=== PATIENT | male | born 1950 | race Caucasian/White ===

== ENCOUNTER 2017-09-07 08:00 | Outpatient (RCR) | payer MEDICARE, SELFPAY ==
[2017-08-14 00:40] VITALS: BP 131/74; PULSE 77; RESP 18; TEMP 36.6
[2017-08-15 08:12] VITALS: BP 146/74; PULSE 83; RESP 16; TEMP 35.3
--- NOTE | 2017-08-15 16:56 | PCM.WC.HP ---
History of Present Illness Date of Service: 08/15/17 - WOUND CENTER CONSULT Chief Complaint: Nonhealing ulcers left leg s/p fracture and hardware placement. REFERRRING PHYSICIAN: Dr. Box. DOCUMENTATION SPEC: Dr. De Oliveira. History of Wound: Patient presented to the Wound Center in 06/30 with nonhealing ulcers left leg. His initial trauma was in 2004 where he sustained a complex fracture wound that required hardware placement and a complex muscle flap for reconstruction. He states the flap came from his abdomen (rectus abdominis muscle flap) utilizing a microvascular free tissue transfer. This was done at [facility] in [place]. He states he did fine until 2015 when he developed an infection that required operative debridement in [place] followed by antibiotics and wound care. With recurrent ulceration and drainage, he came to this Wound Center. Wound culture in 06/30 showed Staphylococcus aureus and E. coli. Repeat culture in 07/30 showed E. coli. He is currently on Levaquin. He had a Venous Doppler study in 06/30 which showed no DVT and incompetent veins with insufficiency. He had an LEAS study in 06/30 which showed triphasic waveforms and calcification. No significant vascular stenoses seen. A CT in 07/30 showed the hardware placement with healed bone and no radiological evidence of osteomyelitis. He has been using Promogran dressing changes for his wound care. I was asked to evaluate his nonhealing ulcers for surgical options for treatment. Today he denies any fever. His appetite is good. Past Medical History Past Medical History: Chronic Problems Peripheral vascular occlusive disease (Chronic) Venous ulcer of ankle (Chronic) Neuropathy of left lower extremity (Chronic) Diabetes type 2, controlled (Chronic) Edema (Chronic) Stasis dermatitis of left lower extremity due to peripheral venous hypertension (Chronic) Ulcer of left lower extremity (Chronic) Past Medical History: Hypertension. Diabetes mellitus. Hyperlipidemia. Venous insufficiency. Arthritis. Surgical History: - - 2004 - At [facility], Left tib fib fracture repair with hardware placement and complex soft tissue reconstruction with rectus abdominis muscle flap microvascular free tissue transfer. 2016 - [facility], Debridement of left leg wound infection. Allergies/Adverse Reactions: Allergies No Known Allergies Allergy (Verified 06/16/17 09:38) Home Medications: Ambulatory Orders Medication Instructions Recorded Aspirin [Aspirin, Baby] 81 mg PO DAILY@0800 06/16/17 Atorvastatin Calcium 20 mg PO DAILY 06/16/17 Cinnamon Bark [Cinnamon] 500 mg PO 06/16/17 Lisinopril [Zestril] 10 mg PO 06/16/17 Metformin HCl 500 mg PO BID 06/16/17 Multivitamin [Multiple Vitamins] 1 each PO 06/16/17 Vit A,C,D3,E/Galvin-3/Ala/Dha 06/16/17 [Child's Galvin-3 Dha Multivitam] - Family History Maternal No pertinent history Lives: Spouse/ Significant Other Smoking Status: Former smoker Alcohol: Rare Drugs: None Review of Systems Constitutional: Denies: Fever, Weight Change, Fatigue Eyes: Denies: Pain HEENT: Denies: Nasal Congestion, Sore Throat Cardiovascular: Denies: Chest Pain Respiratory: Denies: Cough, Shortness of Breath Gastrointestinal: Denies: Constipation, Diarrhea, Nausea, Vomiting Genitourinary: Denies: Frequency, Hematuria Musculoskeletal: Reports: Leg Pain - left leg pain.. Denies: Back Pain, Hand Pain, Muscle pain, Neck Pain Skin: Reports: Wounds - nonhealing ulcers left leg. Neurological: Denies: Headaches Psychiatric: Denies: Anxiety, Depression Endocrine: Reports: - - has diabetes mellitus.. Denies: Polydipsia, Polyuria Hematologic/ Lymphatic: Denies: Easy Bruising, Hx of blood clot - Physical Exam Vital Signs Temp Pulse Resp BP 95.5 F L 83 16 146/74 H 08/15/17 08:12 08/15/17 08:12 08/15/17 08:12 08/15/17 08:12 General: Alert, Oriented x3 HEENT: PERRLA, EOMI Neck: Supple Lungs: Clear to auscultation Cardiovascular: Regular rate, Regular Rhythm Abdomen: Soft, Non-Distended Extremities: No clubbing, No cyanosis, Edema - mild edema left leg., Peripheral Pulses Normal, - - has nonhealing ulcers left medial leg. The central ulcer extends to the bone. Has an ulcer left medial ankle and left anterior leg, more superficial. Skin: Ulcer/ Wound - has nonhealing ulcers left medial leg. The central ulcer extends to the bone. Has an ulcer left medial ankle and left anterior leg, more superficial. Wound Measurements and Assessment WC - Nurse 1 - General Ulcer Measurement Start: 08/15/17 08:12 Freq: Status: Active Protocol: Activity Type Activity Date Activity User E-Sign Co-Sign Detail Recorded Client Recorded Date Recorded By Document 08/15/17 08:12 MW [id number] 08/15/17 08:18 MW 08/15/17 08:12 Wound Center Nurse 1 [Ulcer Assessment Protocol: WC.WD.LOC] # 7 Left Superior Carter (pinhole) -Combined with other wound No -Current Size (cm) - Length 0.3 -Current Size (cm) - Width 0.3 -Current Size (cm) - Depth 0.8 -Total Square Cm 0.09 -Photo Taken No -Epithelialization None Present -Tunneling No -Undermining/Tunneling No -Circular Undermining No -Exudate Amt Small (1-33%) -Exudate Type Purulent -Wound Margin Indistinct, Non -Visible -Granulation Amt Small (1-33%) -Granulation Quality [place] -Slough/Fibrin Yes -Necrosis Amt Medium (34-66%) -Necrotic Tissue Type Adherent Slough -Structure Exposed N/A -Texture (Rufina-wound Skin Appearance) Assessed Localized Edema -Moisture (Rufina-wound Skin Appearance No Abnormality ) Assessed -Color (Rufina-wound Skin Appearance) No Abnormality Assessed -Temperature (Rufina-wound Skin No Abnormality Appearance) (Pt Warm) -Tenderness on Palpation (Rufina-wound No Skin Appearance) -Ulcer Cleansing Rinsed/ Irrigated with Saline -Foul Odor after Cleansing No -Anesthetic Used 4% Lidocaine Solution #4- LT MEDIAL ANKLE -Combined with other wound No -Current Size (cm) - Length 0.1 -Current Size (cm) - Width 0.1 -Current Size (cm) - Depth 0.1 -Total Square Cm 0.01 -Photo Taken No -Epithelialization None Present -Tunneling No -Undermining/Tunneling No -Circular Undermining No -Exudate Amt None Present (0 %) -Granulation Amt None Present (0 %) -Granulation Quality N/A -Slough/Fibrin Yes -Necrosis Amt Large (67-100%) -Necrotic Tissue Type Adherent Slough -Structure Exposed N/A -Texture (Rufina-wound Skin Appearance) Assessed Localized Edema -Moisture (Rufina-wound Skin Appearance Assessed ) Dry/Scaly -Color (Rufina-wound Skin Appearance) No Abnormality Assessed Hemosiderin Staining -Temperature (Rufina-wound Skin No Abnormality Appearance) (Pt Warm) -Tenderness on Palpation (Rufina-wound No Skin Appearance) -Ulcer Cleansing Rinsed/ Irrigated with Saline -Foul Odor after Cleansing No -Anesthetic Used 4% Lidocaine Solution #1 Medial LLE Cluster -Combined with other wound No -Current Size (cm) - Length 7.8 -Current Size (cm) - Width 1.0 -Current Size (cm) - Depth 1.3 -Total Square Cm 7.80 -Photo Taken No -Epithelialization None Present -Tunneling No -Undermining/Tunneling No -Circular Undermining No -Exudate Amt Small (1-33%) -Exudate Type Serosanguineous -Wound Margin Distinct, Outline Attached -Granulation Amt Medium (34-66%) -Granulation Quality [place] -Slough/Fibrin Yes -Necrosis Amt Medium (34-66%) -Necrotic Tissue Type Adherent Slough -Structure Exposed N/A -Texture (Rufina-wound Skin Appearance) Assessed Localized Edema -Moisture (Rufina-wound Skin Appearance No Abnormality ) Assessed -Color (Rufina-wound Skin Appearance) No Abnormality Assessed -Temperature (Rufina-wound Skin No Abnormality Appearance) (Pt Warm) -Tenderness on Palpation (Rufina-wound No Skin Appearance) -Ulcer Cleansing Rinsed/ Irrigated with Saline -Foul Odor after Cleansing No -Anesthetic Used 4% Lidocaine Solution [Edema Assessment] -Lower Limb Edema Present Yes -Left Calf (cm) 44.4 -Point of Measurement (cm from the 31.4 medial instep) WC - Nurse 2 - General Ulcer CM Notes Start: 08/15/17 08:12 Freq: Status: Active Protocol: Activity Type Activity Date Activity User E-Sign Co-Sign Detail Recorded Client Recorded Date Recorded By Document 08/15/17 08:45 [email or web address] [id number] 08/15/17 08:47 DEBBIE 08/15/17 08:45 Wound Center Nurse 2 [Procedure/Treatment] # 7 Left Superior Carter (pinhole) -Time 08:46 -Correct Patient Yes -Correct Side, Site, Position Yes -Correct Procedure Yes -Procedure Performed Yes -Type of Procedure Debridement -Clinical Debridement Subcutaneous -Post Debridement Size (cm) - Length 0.3 -Post Debridement Size (cm) - Width 0.4 -Post Debridement Size (cm) - Depth 0.8 -Total Square Cm 0.12 -Wound/Ulcer Outcome Not Healed -Ulcer Cleansing Rinsed/ Irrigated with Saline -Foul Odor after Cleansing No -Bioengineered Tissue No -Cetacaine [place] No -Bleeding Controlled with Pressure -Treatment Response Procedure Tolerated Well #4- LT MEDIAL ANKLE -Time 08:46 -Correct Patient Yes -Correct Side, Site, Position Yes -Correct Procedure Yes -Procedure Performed Yes -Type of Procedure Debridement -Clinical Debridement Subcutaneous -Post Debridement Size (cm) - Length 0.2 -Post Debridement Size (cm) - Width 0.2 -Post Debridement Size (cm) - Depth 0.1 -Total Square Cm 0.04 -Wound/Ulcer Outcome Not Healed -Ulcer Cleansing Rinsed/ Irrigated with Saline -Foul Odor after Cleansing No -Bioengineered Tissue No -Cetacaine [place] No -Bleeding Controlled with Pressure -Treatment Response Procedure Tolerated Well #1 Medial LLE Cluster -Time 08:46 -Correct Patient Yes -Correct Side, Site, Position Yes -Correct Procedure Yes -Procedure Performed Yes -Type of Procedure Debridement -Clinical Debridement Subcutaneous -Post Debridement Size (cm) - Length 7.8 -Post Debridement Size (cm) - Width 1.1 -Post Debridement Size (cm) - Depth 3.0 -Total Square Cm 8.58 -Wound/Ulcer Outcome Not Healed -Ulcer Cleansing Rinsed/ Irrigated with Saline -Foul Odor after Cleansing No -Bioengineered Tissue No -Cetacaine [place] No -Bleeding Controlled with Pressure -Treatment Response Procedure Tolerated Well [See Physician Procedure note for Specifics] Pain Scale: 0-10 Numeric [Pain] -Is Patient Pain Free? Yes Lymphatic: No Cervical, Supraclavicular, or Inguinal Adenopathy Neurological: Cranial nerves II-XII grossly intact Psych/Mental Status: Normal Affect, Appropriate Debridement Note Post-Debridement Measurements/Treatment WC - Nurse 2 - General Ulcer CM Notes Start: 08/15/17 08:12 Freq: Status: Active Protocol: Activity Type Activity Date Activity User E-Sign Co-Sign Detail Recorded Client Recorded Date Recorded By Document 08/15/17 08:45 [email or web address] [id number] 08/15/17 08:47 DEBBIE 08/15/17 08:45 Wound Center Nurse 2 # 7 Left Superior Carter (pinhole) -Time 08:46 -Correct Patient Yes -Correct Side, Site, Position Yes -Correct Procedure Yes -Procedure Performed Yes -Type of Procedure Debridement -Clinical Debridement Subcutaneous -Post Debridement Size (cm) - Length 0.3 -Post Debridement Size (cm) - Width 0.4 -Post Debridement Size (cm) - Depth 0.8 -Total Square Cm 0.12 -Wound/Ulcer Outcome Not Healed -Ulcer Cleansing Rinsed/ Irrigated with Saline -Foul Odor after Cleansing No -Bioengineered Tissue No -Cetacaine [place] No -Bleeding Controlled with Pressure -Treatment Response Procedure Tolerated Well #4- LT MEDIAL ANKLE -Time 08:46 -Correct Patient Yes -Correct Side, Site, Position Yes -Correct Procedure Yes -Procedure Performed Yes -Type of Procedure Debridement -Clinical Debridement Subcutaneous -Post Debridement Size (cm) - Length 0.2 -Post Debridement Size (cm) - Width 0.2 -Post Debridement Size (cm) - Depth 0.1 -Total Square Cm 0.04 -Wound/Ulcer Outcome Not Healed -Ulcer Cleansing Rinsed/ Irrigated with Saline -Foul Odor after Cleansing No -Bioengineered Tissue No -Cetacaine [place] No -Bleeding Controlled with Pressure -Treatment Response Procedure Tolerated Well #1 Medial LLE Cluster -Time 08:46 -Correct Patient Yes -Correct Side, Site, Position Yes -Correct Procedure Yes -Procedure Performed Yes -Type of Procedure Debridement -Clinical Debridement Subcutaneous -Post Debridement Size (cm) - Length 7.8 -Post Debridement Size (cm) - Width 1.1 -Post Debridement Size (cm) - Depth 3.0 -Total Square Cm 8.58 -Wound/Ulcer Outcome Not Healed -Ulcer Cleansing Rinsed/ Irrigated with Saline -Foul Odor after Cleansing No -Bioengineered Tissue No -Cetacaine [place] No -Bleeding Controlled with Pressure -Treatment Response Procedure Tolerated Well Pain Scale: 0-10 Numeric Is Patient Pain Free? Yes Wound debrided: #1 Left medial leg cluster. Laterality: Left Wound Grade/Stage: 3. Type of Debridement: Excisional debridement Anesthesia Used: 4% Lidocaine Solution Depth: Down to and including healthy tissue, in the subcutaneous layer - central ulcer extends to the bone. Percentage of wound debrided: 100 Instrument Used: 5mm curette Tissue Removed: subcutaneous tissue. Severity: Fat Layer Exposed Amount of bleeding with debridement: Mild Bleeding Controlled with: Pressure Patient tolerated procedure well - Additional Wound Wound debrided: #4 Left medial ankle. Laterality: Left Wound Grade/Stage: 2. Type of Debridement: Excisional debridement Anesthesia Used: 4% Lidocaine Solution Depth: Down to and including healthy tissue, in the subcutaneous layer Percentage of wound debrided: 100 Instrument Used: 3mm curette Tissue Removed: subcutaneous tissue. Severity: Fat Layer Exposed Amount of bleeding with debridement: Mild Bleeding Controlled with: Pressure Patient tolerated procedure: Patient tolerated procedure well - Additional Wound Wound debrided: #7 Left anterior leg. Laterality: Left Wound Grade/Stage: 2. Type of Debridement: Excisional debridement Anesthesia Used: 4% Lidocaine Solution Depth: Down to and including healthy tissue, in the subcutaneous layer Percentage of wound debrided: 100 Instrument Used: 3mm curette Tissue Removed: subcutaneous tissue. Severity: Fat Layer Exposed Amount of bleeding with debridement: Mild Bleeding Controlled with: Pressure Patient tolerated procedure: Patient tolerated procedure well Assessment/Plan Assessment: 1. Nonhealing ulcers cluster left medial leg with extension to the bone. 2. Nonhealing ulcer left medial ankle. 3. Nonhealing ulcer left anterior leg. 4. s/p complex left tib fib fracture repair with hardware placement and soft tissue reconstruction with a microvascular free tissue transfer muscle flap. 5. Venous insufficiency. 6. Diabetes mellitus. 7. Former smoker. Plan: Patient has chronic ulcerations left leg with underlying hardware placement from a complex fracture repair several years ago. Recent wound cultures are showing E. coli and he is continuing his Levaquin. Recent Prealbumin was 21.3 and he takes nutritional supplementation with protein to help the healing process. Recent CT did not show radiologic evidence of osteomyelitis, but I am concerned that chronic osteomyelitis may be present and needs to be evaluated surgically. Also consideration should be done to removing the hardware as well as it may be contributing to the nonhealing ulcers as well. Continue the Promogran dressing changes to the more superficial ulcers. The one ulcer on the medial aspect that extends to the bone can be dressed with a Silver rope dressing daily. The operative debridement needs to be done at a tertiary center because of the presence of the complex muscle flap which utilized microvascular free tissue transfer techniques. If during the operative debridement there is some compromise to the flap, then revision of the flap or an additional flap may be necessary utilizing microvascular free tissue transfer techniques. Also Orthopedic Surgery needs to be involved for removal of the hardware. If osteomyelitis is present, then possible bone grafting may be necessary. Will make the appointment for him to be evaluated at a tertiary center. Until then, followup with Dr. Box every couple of weeks for continued wound care.
--- NOTE | 2017-08-16 22:57 | HP.PCM_ITS ---
History of Present Illness Date of Service: 08/15/17 - WOUND CENTER CONSULT Chief Complaint: Nonhealing ulcers left leg s/p fracture and hardware placement. REFERRRING PHYSICIAN: Dr. Box. LOZENGE MAKER: Dr. De Oliveira. History of Wound: Patient presented to the Wound Center in 06/30 with nonhealing ulcers left leg. His initial trauma was in 2004 where he sustained a complex fracture wound that required hardware placement and a complex muscle flap for reconstruction. He states the flap came from his abdomen (rectus abdominis muscle flap) utilizing a microvascular free tissue transfer. This was done at [facility] in [place]. He states he did fine until 2015 when he developed an infection that required operative debridement in [place] followed by antibiotics and wound care. With recurrent ulceration and drainage, he came to this Wound Center. Wound culture in 06/30 showed Staphylococcus aureus and E. coli. Repeat culture in 07/30 showed E. coli. He is currently on Levaquin. He had a Venous Doppler study in 06/30 which showed no DVT and incompetent veins with insufficiency. He had an LEAS study in 06/30 which showed triphasic waveforms and calcification. No significant vascular stenoses seen. A CT in showed the hardware placement with healed bone and no radiological evidence of osteomyelitis. He has been using Promogran dressing changes for his wound care. I was asked to evaluate his nonhealing ulcers for surgical options for treatment. Today he denies any fever. His appetite is good. Past Medical History Past Medical History: Chronic Problems Peripheral vascular occlusive disease (Chronic) Venous ulcer of ankle (Chronic) Neuropathy of left lower extremity (Chronic) Diabetes type 2, controlled (Chronic) Edema (Chronic) Stasis dermatitis of left lower extremity due to peripheral venous hypertension (Chronic) Ulcer of left lower extremity (Chronic) Past Medical History: Hypertension. Diabetes mellitus. Hyperlipidemia. Venous insufficiency. Arthritis. Surgical History: - - 2004 - At [facility], Left tib fib fracture repair with hardware placement and complex soft tissue reconstruction with rectus abdominis muscle flap microvascular free tissue transfer. 2016 - [facility] , Debridement of left leg wound infection. Allergies/Adverse Reactions: Allergies No Known Allergies Allergy (Verified 06/16/17 09:38) Home Medications: Ambulatory Orders Medication Instructions Recorded Aspirin [Aspirin, Baby] 81 mg PO DAILY@0800 06/16/17 Atorvastatin Calcium 20 mg PO DAILY 06/16/17 Cinnamon Bark [Cinnamon] 500 mg PO 06/16/17 Lisinopril [Zestril] 10 mg PO 06/16/17 Metformin HCl 500 mg PO BID 06/16/17 Multivitamin [Multiple Vitamins] 1 each PO 06/16/17 Vit A,C,D3,E/Eva-3/Ala/Dha 06/16/17 [Child's Eva-3 Dha Multivitam] - Family History Maternal No pertinent history Lives: Spouse/ Significant Other Smoking Status: Former smoker Alcohol: Rare Drugs: None Review of Systems Constitutional: Denies: Fever, Weight Change, Fatigue Eyes: Denies: Pain HEENT: Denies: Nasal Congestion, Sore Throat Cardiovascular: Denies: Chest Pain Respiratory: Denies: Cough, Shortness of Breath Gastrointestinal: Denies: Constipation, Diarrhea, Nausea, Vomiting Genitourinary: Denies: Frequency, Hematuria Musculoskeletal: Reports: Leg Pain - left leg pain.. Denies: Back Pain, Hand Pain, Muscle pain, Neck Pain Skin: Reports: Wounds - nonhealing ulcers left leg. Neurological: Denies: Headaches Psychiatric: Denies: Anxiety, Depression Endocrine: Reports: - - has diabetes mellitus.. Denies: Polydipsia, Polyuria Hematologic/ Lymphatic: Denies: Easy Bruising, Hx of blood clot - Physical Exam Vital Signs Temp Pulse Resp BP 95.5 F L 83 16 146/74 H 08/15/17 08:12 08/15/17 08:12 08/15/17 08:12 08/15/17 08:12 General: Alert, Oriented x3 HEENT: PERRLA, EOMI Neck: Supple Lungs: Clear to auscultation Cardiovascular: Regular rate, Regular Rhythm Abdomen: Soft, Non-Distended Extremities: No clubbing, No cyanosis, Edema - mild edema left leg., Peripheral Pulses Normal, - - has nonhealing ulcers left medial leg. The central ulcer extends to the bone. Has an ulcer left medial ankle and left anterior leg, more superficial. Skin: Ulcer/ Wound - has nonhealing ulcers left medial leg. The central ulcer extends to the bone. Has an ulcer left medial ankle and left anterior leg, more superficial. Wound Measurements and Assessment WC - Nurse 1 - General Ulcer Measurement Start: 08/15/17 08:12 Freq: Status: Active Protocol: Activity Type Activity Date Activity User E-Sign Co-Sign Detail Recorded Client Recorded Date Recorded By Document 08/15/17 08:12 MW [id number] 08/15/17 08:18 MW 08/15/17 08:12 Wound Center Nurse 1 [Ulcer Assessment Protocol: WC.WD.LOC] # 7 Left Superior Carter (pinhole) -Combined with other wound No -Current Size (cm) - Length 0.3 -Current Size (cm) - Width 0.3 -Current Size (cm) - Depth 0.8 -Total Square Cm 0.09 -Photo Taken No -Epithelialization None Present -Tunneling No -Undermining/Tunneling No -Circular Undermining No -Exudate Amt Small (1-33%) -Exudate Type Purulent -Wound Margin Indistinct, Non -Visible -Granulation Amt Small (1-33%) -Granulation Quality [place] -Slough/Fibrin Yes -Necrosis Amt Medium (34-66%) -Necrotic Tissue Type Adherent Slough -Structure Exposed N/A -Texture (Rufina-wound Skin Appearance) Assessed Localized Edema -Moisture (Rufina-wound Skin Appearance No Abnormality ) Assessed -Color (Rufina-wound Skin Appearance) No Abnormality Assessed -Temperature (Rufina-wound Skin No Abnormality Appearance) (Pt Warm) -Tenderness on Palpation (Rufina-wound No Skin Appearance) -Ulcer Cleansing Rinsed/ Irrigated with Saline -Foul Odor after Cleansing No -Anesthetic Used 4% Lidocaine Solution #4- LT MEDIAL ANKLE -Combined with other wound No -Current Size (cm) - Length 0.1 -Current Size (cm) - Width 0.1 -Current Size (cm) - Depth 0.1 -Total Square Cm 0.01 -Photo Taken No -Epithelialization None Present -Tunneling No -Undermining/Tunneling No -Circular Undermining No -Exudate Amt None Present (0 %) -Granulation Amt None Present (0 %) -Granulation Quality N/A -Slough/Fibrin Yes -Necrosis Amt Large (67-100%) -Necrotic Tissue Type Adherent Slough -Structure Exposed N/A -Texture (Rufina-wound Skin Appearance) Assessed Localized Edema -Moisture (Rufina-wound Skin Appearance Assessed ) Dry/Scaly -Color (Rufina-wound Skin Appearance) No Abnormality Assessed Hemosiderin Staining -Temperature (Rufina-wound Skin No Abnormality Appearance) (Pt Warm) -Tenderness on Palpation (Rufina-wound No Skin Appearance) -Ulcer Cleansing Rinsed/ Irrigated with Saline -Foul Odor after Cleansing No -Anesthetic Used 4% Lidocaine Solution #1 Medial LLE Cluster -Combined with other wound No -Current Size (cm) - Length 7.8 -Current Size (cm) - Width 1.0 -Current Size (cm) - Depth 1.3 -Total Square Cm 7.80 -Photo Taken No -Epithelialization None Present -Tunneling No -Undermining/Tunneling No -Circular Undermining No -Exudate Amt Small (1-33%) -Exudate Type Serosanguineous -Wound Margin Distinct, Outline Attached -Granulation Amt Medium (34-66%) -Granulation Quality [place] -Slough/Fibrin Yes -Necrosis Amt Medium (34-66%) -Necrotic Tissue Type Adherent Slough -Structure Exposed N/A -Texture (Rufina-wound Skin Appearance) Assessed Localized Edema -Moisture (Rufina-wound Skin Appearance No Abnormality ) Assessed -Color (Rufina-wound Skin Appearance) No Abnormality Assessed -Temperature (Rufina-wound Skin No Abnormality Appearance) (Pt Warm) -Tenderness on Palpation (Rufina-wound No Skin Appearance) -Ulcer Cleansing Rinsed/ Irrigated with Saline -Foul Odor after Cleansing No -Anesthetic Used 4% Lidocaine Solution [Edema Assessment] -Lower Limb Edema Present Yes -Left Calf (cm) 44.4 -Point of Measurement (cm from the 31.4 medial instep) WC - Nurse 2 - General Ulcer CM Notes Start: 08/15/17 08:12 Freq: Status: Active Protocol: Activity Type Activity Date Activity User E-Sign Co-Sign Detail Recorded Client Recorded Date Recorded By Document 08/15/17 08:45 [email or web address] [id number] 08/15/17 08:47 [email or web address] 08/15/17 08:45 Wound Center Nurse 2 [Procedure/Treatment] # 7 Left Superior Carter (pinhole) -Time 08:46 -Correct Patient Yes -Correct Side, Site, Position Yes -Correct Procedure Yes -Procedure Performed Yes -Type of Procedure Debridement -Clinical Debridement Subcutaneous -Post Debridement Size (cm) - Length 0.3 -Post Debridement Size (cm) - Width 0.4 -Post Debridement Size (cm) - Depth 0.8 -Total Square Cm 0.12 -Wound/Ulcer Outcome Not Healed -Ulcer Cleansing Rinsed/ Irrigated with Saline -Foul Odor after Cleansing No -Bioengineered Tissue No -Cetacaine Plover No -Bleeding Controlled with Pressure -Treatment Response Procedure Tolerated Well #4- LT MEDIAL ANKLE -Time 08:46 -Correct Patient Yes -Correct Side, Site, Position Yes -Correct Procedure Yes -Procedure Performed Yes -Type of Procedure Debridement -Clinical Debridement Subcutaneous -Post Debridement Size (cm) - Length 0.2 -Post Debridement Size (cm) - Width 0.2 -Post Debridement Size (cm) - Depth 0.1 -Total Square Cm 0.04 -Wound/Ulcer Outcome Not Healed -Ulcer Cleansing Rinsed/ Irrigated with Saline -Foul Odor after Cleansing No -Bioengineered Tissue No -Cetacaine Plover No -Bleeding Controlled with Pressure -Treatment Response Procedure Tolerated Well #1 Medial LLE Cluster -Time 08:46 -Correct Patient Yes -Correct Side, Site, Position Yes -Correct Procedure Yes -Procedure Performed Yes -Type of Procedure Debridement -Clinical Debridement Subcutaneous -Post Debridement Size (cm) - Length 7.8 -Post Debridement Size (cm) - Width 1.1 -Post Debridement Size (cm) - Depth 3.0 -Total Square Cm 8.58 -Wound/Ulcer Outcome Not Healed -Ulcer Cleansing Rinsed/ Irrigated with Saline -Foul Odor after Cleansing No -Bioengineered Tissue No -Cetacaine Plover No -Bleeding Controlled with Pressure -Treatment Response Procedure Tolerated Well [See Physician Procedure note for Specifics] Pain Scale: 0-10 Numeric [Pain] -Is Patient Pain Free? Yes Lymphatic: No Cervical, Supraclavicular, or Inguinal Adenopathy Neurological: Cranial nerves II-XII grossly intact Psych/Mental Status: Normal Affect, Appropriate Debridement Note Post-Debridement Measurements/Treatment WC - Nurse 2 - General Ulcer CM Notes Start: 08/15/17 08:12 Freq: Status: Active Protocol: Activity Type Activity Date Activity User E-Sign Co-Sign Detail Recorded Client Recorded Date Recorded By Document 08/15/17 08:45 [email or web address] [id number] 08/15/17 08:47 [email or web address] 08/15/17 08:45 Wound Center Nurse 2 # 7 Left Superior Carter (pinhole) -Time 08:46 -Correct Patient Yes -Correct Side, Site, Position Yes -Correct Procedure Yes -Procedure Performed Yes -Type of Procedure Debridement -Clinical Debridement Subcutaneous -Post Debridement Size (cm) - Length 0.3 -Post Debridement Size (cm) - Width 0.4 -Post Debridement Size (cm) - Depth 0.8 -Total Square Cm 0.12 -Wound/Ulcer Outcome Not Healed -Ulcer Cleansing Rinsed/ Irrigated with Saline -Foul Odor after Cleansing No -Bioengineered Tissue No -Cetacaine Plover No -Bleeding Controlled with Pressure -Treatment Response Procedure Tolerated Well #4- LT MEDIAL ANKLE -Time 08:46 -Correct Patient Yes -Correct Side, Site, Position Yes -Correct Procedure Yes -Procedure Performed Yes -Type of Procedure Debridement -Clinical Debridement Subcutaneous -Post Debridement Size (cm) - Length 0.2 -Post Debridement Size (cm) - Width 0.2 -Post Debridement Size (cm) - Depth 0.1 -Total Square Cm 0.04 -Wound/Ulcer Outcome Not Healed -Ulcer Cleansing Rinsed/ Irrigated with Saline -Foul Odor after Cleansing No -Bioengineered Tissue No -Cetacaine Plover No -Bleeding Controlled with Pressure -Treatment Response Procedure Tolerated Well #1 Medial LLE Cluster -Time 08:46 -Correct Patient Yes -Correct Side, Site, Position Yes -Correct Procedure Yes -Procedure Performed Yes -Type of Procedure Debridement -Clinical Debridement Subcutaneous -Post Debridement Size (cm) - Length 7.8 -Post Debridement Size (cm) - Width 1.1 -Post Debridement Size (cm) - Depth 3.0 -Total Square Cm 8.58 -Wound/Ulcer Outcome Not Healed -Ulcer Cleansing Rinsed/ Irrigated with Saline -Foul Odor after Cleansing No -Bioengineered Tissue No -Cetacaine Plover No -Bleeding Controlled with Pressure -Treatment Response Procedure Tolerated Well Pain Scale: 0-10 Numeric Is Patient Pain Free? Yes Wound debrided: #1 Left medial leg cluster. Laterality: Left Wound Grade/Stage: 3. Type of Debridement: Excisional debridement Anesthesia Used: 4% Lidocaine Solution Depth: Down to and including healthy tissue, in the subcutaneous layer - central ulcer extends to the bone. Percentage of wound debrided: 100 Instrument Used: 5mm curette Tissue Removed: subcutaneous tissue. Severity: Fat Layer Exposed Amount of bleeding with debridement: Mild Bleeding Controlled with: Pressure Patient tolerated procedure well - Additional Wound Wound debrided: #4 Left medial ankle. Laterality: Left Wound Grade/Stage: 2. Type of Debridement: Excisional debridement Anesthesia Used: 4% Lidocaine Solution Depth: Down to and including healthy tissue, in the subcutaneous layer Percentage of wound debrided: 100 Instrument Used: 3mm curette Tissue Removed: subcutaneous tissue. Severity: Fat Layer Exposed Amount of bleeding with debridement: Mild Bleeding Controlled with: Pressure Patient tolerated procedure: Patient tolerated procedure well - Additional Wound Wound debrided: #7 Left anterior leg. Laterality: Left Wound Grade/Stage: 2. Type of Debridement: Excisional debridement Anesthesia Used: 4% Lidocaine Solution Depth: Down to and including healthy tissue, in the subcutaneous layer Percentage of wound debrided: 100 Instrument Used: 3mm curette Tissue Removed: subcutaneous tissue. Severity: Fat Layer Exposed Amount of bleeding with debridement: Mild Bleeding Controlled with: Pressure Patient tolerated procedure: Patient tolerated procedure well Assessment/Plan Assessment: 1. Nonhealing ulcers cluster left medial leg with extension to the bone. 2. Nonhealing ulcer left medial ankle. 3. Nonhealing ulcer left anterior leg. 4. s/p complex left tib fib fracture repair with hardware placement and soft tissue reconstruction with a microvascular free tissue transfer muscle flap. 5. Venous insufficiency. 6. Diabetes mellitus. 7. Former smoker. Plan: Patient has chronic ulcerations left leg with underlying hardware placement from a complex fracture repair several years ago. Recent wound cultures are showing E. coli and he is continuing his Levaquin. Recent Prealbumin was 21.3 and he takes nutritional supplementation with protein to help the healing process. Recent CT did not show radiologic evidence of osteomyelitis, but I am concerned that chronic osteomyelitis may be present and needs to be evaluated surgically. Also consideration should be done to removing the hardware as well as it may be contributing to the nonhealing ulcers as well. Continue the Promogran dressing changes to the more superficial ulcers. The one ulcer on the medial aspect that extends to the bone can be dressed with a Silver rope dressing daily. The operative debridement needs to be done at a tertiary center because of the presence of the complex muscle flap which utilized microvascular free tissue transfer techniques. If during the operative debridement there is some compromise to the flap, then revision of the flap or an additional flap may be necessary utilizing microvascular free tissue transfer techniques. Also Orthopedic Surgery needs to be involved for removal of the hardware. If osteomyelitis is present, then possible bone grafting may be necessary. Will make the appointment for him to be evaluated at a tertiary center. Until then, followup with Dr. Box every couple of weeks for continued wound care.
[2017-08-24 08:13] VITALS: BP 137/73; PULSE 88; RESP 16; TEMP 35.7
--- NOTE | 2017-08-24 16:22 | PCM.WC.PN ---
(1) Diabetes type 2, controlled Status: Chronic Current Visit: No Qualifiers: Diabetes mellitus complication status: with circulatory complication Code(s): E11.9 - Type 2 diabetes mellitus without complications (2) Neuropathy of left lower extremity Status: Chronic Current Visit: No Code(s): G57.92 - Unspecified mononeuropathy of left lower limb (3) Peripheral vascular occlusive disease Status: Chronic Current Visit: No Code(s): I73.9 - Peripheral vascular disease, unspecified (4) Stasis dermatitis of left lower extremity due to peripheral venous hypertension Status: Chronic Current Visit: No Code(s): I87.322 - Chronic venous hypertension (idiopathic) with inflammation of left lower extremity (5) Ulcer of left lower extremity Status: Chronic Current Visit: No Code(s): L97.929 - Non-pressure chronic ulcer of unspecified part of left lower leg with unspecified severity (6) Venous ulcer of ankle Status: Chronic Current Visit: No Qualifiers: Varicose vein presence: unspecified whether present Non-pressure ulcer stage: with muscle involvement without evidence of necrosis Code(s): I83.003 - Varicose veins of unspecified lower extremity with ulcer of ankle Type of Wound Date of Service: 08/24/17 Chief Complaint: Nonhealing ulcers left leg s/p fracture and hardware placement. REFERRRING PHYSICIAN: Dr. Box. [employer] LABORER: Dr. De Oliveira. History of Wound: Patient presented to the Wound Center in 06/30 with nonhealing ulcers left leg. His initial trauma was in 2004 where he sustained a complex fracture wound that required hardware placement and a complex muscle flap for reconstruction. He states the flap came from his abdomen (rectus abdominis muscle flap) utilizing a microvascular free tissue transfer. This was done at [facility] [place]. He states he did fine until 2016 when he developed an infection that required operative debridement in [place] followed by antibiotics and wound care. With recurrent ulceration and drainage, he came to this Wound Center. Wound culture in 06/30 showed Staphylococcus aureus and E. coli. Repeat culture in 07/30 showed E. coli. He is currently on Levaquin. He had a Venous Doppler study in 06/30 which showed no DVT and incompetent veins with insufficiency. He had an LEAS study in 06/30 which showed triphasic waveforms and calcification. No significant vascular stenoses seen. A CT in 07/30 showed the hardware placement with healed bone and no radiological evidence of osteomyelitis. He has been using Promogran dressing changes for his wound care. I was asked to evaluate his nonhealing ulcers for surgical options for treatment. Today he denies any fever. His appetite is good. Progress of Wound: Followed up with Dr. De Oliveira as recommended. Plan is for referral to a tertiary center for possible bone biopsy to rule out osteomyelitis and hardware removal. - Physical Exam Vital Signs Temp Pulse Resp BP 96.2 F L 88 16 137/73 H 08/24/17 08:13 08/24/17 08:13 08/24/17 08:13 08/24/17 08:13 General: Alert, Oriented x3, Cooperative, No apparent distress HEENT: Atraumatic, Normocephalic Oral: Moist Mucosa Neck: Supple Lungs: Normal air movement Skin: Ulcer/ Wound Wound Measurements and Assessment WC - Nurse 1 - General Ulcer Measurement Start: 08/15/17 08:12 Freq: Status: Active Protocol: Activity Type Activity Date Activity User E-Sign Co-Sign Detail Recorded Client Recorded Date Recorded By Document 08/24/17 08:13 DL [id number] 08/24/17 08:18 DL 08/24/17 08:13 Wound Center Nurse 1 [Ulcer Assessment Protocol: ELBA.WD.LOC] # 7 Left Superior Carter (pinhole) -Current Size (cm) - Length 0.4 -Current Size (cm) - Width 0.4 -Current Size (cm) - Depth 0.1 -Total Square Cm 0.16 -Photo Taken Yes -Exudate Amt None Present (0 %) -Wound Margin Distinct, Outline Attached -Granulation Amt Small (1-33%) -Granulation Quality Red -Necrosis Amt Small (1-33%) -Necrotic Tissue Type Adherent Slough -Structure Exposed N/A -Texture (Rufina-wound Skin Appearance) Scarring -Moisture (Rufina-wound Skin Appearance Dry/Scaly ) -Color (Rufina-wound Skin Appearance) Hemosiderin Staining -Temperature (Rufina-wound Skin No Abnormality Appearance) (Pt Warm) -Ulcer Cleansing Wound Cleanser -Foul Odor after Cleansing No -Anesthetic Used 4% Lidocaine Solution #4- LT MEDIAL ANKLE -Current Size (cm) - Length 0.1 -Current Size (cm) - Width 0.1 -Current Size (cm) - Depth 0.1 -Total Square Cm 0.01 -Photo Taken Yes -Exudate Amt None Present (0 %) -Wound Margin Flat & Intact -Granulation Amt None Present (0 %) -Necrosis Amt Large (67-100%) -Necrotic Tissue Type Adherent Slough -Structure Exposed N/A -Texture (Urfina-wound Skin Appearance) Scarring -Moisture (Rufina-wound Skin Appearance Dry/Scaly ) -Color (Rufina-wound Skin Appearance) Hemosiderin Staining -Temperature (Rufina-wound Skin No Abnormality Appearance) (Pt Warm) -Ulcer Cleansing Wound Cleanser -Foul Odor after Cleansing No -Anesthetic Used 4% Lidocaine Solution #1 Medial LLE Cluster -Current Size (cm) - Length 7.6 -Current Size (cm) - Width 2.1 -Current Size (cm) - Depth 2.8 -Total Square Cm 15.96 -Photo Taken Yes -Exudate Amt Medium (34-66%) -Exudate Type Serosanguineous -Wound Margin Distinct, Outline Attached -Granulation Amt Large (67-100%) -Granulation Quality Red -Necrosis Amt Small (1-33%) -Necrotic Tissue Type Adherent Slough -Structure Exposed Bone -Texture (Rufina-wound Skin Appearance) Scarring -Moisture (Rufina-wound Skin Appearance Dry/Scaly ) -Color (Rufina-wound Skin Appearance) Hemosiderin Staining -Temperature (Rufina-wound Skin No Abnormality Appearance) (Pt Warm) -Ulcer Cleansing Wound Cleanser -Foul Odor after Cleansing No -Anesthetic Used 4% Lidocaine Solution [Edema Assessment] -Left Calf (cm) 44.2 -Left Ankle (cm) 31.5 WC - Nurse 2 - General Ulcer CM Notes Start: 08/15/17 08:12 Freq: Status: Active Protocol: Activity Type Activity Date Activity User E-Sign Co-Sign Detail Recorded Client Recorded Date Recorded By Document 08/24/17 09:04 DV [id number] 08/24/17 09:06 DV 08/24/17 09:04 Wound Center Nurse 2 [Procedure/Treatment] # 7 Left Superior Carter (pinhole) -Time 09:04 -Correct Patient Yes -Correct Side, Site, Position Yes -Correct Procedure Yes -Procedure Performed Yes -Type of Procedure Debridement -Clinical Debridement Subcutaneous -Post Debridement Size (cm) - Length 0.5 -Post Debridement Size (cm) - Width 0.5 -Post Debridement Size (cm) - Depth 0.2 -Total Square Cm 0.25 -Wound/Ulcer Outcome Not Healed -Ulcer Cleansing Rinsed/ Irrigated with Saline -Foul Odor after Cleansing No -Bioengineered Tissue No -Cetacaine [place] No -Bleeding Controlled with Pressure -Treatment Response Procedure Tolerated Well #4- LT MEDIAL ANKLE -Time 09:04 -Correct Patient Yes -Correct Side, Site, Position Yes -Correct Procedure Yes -Procedure Performed Yes -Type of Procedure Debridement -Clinical Debridement Subcutaneous -Post Debridement Size (cm) - Length 0.1 -Post Debridement Size (cm) - Width 0.1 -Post Debridement Size (cm) - Depth 0.5 -Total Square Cm 0.01 -Wound/Ulcer Outcome Not Healed -Ulcer Cleansing Rinsed/ Irrigated with Saline -Foul Odor after Cleansing No -Bioengineered Tissue No -Cetacaine [place] No -Bleeding Controlled with Pressure -Treatment Response Procedure Tolerated Well #1 Medial LLE Cluster -Time 09:05 -Correct Patient Yes -Correct Side, Site, Position Yes -Correct Procedure Yes -Procedure Performed Yes -Type of Procedure Debridement -Clinical Debridement Bone -Post Debridement Size (cm) - Length 8.0 -Post Debridement Size (cm) - Width 1.0 -Post Debridement Size (cm) - Depth 3.5 -Total Square Cm 8.00 -Wound/Ulcer Outcome Not Healed -Ulcer Cleansing Rinsed/ Irrigated with Saline -Foul Odor after Cleansing No -Bioengineered Tissue No -Cetacaine [place] No -Bleeding Controlled with Pressure -Treatment Response Procedure Tolerated Well [See Physician Procedure note for Specifics] Pain Scale: 0-10 Numeric [Pain] -Is Patient Pain Free? Yes Musculoskeletal: No Muscle Wasting Neurological: Cranial nerves II-XII grossly intact Debridement Note Post-Debridement Measurements/Treatment WC - Nurse 2 - General Ulcer CM Notes Start: 08/15/17 08:12 Freq: Status: Active Protocol: Activity Type Activity Date Activity User E-Sign Co-Sign Detail Recorded Client Recorded Date Recorded By Document 08/15/17 08:45 [id number] 08/15/17 08:47 JF Document 08/24/17 09:04 DV [id number] 08/24/17 09:06 DV 08/15/17 08/24/17 08:45 09:04 Wound Center Nurse 2 # 7 Left Superior Carter (pinhole) -Time 08:46 09:04 -Correct Patient Yes Yes -Correct Side, Site, Position Yes Yes -Correct Procedure Yes Yes -Procedure Performed Yes Yes -Type of Procedure Debridement Debridement -Clinical Debridement Subcutaneous Subcutaneous -Post Debridement Size (cm) - Length 0.3 0.5 -Post Debridement Size (cm) - Width 0.4 0.5 -Post Debridement Size (cm) - Depth 0.8 0.2 -Total Square Cm 0.12 0.25 -Wound/Ulcer Outcome Not Healed Not Healed -Ulcer Cleansing Rinsed/ Rinsed/ Irrigated with Irrigated with Saline Saline -Foul Odor after Cleansing No No -Bioengineered Tissue No No -Cetacaine [place] No No -Bleeding Controlled with Pressure Pressure -Treatment Response Procedure Procedure Tolerated Well Tolerated Well #4- LT MEDIAL ANKLE -Time 08:46 09:04 -Correct Patient Yes Yes -Correct Side, Site, Position Yes Yes -Correct Procedure Yes Yes -Procedure Performed Yes Yes -Type of Procedure Debridement Debridement -Clinical Debridement Subcutaneous Subcutaneous -Post Debridement Size (cm) - Length 0.2 0.1 -Post Debridement Size (cm) - Width 0.2 0.1 -Post Debridement Size (cm) - Depth 0.1 0.5 -Total Square Cm 0.04 0.01 -Wound/Ulcer Outcome Not Healed Not Healed -Ulcer Cleansing Rinsed/ Rinsed/ Irrigated with Irrigated with Saline Saline -Foul Odor after Cleansing No No -Bioengineered Tissue No No -Cetacaine [place] No No -Bleeding Controlled with Pressure Pressure -Treatment Response Procedure Procedure Tolerated Well Tolerated Well #1 Medial LLE Cluster -Time 08:46 09:05 -Correct Patient Yes Yes -Correct Side, Site, Position Yes Yes -Correct Procedure Yes Yes -Procedure Performed Yes Yes -Type of Procedure Debridement Debridement -Clinical Debridement Subcutaneous Bone -Post Debridement Size (cm) - Length 7.8 8.0 -Post Debridement Size (cm) - Width 1.1 1.0 -Post Debridement Size (cm) - Depth 3.0 3.5 -Total Square Cm 8.58 8.00 -Wound/Ulcer Outcome Not Healed Not Healed -Ulcer Cleansing Rinsed/ Rinsed/ Irrigated with Irrigated with Saline Saline -Foul Odor after Cleansing No No -Bioengineered Tissue No No -Cetacaine [place] No No -Bleeding Controlled with Pressure Pressure -Treatment Response Procedure Procedure Tolerated Well Tolerated Well Pain Scale: 0-10 Numeric Is Patient Pain Free? Yes Yes Wound debrided: Left Lateral Leg Ulcer Type of Debridement: Excisional debridement Anesthesia Used: 4% Lidocaine Solution Depth: Down to and including healthy tissue, to bone Percentage of wound debrided: 100 Instrument Used: 5mm curette Tissue Removed: Slough, Biofilm Amount of bleeding with debridement: Mild Bleeding Controlled with: Pressure Patient tolerated procedure well - Additional Wound Wound debrided: Left ankle ulcer ( Pin hole ) Type of Debridement: Excisional debridement Anesthesia Used: 4% Lidocaine Solution Depth: Down to and including healthy tissue, in the subcutaneous layer Percentage of wound debrided: 100 Instrument Used: 3mm curette Tissue Removed: Slough, subcutaneous tissue Amount of bleeding with debridement: Mild Bleeding Controlled with: Pressure Patient tolerated procedure: Patient tolerated procedure well - Additional Wound Wound debrided: Left Superior Carter Ulcer ( Pin Hole ) Type of Debridement: Excisional debridement Anesthesia Used: 4% Lidocaine Solution Depth: Down to and including healthy tissue, in the subcutaneous layer Percentage of wound debrided: 100 Instrument Used: 3mm curette Tissue Removed: Slough, Biofilm Amount of bleeding with debridement: Mild Bleeding Controlled with: Pressure Patient tolerated procedure: Patient tolerated procedure well Assessment/Plan Assessment: 1. Nonhealing ulcers cluster left medial leg with extension to the bone. 2. Nonhealing ulcer left medial ankle. 3. Nonhealing ulcer left anterior leg. 4. s/p complex left tib fib fracture repair with hardware placement and soft tissue reconstruction with a microvascular free tissue transfer muscle flap. 5. Venous insufficiency. 6. Diabetes mellitus. 7. Former smoker. Plan: Mr. Mallory has no new complaints at this time. He was seen by Dr. De Oliveira and plan is for referral to a tertiary center for possible hardware removal and bone biopsy to rule out chronic osteomyelitis. Left medial cluster ulcer still probes to bone. No discharge noted at this time. Continue daily packing of the wound with Aquacel silver. Continue Promogran to other ulcers. Continue protein supplements and protein rich diet. Continue levofloxacin for now. Elevate lower extremity when seated and in bed. Avoid ideal standing. Exercise as tolerated. Follow-up in 1 week. This note was generated with [employer] software. It may contain incorrect words, spelling, and punctuation that were not noted in checking the note before signing.
--- NOTE | 2017-08-24 16:54 | PN.PCM_ITS ---
(1) Diabetes type 2, controlled Status: Chronic Current Visit: No Qualifiers: Diabetes mellitus complication status: with circulatory complication Code(s): E11.9 - Type 2 diabetes mellitus without complications (2) Neuropathy of left lower extremity Status: Chronic Current Visit: No Code(s): G57.92 - Unspecified mononeuropathy of left lower limb (3) Peripheral vascular occlusive disease Status: Chronic Current Visit: No Code(s): I73.9 - Peripheral vascular disease, unspecified (4) Stasis dermatitis of left lower extremity due to peripheral venous hypertension Status: Chronic Current Visit: No Code(s): I87.322 - Chronic venous hypertension (idiopathic) with inflammation of left lower extremity (5) Ulcer of left lower extremity Status: Chronic Current Visit: No Code(s): L97.929 - Non-pressure chronic ulcer of unspecified part of left lower leg with unspecified severity (6) Venous ulcer of ankle Status: Chronic Current Visit: No Qualifiers: Varicose vein presence: unspecified whether present Non-pressure ulcer stage: with muscle involvement without evidence of necrosis Code(s): I83.003 - Varicose veins of unspecified lower extremity with ulcer of ankle Type of Wound Date of Service: 08/24/17 Chief Complaint: Nonhealing ulcers left leg s/p fracture and hardware placement. REFERRRING PHYSICIAN: Dr. Box. PROJECT SPECIALIST: Dr. De Oliveira. History of Wound: Patient presented to the Wound Center in 06/30 with nonhealing ulcers left leg. His initial trauma was in 2004 where he sustained a complex fracture wound that required hardware placement and a complex muscle flap for reconstruction. He states the flap came from his abdomen (rectus abdominis muscle flap) utilizing a microvascular free tissue transfer. This was done at [facility]. He states he did fine until 2016 when he developed an infection that required operative debridement in [place] followed by antibiotics and wound care. With recurrent ulceration and drainage, he came to this Wound Center. Wound culture in 06/30 showed Staphylococcus aureus and E. coli. Repeat culture in 07/30 showed E. coli. He is currently on Levaquin. He had a Venous Doppler study in 06/30 which showed no DVT and incompetent veins with insufficiency. He had an LEAS study in 06/30 which showed triphasic waveforms and calcification. No significant vascular stenoses seen. A CT in showed the hardware placement with healed bone and no radiological evidence of osteomyelitis. He has been using Promogran dressing changes for his wound care. I was asked to evaluate his nonhealing ulcers for surgical options for treatment. Today he denies any fever. His appetite is good. Progress of Wound: Followed up with Dr. De Oliveira as recommended. Plan is for referral to a tertiary center for possible bone biopsy to rule out osteomyelitis and hardware removal. - Physical Exam Vital Signs Temp Pulse Resp BP 96.2 F L 88 16 137/73 H 08/24/17 08:13 08/24/17 08:13 08/24/17 08:13 08/24/17 08:13 General: Alert, Oriented x3, Cooperative, No apparent distress HEENT: Atraumatic, Normocephalic Oral: Moist Mucosa Neck: Supple Lungs: Normal air movement Skin: Ulcer/ Wound Wound Measurements and Assessment WC - Nurse 1 - General Ulcer Measurement Start: 08/15/17 08:12 Freq: Status: Active Protocol: Activity Type Activity Date Activity User E-Sign Co-Sign Detail Recorded Client Recorded Date Recorded By Document 08/24/17 08:13 DL [id number] 08/24/17 08:18 DL 08/24/17 08:13 Wound Center Nurse 1 [Ulcer Assessment Protocol: ELBA.WD.LOC] # 7 Left Superior Carter (pinhole) -Current Size (cm) - Length 0.4 -Current Size (cm) - Width 0.4 -Current Size (cm) - Depth 0.1 -Total Square Cm 0.16 -Photo Taken Yes -Exudate Amt None Present (0 %) -Wound Margin Distinct, Outline Attached -Granulation Amt Small (1-33%) -Granulation Quality Red -Necrosis Amt Small (1-33%) -Necrotic Tissue Type Adherent Slough -Structure Exposed N/A -Texture (Rufina-wound Skin Appearance) Scarring -Moisture (Rufina-wound Skin Appearance Dry/Scaly ) -Color (Rufina-wound Skin Appearance) Hemosiderin Staining -Temperature (Rufina-wound Skin No Abnormality Appearance) (Pt Warm) -Ulcer Cleansing Wound Cleanser -Foul Odor after Cleansing No -Anesthetic Used 4% Lidocaine Solution #4- LT MEDIAL ANKLE -Current Size (cm) - Length 0.1 -Current Size (cm) - Width 0.1 -Current Size (cm) - Depth 0.1 -Total Square Cm 0.01 -Photo Taken Yes -Exudate Amt None Present (0 %) -Wound Margin Flat & Intact -Granulation Amt None Present (0 %) -Necrosis Amt Large (67-100%) -Necrotic Tissue Type Adherent Slough -Structure Exposed N/A -Texture (Rufina-wound Skin Appearance) Scarring -Moisture (Rufina-wound Skin Appearance Dry/Scaly ) -Color (Rufina-wound Skin Appearance) Hemosiderin Staining -Temperature (Rufina-wound Skin No Abnormality Appearance) (Pt Warm) -Ulcer Cleansing Wound Cleanser -Foul Odor after Cleansing No -Anesthetic Used 4% Lidocaine Solution #1 Medial LLE Cluster -Current Size (cm) - Length 7.6 -Current Size (cm) - Width 2.1 -Current Size (cm) - Depth 2.8 -Total Square Cm 15.96 -Photo Taken Yes -Exudate Amt Medium (34-66%) -Exudate Type Serosanguineous -Wound Margin Distinct, Outline Attached -Granulation Amt Large (67-100%) -Granulation Quality Red -Necrosis Amt Small (1-33%) -Necrotic Tissue Type Adherent Slough -Structure Exposed Bone -Texture (Rufina-wound Skin Appearance) Scarring -Moisture (Rufina-wound Skin Appearance Dry/Scaly ) -Color (Rufina-wound Skin Appearance) Hemosiderin Staining -Temperature (Rufina-wound Skin No Abnormality Appearance) (Pt Warm) -Ulcer Cleansing Wound Cleanser -Foul Odor after Cleansing No -Anesthetic Used 4% Lidocaine Solution [Edema Assessment] -Left Calf (cm) 44.2 -Left Ankle (cm) 31.5 WC - Nurse 2 - General Ulcer CM Notes Start: 08/15/17 08:12 Freq: Status: Active Protocol: Activity Type Activity Date Activity User E-Sign Co-Sign Detail Recorded Client Recorded Date Recorded By Document 08/24/17 09:04 DV [id number] 08/24/17 09:06 DV 08/24/17 09:04 Wound Center Nurse 2 [Procedure/Treatment] # 7 Left Superior Carter (pinhole) -Time 09:04 -Correct Patient Yes -Correct Side, Site, Position Yes -Correct Procedure Yes -Procedure Performed Yes -Type of Procedure Debridement -Clinical Debridement Subcutaneous -Post Debridement Size (cm) - Length 0.5 -Post Debridement Size (cm) - Width 0.5 -Post Debridement Size (cm) - Depth 0.2 -Total Square Cm 0.25 -Wound/Ulcer Outcome Not Healed -Ulcer Cleansing Rinsed/ Irrigated with Saline -Foul Odor after Cleansing No -Bioengineered Tissue No -Cetacaine [place] No -Bleeding Controlled with Pressure -Treatment Response Procedure Tolerated Well #4- LT MEDIAL ANKLE -Time 09:04 -Correct Patient Yes -Correct Side, Site, Position Yes -Correct Procedure Yes -Procedure Performed Yes -Type of Procedure Debridement -Clinical Debridement Subcutaneous -Post Debridement Size (cm) - Length 0.1 -Post Debridement Size (cm) - Width 0.1 -Post Debridement Size (cm) - Depth 0.5 -Total Square Cm 0.01 -Wound/Ulcer Outcome Not Healed -Ulcer Cleansing Rinsed/ Irrigated with Saline -Foul Odor after Cleansing No -Bioengineered Tissue No -Cetacaine [place] No -Bleeding Controlled with Pressure -Treatment Response Procedure Tolerated Well #1 Medial LLE Cluster -Time 09:05 -Correct Patient Yes -Correct Side, Site, Position Yes -Correct Procedure Yes -Procedure Performed Yes -Type of Procedure Debridement -Clinical Debridement Bone -Post Debridement Size (cm) - Length 8.0 -Post Debridement Size (cm) - Width 1.0 -Post Debridement Size (cm) - Depth 3.5 -Total Square Cm 8.00 -Wound/Ulcer Outcome Not Healed -Ulcer Cleansing Rinsed/ Irrigated with Saline -Foul Odor after Cleansing No -Bioengineered Tissue No -Cetacaine [place] No -Bleeding Controlled with Pressure -Treatment Response Procedure Tolerated Well [See Physician Procedure note for Specifics] Pain Scale: 0-10 Numeric [Pain] -Is Patient Pain Free? Yes Musculoskeletal: No Muscle Wasting Neurological: Cranial nerves II-XII grossly intact Debridement Note Post-Debridement Measurements/Treatment WC - Nurse 2 - General Ulcer CM Notes Start: 08/15/17 08:12 Freq: Status: Active Protocol: Activity Type Activity Date Activity User E-Sign Co-Sign Detail Recorded Client Recorded Date Recorded By Document 08/15/17 08:45 [id number] 08/15/17 08:47 JF Document 08/24/17 09:04 DV [id number] 08/24/17 09:06 DV 08/15/17 08/24/17 08:45 09:04 Wound Center Nurse 2 # 7 Left Superior Carter (pinhole) -Time 08:46 09:04 -Correct Patient Yes Yes -Correct Side, Site, Position Yes Yes -Correct Procedure Yes Yes -Procedure Performed Yes Yes -Type of Procedure Debridement Debridement -Clinical Debridement Subcutaneous Subcutaneous -Post Debridement Size (cm) - Length 0.3 0.5 -Post Debridement Size (cm) - Width 0.4 0.5 -Post Debridement Size (cm) - Depth 0.8 0.2 -Total Square Cm 0.12 0.25 -Wound/Ulcer Outcome Not Healed Not Healed -Ulcer Cleansing Rinsed/ Rinsed/ Irrigated with Irrigated with Saline Saline -Foul Odor after Cleansing No No -Bioengineered Tissue No No -Cetacaine [place] No No -Bleeding Controlled with Pressure Pressure -Treatment Response Procedure Procedure Tolerated Well Tolerated Well #4- LT MEDIAL ANKLE -Time 08:46 09:04 -Correct Patient Yes Yes -Correct Side, Site, Position Yes Yes -Correct Procedure Yes Yes -Procedure Performed Yes Yes -Type of Procedure Debridement Debridement -Clinical Debridement Subcutaneous Subcutaneous -Post Debridement Size (cm) - Length 0.2 0.1 -Post Debridement Size (cm) - Width 0.2 0.1 -Post Debridement Size (cm) - Depth 0.1 0.5 -Total Square Cm 0.04 0.01 -Wound/Ulcer Outcome Not Healed Not Healed -Ulcer Cleansing Rinsed/ Rinsed/ Irrigated with Irrigated with Saline Saline -Foul Odor after Cleansing No No -Bioengineered Tissue No No -Cetacaine [place] No No -Bleeding Controlled with Pressure Pressure -Treatment Response Procedure Procedure Tolerated Well Tolerated Well #1 Medial LLE Cluster -Time 08:46 09:05 -Correct Patient Yes Yes -Correct Side, Site, Position Yes Yes -Correct Procedure Yes Yes -Procedure Performed Yes Yes -Type of Procedure Debridement Debridement -Clinical Debridement Subcutaneous Bone -Post Debridement Size (cm) - Length 7.8 8.0 -Post Debridement Size (cm) - Width 1.1 1.0 -Post Debridement Size (cm) - Depth 3.0 3.5 -Total Square Cm 8.58 8.00 -Wound/Ulcer Outcome Not Healed Not Healed -Ulcer Cleansing Rinsed/ Rinsed/ Irrigated with Irrigated with Saline Saline -Foul Odor after Cleansing No No -Bioengineered Tissue No No -Cetacaine [place] No No -Bleeding Controlled with Pressure Pressure -Treatment Response Procedure Procedure Tolerated Well Tolerated Well Pain Scale: 0-10 Numeric Is Patient Pain Free? Yes Yes Wound debrided: Left Lateral Leg Ulcer Type of Debridement: Excisional debridement Anesthesia Used: 4% Lidocaine Solution Depth: Down to and including healthy tissue, to bone Percentage of wound debrided: 100 Instrument Used: 5mm curette Tissue Removed: Slough, Biofilm Amount of bleeding with debridement: Mild Bleeding Controlled with: Pressure Patient tolerated procedure well - Additional Wound Wound debrided: Left ankle ulcer ( Pin hole ) Type of Debridement: Excisional debridement Anesthesia Used: 4% Lidocaine Solution Depth: Down to and including healthy tissue, in the subcutaneous layer Percentage of wound debrided: 100 Instrument Used: 3mm curette Tissue Removed: Slough, subcutaneous tissue Amount of bleeding with debridement: Mild Bleeding Controlled with: Pressure Patient tolerated procedure: Patient tolerated procedure well - Additional Wound Wound debrided: Left Superior Carter Ulcer ( Pin Hole ) Type of Debridement: Excisional debridement Anesthesia Used: 4% Lidocaine Solution Depth: Down to and including healthy tissue, in the subcutaneous layer Percentage of wound debrided: 100 Instrument Used: 3mm curette Tissue Removed: Slough, Biofilm Amount of bleeding with debridement: Mild Bleeding Controlled with: Pressure Patient tolerated procedure: Patient tolerated procedure well Assessment/Plan Assessment: 1. Nonhealing ulcers cluster left medial leg with extension to the bone. 2. Nonhealing ulcer left medial ankle. 3. Nonhealing ulcer left anterior leg. 4. s/p complex left tib fib fracture repair with hardware placement and soft tissue reconstruction with a microvascular free tissue transfer muscle flap. 5. Venous insufficiency. 6. Diabetes mellitus. 7. Former smoker. Plan: Mr. Mallory has no new complaints at this time. He was seen by Dr. De Oliveira and plan is for referral to a tertiary center for possible hardware removal and bone biopsy to rule out chronic osteomyelitis. Left medial cluster ulcer still probes to bone. No discharge noted at this time. Continue daily packing of the wound with Aquacel silver. Continue Promogran to other ulcers. Continue protein supplements and protein rich diet. Continue levofloxacin for now. Elevate lower extremity when seated and in bed. Avoid ideal standing. Exercise as tolerated. Follow-up in 1 week. This note was generated with [employer]ipe[employer] software. It may contain incorrect words, spelling, and punctuation that were not noted in checking the note before signing.
[2017-08-31 08:30] VITALS: BP 138/68; PULSE 90; RESP 20; TEMP 36.6
--- NOTE | 2017-08-31 09:46 | PCM.WC.PN ---
(1) Diabetes type 2, controlled Status: Chronic Qualifiers: Diabetes mellitus complication status: with circulatory complication Code(s): E11.9 - Type 2 diabetes mellitus without complications (2) Neuropathy of left lower extremity Status: Chronic Code(s): G57.92 - Unspecified mononeuropathy of left lower limb (3) Peripheral vascular occlusive disease Status: Chronic Code(s): I73.9 - Peripheral vascular disease, unspecified (4) Stasis dermatitis of left lower extremity due to peripheral venous hypertension Status: Chronic Code(s): I87.322 - Chronic venous hypertension (idiopathic) with inflammation of left lower extremity (5) Ulcer of left lower extremity Status: Chronic Code(s): L97.929 - Non-pressure chronic ulcer of unspecified part of left lower leg with unspecified severity (6) Venous ulcer of ankle Status: Chronic Qualifiers: Varicose vein presence: unspecified whether present Non-pressure ulcer stage: with muscle involvement without evidence of necrosis Code(s): I83.003 - Varicose veins of unspecified lower extremity with ulcer of ankle Type of Wound Date of Service: 08/31/17 Chief Complaint: Nonhealing ulcers left leg s/p fracture and hardware placement. History of Wound: Patient presented to the Wound Center in 06/30 with nonhealing ulcers left leg. His initial trauma was in 2004 where he sustained a complex fracture wound that required hardware placement and a complex muscle flap for reconstruction. He states the flap came from his abdomen (rectus abdominis muscle flap) utilizing a microvascular free tissue transfer. This was done at [facility] in [place]. He states he did fine until 2015 when he developed an infection that required operative debridement in [place] followed by antibiotics and wound care. With recurrent ulceration and drainage, he came to this Wound Center. Wound culture in 06/30 showed Staphylococcus aureus and E. coli. Repeat culture in 07/30 showed E. coli. He is currently on Levaquin. He had a Venous Doppler study in 06/30 which showed no DVT and incompetent veins with insufficiency. He had an LEAS study in 06/30 which showed triphasic waveforms and calcification. No significant vascular stenoses seen. A CT in 07/30 showed the hardware placement with healed bone and no radiological evidence of osteomyelitis. He has been using Promogran/Annabella dressing changes for his wound care and aquacel packing of tunelling to bone. He is scheduled to follow up at the [facility] per recommendation from Dr. De Oliveira. Progress of Wound: Improving. - Physical Exam Vital Signs Temp Pulse Resp BP 97.8 F 90 20 H 138/68 H 08/31/17 08:30 08/31/17 08:30 08/31/17 08:30 08/31/17 08:30 General: Alert, Oriented x3, Cooperative, No apparent distress HEENT: Atraumatic, Normocephalic Oral: Moist Mucosa Neck: Supple Lungs: Normal air movement Cardiovascular: Regular rate Skin: Ulcer/ Wound - Left Lower Extremity. Wound Measurements and Assessment WC - Nurse 1 - General Ulcer Measurement Start: 08/15/17 08:12 Freq: Status: Active Protocol: Activity Type Activity Date Activity User E-Sign Co-Sign Detail Recorded Client Recorded Date Recorded By Document 08/31/17 08:30 DL [id number] 08/31/17 08:43 DL 08/31/17 08:30 Wound Center Nurse 1 [Ulcer Assessment Protocol: WC.WD.LOC] # 7 Left Superior Carter (pinhole) -Current Size (cm) - Length 0.3 -Current Size (cm) - Width 0.2 -Current Size (cm) - Depth 0.1 -Total Square Cm 0.06 -Photo Taken No -Exudate Amt None Present (0 %) -Wound Margin Flat & Intact -Granulation Amt None Present (0 %) -Necrosis Amt Small (1-33%) -Necrotic Tissue Type Adherent Slough -Structure Exposed N/A -Texture (Rufina-wound Skin Appearance) Scarring -Moisture (Rufina-wound Skin Appearance No Abnormality ) -Color (Rufina-wound Skin Appearance) Hemosiderin Staining -Temperature (Rufina-wound Skin No Abnormality Appearance) (Pt Warm) -Ulcer Cleansing Rinsed/ Irrigated with Saline -Foul Odor after Cleansing No -Anesthetic Used 4% Lidocaine Solution #4- LT MEDIAL ANKLE -Current Size (cm) - Length 0.1 -Current Size (cm) - Width 0.1 -Current Size (cm) - Depth 0.1 -Total Square Cm 0.01 -Photo Taken No -Exudate Amt None Present (0 %) -Wound Margin Flat & Intact -Granulation Amt Large (67-100%) -Granulation Quality Mescal -Necrosis Amt None Present (0 %) -Structure Exposed N/A -Texture (Rufina-wound Skin Appearance) Scarring -Moisture (Rufina-wound Skin Appearance No Abnormality ) -Color (Rufina-wound Skin Appearance) Hemosiderin Staining -Temperature (Rufina-wound Skin No Abnormality Appearance) (Pt Warm) -Ulcer Cleansing Rinsed/ Irrigated with Saline -Foul Odor after Cleansing No #1 Medial LLE Cluster -Current Size (cm) - Length 1.5 -Current Size (cm) - Width 0.7 -Current Size (cm) - Depth 0.9 -Total Square Cm 1.05 -Photo Taken No -Tunneling Position (O'clock) 5 -Tunneling Distance (cm) 2.6 -Exudate Amt Small (1-33%) -Exudate Type Sanguineous -Wound Margin Distinct, Outline Attached -Granulation Amt Large (67-100%) -Granulation Quality Red -Necrosis Amt None Present (0 %) -Structure Exposed N/A -Texture (Rufina-wound Skin Appearance) Localized Edema -Moisture (Rufina-wound Skin Appearance No Abnormality ) -Color (Rufina-wound Skin Appearance) Hemosiderin Staining -Temperature (Rufina-wound Skin No Abnormality Appearance) (Pt Warm) -Tenderness on Palpation (Rufina-wound No Skin Appearance) -Ulcer Cleansing Rinsed/ Irrigated with Saline -Foul Odor after Cleansing No -Anesthetic Used 4% Lidocaine Solution [Edema Assessment] -Left Calf (cm) 44 -Left Ankle (cm) 32.3 WC - Nurse 2 - General Ulcer CM Notes Start: 08/15/17 08:12 Freq: Status: Active Protocol: Activity Type Activity Date Activity User E-Sign Co-Sign Detail Recorded Client Recorded Date Recorded By Document 08/31/17 09:10 DV [id number] 08/31/17 09:20 DV 08/31/17 09:10 Wound Center Nurse 2 [Procedure/Treatment] # 7 Left Superior Carter (pinhole) -Time 09:14 -Correct Patient Yes -Correct Side, Site, Position Yes -Correct Procedure Yes -Procedure Performed Yes -Type of Procedure Debridement -Clinical Debridement Subcutaneous -Post Debridement Size (cm) - Length 0.5 -Post Debridement Size (cm) - Width 0.5 -Post Debridement Size (cm) - Depth 0.7 -Total Square Cm 0.25 -Wound/Ulcer Outcome Not Healed -Ulcer Cleansing Rinsed/ Irrigated with Saline -Foul Odor after Cleansing No -Bioengineered Tissue No -Cetacaine [place] No -Bleeding Controlled with Pressure -Treatment Response Procedure Tolerated Well #4- LT MEDIAL ANKLE -Time 09:15 -Correct Patient Yes -Correct Side, Site, Position Yes -Procedure Performed No -Post Debridement Size (cm) - Length 0 -Post Debridement Size (cm) - Width 0 -Post Debridement Size (cm) - Depth 0 -Total Square Cm 0 -Wound/Ulcer Outcome Healed- Epithelialized #1 Medial LLE Cluster -Time 09:13 -Correct Patient Yes -Correct Side, Site, Position Yes -Correct Procedure Yes -Procedure Performed Yes -Type of Procedure Debridement -Clinical Debridement Subcutaneous -Post Debridement Size (cm) - Length 6.0 -Post Debridement Size (cm) - Width 1.0 -Post Debridement Size (cm) - Depth 3.8 -Total Square Cm 6.00 -Wound/Ulcer Outcome Not Healed -Ulcer Cleansing Rinsed/ Irrigated with Saline -Foul Odor after Cleansing No -Bioengineered Tissue No -Cetacaine [place] No -Bleeding Controlled with Pressure -Treatment Response Procedure Tolerated Well [See Physician Procedure note for Specifics] Musculoskeletal: No Muscle Wasting Neurological: Cranial nerves II-XII grossly intact Psych/Mental Status: Normal Affect Debridement Note Post-Debridement Measurements/Treatment WC - Nurse 2 - General Ulcer CM Notes Start: 08/15/17 08:12 Freq: Status: Active Protocol: Activity Type Activity Date Activity User E-Sign Co-Sign Detail Recorded Client Recorded Date Recorded By Document 08/15/17 08:45 [id number] 08/15/17 08:47 Document 08/24/17 09:04 DV [id number] 08/24/17 09:06 DV Document 08/31/17 09:10 DV [id number] 08/31/17 09:20 DV 08/15/17 08/24/17 08/31/17 08:45 09:04 09:10 Wound Center Nurse 2 # 7 Left Superior Carter (pinhole) -Time 08:46 09:04 09:14 -Correct Patient Yes Yes Yes -Correct Side, Site, Position Yes Yes Yes -Correct Procedure Yes Yes Yes -Procedure Performed Yes Yes Yes -Type of Procedure Debridement Debridement Debridement -Clinical Debridement Subcutaneous Subcutaneous Subcutaneous -Post Debridement Size (cm) - Length 0.3 0.5 0.5 -Post Debridement Size (cm) - Width 0.4 0.5 0.5 -Post Debridement Size (cm) - Depth 0.8 0.2 0.7 -Total Square Cm 0.12 0.25 0.25 -Wound/Ulcer Outcome Not Healed Not Healed Not Healed -Ulcer Cleansing Rinsed/ Rinsed/ Rinsed/ Irrigated with Irrigated with Irrigated with Saline Saline Saline -Foul Odor after Cleansing No No No -Bioengineered Tissue No No No -Cetacaine [place] No No No -Bleeding Controlled with Pressure Pressure Pressure -Treatment Response Procedure Procedure Procedure Tolerated Well Tolerated Well Tolerated Well #4- LT MEDIAL ANKLE -Time 08:46 09:04 09:15 -Correct Patient Yes Yes Yes -Correct Side, Site, Position Yes Yes Yes -Correct Procedure Yes Yes -Procedure Performed Yes Yes No -Type of Procedure Debridement Debridement -Clinical Debridement Subcutaneous Subcutaneous -Post Debridement Size (cm) - Length 0.2 0.1 0 -Post Debridement Size (cm) - Width 0.2 0.1 0 -Post Debridement Size (cm) - Depth 0.1 0.5 0 -Total Square Cm 0.04 0.01 0 -Wound/Ulcer Outcome Not Healed Not Healed Healed- Epithelialized -Ulcer Cleansing Rinsed/ Rinsed/ Irrigated with Irrigated with Saline Saline -Foul Odor after Cleansing No No -Bioengineered Tissue No No -Cetacaine [place] No No -Bleeding Controlled with Pressure Pressure -Treatment Response Procedure Procedure Tolerated Well Tolerated Well #1 Medial LLE Cluster -Time 08:46 09:05 09:13 -Correct Patient Yes Yes Yes -Correct Side, Site, Position Yes Yes Yes -Correct Procedure Yes Yes Yes -Procedure Performed Yes Yes Yes -Type of Procedure Debridement Debridement Debridement -Clinical Debridement Subcutaneous Bone Subcutaneous -Post Debridement Size (cm) - Length 7.8 8.0 6.0 -Post Debridement Size (cm) - Width 1.1 1.0 1.0 -Post Debridement Size (cm) - Depth 3.0 3.5 3.8 -Total Square Cm 8.58 8.00 6.00 -Wound/Ulcer Outcome Not Healed Not Healed Not Healed -Ulcer Cleansing Rinsed/ Rinsed/ Rinsed/ Irrigated with Irrigated with Irrigated with Saline Saline Saline -Foul Odor after Cleansing No No No -Bioengineered Tissue No No No -Cetacaine [place] No No No -Bleeding Controlled with Pressure Pressure Pressure -Treatment Response Procedure Procedure Procedure Tolerated Well Tolerated Well Tolerated Well Pain Scale: 0-10 Numeric Is Patient Pain Free? Yes Yes Wound debrided: Left Lower Extremity ( Cluster Wound ) Type of Debridement: Excisional debridement Anesthesia Used: 4% Lidocaine Solution Depth: Down to and including healthy tissue, to bone Percentage of wound debrided: 100 Instrument Used: 3mm curette, 5mm curette Tissue Removed: Slough Amount of bleeding with debridement: Mild Bleeding Controlled with: Pressure Patient tolerated procedure well - Additional Wound Wound debrided: Leg Lower Extremity. ( Superior Pinhole ) Type of Debridement: Excisional debridement Anesthesia Used: 4% Lidocaine Solution Depth: Down to and including healthy tissue, in the subcutaneous layer Percentage of wound debrided: 100 Instrument Used: 3mm curette Tissue Removed: Slough, Purulent discharge Amount of bleeding with debridement: Mild Bleeding Controlled with: Pressure Patient tolerated procedure: Patient tolerated procedure well Assessment/Plan Assessment: 1. Nonhealing ulcers cluster left medial leg with extension to the bone. 2. Nonhealing ulcer left medial ankle. 3. Nonhealing ulcer left anterior leg. 4. s/p complex left tib fib fracture repair with hardware placement and soft tissue reconstruction with a microvascular free tissue transfer muscle flap. 5. Venous insufficiency. 6. Diabetes mellitus. 7. Former smoker. Plan: Left ankle pin hole has healed. Left cluster with significant reduction in wound size so far however, hole still probes to bone. Scheduled to follow up at the [facility] on the . Mild purulent discharge noted from the superior pinhole. Continue antibiotics for now till follow up at the [facility]. Continue daily packing of the wound with Aquacel silver per Dr. De Oliveira's recommemdation. Continue Annabella to other ulcers and superior pin hole. Continue protein supplements and protein rich diet. Elevate lower extremity when seated and in bed. Avoid idle standing. Exercise as tolerated. Follow-up in 1 week. This note was generated with [employer] dictation software. It may contain incorrect words, spelling, and punctuation that were not noted in checking the note before signing.
--- NOTE | 2017-08-31 09:56 | PN.PCM_ITS ---
(1) Diabetes type 2, controlled Status: Chronic Qualifiers: Diabetes mellitus complication status: with circulatory complication Code(s): E11.9 - Type 2 diabetes mellitus without complications (2) Neuropathy of left lower extremity Status: Chronic Code(s): G57.92 - Unspecified mononeuropathy of left lower limb (3) Peripheral vascular occlusive disease Status: Chronic Code(s): I73.9 - Peripheral vascular disease, unspecified (4) Stasis dermatitis of left lower extremity due to peripheral venous hypertension Status: Chronic Code(s): I87.322 - Chronic venous hypertension (idiopathic) with inflammation of left lower extremity (5) Ulcer of left lower extremity Status: Chronic Code(s): L97.929 - Non-pressure chronic ulcer of unspecified part of left lower leg with unspecified severity (6) Venous ulcer of ankle Status: Chronic Qualifiers: Varicose vein presence: unspecified whether present Non-pressure ulcer stage: with muscle involvement without evidence of necrosis Code(s): I83.003 - Varicose veins of unspecified lower extremity with ulcer of ankle Type of Wound Date of Service: 08/31/17 Chief Complaint: Nonhealing ulcers left leg s/p fracture and hardware placement. History of Wound: Patient presented to the Wound Center in 06/30 with nonhealing ulcers left leg. His initial trauma was in 2004 where he sustained a complex fracture wound that required hardware placement and a complex muscle flap for reconstruction. He states the flap came from his abdomen (rectus abdominis muscle flap) utilizing a microvascular free tissue transfer. This was done at [facility] in [place]. He states he did fine until 2015 when he developed an infection that required operative debridement in [place] followed by antibiotics and wound care. With recurrent ulceration and drainage, he came to this Wound Center. Wound culture in 06/30 showed Staphylococcus aureus and E. coli. Repeat culture in 07/30 showed E. coli. He is currently on Levaquin. He had a Venous Doppler study in 06/30 which showed no DVT and incompetent veins with insufficiency. He had an LEAS study in 06/30 which showed triphasic waveforms and calcification. No significant vascular stenoses seen. A CT in showed the hardware placement with healed bone and no radiological evidence of osteomyelitis. He has been using Promogran/Annabella dressing changes for his wound care and aquacel packing of tunelling to bone. He is scheduled to follow up at the [facility] per recommendation from Dr. De Oliveira. Progress of Wound: Improving. - Physical Exam Vital Signs Temp Pulse Resp BP 97.8 F 90 20 H 138/68 H 08/31/17 08:30 08/31/17 08:30 08/31/17 08:30 08/31/17 08:30 General: Alert, Oriented x3, Cooperative, No apparent distress HEENT: Atraumatic, Normocephalic Oral: Moist Mucosa Neck: Supple Lungs: Normal air movement Cardiovascular: Regular rate Skin: Ulcer/ Wound - Left Lower Extremity. Wound Measurements and Assessment WC - Nurse 1 - General Ulcer Measurement Start: 08/15/17 08:12 Freq: Status: Active Protocol: Activity Type Activity Date Activity User E-Sign Co-Sign Detail Recorded Client Recorded Date Recorded By Document 08/31/17 08:30 DL [id number] 08/31/17 08:43 DL 08/31/17 08:30 Wound Center Nurse 1 [Ulcer Assessment Protocol: WC.WD.LOC] # 7 Left Superior Carter (pinhole) -Current Size (cm) - Length 0.3 -Current Size (cm) - Width 0.2 -Current Size (cm) - Depth 0.1 -Total Square Cm 0.06 -Photo Taken No -Exudate Amt None Present (0 %) -Wound Margin Flat & Intact -Granulation Amt None Present (0 %) -Necrosis Amt Small (1-33%) -Necrotic Tissue Type Adherent Slough -Structure Exposed N/A -Texture (Rufina-wound Skin Appearance) Scarring -Moisture (Rufina-wound Skin Appearance No Abnormality ) -Color (Rufina-wound Skin Appearance) Hemosiderin Staining -Temperature (Rufina-wound Skin No Abnormality Appearance) (Pt Warm) -Ulcer Cleansing Rinsed/ Irrigated with Saline -Foul Odor after Cleansing No -Anesthetic Used 4% Lidocaine Solution #4- LT MEDIAL ANKLE -Current Size (cm) - Length 0.1 -Current Size (cm) - Width 0.1 -Current Size (cm) - Depth 0.1 -Total Square Cm 0.01 -Photo Taken No -Exudate Amt None Present (0 %) -Wound Margin Flat & Intact -Granulation Amt Large (67-100%) -Granulation Quality [place] -Necrosis Amt None Present (0 %) -Structure Exposed N/A -Texture (Rufina-wound Skin Appearance) Scarring -Moisture (Rufina-wound Skin Appearance No Abnormality ) -Color (Rufina-wound Skin Appearance) Hemosiderin Staining -Temperature (Rufina-wound Skin No Abnormality Appearance) (Pt Warm) -Ulcer Cleansing Rinsed/ Irrigated with Saline -Foul Odor after Cleansing No #1 Medial LLE Cluster -Current Size (cm) - Length 1.5 -Current Size (cm) - Width 0.7 -Current Size (cm) - Depth 0.9 -Total Square Cm 1.05 -Photo Taken No -Tunneling Position (O'clock) 5 -Tunneling Distance (cm) 2.6 -Exudate Amt Small (1-33%) -Exudate Type Sanguineous -Wound Margin Distinct, Outline Attached -Granulation Amt Large (67-100%) -Granulation Quality Red -Necrosis Amt None Present (0 %) -Structure Exposed N/A -Texture (Rufina-wound Skin Appearance) Localized Edema -Moisture (Rufina-wound Skin Appearance No Abnormality ) -Color (Rufina-wound Skin Appearance) Hemosiderin Staining -Temperature (Rufina-wound Skin No Abnormality Appearance) (Pt Warm) -Tenderness on Palpation (Rufina-wound No Skin Appearance) -Ulcer Cleansing Rinsed/ Irrigated with Saline -Foul Odor after Cleansing No -Anesthetic Used 4% Lidocaine Solution [Edema Assessment] -Left Calf (cm) 44 -Left Ankle (cm) 32.3 WC - Nurse 2 - General Ulcer CM Notes Start: 08/15/17 08:12 Freq: Status: Active Protocol: Activity Type Activity Date Activity User E-Sign Co-Sign Detail Recorded Client Recorded Date Recorded By Document 08/31/17 09:10 DV [id number] 08/31/17 09:20 DV 08/31/17 09:10 Wound Center Nurse 2 [Procedure/Treatment] # 7 Left Superior Carter (pinhole) -Time 09:14 -Correct Patient Yes -Correct Side, Site, Position Yes -Correct Procedure Yes -Procedure Performed Yes -Type of Procedure Debridement -Clinical Debridement Subcutaneous -Post Debridement Size (cm) - Length 0.5 -Post Debridement Size (cm) - Width 0.5 -Post Debridement Size (cm) - Depth 0.7 -Total Square Cm 0.25 -Wound/Ulcer Outcome Not Healed -Ulcer Cleansing Rinsed/ Irrigated with Saline -Foul Odor after Cleansing No -Bioengineered Tissue No -Cetacaine Comstock No -Bleeding Controlled with Pressure -Treatment Response Procedure Tolerated Well #4- LT MEDIAL ANKLE -Time 09:15 -Correct Patient Yes -Correct Side, Site, Position Yes -Procedure Performed No -Post Debridement Size (cm) - Length 0 -Post Debridement Size (cm) - Width 0 -Post Debridement Size (cm) - Depth 0 -Total Square Cm 0 -Wound/Ulcer Outcome Healed- Epithelialized #1 Medial LLE Cluster -Time 09:13 -Correct Patient Yes -Correct Side, Site, Position Yes -Correct Procedure Yes -Procedure Performed Yes -Type of Procedure Debridement -Clinical Debridement Subcutaneous -Post Debridement Size (cm) - Length 6.0 -Post Debridement Size (cm) - Width 1.0 -Post Debridement Size (cm) - Depth 3.8 -Total Square Cm 6.00 -Wound/Ulcer Outcome Not Healed -Ulcer Cleansing Rinsed/ Irrigated with Saline -Foul Odor after Cleansing No -Bioengineered Tissue No -Cetacaine Comstock No -Bleeding Controlled with Pressure -Treatment Response Procedure Tolerated Well [See Physician Procedure note for Specifics] Musculoskeletal: No Muscle Wasting Neurological: Cranial nerves II-XII grossly intact Psych/Mental Status: Normal Affect Debridement Note Post-Debridement Measurements/Treatment WC - Nurse 2 - General Ulcer CM Notes Start: 08/15/17 08:12 Freq: Status: Active Protocol: Activity Type Activity Date Activity User E-Sign Co-Sign Detail Recorded Client Recorded Date Recorded By Document 08/15/17 08:45 [id number] 08/15/17 08:47 Document 08/24/17 09:04 DV [id number] 08/24/17 09:06 DV Document 08/31/17 09:10 DV [id number] 08/31/17 09:20 DV 08/15/17 08/24/17 08/31/17 08:45 09:04 09:10 Wound Center Nurse 2 # 7 Left Superior Carter (pinhole) -Time 08:46 09:04 09:14 -Correct Patient Yes Yes Yes -Correct Side, Site, Position Yes Yes Yes -Correct Procedure Yes Yes Yes -Procedure Performed Yes Yes Yes -Type of Procedure Debridement Debridement Debridement -Clinical Debridement Subcutaneous Subcutaneous Subcutaneous -Post Debridement Size (cm) - Length 0.3 0.5 0.5 -Post Debridement Size (cm) - Width 0.4 0.5 0.5 -Post Debridement Size (cm) - Depth 0.8 0.2 0.7 -Total Square Cm 0.12 0.25 0.25 -Wound/Ulcer Outcome Not Healed Not Healed Not Healed -Ulcer Cleansing Rinsed/ Rinsed/ Rinsed/ Irrigated with Irrigated with Irrigated with Saline Saline Saline -Foul Odor after Cleansing No No No -Bioengineered Tissue No No No -Cetacaine Comstock No No No -Bleeding Controlled with Pressure Pressure Pressure -Treatment Response Procedure Procedure Procedure Tolerated Well Tolerated Well Tolerated Well #4- LT MEDIAL ANKLE -Time 08:46 09:04 09:15 -Correct Patient Yes Yes Yes -Correct Side, Site, Position Yes Yes Yes -Correct Procedure Yes Yes -Procedure Performed Yes Yes No -Type of Procedure Debridement Debridement -Clinical Debridement Subcutaneous Subcutaneous -Post Debridement Size (cm) - Length 0.2 0.1 0 -Post Debridement Size (cm) - Width 0.2 0.1 0 -Post Debridement Size (cm) - Depth 0.1 0.5 0 -Total Square Cm 0.04 0.01 0 -Wound/Ulcer Outcome Not Healed Not Healed Healed- Epithelialized -Ulcer Cleansing Rinsed/ Rinsed/ Irrigated with Irrigated with Saline Saline -Foul Odor after Cleansing No No -Bioengineered Tissue No No -Cetacaine Comstock No No -Bleeding Controlled with Pressure Pressure -Treatment Response Procedure Procedure Tolerated Well Tolerated Well #1 Medial LLE Cluster -Time 08:46 09:05 09:13 -Correct Patient Yes Yes Yes -Correct Side, Site, Position Yes Yes Yes -Correct Procedure Yes Yes Yes -Procedure Performed Yes Yes Yes -Type of Procedure Debridement Debridement Debridement -Clinical Debridement Subcutaneous Bone Subcutaneous -Post Debridement Size (cm) - Length 7.8 8.0 6.0 -Post Debridement Size (cm) - Width 1.1 1.0 1.0 -Post Debridement Size (cm) - Depth 3.0 3.5 3.8 -Total Square Cm 8.58 8.00 6.00 -Wound/Ulcer Outcome Not Healed Not Healed Not Healed -Ulcer Cleansing Rinsed/ Rinsed/ Rinsed/ Irrigated with Irrigated with Irrigated with Saline Saline Saline -Foul Odor after Cleansing No No No -Bioengineered Tissue No No No -Cetacaine Comstock No No No -Bleeding Controlled with Pressure Pressure Pressure -Treatment Response Procedure Procedure Procedure Tolerated Well Tolerated Well Tolerated Well Pain Scale: 0-10 Numeric Is Patient Pain Free? Yes Yes Wound debrided: Left Lower Extremity ( Cluster Wound ) Type of Debridement: Excisional debridement Anesthesia Used: 4% Lidocaine Solution Depth: Down to and including healthy tissue, to bone Percentage of wound debrided: 100 Instrument Used: 3mm curette, 5mm curette Tissue Removed: Slough Amount of bleeding with debridement: Mild Bleeding Controlled with: Pressure Patient tolerated procedure well - Additional Wound Wound debrided: Leg Lower Extremity. ( Superior Pinhole ) Type of Debridement: Excisional debridement Anesthesia Used: 4% Lidocaine Solution Depth: Down to and including healthy tissue, in the subcutaneous layer Percentage of wound debrided: 100 Instrument Used: 3mm curette Tissue Removed: Slough, Purulent discharge Amount of bleeding with debridement: Mild Bleeding Controlled with: Pressure Patient tolerated procedure: Patient tolerated procedure well Assessment/Plan Assessment: 1. Nonhealing ulcers cluster left medial leg with extension to the bone. 2. Nonhealing ulcer left medial ankle. 3. Nonhealing ulcer left anterior leg. 4. s/p complex left tib fib fracture repair with hardware placement and soft tissue reconstruction with a microvascular free tissue transfer muscle flap. 5. Venous insufficiency. 6. Diabetes mellitus. 7. Former smoker. Plan: Left ankle pin hole has healed. Left cluster with significant reduction in wound size so far however, hole still probes to bone. Scheduled to follow up at the [facility] on the . Mild purulent discharge noted from the superior pinhole. Continue antibiotics for now till follow up at the [facility]. Continue daily packing of the wound with Aquacel silver per Dr. De Oliveira's recommemdation. Continue Annabella to other ulcers and superior pin hole. Continue protein supplements and protein rich diet. Elevate lower extremity when seated and in bed. Avoid idle standing. Exercise as tolerated. Follow- up in 1 week. This note was generated with [employer] dictation software. It may contain incorrect words, spelling, and punctuation that were not noted in checking the note before signing.
[2017-09-07 08:20] VITALS: BP 152/83; PULSE 88; RESP 20
--- NOTE | 2017-09-07 10:46 | PCM.WC.PN ---
(1) Diabetes type 2, controlled Status: Chronic Qualifiers: Diabetes mellitus complication status: with circulatory complication Code(s): E11.9 - Type 2 diabetes mellitus without complications (2) Neuropathy of left lower extremity Status: Chronic Code(s): G57.92 - Unspecified mononeuropathy of left lower limb (3) Peripheral vascular occlusive disease Status: Chronic Code(s): I73.9 - Peripheral vascular disease, unspecified (4) Stasis dermatitis of left lower extremity due to peripheral venous hypertension Status: Chronic Code(s): I87.322 - Chronic venous hypertension (idiopathic) with inflammation of left lower extremity (5) Ulcer of left lower extremity Status: Chronic Code(s): L97.929 - Non-pressure chronic ulcer of unspecified part of left lower leg with unspecified severity (6) Venous ulcer of ankle Status: Chronic Qualifiers: Varicose vein presence: unspecified whether present Non-pressure ulcer stage: with muscle involvement without evidence of necrosis Code(s): I83.003 - Varicose veins of unspecified lower extremity with ulcer of ankle Type of Wound Date of Service: 09/07/17 Chief Complaint: Nonhealing ulcers left leg s/p fracture and hardware placement. History of Wound: Patient presented to the Wound Center in 06/30 with nonhealing ulcers left leg. His initial trauma was in 2004 where he sustained a complex fracture wound that required hardware placement and a complex muscle flap for reconstruction. He states the flap came from his abdomen (rectus abdominis muscle flap) utilizing a microvascular free tissue transfer. This was done at [facility] in [place]. He states he did fine until 2015 when he developed an infection that required operative debridement in [place] followed by antibiotics and wound care. With recurrent ulceration and drainage, he came to this Wound Center. Wound culture in 06/30 showed Staphylococcus aureus and E. coli. Repeat culture in 07/30 showed E. coli. He is currently on Levaquin. He had a Venous Doppler study in 06/30 which showed no DVT and incompetent veins with insufficiency. He had an LEAS study in 06/30 which showed triphasic waveforms and calcification. No significant vascular stenoses seen. A CT in 07/30 showed the hardware placement with healed bone and no radiological evidence of osteomyelitis. He has been using Promogran/Annabella dressing changes for his wound care and aquacel packing of tunelling to bone. He is scheduled to follow up at the [facility] per recommendation from Dr. De Oliveira. Progress of Wound: New opening observed over now healed ulcer. Superior smith ulcer with purulent discharge. - Physical Exam Vital Signs Temp Pulse Resp BP 97.8 F 88 20 H 152/83 H 08/31/17 08:30 09/07/17 08:20 09/07/17 08:20 09/07/17 08:20 General: Alert, Oriented x3, Cooperative, No apparent distress HEENT: Atraumatic, Normocephalic Oral: Moist Mucosa Neck: Supple Lungs: Normal air movement Cardiovascular: Regular rate Extremities: No cyanosis, Edema Wound Measurements and Assessment WC - Nurse 1 - General Ulcer Measurement Start: 08/15/17 08:12 Freq: Status: Active Protocol: Activity Type Activity Date Activity User E-Sign Co-Sign Detail Recorded Client Recorded Date Recorded By Document 09/07/17 08:20 BENOIT [id number] 09/07/17 08:52 BENOIT 09/07/17 08:20 Wound Center Nurse 1 [Ulcer Assessment Protocol: ELBA.WD.LOC] # 7 Left Superior Smith (pinhole) -Combined with other wound No -Current Size (cm) - Length 1.7 -Current Size (cm) - Width 0.5 -Current Size (cm) - Depth 3.2 -Total Square Cm 0.85 -Date of Last Picture (Recall this 08/31/17 field) -Photo Taken No -Epithelialization None Present -Tunneling Yes -Tunneling Position (O'clock) 12 -Tunneling Distance (cm) 0.5 -Undermining/Tunneling No -Circular Undermining No -Classification - Thickness Full Thickness without Exposed Support Structure -Exudate Amt Medium (34-66%) -Exudate Type Serosanguineous -Wound Margin Distinct, Outline Attached -Granulation Amt None Present (0 %) -Granulation Quality N/A -Slough/Fibrin Yes -Necrosis Amt None Present (0 %) -Necrotic Tissue Type Adherent Slough -Structure Exposed N/A -Texture (Rufina-wound Skin Appearance) Localized Edema -Moisture (Rufina-wound Skin Appearance No Abnormality ) -Color (Rufina-wound Skin Appearance) Hemosiderin Staining -Temperature (Rufina-wound Skin No Abnormality Appearance) (Pt Warm) -Tenderness on Palpation (Rufina-wound No Skin Appearance) -Ulcer Cleansing Rinsed/ Irrigated with Saline -Foul Odor after Cleansing No -Anesthetic Used 4% Lidocaine Solution #8 L Smith Sup -Combined with other wound No -Current Size (cm) - Length 0.3 -Current Size (cm) - Width 0.3 -Current Size (cm) - Depth 0.8 -Total Square Cm 0.09 -Date of Last Picture (Recall this 09/07/17 field) -Photo Taken Yes -Epithelialization None Present -Tunneling No -Undermining/Tunneling No -Circular Undermining No -Classification - Thickness Full Thickness without Exposed Support Structure -Exudate Amt Medium (34-66%) -Exudate Type Serosanguineous -Wound Margin Distinct, Outline Attached -Granulation Amt None Present (0 %) -Granulation Quality N/A -Slough/Fibrin No -Necrosis Amt None Present (0 %) -Structure Exposed N/A -Texture (Rufina-wound Skin Appearance) No Abnormality -Moisture (Rufina-wound Skin Appearance No Abnormality ) -Color (Rufina-wound Skin Appearance) No Abnormality Hemosiderin Staining -Temperature (Rufina-wound Skin No Abnormality Appearance) (Pt Warm) -Tenderness on Palpation (Rufina-wound No Skin Appearance) -Ulcer Cleansing Rinsed/ Irrigated with Saline -Foul Odor after Cleansing No -Anesthetic Used 4% Lidocaine Solution #1 Medial LLE Cluster -Combined with other wound No -Current Size (cm) - Length 1.1 -Current Size (cm) - Width 0.6 -Current Size (cm) - Depth 0.9 -Total Square Cm 0.66 -Date of Last Picture (Recall this 08/31/17 field) -Photo Taken No -Epithelialization None Present -Tunneling No -Undermining/Tunneling No -Circular Undermining No -Classification - Thickness Full Thickness without Exposed Support Structure -Exudate Amt Medium (34-66%) -Exudate Type Serosanguineous -Wound Margin Fibrotic Scar, Thickened Scar -Granulation Amt Small (1-33%) -Granulation Quality Red -Slough/Fibrin Yes -Necrosis Amt None Present (0 %) -Necrotic Tissue Type Adherent Slough -Structure Exposed Muscle -Texture (Rufina-wound Skin Appearance) Localized Edema -Moisture (Rufina-wound Skin Appearance No Abnormality ) -Color (Rufina-wound Skin Appearance) Hemosiderin Staining -Temperature (Rufina-wound Skin No Abnormality Appearance) (Pt Warm) -Tenderness on Palpation (Rufina-wound No Skin Appearance) -Ulcer Cleansing Rinsed/ Irrigated with Saline -Foul Odor after Cleansing No -Anesthetic Used 4% Lidocaine Solution [Edema Assessment] -Lower Limb Edema Present Yes -Left Calf (cm) 44.8 -Left Ankle (cm) 32.4 WC - Nurse 2 - General Ulcer CM Notes Start: 08/15/17 08:12 Freq: Status: Active Protocol: Activity Type Activity Date Activity User E-Sign Co-Sign Detail Recorded Client Recorded Date Recorded By Document 09/07/17 09:24 DV [id number] 09/07/17 09:40 DV 09/07/17 09:24 Wound Center Nurse 2 [Procedure/Treatment] #9 Left Medial Ankle -Time 09:39 -Correct Patient Yes -Correct Side, Site, Position Yes -Correct Procedure Yes -Procedure Performed Yes -Type of Procedure Debridement -Clinical Debridement Subcutaneous -Post Debridement Size (cm) - Length 0.6 -Post Debridement Size (cm) - Width 0.5 -Post Debridement Size (cm) - Depth 2.7 -Total Square Cm 0.30 -Wound/Ulcer Outcome Not Healed -Ulcer Cleansing Rinsed/ Irrigated with Saline -Foul Odor after Cleansing No -Bioengineered Tissue No -Cetacaine Carmel No -Bleeding Controlled with Pressure -Treatment Response Procedure Tolerated Well # 7 Left Superior Smith (pinhole) -Time 09:25 -Correct Patient Yes -Correct Side, Site, Position Yes -Correct Procedure Yes -Procedure Performed Yes -Type of Procedure Debridement -Clinical Debridement Subcutaneous -Post Debridement Size (cm) - Length 0.3 -Post Debridement Size (cm) - Width 0.2 -Post Debridement Size (cm) - Depth 2.0 -Total Square Cm 0.06 -Wound/Ulcer Outcome Not Healed -Ulcer Cleansing Rinsed/ Irrigated with Saline -Foul Odor after Cleansing No -Bioengineered Tissue No -Cetacaine Carmel No -Bleeding Controlled with Pressure -Treatment Response Procedure Tolerated Well #1 Medial LLE Cluster -Time 09:26 -Correct Patient Yes -Correct Side, Site, Position Yes -Correct Procedure Yes -Procedure Performed Yes -Type of Procedure Debridement -Clinical Debridement Subcutaneous -Post Debridement Size (cm) - Length 1.6 -Post Debridement Size (cm) - Width 0.5 -Post Debridement Size (cm) - Depth 3.2 -Total Square Cm 0.80 -Wound/Ulcer Outcome Not Healed -Ulcer Cleansing Rinsed/ Irrigated with Saline -Foul Odor after Cleansing No -Bioengineered Tissue No -Cetacaine Carmel No -Bleeding Controlled with Pressure -Treatment Response Procedure Tolerated Well [See Physician Procedure note for Specifics] Pain Scale: 0-10 Numeric [Pain] -Is Patient Pain Free? Yes Neurological: Cranial nerves II-XII grossly intact Debridement Note Post-Debridement Measurements/Treatment WC - Nurse 2 - General Ulcer CM Notes Start: 08/15/17 08:12 Freq: Status: Active Protocol: Activity Type Activity Date Activity User E-Sign Co-Sign Detail Recorded Client Recorded Date Recorded By Document 08/15/17 08:45 JF [id number] 08/15/17 08:47 JF Document 08/24/17 09:04 DV [id number] 08/24/17 09:06 DV Document 08/31/17 09:10 DV [id number] 08/31/17 09:20 DV Document 09/07/17 09:24 DV [id number] 09/07/17 09:40 DV 08/15/17 08/24/17 08/31/17 08:45 09:04 09:10 Wound Center Nurse 2 #9 Left Medial Ankle -Time -Correct Patient -Correct Side, Site, Position -Correct Procedure -Procedure Performed -Type of Procedure -Clinical Debridement -Post Debridement Size (cm) - Length -Post Debridement Size (cm) - Width -Post Debridement Size (cm) - Depth -Total Square Cm -Wound/Ulcer Outcome -Ulcer Cleansing -Foul Odor after Cleansing -Bioengineered Tissue -Cetacaine Carmel -Bleeding Controlled with -Treatment Response # 7 Left Superior Smith (pinhole) -Time 08:46 09:04 09:14 -Correct Patient Yes Yes Yes -Correct Side, Site, Position Yes Yes Yes -Correct Procedure Yes Yes Yes -Procedure Performed Yes Yes Yes -Type of Procedure Debridement Debridement Debridement -Clinical Debridement Subcutaneous Subcutaneous Subcutaneous -Post Debridement Size (cm) - Length 0.3 0.5 0.5 -Post Debridement Size (cm) - Width 0.4 0.5 0.5 -Post Debridement Size (cm) - Depth 0.8 0.2 0.7 -Total Square Cm 0.12 0.25 0.25 -Wound/Ulcer Outcome Not Healed Not Healed Not Healed -Ulcer Cleansing Rinsed/ Rinsed/ Rinsed/ Irrigated with Irrigated with Irrigated with Saline Saline Saline -Foul Odor after Cleansing No No No -Bioengineered Tissue No No No -Cetacaine Carmel No No No -Bleeding Controlled with Pressure Pressure Pressure -Treatment Response Procedure Procedure Procedure Tolerated Well Tolerated Well Tolerated Well #4- LT MEDIAL ANKLE -Time 08:46 09:04 09:15 -Correct Patient Yes Yes Yes -Correct Side, Site, Position Yes Yes Yes -Correct Procedure Yes Yes -Procedure Performed Yes Yes No -Type of Procedure Debridement Debridement -Clinical Debridement Subcutaneous Subcutaneous -Post Debridement Size (cm) - Length 0.2 0.1 0 -Post Debridement Size (cm) - Width 0.2 0.1 0 -Post Debridement Size (cm) - Depth 0.1 0.5 0 -Total Square Cm 0.04 0.01 0 -Wound/Ulcer Outcome Not Healed Not Healed Healed- Epithelialized -Ulcer Cleansing Rinsed/ Rinsed/ Irrigated with Irrigated with Saline Saline -Foul Odor after Cleansing No No -Bioengineered Tissue No No -Cetacaine Carmel No No -Bleeding Controlled with Pressure Pressure -Treatment Response Procedure Procedure Tolerated Well Tolerated Well #1 Medial LLE Cluster -Time 08:46 09:05 09:13 -Correct Patient Yes Yes Yes -Correct Side, Site, Position Yes Yes Yes -Correct Procedure Yes Yes Yes -Procedure Performed Yes Yes Yes -Type of Procedure Debridement Debridement Debridement -Clinical Debridement Subcutaneous Bone Subcutaneous -Post Debridement Size (cm) - Length 7.8 8.0 6.0 -Post Debridement Size (cm) - Width 1.1 1.0 1.0 -Post Debridement Size (cm) - Depth 3.0 3.5 3.8 -Total Square Cm 8.58 8.00 6.00 -Wound/Ulcer Outcome Not Healed Not Healed Not Healed -Ulcer Cleansing Rinsed/ Rinsed/ Rinsed/ Irrigated with Irrigated with Irrigated with Saline Saline Saline -Foul Odor after Cleansing No No No -Bioengineered Tissue No No No -Cetacaine Carmel No No No -Bleeding Controlled with Pressure Pressure Pressure -Treatment Response Procedure Procedure Procedure Tolerated Well Tolerated Well Tolerated Well Pain Scale: 0-10 Numeric Is Patient Pain Free? Yes Yes 09/07/17 09:24 Wound Center Nurse 2 #9 Left Medial Ankle -Time 09:39 -Correct Patient Yes -Correct Side, Site, Position Yes -Correct Procedure Yes -Procedure Performed Yes -Type of Procedure Debridement -Clinical Debridement Subcutaneous -Post Debridement Size (cm) - Length 0.6 -Post Debridement Size (cm) - Width 0.5 -Post Debridement Size (cm) - Depth 2.7 -Total Square Cm 0.30 -Wound/Ulcer Outcome Not Healed -Ulcer Cleansing Rinsed/ Irrigated with Saline -Foul Odor after Cleansing No -Bioengineered Tissue No -Cetacaine Carmel No -Bleeding Controlled with Pressure -Treatment Response Procedure Tolerated Well # 7 Left Superior Smith (pinhole) -Time 09:25 -Correct Patient Yes -Correct Side, Site, Position Yes -Correct Procedure Yes -Procedure Performed Yes -Type of Procedure Debridement -Clinical Debridement Subcutaneous -Post Debridement Size (cm) - Length 0.3 -Post Debridement Size (cm) - Width 0.2 -Post Debridement Size (cm) - Depth 2.0 -Total Square Cm 0.06 -Wound/Ulcer Outcome Not Healed -Ulcer Cleansing Rinsed/ Irrigated with Saline -Foul Odor after Cleansing No -Bioengineered Tissue No -Cetacaine Carmel No -Bleeding Controlled with Pressure -Treatment Response Procedure Tolerated Well #4- LT MEDIAL ANKLE -Time -Correct Patient -Correct Side, Site, Position -Correct Procedure -Procedure Performed -Type of Procedure -Clinical Debridement -Post Debridement Size (cm) - Length -Post Debridement Size (cm) - Width -Post Debridement Size (cm) - Depth -Total Square Cm -Wound/Ulcer Outcome -Ulcer Cleansing -Foul Odor after Cleansing -Bioengineered Tissue -Cetacaine Carmel -Bleeding Controlled with -Treatment Response #1 Medial LLE Cluster -Time 09:26 -Correct Patient Yes -Correct Side, Site, Position Yes -Correct Procedure Yes -Procedure Performed Yes -Type of Procedure Debridement -Clinical Debridement Subcutaneous -Post Debridement Size (cm) - Length 1.6 -Post Debridement Size (cm) - Width 0.5 -Post Debridement Size (cm) - Depth 3.2 -Total Square Cm 0.80 -Wound/Ulcer Outcome Not Healed -Ulcer Cleansing Rinsed/ Irrigated with Saline -Foul Odor after Cleansing No -Bioengineered Tissue No -Cetacaine Carmel No -Bleeding Controlled with Pressure -Treatment Response Procedure Tolerated Well Pain Scale: 0-10 Numeric Is Patient Pain Free? Yes Wound debrided: Left Laterial Leg superior holes. Type of Debridement: Excisional debridement Anesthesia Used: 4% Lidocaine Solution Depth: Down to and including healthy tissue, in the subcutaneous layer Percentage of wound debrided: 100 Instrument Used: 5mm curette Tissue Removed: SLough. Subcutaneous tissue Severity: Fat Layer Exposed Amount of bleeding with debridement: Mild Bleeding Controlled with: Pressure Patient tolerated procedure well - Additional Wound Wound debrided: Left Medial Leg Inferior hole Type of Debridement: Excisional debridement Anesthesia Used: 4% Lidocaine Solution Depth: Down to and including healthy tissue, in the subcutaneous layer Percentage of wound debrided: 100 Instrument Used: 3mm curette Tissue Removed: Slough, Subcutaneous tissue Severity: Fat Layer Exposed Amount of bleeding with debridement: Mild Bleeding Controlled with: Pressure Patient tolerated procedure: Patient tolerated procedure well - Additional Wound Wound debrided: Left Leg superior Smith Pin hole Type of Debridement: Excisional debridement Anesthesia Used: 4% Lidocaine Solution Depth: Down to and including healthy tissue, in the subcutaneous layer Percentage of wound debrided: 100 Instrument Used: - - 1mm curette Tissue Removed: Slough, Devitalized tissue, Purulent material. Severity: Fat Layer Exposed Amount of bleeding with debridement: Mild Bleeding Controlled with: Pressure Patient tolerated procedure: Patient tolerated procedure well Assessment/Plan Assessment: 1. Nonhealing ulcers cluster left medial leg with extension to the bone. 2. Nonhealing ulcer left medial ankle. 3. Nonhealing ulcer left anterior leg. 4. s/p complex left tib fib fracture repair with hardware placement and soft tissue reconstruction with a microvascular free tissue transfer muscle flap. 5. Venous insufficiency. 6. Diabetes mellitus. 7. Former smoker. Plan: Left cluster ulcer has healed however, new opening which also probes to bone/hardware noted about 5 days ago. Also purulent discharge noted from the superor smith wound. No chills or fever reported.Scheduled to follow up at the [facility] on the . Continue antibiotics for now till follow up at the [facility]. Continue daily packing of the wound with Aquacel silver with adaptic covering. Continue protein supplements and protein rich diet. Elevate lower extremity when seated and in bed. Avoid idle standing. Exercise as tolerated. Follow-up in 1 week. This note was generated with [employer] software. It may contain incorrect words, spelling, and punctuation that were not noted in checking the note before signing.
--- NOTE | 2017-09-07 10:55 | PN.PCM_ITS ---
(1) Diabetes type 2, controlled Status: Chronic Qualifiers: Diabetes mellitus complication status: with circulatory complication Code(s): E11.9 - Type 2 diabetes mellitus without complications (2) Neuropathy of left lower extremity Status: Chronic Code(s): G57.92 - Unspecified mononeuropathy of left lower limb (3) Peripheral vascular occlusive disease Status: Chronic Code(s): I73.9 - Peripheral vascular disease, unspecified (4) Stasis dermatitis of left lower extremity due to peripheral venous hypertension Status: Chronic Code(s): I87.322 - Chronic venous hypertension (idiopathic) with inflammation of left lower extremity (5) Ulcer of left lower extremity Status: Chronic Code(s): L97.929 - Non-pressure chronic ulcer of unspecified part of left lower leg with unspecified severity (6) Venous ulcer of ankle Status: Chronic Qualifiers: Varicose vein presence: unspecified whether present Non-pressure ulcer stage: with muscle involvement without evidence of necrosis Code(s): I83.003 - Varicose veins of unspecified lower extremity with ulcer of ankle Type of Wound Date of Service: 09/07/17 Chief Complaint: Nonhealing ulcers left leg s/p fracture and hardware placement. History of Wound: Patient presented to the Wound Center in 06/30 with nonhealing ulcers left leg. His initial trauma was in 2004 where he sustained a complex fracture wound that required hardware placement and a complex muscle flap for reconstruction. He states the flap came from his abdomen (rectus abdominis muscle flap) utilizing a microvascular free tissue transfer. This was done at [facility] in [place]. He states he did fine until 2015 when he developed an infection that required operative debridement in [place] followed by antibiotics and wound care. With recurrent ulceration and drainage, he came to this Wound Center. Wound culture in 06/30 showed Staphylococcus aureus and E. coli. Repeat culture in 07/30 showed E. coli. He is currently on Levaquin. He had a Venous Doppler study in 06/30 which showed no DVT and incompetent veins with insufficiency. He had an LEAS study in 06/30 which showed triphasic waveforms and calcification. No significant vascular stenoses seen. A CT in showed the hardware placement with healed bone and no radiological evidence of osteomyelitis. He has been using Promogran/Annabella dressing changes for his wound care and aquacel packing of tunelling to bone. He is scheduled to follow up at the [facility] per recommendation from Dr. De Oliveira. Progress of Wound: New opening observed over now healed ulcer. Superior smith ulcer with purulent discharge. - Physical Exam Vital Signs Temp Pulse Resp BP 97.8 F 88 20 H 152/83 H 08/31/17 08:30 09/07/17 08:20 09/07/17 08:20 09/07/17 08:20 General: Alert, Oriented x3, Cooperative, No apparent distress HEENT: Atraumatic, Normocephalic Oral: Moist Mucosa Neck: Supple Lungs: Normal air movement Cardiovascular: Regular rate Extremities: No cyanosis, Edema Wound Measurements and Assessment WC - Nurse 1 - General Ulcer Measurement Start: 08/15/17 08:12 Freq: Status: Active Protocol: Activity Type Activity Date Activity User E-Sign Co-Sign Detail Recorded Client Recorded Date Recorded By Document 09/07/17 08:20 BENOIT [id number] 09/07/17 08:52 BENOIT 09/07/17 08:20 Wound Center Nurse 1 [Ulcer Assessment Protocol: ELBA.WD.LOC] # 7 Left Superior Smith (pinhole) -Combined with other wound No -Current Size (cm) - Length 1.7 -Current Size (cm) - Width 0.5 -Current Size (cm) - Depth 3.2 -Total Square Cm 0.85 -Date of Last Picture (Recall this 08/31/17 field) -Photo Taken No -Epithelialization None Present -Tunneling Yes -Tunneling Position (O'clock) 12 -Tunneling Distance (cm) 0.5 -Undermining/Tunneling No -Circular Undermining No -Classification - Thickness Full Thickness without Exposed Support Structure -Exudate Amt Medium (34-66%) -Exudate Type Serosanguineous -Wound Margin Distinct, Outline Attached -Granulation Amt None Present (0 %) -Granulation Quality N/A -Slough/Fibrin Yes -Necrosis Amt None Present (0 %) -Necrotic Tissue Type Adherent Slough -Structure Exposed N/A -Texture (Rufina-wound Skin Appearance) Localized Edema -Moisture (Rufina-wound Skin Appearance No Abnormality ) -Color (Rufina-wound Skin Appearance) Hemosiderin Staining -Temperature (Rufina-wound Skin No Abnormality Appearance) (Pt Warm) -Tenderness on Palpation (Rufina-wound No Skin Appearance) -Ulcer Cleansing Rinsed/ Irrigated with Saline -Foul Odor after Cleansing No -Anesthetic Used 4% Lidocaine Solution #8 L Smith Sup -Combined with other wound No -Current Size (cm) - Length 0.3 -Current Size (cm) - Width 0.3 -Current Size (cm) - Depth 0.8 -Total Square Cm 0.09 -Date of Last Picture (Recall this 09/07/17 field) -Photo Taken Yes -Epithelialization None Present -Tunneling No -Undermining/Tunneling No -Circular Undermining No -Classification - Thickness Full Thickness without Exposed Support Structure -Exudate Amt Medium (34-66%) -Exudate Type Serosanguineous -Wound Margin Distinct, Outline Attached -Granulation Amt None Present (0 %) -Granulation Quality N/A -Slough/Fibrin No -Necrosis Amt None Present (0 %) -Structure Exposed N/A -Texture (Rufina-wound Skin Appearance) No Abnormality -Moisture (Rufina-wound Skin Appearance No Abnormality ) -Color (Rufina-wound Skin Appearance) No Abnormality Hemosiderin Staining -Temperature (Rufina-wound Skin No Abnormality Appearance) (Pt Warm) -Tenderness on Palpation (Rufina-wound No Skin Appearance) -Ulcer Cleansing Rinsed/ Irrigated with Saline -Foul Odor after Cleansing No -Anesthetic Used 4% Lidocaine Solution #1 Medial LLE Cluster -Combined with other wound No -Current Size (cm) - Length 1.1 -Current Size (cm) - Width 0.6 -Current Size (cm) - Depth 0.9 -Total Square Cm 0.66 -Date of Last Picture (Recall this 08/31/17 field) -Photo Taken No -Epithelialization None Present -Tunneling No -Undermining/Tunneling No -Circular Undermining No -Classification - Thickness Full Thickness without Exposed Support Structure -Exudate Amt Medium (34-66%) -Exudate Type Serosanguineous -Wound Margin Fibrotic Scar, Thickened Scar -Granulation Amt Small (1-33%) -Granulation Quality Red -Slough/Fibrin Yes -Necrosis Amt None Present (0 %) -Necrotic Tissue Type Adherent Slough -Structure Exposed Muscle -Texture (Rufina-wound Skin Appearance) Localized Edema -Moisture (Rufina-wound Skin Appearance No Abnormality ) -Color (Rufina-wound Skin Appearance) Hemosiderin Staining -Temperature (Rufina-wound Skin No Abnormality Appearance) (Pt Warm) -Tenderness on Palpation (Rufina-wound No Skin Appearance) -Ulcer Cleansing Rinsed/ Irrigated with Saline -Foul Odor after Cleansing No -Anesthetic Used 4% Lidocaine Solution [Edema Assessment] -Lower Limb Edema Present Yes -Left Calf (cm) 44.8 -Left Ankle (cm) 32.4 WC - Nurse 2 - General Ulcer CM Notes Start: 08/15/17 08:12 Freq: Status: Active Protocol: Activity Type Activity Date Activity User E-Sign Co-Sign Detail Recorded Client Recorded Date Recorded By Document 09/07/17 09:24 DV [id number] 09/07/17 09:40 DV 09/07/17 09:24 Wound Center Nurse 2 [Procedure/Treatment] #9 Left Medial Ankle -Time 09:39 -Correct Patient Yes -Correct Side, Site, Position Yes -Correct Procedure Yes -Procedure Performed Yes -Type of Procedure Debridement -Clinical Debridement Subcutaneous -Post Debridement Size (cm) - Length 0.6 -Post Debridement Size (cm) - Width 0.5 -Post Debridement Size (cm) - Depth 2.7 -Total Square Cm 0.30 -Wound/Ulcer Outcome Not Healed -Ulcer Cleansing Rinsed/ Irrigated with Saline -Foul Odor after Cleansing No -Bioengineered Tissue No -Cetacaine Casey No -Bleeding Controlled with Pressure -Treatment Response Procedure Tolerated Well # 7 Left Superior Smith (pinhole) -Time 09:25 -Correct Patient Yes -Correct Side, Site, Position Yes -Correct Procedure Yes -Procedure Performed Yes -Type of Procedure Debridement -Clinical Debridement Subcutaneous -Post Debridement Size (cm) - Length 0.3 -Post Debridement Size (cm) - Width 0.2 -Post Debridement Size (cm) - Depth 2.0 -Total Square Cm 0.06 -Wound/Ulcer Outcome Not Healed -Ulcer Cleansing Rinsed/ Irrigated with Saline -Foul Odor after Cleansing No -Bioengineered Tissue No -Cetacaine Casey No -Bleeding Controlled with Pressure -Treatment Response Procedure Tolerated Well #1 Medial LLE Cluster -Time 09:26 -Correct Patient Yes -Correct Side, Site, Position Yes -Correct Procedure Yes -Procedure Performed Yes -Type of Procedure Debridement -Clinical Debridement Subcutaneous -Post Debridement Size (cm) - Length 1.6 -Post Debridement Size (cm) - Width 0.5 -Post Debridement Size (cm) - Depth 3.2 -Total Square Cm 0.80 -Wound/Ulcer Outcome Not Healed -Ulcer Cleansing Rinsed/ Irrigated with Saline -Foul Odor after Cleansing No -Bioengineered Tissue No -Cetacaine Casey No -Bleeding Controlled with Pressure -Treatment Response Procedure Tolerated Well [See Physician Procedure note for Specifics] Pain Scale: 0-10 Numeric [Pain] -Is Patient Pain Free? Yes Neurological: Cranial nerves II-XII grossly intact Debridement Note Post-Debridement Measurements/Treatment WC - Nurse 2 - General Ulcer CM Notes Start: 08/15/17 08:12 Freq: Status: Active Protocol: Activity Type Activity Date Activity User E-Sign Co-Sign Detail Recorded Client Recorded Date Recorded By Document 08/15/17 08:45 JF [id number] 08/15/17 08:47 JF Document 08/24/17 09:04 DV [id number] 08/24/17 09:06 DV Document 08/31/17 09:10 DV [id number] 08/31/17 09:20 DV Document 09/07/17 09:24 DV [id number] 09/07/17 09:40 DV 08/15/17 08/24/17 08/31/17 08:45 09:04 09:10 Wound Center Nurse 2 #9 Left Medial Ankle -Time -Correct Patient -Correct Side, Site, Position -Correct Procedure -Procedure Performed -Type of Procedure -Clinical Debridement -Post Debridement Size (cm) - Length -Post Debridement Size (cm) - Width -Post Debridement Size (cm) - Depth -Total Square Cm -Wound/Ulcer Outcome -Ulcer Cleansing -Foul Odor after Cleansing -Bioengineered Tissue -Cetacaine Casey -Bleeding Controlled with -Treatment Response # 7 Left Superior Smith (pinhole) -Time 08:46 09:04 09:14 -Correct Patient Yes Yes Yes -Correct Side, Site, Position Yes Yes Yes -Correct Procedure Yes Yes Yes -Procedure Performed Yes Yes Yes -Type of Procedure Debridement Debridement Debridement -Clinical Debridement Subcutaneous Subcutaneous Subcutaneous -Post Debridement Size (cm) - Length 0.3 0.5 0.5 -Post Debridement Size (cm) - Width 0.4 0.5 0.5 -Post Debridement Size (cm) - Depth 0.8 0.2 0.7 -Total Square Cm 0.12 0.25 0.25 -Wound/Ulcer Outcome Not Healed Not Healed Not Healed -Ulcer Cleansing Rinsed/ Rinsed/ Rinsed/ Irrigated with Irrigated with Irrigated with Saline Saline Saline -Foul Odor after Cleansing No No No -Bioengineered Tissue No No No -Cetacaine Casey No No No -Bleeding Controlled with Pressure Pressure Pressure -Treatment Response Procedure Procedure Procedure Tolerated Well Tolerated Well Tolerated Well #4- LT MEDIAL ANKLE -Time 08:46 09:04 09:15 -Correct Patient Yes Yes Yes -Correct Side, Site, Position Yes Yes Yes -Correct Procedure Yes Yes -Procedure Performed Yes Yes No -Type of Procedure Debridement Debridement -Clinical Debridement Subcutaneous Subcutaneous -Post Debridement Size (cm) - Length 0.2 0.1 0 -Post Debridement Size (cm) - Width 0.2 0.1 0 -Post Debridement Size (cm) - Depth 0.1 0.5 0 -Total Square Cm 0.04 0.01 0 -Wound/Ulcer Outcome Not Healed Not Healed Healed- Epithelialized -Ulcer Cleansing Rinsed/ Rinsed/ Irrigated with Irrigated with Saline Saline -Foul Odor after Cleansing No No -Bioengineered Tissue No No -Cetacaine Casey No No -Bleeding Controlled with Pressure Pressure -Treatment Response Procedure Procedure Tolerated Well Tolerated Well #1 Medial LLE Cluster -Time 08:46 09:05 09:13 -Correct Patient Yes Yes Yes -Correct Side, Site, Position Yes Yes Yes -Correct Procedure Yes Yes Yes -Procedure Performed Yes Yes Yes -Type of Procedure Debridement Debridement Debridement -Clinical Debridement Subcutaneous Bone Subcutaneous -Post Debridement Size (cm) - Length 7.8 8.0 6.0 -Post Debridement Size (cm) - Width 1.1 1.0 1.0 -Post Debridement Size (cm) - Depth 3.0 3.5 3.8 -Total Square Cm 8.58 8.00 6.00 -Wound/Ulcer Outcome Not Healed Not Healed Not Healed -Ulcer Cleansing Rinsed/ Rinsed/ Rinsed/ Irrigated with Irrigated with Irrigated with Saline Saline Saline -Foul Odor after Cleansing No No No -Bioengineered Tissue No No No -Cetacaine Casey No No No -Bleeding Controlled with Pressure Pressure Pressure -Treatment Response Procedure Procedure Procedure Tolerated Well Tolerated Well Tolerated Well Pain Scale: 0-10 Numeric Is Patient Pain Free? Yes Yes 09/07/17 09:24 Wound Center Nurse 2 #9 Left Medial Ankle -Time 09:39 -Correct Patient Yes -Correct Side, Site, Position Yes -Correct Procedure Yes -Procedure Performed Yes -Type of Procedure Debridement -Clinical Debridement Subcutaneous -Post Debridement Size (cm) - Length 0.6 -Post Debridement Size (cm) - Width 0.5 -Post Debridement Size (cm) - Depth 2.7 -Total Square Cm 0.30 -Wound/Ulcer Outcome Not Healed -Ulcer Cleansing Rinsed/ Irrigated with Saline -Foul Odor after Cleansing No -Bioengineered Tissue No -Cetacaine Casey No -Bleeding Controlled with Pressure -Treatment Response Procedure Tolerated Well # 7 Left Superior Smith (pinhole) -Time 09:25 -Correct Patient Yes -Correct Side, Site, Position Yes -Correct Procedure Yes -Procedure Performed Yes -Type of Procedure Debridement -Clinical Debridement Subcutaneous -Post Debridement Size (cm) - Length 0.3 -Post Debridement Size (cm) - Width 0.2 -Post Debridement Size (cm) - Depth 2.0 -Total Square Cm 0.06 -Wound/Ulcer Outcome Not Healed -Ulcer Cleansing Rinsed/ Irrigated with Saline -Foul Odor after Cleansing No -Bioengineered Tissue No -Cetacaine Casey No -Bleeding Controlled with Pressure -Treatment Response Procedure Tolerated Well #4- LT MEDIAL ANKLE -Time -Correct Patient -Correct Side, Site, Position -Correct Procedure -Procedure Performed -Type of Procedure -Clinical Debridement -Post Debridement Size (cm) - Length -Post Debridement Size (cm) - Width -Post Debridement Size (cm) - Depth -Total Square Cm -Wound/Ulcer Outcome -Ulcer Cleansing -Foul Odor after Cleansing -Bioengineered Tissue -Cetacaine Casey -Bleeding Controlled with -Treatment Response #1 Medial LLE Cluster -Time 09:26 -Correct Patient Yes -Correct Side, Site, Position Yes -Correct Procedure Yes -Procedure Performed Yes -Type of Procedure Debridement -Clinical Debridement Subcutaneous -Post Debridement Size (cm) - Length 1.6 -Post Debridement Size (cm) - Width 0.5 -Post Debridement Size (cm) - Depth 3.2 -Total Square Cm 0.80 -Wound/Ulcer Outcome Not Healed -Ulcer Cleansing Rinsed/ Irrigated with Saline -Foul Odor after Cleansing No -Bioengineered Tissue No -Cetacaine Casey No -Bleeding Controlled with Pressure -Treatment Response Procedure Tolerated Well Pain Scale: 0-10 Numeric Is Patient Pain Free? Yes Wound debrided: Left Laterial Leg superior holes. Type of Debridement: Excisional debridement Anesthesia Used: 4% Lidocaine Solution Depth: Down to and including healthy tissue, in the subcutaneous layer Percentage of wound debrided: 100 Instrument Used: 5mm curette Tissue Removed: SLough. Subcutaneous tissue Severity: Fat Layer Exposed Amount of bleeding with debridement: Mild Bleeding Controlled with: Pressure Patient tolerated procedure well - Additional Wound Wound debrided: Left Medial Leg Inferior hole Type of Debridement: Excisional debridement Anesthesia Used: 4% Lidocaine Solution Depth: Down to and including healthy tissue, in the subcutaneous layer Percentage of wound debrided: 100 Instrument Used: 3mm curette Tissue Removed: Slough, Subcutaneous tissue Severity: Fat Layer Exposed Amount of bleeding with debridement: Mild Bleeding Controlled with: Pressure Patient tolerated procedure: Patient tolerated procedure well - Additional Wound Wound debrided: Left Leg superior Smith Pin hole Type of Debridement: Excisional debridement Anesthesia Used: 4% Lidocaine Solution Depth: Down to and including healthy tissue, in the subcutaneous layer Percentage of wound debrided: 100 Instrument Used: - - 1mm curette Tissue Removed: Slough, Devitalized tissue, Purulent material. Severity: Fat Layer Exposed Amount of bleeding with debridement: Mild Bleeding Controlled with: Pressure Patient tolerated procedure: Patient tolerated procedure well Assessment/Plan Assessment: 1. Nonhealing ulcers cluster left medial leg with extension to the bone. 2. Nonhealing ulcer left medial ankle. 3. Nonhealing ulcer left anterior leg. 4. s/p complex left tib fib fracture repair with hardware placement and soft tissue reconstruction with a microvascular free tissue transfer muscle flap. 5. Venous insufficiency. 6. Diabetes mellitus. 7. Former smoker. Plan: Left cluster ulcer has healed however, new opening which also probes to bone/hardware noted about 5 days ago. Also purulent discharge noted from the superor smith wound. No chills or fever reported.Scheduled to follow up at the [facility] on the . Continue antibiotics for now till [facility]. Continue daily packing of the wound with Aquacel silver with adaptic covering. Continue protein supplements and protein rich diet. Elevate lower extremity when seated and in bed. Avoid idle standing. Exercise as tolerated. Follow-up in 1 week. This note was generated with [employer] software. It may contain incorrect words, spelling, and punctuation that were not noted in checking the note before signing.
== END 2017-09-13 23:59 ==
LOC: WC 08:00
PROVIDERS: Family Provider Family Medicine; PCP Family Medicine; Visit Provider Internal Medicine
DX: E11.622 Type 2 diabetes mellitus with other skin ulcer (principal); E11.51 Type 2 diabetes mellitus with diabetic peripheral angiopathy without gangrene; E11.40 Type 2 diabetes mellitus with diabetic neuropathy, unspecified; I83.023 Varicose veins of left lower extremity with ulcer of ankle; L97.322 Non-pressure chronic ulcer of left ankle with fat layer exposed; L97.822 Non-pressure chronic ulcer of other part of left lower leg with fat layer exposed; Z87.891 Personal history of nicotine dependence
CPT/HCPCS: 11042; 11044

== ENCOUNTER 2017-10-05 09:00 | Outpatient (RCR) | payer MEDICARE, SELFPAY ==
[2017-09-07 08:20] VITALS: BP 152/83
[2017-09-14 00:32] VITALS: PULSE 88; RESP 20; TEMP 36.6
[2017-09-14 08:26] VITALS: BP 140/69; PULSE 89; RESP 16; TEMP 35.8
--- NOTE | 2017-09-14 16:43 | PN.PCM_ITS ---
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 History of Wound: Patient presented to the Wound Center in 06/30 with nonhealing ulcers left leg. His initial trauma was in 2004 where he sustained a complex fracture wound that required hardware placement and a complex muscle flap for reconstruction. He states the flap came from his abdomen (rectus abdominis muscle flap) utilizing a microvascular free tissue transfer. This was done at [facility] in [place]. He states he did fine until 2015 when he developed an infection that required operative debridement in [place] followed by antibiotics and wound care. With recurrent ulceration and drainage, he came to this Wound Center. Wound culture in 06/30 showed Staphylococcus aureus and E. coli. Repeat culture in 07/30 showed E. coli. He is currently on Levaquin. He had a Venous Doppler study in 06/30 which showed no DVT and incompetent veins with insufficiency. He had an LEAS study in 06/30 which showed triphasic waveforms and calcification. No significant vascular stenoses seen. A CT in showed the hardware placement with healed bone and no radiological evidence of osteomyelitis. He has been using Promogran/Annabella dressing changes for his wound care and aquacel packing of tunelling to bone. He is scheduled to follow up at the [facility] per recommendation from Dr. De Oliveira. Progress of Wound: Persistent drainage from the wound noted despite currently being on antibiotics. No new openings since the last visit. - Physical Exam Vital Signs Temp Pulse Resp BP 96.4 F L 89 16 140/69 H 09/14/17 08:26 09/14/17 08:26 09/14/17 08:26 09/14/17 08:26 General: Alert, Oriented x3, Cooperative, No apparent distress HEENT: Atraumatic, Normocephalic Oral: Moist Mucosa Neck: Supple Lungs: Normal air movement Cardiovascular: Regular rate Extremities: No cyanosis, Edema Skin: Ulcer/ Wound Wound Measurements and Assessment - Nurse 1 - General Ulcer Measurement Start: 09/14/17 08:25 Freq: Status: Active Protocol: Activity Type Activity Date Activity User E-Sign Co-Sign Detail Recorded Client Recorded Date Recorded By Document 09/14/17 08:26 MW [id number] 09/14/17 08:36 MW 09/14/17 08:26 Wound Center Nurse 1 [Ulcer Assessment Protocol: ELBA.WD.LOC] #9 Medial LLE Inferior -Combined with other wound No -Current Size (cm) - Length 0.6 -Current Size (cm) - Width 0.5 -Current Size (cm) - Depth 2.5 -Total Square Cm 0.30 -Photo Taken No -Epithelialization None Present -Tunneling No -Undermining/Tunneling No -Circular Undermining No -Exudate Amt Small (1-33%) -Exudate Type Serosanguineous -Wound Margin Indistinct, Non -Visible -Granulation Amt None Present (0 %) -Granulation Quality N/A -Slough/Fibrin Yes -Necrosis Amt Small (1-33%) -Necrotic Tissue Type Adherent Slough -Structure Exposed N/A -Texture (Rufina-wound Skin Appearance) Assessed Localized Edema Scarring -Moisture (Rufina-wound Skin Appearance Assessed ) Weeping -Color (Rufina-wound Skin Appearance) Assessed Hemosiderin Staining -Temperature (Rufina-wound Skin No Abnormality Appearance) (Pt Warm) -Tenderness on Palpation (Rufina-wound No Skin Appearance) -Ulcer Cleansing SOAP AND WATER -Foul Odor after Cleansing No -Anesthetic Used 4% Lidocaine Solution # 7 Left Upper Smith (pinhole) -Combined with other wound No -Current Size (cm) - Length 0.3 -Current Size (cm) - Width 0.5 -Current Size (cm) - Depth 1.2 -Total Square Cm 0.15 -Photo Taken No -Epithelialization None Present -Tunneling No -Undermining/Tunneling No -Circular Undermining No -Exudate Amt Small (1-33%) -Exudate Type Serosanguineous -Wound Margin Indistinct, Non -Visible -Granulation Amt None Present (0 %) -Granulation Quality N/A -Slough/Fibrin Yes -Necrosis Amt Small (1-33%) -Necrotic Tissue Type Adherent Slough -Structure Exposed N/A -Texture (Rufina-wound Skin Appearance) Assessed Localized Edema Scarring -Moisture (Rufina-wound Skin Appearance Assessed ) Weeping -Color (Rufina-wound Skin Appearance) Assessed Hemosiderin Staining -Temperature (Rufina-wound Skin No Abnormality Appearance) (Pt Warm) -Tenderness on Palpation (Rufina-wound No Skin Appearance) -Ulcer Cleansing SOAP AND WATER -Foul Odor after Cleansing No -Anesthetic Used 4% Lidocaine Solution #1 Medial LLE Superior -Combined with other wound No -Current Size (cm) - Length 1.7 -Current Size (cm) - Width 0.4 -Current Size (cm) - Depth 2.8 -Total Square Cm 0.68 -Photo Taken No -Epithelialization None Present -Tunneling No -Undermining/Tunneling No -Circular Undermining No -Exudate Amt Small (1-33%) -Exudate Type Serosanguineous -Wound Margin Indistinct, Non -Visible -Granulation Amt None Present (0 %) -Granulation Quality N/A -Necrotic Tissue Type Adherent Slough -Structure Exposed N/A -Texture (Rufina-wound Skin Appearance) Assessed Localized Edema Scarring -Color (Rufina-wound Skin Appearance) Assessed Hemosiderin Staining -Temperature (Rufina-wound Skin No Abnormality Appearance) (Pt Warm) -Tenderness on Palpation (Rufina-wound No Skin Appearance) -Ulcer Cleansing SOAP AND WATER -Foul Odor after Cleansing No -Anesthetic Used 4% Lidocaine Solution [Edema Assessment] -Lower Limb Edema Present Yes -Left Calf (cm) 44.6 -Left Ankle (cm) 31.2 WC - Nurse 2 - General Ulcer CM Notes Start: 09/14/17 08:25 Freq: Status: Active Protocol: Activity Type Activity Date Activity User E-Sign Co-Sign Detail Recorded Client Recorded Date Recorded By Document 09/14/17 08:49 DV [id number] 09/14/17 08:56 DV 09/14/17 08:49 Wound Center Nurse 2 [Procedure/Treatment] #9 Medial LLE Inferior -Time 08:53 -Correct Patient Yes -Correct Side, Site, Position Yes -Correct Procedure Yes -Procedure Performed Yes -Type of Procedure Debridement -Clinical Debridement Subcutaneous -Post Debridement Size (cm) - Length 0.7 -Post Debridement Size (cm) - Width 0.6 -Post Debridement Size (cm) - Depth 3.3 -Total Square Cm 0.42 -Wound/Ulcer Outcome Not Healed -Ulcer Cleansing Rinsed/ Irrigated with Saline -Foul Odor after Cleansing No -Bioengineered Tissue No -Cetacaine [place] No -Bleeding Controlled with Pressure -Treatment Response Procedure Tolerated Well # 7 Left Upper Smith (pinhole) -Time 08:55 -Correct Patient Yes -Correct Side, Site, Position Yes -Correct Procedure Yes -Procedure Performed Yes -Type of Procedure Debridement -Clinical Debridement Subcutaneous -Post Debridement Size (cm) - Length 0.3 -Post Debridement Size (cm) - Width 0.5 -Post Debridement Size (cm) - Depth 2.0 -Total Square Cm 0.15 -Wound/Ulcer Outcome Not Healed -Ulcer Cleansing Rinsed/ Irrigated with Saline -Foul Odor after Cleansing No -Bioengineered Tissue No -Cetacaine [place] No -Bleeding Controlled with Pressure -Treatment Response Procedure Tolerated Well #1 Medial LLE Superior -Time 08:56 -Correct Patient Yes -Correct Side, Site, Position Yes -Correct Procedure Yes -Procedure Performed Yes -Type of Procedure Debridement -Clinical Debridement Subcutaneous -Post Debridement Size (cm) - Length 1.5 -Post Debridement Size (cm) - Width 0.6 -Post Debridement Size (cm) - Depth 3.3 -Total Square Cm 0.90 -Wound/Ulcer Outcome Not Healed -Ulcer Cleansing Rinsed/ Irrigated with Saline -Foul Odor after Cleansing No -Bioengineered Tissue No -Cetacaine [place] No -Bleeding Controlled with Pressure -Treatment Response Procedure Tolerated Well [See Physician Procedure note for Specifics] Pain Scale: 0-10 Numeric [Pain] -Is Patient Pain Free? Yes Musculoskeletal: No Muscle Wasting Neurological: Cranial nerves II-XII grossly intact Psych/Mental Status: Normal Affect Debridement Note Post-Debridement Measurements/Treatment WC - Nurse 2 - General Ulcer CM Notes Start: 09/14/17 08:25 Freq: Status: Active Protocol: Activity Type Activity Date Activity User E-Sign Co-Sign Detail Recorded Client Recorded Date Recorded By Document 09/14/17 08:49 DV [id number] 09/14/17 08:56 DV 09/14/17 08:49 Wound Center Nurse 2 #9 Medial LLE Inferior -Time 08:53 -Correct Patient Yes -Correct Side, Site, Position Yes -Correct Procedure Yes -Procedure Performed Yes -Type of Procedure Debridement -Clinical Debridement Subcutaneous -Post Debridement Size (cm) - Length 0.7 -Post Debridement Size (cm) - Width 0.6 -Post Debridement Size (cm) - Depth 3.3 -Total Square Cm 0.42 -Wound/Ulcer Outcome Not Healed -Ulcer Cleansing Rinsed/ Irrigated with Saline -Foul Odor after Cleansing No -Bioengineered Tissue No -Cetacaine [place] No -Bleeding Controlled with Pressure -Treatment Response Procedure Tolerated Well # 7 Left Upper Smith (pinhole) -Time 08:55 -Correct Patient Yes -Correct Side, Site, Position Yes -Correct Procedure Yes -Procedure Performed Yes -Type of Procedure Debridement -Clinical Debridement Subcutaneous -Post Debridement Size (cm) - Length 0.3 -Post Debridement Size (cm) - Width 0.5 -Post Debridement Size (cm) - Depth 2.0 -Total Square Cm 0.15 -Wound/Ulcer Outcome Not Healed -Ulcer Cleansing Rinsed/ Irrigated with Saline -Foul Odor after Cleansing No -Bioengineered Tissue No -Cetacaine [place] No -Bleeding Controlled with Pressure -Treatment Response Procedure Tolerated Well #1 Medial LLE Superior -Time 08:56 -Correct Patient Yes -Correct Side, Site, Position Yes -Correct Procedure Yes -Procedure Performed Yes -Type of Procedure Debridement -Clinical Debridement Subcutaneous -Post Debridement Size (cm) - Length 1.5 -Post Debridement Size (cm) - Width 0.6 -Post Debridement Size (cm) - Depth 3.3 -Total Square Cm 0.90 -Wound/Ulcer Outcome Not Healed -Ulcer Cleansing Rinsed/ Irrigated with Saline -Foul Odor after Cleansing No -Bioengineered Tissue No -Cetacaine [place] No -Bleeding Controlled with Pressure -Treatment Response Procedure Tolerated Well Pain Scale: 0-10 Numeric Is Patient Pain Free? Yes Wound debrided: Left smith superior pinhole Wound Grade/Stage: Probes to bone Type of Debridement: Excisional debridement Anesthesia Used: 4% Lidocaine Solution Depth: Down to and including healthy tissue, in the subcutaneous layer Percentage of wound debrided: 100 Instrument Used: 3mm curette Tissue Removed: Slough, devitalized tissue Severity: Fat Layer Exposed Amount of bleeding with debridement: Mild Bleeding Controlled with: Pressure Patient tolerated procedure well - Additional Wound Wound debrided: Left medial leg superior holes Wound Grade/Stage: Probes to bone Type of Debridement: Excisional debridement Anesthesia Used: 4% Lidocaine Solution Depth: Down to and including healthy tissue, in the subcutaneous layer Percentage of wound debrided: 100 Instrument Used: 3mm curette Tissue Removed: Slough, devitalized tissue, purulent drainage Severity: Fat Layer Exposed Amount of bleeding with debridement: Mild Bleeding Controlled with: Pressure Patient tolerated procedure: Patient tolerated procedure well - Additional Wound Wound debrided: Left medial leg inferior holes Wound Grade/Stage: Probes to bone Type of Debridement: Excisional debridement Anesthesia Used: 4% Lidocaine Solution Depth: Down to and including healthy tissue, in the subcutaneous layer Percentage of wound debrided: 100 Instrument Used: 3mm curette Tissue Removed: Slough and devitalized tissue Severity: Fat Layer Exposed Amount of bleeding with debridement: Mild Bleeding Controlled with: Pressure Patient tolerated procedure: Patient tolerated procedure well Assessment/Plan Assessment: 1. Nonhealing ulcers cluster left medial leg with extension to the bone. 2. Nonhealing ulcer left medial ankle. 3. Nonhealing ulcer left anterior leg. 4. s/p complex left tib fib fracture repair with hardware placement and soft tissue reconstruction with a microvascular free tissue transfer muscle flap. 5. Venous insufficiency. 6. Diabetes mellitus. 7. Former smoker. Plan: Left cluster ulcer has healed however, new opening which also probes to bone/hardware noted about 5 days ago. Also purulent discharge noted from the superor smith wound. No chills or fever reported.Scheduled to follow up at the [facility] on the . Continue antibiotics for now till follow up at the [facility]. Continue daily packing of the wound with Aquacel silver with adaptic covering. Continue protein supplements and protein rich diet. Elevate lower extremity when seated and in bed. Avoid idle standing. Exercise as tolerated. Follow-up in 1 week. This note was generated with [employer] dictation software. It may contain incorrect words, spelling, and punctuation that were not noted in checking the note before signing.
[2017-09-21 09:23] VITALS: BP 151/96; PULSE 79; RESP 20; TEMP 37.3
--- NOTE | 2017-09-21 14:26 | PCM.WC.PN ---
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 History of Wound: Patient presented to the Wound Center in 06/30 with nonhealing ulcers left leg. His initial trauma was in 2004 where he sustained a complex fracture wound that required hardware placement and a complex muscle flap for reconstruction. He states the flap came from his abdomen (rectus abdominis muscle flap) utilizing a microvascular free tissue transfer. This was done at [facility] in [place]. He states he did fine until 2015 when he developed an infection that required operative debridement in [place] followed by antibiotics and wound care. With recurrent ulceration and drainage, he came to this Wound Center. Wound culture in 06/30 showed Staphylococcus aureus and E. coli. Repeat culture in 07/30 showed E. coli. He is currently on Levaquin. He had a Venous Doppler study in 06/30 which showed no DVT and incompetent veins with insufficiency. He had an LEAS study in 06/30 which showed triphasic waveforms and calcification. No significant vascular stenoses seen. A CT in 07/30 showed the hardware placement with healed bone and no radiological evidence of osteomyelitis. He has been using Promogran/Annabella dressing changes for his wound care and aquacel packing of tunelling to bone. He is scheduled to follow up at the [facility] per recommendation from Dr. De Oliveira. Progress of Wound: No significant drainage. Followed up at the [facility] as recommended by Dr. De Oliveira. - Physical Exam Vital Signs Temp Pulse Resp BP 99.2 F H 79 20 H 151/96 H 09/21/17 09:23 09/21/17 09:23 09/21/17 09:23 09/21/17 09:23 General: Alert, Oriented x3, Cooperative, No apparent distress HEENT: Atraumatic, Normocephalic Oral: Moist Mucosa Neck: Supple Lungs: Normal air movement Cardiovascular: Regular rate Extremities: No cyanosis, Edema Skin: Ulcer/ Wound Wound Measurements and Assessment WC - Nurse 1 - General Ulcer Measurement Start: 09/14/17 08:25 Freq: Status: Active Protocol: Activity Type Activity Date Activity User E-Sign Co-Sign Detail Recorded Client Recorded Date Recorded By Document 09/21/17 09:23 BENOIT [id number] 09/21/17 09:41 BENOIT 09/21/17 09:23 Wound Center Nurse 1 [Ulcer Assessment Protocol: WC.WD.LOC] #9 Medial LLE Inferior -Combined with other wound No -Current Size (cm) - Length 0.7 -Current Size (cm) - Width 0.5 -Current Size (cm) - Depth 1.3 -Total Square Cm 0.35 -Date of Last Picture (Recall this 09/07/17 field) -Photo Taken No -Epithelialization None Present -Tunneling No -Undermining/Tunneling No -Circular Undermining No -Classification - Thickness Full Thickness without Exposed Support Structure -Exudate Amt Large (67-100%) -Exudate Type Serosanguineous -Wound Margin Distinct, Outline Attached -Granulation Amt None Present (0 %) -Granulation Quality N/A -Slough/Fibrin Yes -Necrosis Amt None Present (0 %) -Necrotic Tissue Type Adherent Slough -Structure Exposed N/A -Texture (Rufina-wound Skin Appearance) No Abnormality -Moisture (Rufina-wound Skin Appearance No Abnormality ) -Color (Rufina-wound Skin Appearance) No Abnormality -Temperature (Rufina-wound Skin No Abnormality Appearance) (Pt Warm) -Tenderness on Palpation (Rufina-wound No Skin Appearance) -Ulcer Cleansing Rinsed/ Irrigated with Saline -Foul Odor after Cleansing No -Anesthetic Used 4% Lidocaine Solution # 7 Left Upper Smith (pinhole) -Combined with other wound No -Current Size (cm) - Length 0.8 -Current Size (cm) - Width 0.5 -Current Size (cm) - Depth 2.0 -Total Square Cm 0.40 -Date of Last Picture (Recall this 08/31/17 field) -Photo Taken No -Epithelialization Large 67-100% -Tunneling Yes -Tunneling Position (O'clock) 9 -Tunneling Distance (cm) 2.0 -Undermining/Tunneling No -Circular Undermining No -Classification - Thickness Full Thickness without Exposed Support Structure -Change in Wound Grade/Stage No Query Text:If change please identify the Stage/Grade in the comment (ie. S2 G3) -Exudate Amt Large (67-100%) -Exudate Type Serosanguineous -Wound Margin Distinct, Outline Attached -Granulation Amt None Present (0 %) -Granulation Quality N/A -Slough/Fibrin Yes -Necrosis Amt None Present (0 %) -Necrotic Tissue Type Adherent Slough -Structure Exposed Muscle -Texture (Rufina-wound Skin Appearance) No Abnormality -Moisture (Rufina-wound Skin Appearance No Abnormality ) -Color (Rufina-wound Skin Appearance) No Abnormality -Temperature (Rufina-wound Skin No Abnormality Appearance) (Pt Warm) -Tenderness on Palpation (Rufina-wound No Skin Appearance) -Ulcer Cleansing Rinsed/ Irrigated with Saline -Foul Odor after Cleansing Yes -Anesthetic Used 4% Lidocaine Solution #1 Medial LLE Superior -Combined with other wound No -Current Size (cm) - Length 1.6 -Current Size (cm) - Width 0.3 -Current Size (cm) - Depth 3.1 -Total Square Cm 0.48 -Date of Last Picture (Recall this 08/31/17 field) -Photo Taken No -Epithelialization None Present -Tunneling No -Undermining/Tunneling No -Circular Undermining No -Classification - Thickness Full Thickness without Exposed Support Structure -Change in Wound Grade/Stage No Query Text:If change please identify the Stage/Grade in the comment (ie. S2 G3) -Exudate Amt Large (67-100%) -Exudate Type Serosanguineous -Wound Margin Distinct, Outline Attached -Granulation Amt None Present (0 %) -Granulation Quality N/A -Slough/Fibrin Yes -Necrosis Amt None Present (0 %) -Necrotic Tissue Type Adherent Slough -Structure Exposed Muscle -Texture (Rufina-wound Skin Appearance) No Abnormality -Color (Rufina-wound Skin Appearance) Hemosiderin Staining -Temperature (Rufina-wound Skin No Abnormality Appearance) (Pt Warm) -Tenderness on Palpation (Rufina-wound No Skin Appearance) -Ulcer Cleansing Rinsed/ Irrigated with Saline -Anesthetic Used 4% Lidocaine Solution [Edema Assessment] -Lower Limb Edema Present Yes -Left Calf (cm) 44.0 -Left Ankle (cm) 31.5 WC - Nurse 2 - General Ulcer CM Notes Start: 09/14/17 08:25 Freq: Status: Active Protocol: Activity Type Activity Date Activity User E-Sign Co-Sign Detail Recorded Client Recorded Date Recorded By Document 09/21/17 10:26 DV [id number] 09/21/17 10:35 DV 09/21/17 10:26 Wound Center Nurse 2 [Procedure/Treatment] #9 Medial LLE Inferior -Time 10:26 -Correct Patient Yes -Correct Side, Site, Position Yes -Correct Procedure Yes -Procedure Performed Yes -Type of Procedure Debridement -Clinical Debridement Subcutaneous -Post Debridement Size (cm) - Length 0.5 -Post Debridement Size (cm) - Width 0.4 -Post Debridement Size (cm) - Depth 2.2 -Total Square Cm 0.20 -Wound/Ulcer Outcome Not Healed -Ulcer Cleansing Rinsed/ Irrigated with Saline -Foul Odor after Cleansing No -Bioengineered Tissue No -Bleeding Controlled with Pressure -Treatment Response Procedure Tolerated Well # 7 Left Upper Smith (pinhole) -Time 10:32 -Correct Patient Yes -Correct Side, Site, Position Yes -Correct Procedure Yes -Procedure Performed Yes -Type of Procedure Debridement -Clinical Debridement Subcutaneous -Post Debridement Size (cm) - Length 0.5 -Post Debridement Size (cm) - Width 0.4 -Post Debridement Size (cm) - Depth 2.2 -Total Square Cm 0.20 -Wound/Ulcer Outcome Not Healed -Ulcer Cleansing Rinsed/ Irrigated with Saline -Foul Odor after Cleansing No -Bioengineered Tissue No -Bleeding Controlled with Pressure -Treatment Response Procedure Tolerated Well #1 Medial LLE Superior -Time 10:27 -Correct Patient Yes -Correct Side, Site, Position Yes -Correct Procedure Yes -Procedure Performed Yes -Type of Procedure Debridement -Clinical Debridement Subcutaneous -Post Debridement Size (cm) - Length 1.5 -Post Debridement Size (cm) - Width 0.4 -Post Debridement Size (cm) - Depth 3.8 -Total Square Cm 0.60 -Wound/Ulcer Outcome Not Healed -Ulcer Cleansing Rinsed/ Irrigated with Saline -Foul Odor after Cleansing No -Bioengineered Tissue No -Bleeding Controlled with Pressure -Treatment Response Procedure Tolerated Well [See Physician Procedure note for Specifics] Pain Scale: 0-10 Numeric [Pain] -Is Patient Pain Free? Yes Neurological: Cranial nerves II-XII grossly intact Psych/Mental Status: Normal Affect Debridement Note Post-Debridement Measurements/Treatment WC - Nurse 2 - General Ulcer CM Notes Start: 09/14/17 08:25 Freq: Status: Active Protocol: Activity Type Activity Date Activity User E-Sign Co-Sign Detail Recorded Client Recorded Date Recorded By Document 09/14/17 08:49 DV [id number] 09/14/17 08:56 DV Document 09/21/17 10:26 DV [id number] 09/21/17 10:35 DV 09/14/17 09/21/17 08:49 10:26 Wound Center Nurse 2 #9 Medial LLE Inferior -Time 08:53 10:26 -Correct Patient Yes Yes -Correct Side, Site, Position Yes Yes -Correct Procedure Yes Yes -Procedure Performed Yes Yes -Type of Procedure Debridement Debridement -Clinical Debridement Subcutaneous Subcutaneous -Post Debridement Size (cm) - Length 0.7 0.5 -Post Debridement Size (cm) - Width 0.6 0.4 -Post Debridement Size (cm) - Depth 3.3 2.2 -Total Square Cm 0.42 0.20 -Wound/Ulcer Outcome Not Healed Not Healed -Ulcer Cleansing Rinsed/ Rinsed/ Irrigated with Irrigated with Saline Saline -Foul Odor after Cleansing No No -Bioengineered Tissue No No -Cetacaine Ferriday No -Bleeding Controlled with Pressure Pressure -Treatment Response Procedure Procedure Tolerated Well Tolerated Well # 7 Left Upper Smith (pinhole) -Time 08:55 10:32 -Correct Patient Yes Yes -Correct Side, Site, Position Yes Yes -Correct Procedure Yes Yes -Procedure Performed Yes Yes -Type of Procedure Debridement Debridement -Clinical Debridement Subcutaneous Subcutaneous -Post Debridement Size (cm) - Length 0.3 0.5 -Post Debridement Size (cm) - Width 0.5 0.4 -Post Debridement Size (cm) - Depth 2.0 2.2 -Total Square Cm 0.15 0.20 -Wound/Ulcer Outcome Not Healed Not Healed -Ulcer Cleansing Rinsed/ Rinsed/ Irrigated with Irrigated with Saline Saline -Foul Odor after Cleansing No No -Bioengineered Tissue No No -Cetacaine Ferriday No -Bleeding Controlled with Pressure Pressure -Treatment Response Procedure Procedure Tolerated Well Tolerated Well #1 Medial LLE Superior -Time 08:56 10:27 -Correct Patient Yes Yes -Correct Side, Site, Position Yes Yes -Correct Procedure Yes Yes -Procedure Performed Yes Yes -Type of Procedure Debridement Debridement -Clinical Debridement Subcutaneous Subcutaneous -Post Debridement Size (cm) - Length 1.5 1.5 -Post Debridement Size (cm) - Width 0.6 0.4 -Post Debridement Size (cm) - Depth 3.3 3.8 -Total Square Cm 0.90 0.60 -Wound/Ulcer Outcome Not Healed Not Healed -Ulcer Cleansing Rinsed/ Rinsed/ Irrigated with Irrigated with Saline Saline -Foul Odor after Cleansing No No -Bioengineered Tissue No No -Cetacaine Ferriday No -Bleeding Controlled with Pressure Pressure -Treatment Response Procedure Procedure Tolerated Well Tolerated Well Pain Scale: 0-10 Numeric Is Patient Pain Free? Yes Yes Wound debrided: Left medial Ulcer( Holes ) Inferior Wound Grade/Stage: Probes to bone Type of Debridement: Excisional debridement Anesthesia Used: 4% Lidocaine Solution Depth: Down to and including healthy tissue, in the subcutaneous layer Percentage of wound debrided: 100 Instrument Used: 3mm curette Tissue Removed: Slough, devitalized tissue Severity: Fat Layer Exposed Amount of bleeding with debridement: Mild Bleeding Controlled with: Pressure Patient tolerated procedure well - Additional Wound Wound debrided: Right Medial Leg Ulcer ( Holes ) Superior Wound Grade/Stage: Probes to bone Type of Debridement: Excisional debridement Anesthesia Used: 4% Lidocaine Solution Depth: Down to and including healthy tissue, in the subcutaneous layer Percentage of wound debrided: 100 Instrument Used: 3mm curette Tissue Removed: slough and devitalized tissue Severity: Fat Layer Exposed Amount of bleeding with debridement: Mild Bleeding Controlled with: Pressure Patient tolerated procedure: Patient tolerated procedure well - Additional Wound Wound debrided: Left Leg smith ( Pin holes ) Wound Grade/Stage: Stage II however probes to bone. Type of Debridement: Excisional debridement Anesthesia Used: 4% Lidocaine Solution Depth: Down to and including healthy tissue, in the subcutaneous layer Percentage of wound debrided: 100 Instrument Used: 3mm curette Tissue Removed: Slough and devitalized tissue. Severity: Fat Layer Exposed Amount of bleeding with debridement: Mild Bleeding Controlled with: Pressure Patient tolerated procedure: Patient tolerated procedure well Assessment/Plan Active Problems Ulcer of left lower extremity (Chronic) Neuropathy of left lower extremity (Chronic) Assessment: 1. Nonhealing ulcers cluster left medial leg with extension to the bone. 2. Nonhealing ulcer left medial ankle. 3. Nonhealing ulcer left anterior leg. 4. s/p complex left tib fib fracture repair with hardware placement and soft tissue reconstruction with a microvascular free tissue transfer muscle flap. 5. Venous insufficiency. 6. Diabetes mellitus. 7. Former smoker. Plan: No significant changes in the past week. Cultures done at the last visit with rare growth of Staph Aureus however due to the nature and chronicity of wound, he was started on Erythromycin. he also did follow up at the [facility] and was referred to an Orthopedic surgeon at the main campus. Scheduled for November 06. Continue daily packing of the wound with Aquacel silver with adaptic covering. Continue protein supplements and protein rich diet. Elevate lower extremity when seated and in bed. Avoid idle standing. Exercise as tolerated. Follow-up in 1 week. This note was generated with [employer] dictation software. It may contain incorrect words, spelling, and punctuation that were not noted in checking the note before signing.
--- NOTE | 2017-09-21 14:35 | PN.PCM_ITS ---
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 History of Wound: Patient presented to the Wound Center in 06/30 with nonhealing ulcers left leg. His initial trauma was in 2004 where he sustained a complex fracture wound that required hardware placement and a complex muscle flap for reconstruction. He states the flap came from his abdomen (rectus abdominis muscle flap) utilizing a microvascular free tissue transfer. This was done at [facility] in [place]. He states he did fine until 2015 when he developed an infection that required operative debridement in [place] followed by antibiotics and wound care. With recurrent ulceration and drainage, he came to this Wound Center. Wound culture in 06/30 showed Staphylococcus aureus and E. coli. Repeat culture in 07/30 showed E. coli. He is currently on Levaquin. He had a Venous Doppler study in 06/30 which showed no DVT and incompetent veins with insufficiency. He had an LEAS study in 06/30 which showed triphasic waveforms and calcification. No significant vascular stenoses seen. A CT in showed the hardware placement with healed bone and no radiological evidence of osteomyelitis. He has been using Promogran/Annabella dressing changes for his wound care and aquacel packing of tunelling to bone. He is scheduled to follow up at the [facility] per recommendation from Dr. De Oliveira. Progress of Wound: No significant drainage. Followed up at the [facility] as recommended by Dr. De Oliveira. - Physical Exam Vital Signs Temp Pulse Resp BP 99.2 F H 79 20 H 151/96 H 09/21/17 09:23 09/21/17 09:23 09/21/17 09:23 09/21/17 09:23 General: Alert, Oriented x3, Cooperative, No apparent distress HEENT: Atraumatic, Normocephalic Oral: Moist Mucosa Neck: Supple Lungs: Normal air movement Cardiovascular: Regular rate Extremities: No cyanosis, Edema Skin: Ulcer/ Wound Wound Measurements and Assessment WC - Nurse 1 - General Ulcer Measurement Start: 09/14/17 08:25 Freq: Status: Active Protocol: Activity Type Activity Date Activity User E-Sign Co-Sign Detail Recorded Client Recorded Date Recorded By Document 09/21/17 09:23 [email or web address] [id number] 09/21/17 09:41 BENOIT 09/21/17 09:23 Wound Center Nurse 1 [Ulcer Assessment Protocol: WC.WD.LOC] #9 Medial LLE Inferior -Combined with other wound No -Current Size (cm) - Length 0.7 -Current Size (cm) - Width 0.5 -Current Size (cm) - Depth 1.3 -Total Square Cm 0.35 -Date of Last Picture (Recall this 09/07/17 field) -Photo Taken No -Epithelialization None Present -Tunneling No -Undermining/Tunneling No -Circular Undermining No -Classification - Thickness Full Thickness without Exposed Support Structure -Exudate Amt Large (67-100%) -Exudate Type Serosanguineous -Wound Margin Distinct, Outline Attached -Granulation Amt None Present (0 %) -Granulation Quality N/A -Slough/Fibrin Yes -Necrosis Amt None Present (0 %) -Necrotic Tissue Type Adherent Slough -Structure Exposed N/A -Texture (Rufina-wound Skin Appearance) No Abnormality -Moisture (Rufina-wound Skin Appearance No Abnormality ) -Color (Rufina-wound Skin Appearance) No Abnormality -Temperature (Rufina-wound Skin No Abnormality Appearance) (Pt Warm) -Tenderness on Palpation (Rufina-wound No Skin Appearance) -Ulcer Cleansing Rinsed/ Irrigated with Saline -Foul Odor after Cleansing No -Anesthetic Used 4% Lidocaine Solution # 7 Left Upper Smith (pinhole) -Combined with other wound No -Current Size (cm) - Length 0.8 -Current Size (cm) - Width 0.5 -Current Size (cm) - Depth 2.0 -Total Square Cm 0.40 -Date of Last Picture (Recall this 08/31/17 field) -Photo Taken No -Epithelialization Large 67-100% -Tunneling Yes -Tunneling Position (O'clock) 9 -Tunneling Distance (cm) 2.0 -Undermining/Tunneling No -Circular Undermining No -Classification - Thickness Full Thickness without Exposed Support Structure -Change in Wound Grade/Stage No Query Text:If change please identify the Stage/Grade in the comment (ie. S2 G3) -Exudate Amt Large (67-100%) -Exudate Type Serosanguineous -Wound Margin Distinct, Outline Attached -Granulation Amt None Present (0 %) -Granulation Quality N/A -Slough/Fibrin Yes -Necrosis Amt None Present (0 %) -Necrotic Tissue Type Adherent Slough -Structure Exposed Muscle -Texture (Rufina-wound Skin Appearance) No Abnormality -Moisture (Rufina-wound Skin Appearance No Abnormality ) -Color (Rufina-wound Skin Appearance) No Abnormality -Temperature (Rufina-wound Skin No Abnormality Appearance) (Pt Warm) -Tenderness on Palpation (Rufina-wound No Skin Appearance) -Ulcer Cleansing Rinsed/ Irrigated with Saline -Foul Odor after Cleansing Yes -Anesthetic Used 4% Lidocaine Solution #1 Medial LLE Superior -Combined with other wound No -Current Size (cm) - Length 1.6 -Current Size (cm) - Width 0.3 -Current Size (cm) - Depth 3.1 -Total Square Cm 0.48 -Date of Last Picture (Recall this 08/31/17 field) -Photo Taken No -Epithelialization None Present -Tunneling No -Undermining/Tunneling No -Circular Undermining No -Classification - Thickness Full Thickness without Exposed Support Structure -Change in Wound Grade/Stage No Query Text:If change please identify the Stage/Grade in the comment (ie. S2 G3) -Exudate Amt Large (67-100%) -Exudate Type Serosanguineous -Wound Margin Distinct, Outline Attached -Granulation Amt None Present (0 %) -Granulation Quality N/A -Slough/Fibrin Yes -Necrosis Amt None Present (0 %) -Necrotic Tissue Type Adherent Slough -Structure Exposed Muscle -Texture (Rufina-wound Skin Appearance) No Abnormality -Color (Rufina-wound Skin Appearance) Hemosiderin Staining -Temperature (Rufina-wound Skin No Abnormality Appearance) (Pt Warm) -Tenderness on Palpation (Rufina-wound No Skin Appearance) -Ulcer Cleansing Rinsed/ Irrigated with Saline -Anesthetic Used 4% Lidocaine Solution [Edema Assessment] -Lower Limb Edema Present Yes -Left Calf (cm) 44.0 -Left Ankle (cm) 31.5 WC - Nurse 2 - General Ulcer CM Notes Start: 09/14/17 08:25 Freq: Status: Active Protocol: Activity Type Activity Date Activity User E-Sign Co-Sign Detail Recorded Client Recorded Date Recorded By Document 09/21/17 10:26 DV [id number] 09/21/17 10:35 DV 09/21/17 10:26 Wound Center Nurse 2 [Procedure/Treatment] #9 Medial LLE Inferior -Time 10:26 -Correct Patient Yes -Correct Side, Site, Position Yes -Correct Procedure Yes -Procedure Performed Yes -Type of Procedure Debridement -Clinical Debridement Subcutaneous -Post Debridement Size (cm) - Length 0.5 -Post Debridement Size (cm) - Width 0.4 -Post Debridement Size (cm) - Depth 2.2 -Total Square Cm 0.20 -Wound/Ulcer Outcome Not Healed -Ulcer Cleansing Rinsed/ Irrigated with Saline -Foul Odor after Cleansing No -Bioengineered Tissue No -Bleeding Controlled with Pressure -Treatment Response Procedure Tolerated Well # 7 Left Upper Smith (pinhole) -Time 10:32 -Correct Patient Yes -Correct Side, Site, Position Yes -Correct Procedure Yes -Procedure Performed Yes -Type of Procedure Debridement -Clinical Debridement Subcutaneous -Post Debridement Size (cm) - Length 0.5 -Post Debridement Size (cm) - Width 0.4 -Post Debridement Size (cm) - Depth 2.2 -Total Square Cm 0.20 -Wound/Ulcer Outcome Not Healed -Ulcer Cleansing Rinsed/ Irrigated with Saline -Foul Odor after Cleansing No -Bioengineered Tissue No -Bleeding Controlled with Pressure -Treatment Response Procedure Tolerated Well #1 Medial LLE Superior -Time 10:27 -Correct Patient Yes -Correct Side, Site, Position Yes -Correct Procedure Yes -Procedure Performed Yes -Type of Procedure Debridement -Clinical Debridement Subcutaneous -Post Debridement Size (cm) - Length 1.5 -Post Debridement Size (cm) - Width 0.4 -Post Debridement Size (cm) - Depth 3.8 -Total Square Cm 0.60 -Wound/Ulcer Outcome Not Healed -Ulcer Cleansing Rinsed/ Irrigated with Saline -Foul Odor after Cleansing No -Bioengineered Tissue No -Bleeding Controlled with Pressure -Treatment Response Procedure Tolerated Well [See Physician Procedure note for Specifics] Pain Scale: 0-10 Numeric [Pain] -Is Patient Pain Free? Yes Neurological: Cranial nerves II-XII grossly intact Psych/Mental Status: Normal Affect Debridement Note Post-Debridement Measurements/Treatment WC - Nurse 2 - General Ulcer CM Notes Start: 09/14/17 08:25 Freq: Status: Active Protocol: Activity Type Activity Date Activity User E-Sign Co-Sign Detail Recorded Client Recorded Date Recorded By Document 09/14/17 08:49 DV [id number] 09/14/17 08:56 DV Document 09/21/17 10:26 DV [id number] 09/21/17 10:35 DV 09/14/17 09/21/17 08:49 10:26 Wound Center Nurse 2 #9 Medial LLE Inferior -Time 08:53 10:26 -Correct Patient Yes Yes -Correct Side, Site, Position Yes Yes -Correct Procedure Yes Yes -Procedure Performed Yes Yes -Type of Procedure Debridement Debridement -Clinical Debridement Subcutaneous Subcutaneous -Post Debridement Size (cm) - Length 0.7 0.5 -Post Debridement Size (cm) - Width 0.6 0.4 -Post Debridement Size (cm) - Depth 3.3 2.2 -Total Square Cm 0.42 0.20 -Wound/Ulcer Outcome Not Healed Not Healed -Ulcer Cleansing Rinsed/ Rinsed/ Irrigated with Irrigated with Saline Saline -Foul Odor after Cleansing No No -Bioengineered Tissue No No -Cetacaine [place] No -Bleeding Controlled with Pressure Pressure -Treatment Response Procedure Procedure Tolerated Well Tolerated Well # 7 Left Upper Smith (pinhole) -Time 08:55 10:32 -Correct Patient Yes Yes -Correct Side, Site, Position Yes Yes -Correct Procedure Yes Yes -Procedure Performed Yes Yes -Type of Procedure Debridement Debridement -Clinical Debridement Subcutaneous Subcutaneous -Post Debridement Size (cm) - Length 0.3 0.5 -Post Debridement Size (cm) - Width 0.5 0.4 -Post Debridement Size (cm) - Depth 2.0 2.2 -Total Square Cm 0.15 0.20 -Wound/Ulcer Outcome Not Healed Not Healed -Ulcer Cleansing Rinsed/ Rinsed/ Irrigated with Irrigated with Saline Saline -Foul Odor after Cleansing No No -Bioengineered Tissue No No -Cetacaine [place] No -Bleeding Controlled with Pressure Pressure -Treatment Response Procedure Procedure Tolerated Well Tolerated Well #1 Medial LLE Superior -Time 08:56 10:27 -Correct Patient Yes Yes -Correct Side, Site, Position Yes Yes -Correct Procedure Yes Yes -Procedure Performed Yes Yes -Type of Procedure Debridement Debridement -Clinical Debridement Subcutaneous Subcutaneous -Post Debridement Size (cm) - Length 1.5 1.5 -Post Debridement Size (cm) - Width 0.6 0.4 -Post Debridement Size (cm) - Depth 3.3 3.8 -Total Square Cm 0.90 0.60 -Wound/Ulcer Outcome Not Healed Not Healed -Ulcer Cleansing Rinsed/ Rinsed/ Irrigated with Irrigated with Saline Saline -Foul Odor after Cleansing No No -Bioengineered Tissue No No -Cetacaine [place] No -Bleeding Controlled with Pressure Pressure -Treatment Response Procedure Procedure Tolerated Well Tolerated Well Pain Scale: 0-10 Numeric Is Patient Pain Free? Yes Yes Wound debrided: Left medial Ulcer( Holes ) Inferior Wound Grade/Stage: Probes to bone Type of Debridement: Excisional debridement Anesthesia Used: 4% Lidocaine Solution Depth: Down to and including healthy tissue, in the subcutaneous layer Percentage of wound debrided: 100 Instrument Used: 3mm curette Tissue Removed: Slough, devitalized tissue Severity: Fat Layer Exposed Amount of bleeding with debridement: Mild Bleeding Controlled with: Pressure Patient tolerated procedure well - Additional Wound Wound debrided: Right Medial Leg Ulcer ( Holes ) Superior Wound Grade/Stage: Probes to bone Type of Debridement: Excisional debridement Anesthesia Used: 4% Lidocaine Solution Depth: Down to and including healthy tissue, in the subcutaneous layer Percentage of wound debrided: 100 Instrument Used: 3mm curette Tissue Removed: slough and devitalized tissue Severity: Fat Layer Exposed Amount of bleeding with debridement: Mild Bleeding Controlled with: Pressure Patient tolerated procedure: Patient tolerated procedure well - Additional Wound Wound debrided: Left Leg smith ( Pin holes ) Wound Grade/Stage: Stage II however probes to bone. Type of Debridement: Excisional debridement Anesthesia Used: 4% Lidocaine Solution Depth: Down to and including healthy tissue, in the subcutaneous layer Percentage of wound debrided: 100 Instrument Used: 3mm curette Tissue Removed: Slough and devitalized tissue. Severity: Fat Layer Exposed Amount of bleeding with debridement: Mild Bleeding Controlled with: Pressure Patient tolerated procedure: Patient tolerated procedure well Assessment/Plan Active Problems Ulcer of left lower extremity (Chronic) Neuropathy of left lower extremity (Chronic) Assessment: 1. Nonhealing ulcers cluster left medial leg with extension to the bone. 2. Nonhealing ulcer left medial ankle. 3. Nonhealing ulcer left anterior leg. 4. s/p complex left tib fib fracture repair with hardware placement and soft tissue reconstruction with a microvascular free tissue transfer muscle flap. 5. Venous insufficiency. 6. Diabetes mellitus. 7. Former smoker. Plan: No significant changes in the past week. Cultures done at the last visit with rare growth of Staph Aureus however due to the nature and chronicity of wound, he was started on Erythromycin. he also did follow up at the [facility] and was referred to an Orthopedic surgeon at the main campus. Scheduled for November 06. Continue daily packing of the wound with Aquacel silver with adaptic covering. Continue protein supplements and protein rich diet. Elevate lower extremity when seated and in bed. Avoid idle standing. Exercise as tolerated. Follow-up in 1 week. This note was generated with [employer] dictation software. It may contain incorrect words, spelling, and punctuation that were not noted in checking the note before signing.
[2017-09-28 08:15] VITALS: BP 140/80; PULSE 88; RESP 20; TEMP 36.1
--- NOTE | 2017-09-28 09:11 | PCM.WC.PN ---
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 History of Wound: Patient presented to the Wound Center in 06/30 with nonhealing ulcers left leg. His initial trauma was in 2004 where he sustained a complex fracture wound that required hardware placement and a complex muscle flap for reconstruction. He states the flap came from his abdomen (rectus abdominis muscle flap) utilizing a microvascular free tissue transfer. This was done at [facility] in [place]. He states he did fine until 2015 when he developed an infection that required operative debridement in [place] followed by antibiotics and wound care. With recurrent ulceration and drainage, he came to this Wound Center. Wound culture in 06/30 showed Staphylococcus aureus and E. coli. Repeat culture in 07/30 showed E. coli. He is currently on Levaquin. He had a Venous Doppler study in 06/30 which showed no DVT and incompetent veins with insufficiency. He had an LEAS study in 06/30 which showed triphasic waveforms and calcification. No significant vascular stenoses seen. A CT in 07/30 showed the hardware placement with healed bone and no radiological evidence of osteomyelitis. He has been using Promogran/Annabella dressing changes for his wound care and aquacel packing of tunelling to bone. He is scheduled to follow up at the [facility] per recommendation from Dr. De Oliveira. Progress of Wound: Stable. No new complaints - Physical Exam Vital Signs Temp Pulse Resp BP 96.9 F L 88 20 H 140/80 H 09/28/17 08:15 09/28/17 08:15 09/28/17 08:15 09/28/17 08:15 General: Alert, Oriented x3, Cooperative, No apparent distress HEENT: Atraumatic, Normocephalic Oral: Moist Mucosa Neck: Supple Lungs: Normal air movement Cardiovascular: Regular rate Extremities: No cyanosis Skin: Ulcer/ Wound Wound Measurements and Assessment - Nurse 1 - General Ulcer Measurement Start: 09/14/17 08:25 Freq: Status: Active Protocol: Activity Type Activity Date Activity User E-Sign Co-Sign Detail Recorded Client Recorded Date Recorded By Document 09/28/17 08:15 DL [id number] 09/28/17 08:27 DL 09/28/17 08:15 Wound Center Nurse 1 [Ulcer Assessment Protocol: ELBA.WD.LOC] #9 Medial LLE Inferior -Current Size (cm) - Length 0.7 -Current Size (cm) - Width 0.6 -Current Size (cm) - Depth 2.5 -Total Square Cm 0.42 -Photo Taken No -Exudate Amt Medium (34-66%) -Exudate Type Serosanguineous -Wound Margin Distinct, Outline Attached -Granulation Amt Small (1-33%) -Granulation Quality Red -Necrosis Amt Small (1-33%) -Necrotic Tissue Type Adherent Slough -Structure Exposed N/A -Texture (Rufina-wound Skin Appearance) Scarring -Moisture (Rufina-wound Skin Appearance No Abnormality ) -Color (Rufina-wound Skin Appearance) Hemosiderin Staining -Temperature (Rufina-wound Skin No Abnormality Appearance) (Pt Warm) -Ulcer Cleansing Rinsed/ Irrigated with Saline # 7 Left Upper [place] (pinhole) -Current Size (cm) - Length 0.8 -Current Size (cm) - Width 0.6 -Current Size (cm) - Depth 2 -Total Square Cm 0.48 -Photo Taken No -Tunneling Position (O'clock) 9 -Tunneling Distance (cm) 1.8 -Exudate Amt Medium (34-66%) -Exudate Type Serosanguineous -Wound Margin Distinct, Outline Attached -Granulation Amt Small (1-33%) -Granulation Quality Red -Necrosis Amt Small (1-33%) -Necrotic Tissue Type Adherent Slough -Structure Exposed N/A -Texture (Rufina-wound Skin Appearance) Scarring -Moisture (Rufina-wound Skin Appearance No Abnormality ) -Color (Rufina-wound Skin Appearance) Hemosiderin Staining -Ulcer Cleansing Rinsed/ Irrigated with Saline -Foul Odor after Cleansing No -Anesthetic Used 4% Lidocaine Solution #1 Medial LLE Superior -Current Size (cm) - Length 1.5 -Current Size (cm) - Width 0.4 -Current Size (cm) - Depth 2.7 -Total Square Cm 0.60 -Photo Taken No -Exudate Amt Medium (34-66%) -Exudate Type Serosanguineous -Wound Margin Distinct, Outline Attached -Granulation Amt Small (1-33%) -Granulation Quality Red -Necrosis Amt Small (1-33%) -Necrotic Tissue Type Adherent Slough -Texture (Rufina-wound Skin Appearance) Scarring -Moisture (Rufina-wound Skin Appearance No Abnormality ) -Color (Rufina-wound Skin Appearance) Hemosiderin Staining -Temperature (Rufina-wound Skin No Abnormality Appearance) (Pt Warm) -Ulcer Cleansing Rinsed/ Irrigated with Saline -Foul Odor after Cleansing No -Anesthetic Used 4% Lidocaine Solution [Edema Assessment] -Left Calf (cm) 44 -Left Ankle (cm) 32 WC - Nurse 2 - General Ulcer CM Notes Start: 09/14/17 08:25 Freq: Status: Active Protocol: Activity Type Activity Date Activity User E-Sign Co-Sign Detail Recorded Client Recorded Date Recorded By Document 09/28/17 08:44 DV [id number] 09/28/17 08:50 DV 09/28/17 08:44 Wound Center Nurse 2 [Procedure/Treatment] #9 Medial LLE Inferior -Time 08:45 -Correct Patient Yes -Correct Side, Site, Position Yes -Correct Procedure Yes -Procedure Performed Yes -Type of Procedure Debridement -Clinical Debridement Subcutaneous -Post Debridement Size (cm) - Length 0.6 -Post Debridement Size (cm) - Width 0.5 -Post Debridement Size (cm) - Depth 3.5 -Total Square Cm 0.30 -Wound/Ulcer Outcome Not Healed -Ulcer Cleansing Rinsed/ Irrigated with Saline -Foul Odor after Cleansing No -Bioengineered Tissue No -Bleeding Controlled with Pressure -Treatment Response Procedure Tolerated Well # 7 Left Upper Carter (pinhole) -Time 08:46 -Correct Patient Yes -Correct Side, Site, Position Yes -Correct Procedure Yes -Procedure Performed Yes -Type of Procedure Debridement -Clinical Debridement Subcutaneous -Post Debridement Size (cm) - Length 0.8 -Post Debridement Size (cm) - Width 0.5 -Post Debridement Size (cm) - Depth 2.5 -Total Square Cm 0.40 -Wound/Ulcer Outcome Not Healed -Ulcer Cleansing Rinsed/ Irrigated with Saline -Foul Odor after Cleansing No -Bioengineered Tissue No -Bleeding Controlled with Pressure -Treatment Response Procedure Tolerated Well #1 Medial LLE Superior -Time 08:47 -Correct Patient Yes -Correct Side, Site, Position Yes -Correct Procedure Yes -Procedure Performed Yes -Type of Procedure Debridement -Clinical Debridement Subcutaneous -Post Debridement Size (cm) - Length 1.4 -Post Debridement Size (cm) - Width 0.4 -Post Debridement Size (cm) - Depth 3.5 -Total Square Cm 0.56 -Wound/Ulcer Outcome Not Healed -Ulcer Cleansing Rinsed/ Irrigated with Saline -Bleeding Controlled with Pressure -Treatment Response Procedure Tolerated Well [See Physician Procedure note for Specifics] Pain Scale: 0-10 Numeric [Pain] -Is Patient Pain Free? Yes Musculoskeletal: No Muscle Wasting Neurological: Cranial nerves II-XII grossly intact Psych/Mental Status: Normal Affect Debridement Note Post-Debridement Measurements/Treatment WC - Nurse 2 - General Ulcer CM Notes Start: 09/14/17 08:25 Freq: Status: Active Protocol: Activity Type Activity Date Activity User E-Sign Co-Sign Detail Recorded Client Recorded Date Recorded By Document 09/14/17 08:49 DV [id number] 09/14/17 08:56 DV Document 09/21/17 10:26 DV [id number] 09/21/17 10:35 DV Document 09/28/17 08:44 DV [id number] 09/28/17 08:50 DV 09/14/17 09/21/17 09/28/17 08:49 10:26 08:44 Wound Center Nurse 2 #9 Medial LLE Inferior -Time 08:53 10:26 08:45 -Correct Patient Yes Yes Yes -Correct Side, Site, Position Yes Yes Yes -Correct Procedure Yes Yes Yes -Procedure Performed Yes Yes Yes -Type of Procedure Debridement Debridement Debridement -Clinical Debridement Subcutaneous Subcutaneous Subcutaneous -Post Debridement Size (cm) - Length 0.7 0.5 0.6 -Post Debridement Size (cm) - Width 0.6 0.4 0.5 -Post Debridement Size (cm) - Depth 3.3 2.2 3.5 -Total Square Cm 0.42 0.20 0.30 -Wound/Ulcer Outcome Not Healed Not Healed Not Healed -Ulcer Cleansing Rinsed/ Rinsed/ Rinsed/ Irrigated with Irrigated with Irrigated with Saline Saline Saline -Foul Odor after Cleansing No No No -Bioengineered Tissue No No No -Cetacaine [place] No -Bleeding Controlled with Pressure Pressure Pressure -Treatment Response Procedure Procedure Procedure Tolerated Well Tolerated Well Tolerated Well # 7 Left Upper [place] (pinhole) -Time 08:55 10:32 08:46 -Correct Patient Yes Yes Yes -Correct Side, Site, Position Yes Yes Yes -Correct Procedure Yes Yes Yes -Procedure Performed Yes Yes Yes -Type of Procedure Debridement Debridement Debridement -Clinical Debridement Subcutaneous Subcutaneous Subcutaneous -Post Debridement Size (cm) - Length 0.3 0.5 0.8 -Post Debridement Size (cm) - Width 0.5 0.4 0.5 -Post Debridement Size (cm) - Depth 2.0 2.2 2.5 -Total Square Cm 0.15 0.20 0.40 -Wound/Ulcer Outcome Not Healed Not Healed Not Healed -Ulcer Cleansing Rinsed/ Rinsed/ Rinsed/ Irrigated with Irrigated with Irrigated with Saline Saline Saline -Foul Odor after Cleansing No No No -Bioengineered Tissue No No No -Cetacaine [place] No -Bleeding Controlled with Pressure Pressure Pressure -Treatment Response Procedure Procedure Procedure Tolerated Well Tolerated Well Tolerated Well #1 Medial LLE Superior -Time 08:56 10:27 08:47 -Correct Patient Yes Yes Yes -Correct Side, Site, Position Yes Yes Yes -Correct Procedure Yes Yes Yes -Procedure Performed Yes Yes Yes -Type of Procedure Debridement Debridement Debridement -Clinical Debridement Subcutaneous Subcutaneous Subcutaneous -Post Debridement Size (cm) - Length 1.5 1.5 1.4 -Post Debridement Size (cm) - Width 0.6 0.4 0.4 -Post Debridement Size (cm) - Depth 3.3 3.8 3.5 -Total Square Cm 0.90 0.60 0.56 -Wound/Ulcer Outcome Not Healed Not Healed Not Healed -Ulcer Cleansing Rinsed/ Rinsed/ Rinsed/ Irrigated with Irrigated with Irrigated with Saline Saline Saline -Foul Odor after Cleansing No No -Bioengineered Tissue No No -Cetacaine [place] No -Bleeding Controlled with Pressure Pressure Pressure -Treatment Response Procedure Procedure Procedure Tolerated Well Tolerated Well Tolerated Well Pain Scale: 0-10 Numeric Is Patient Pain Free? Yes Yes Yes Wound debrided: Left lower extremity inferior Wound Grade/Stage: Stage II. Probes to bone Type of Debridement: Excisional debridement Anesthesia Used: 4% Lidocaine Solution Depth: Down to and including healthy tissue, in the subcutaneous layer Percentage of wound debrided: 100 Instrument Used: 3mm curette Tissue Removed: Devitalized tissue Severity: Fat Layer Exposed Amount of bleeding with debridement: Mild Bleeding Controlled with: Pressure Patient tolerated procedure well - Additional Wound Wound debrided: Left lower extremity Superior Wound Grade/Stage: Stage II. Probes to bone. Anesthesia Used: 4% Lidocaine Solution Depth: Down to and including healthy tissue, in the subcutaneous layer Percentage of wound debrided: 100 Instrument Used: 3mm curette Tissue Removed: Devitalized tissue Severity: Fat Layer Exposed Amount of bleeding with debridement: Mild Bleeding Controlled with: Pressure - Additional Wound Wound debrided: Left lower extremity ( Pin hole ) Wound Grade/Stage: Stage II Type of Debridement: Excisional debridement Anesthesia Used: 4% Lidocaine Solution Depth: Down to and including healthy tissue, in the subcutaneous layer Percentage of wound debrided: 100 Instrument Used: 3mm curette Tissue Removed: Devitalized tissue. Severity: Fat Layer Exposed Amount of bleeding with debridement: Mild Bleeding Controlled with: Pressure Patient tolerated procedure: Patient tolerated procedure well Assessment/Plan Active Problems Ulcer of left lower extremity (Chronic) Neuropathy of left lower extremity (Chronic) Assessment: 1. Nonhealing ulcers cluster left medial leg with extension to the bone. 2. Nonhealing ulcer left medial ankle. 3. Nonhealing ulcer left anterior leg. 4. s/p complex left tib fib fracture repair with hardware placement and soft tissue reconstruction with a microvascular free tissue transfer muscle flap. 5. Venous insufficiency. 6. Diabetes mellitus. 7. Former smoker. Plan: No significant changes in the past week. Currently on Erythromycin per culture and sensitivity. Scheduled to follow up with Ortho surgeon at the [facility] main new site on the 06 of November. Continue daily packing of the wound with Aquacel silver with adaptic covering. Continue protein supplements and protein rich diet. Elevate lower extremity when seated and in bed. Avoid idle standing. Exercise as tolerated. Follow-up in 1 week. This note was generated with Dragon Law[employer] software. It may contain incorrect words, spelling, and punctuation that were not noted in checking the note before signing.
--- NOTE | 2017-09-28 09:20 | PN.PCM_ITS ---
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 History of Wound: Patient presented to the Wound Center in 06/30 with nonhealing ulcers left leg. His initial trauma was in 2004 where he sustained a complex fracture wound that required hardware placement and a complex muscle flap for reconstruction. He states the flap came from his abdomen (rectus abdominis muscle flap) utilizing a microvascular free tissue transfer. This was done at [facility] in [place]. He states he did fine until 2015 when he developed an infection that required operative debridement in [place] followed by antibiotics and wound care. With recurrent ulceration and drainage, he came to this Wound Center. Wound culture in 06/30 showed Staphylococcus aureus and E. coli. Repeat culture in 07/30 showed E. coli. He is currently on Levaquin. He had a Venous Doppler study in 06/30 which showed no DVT and incompetent veins with insufficiency. He had an LEAS study in 06/30 which showed triphasic waveforms and calcification. No significant vascular stenoses seen. A CT in showed the hardware placement with healed bone and no radiological evidence of osteomyelitis. He has been using Promogran/Annabella dressing changes for his wound care and aquacel packing of tunelling to bone. He is scheduled to follow up at the [facility] per recommendation from Dr. De Oliveira. Progress of Wound: Stable. No new complaints - Physical Exam Vital Signs Temp Pulse Resp BP 96.9 F L 88 20 H 140/80 H 09/28/17 08:15 09/28/17 08:15 09/28/17 08:15 09/28/17 08:15 General: Alert, Oriented x3, Cooperative, No apparent distress HEENT: Atraumatic, Normocephalic Oral: Moist Mucosa Neck: Supple Lungs: Normal air movement Cardiovascular: Regular rate Extremities: No cyanosis Skin: Ulcer/ Wound Wound Measurements and Assessment - Nurse 1 - General Ulcer Measurement Start: 09/14/17 08:25 Freq: Status: Active Protocol: Activity Type Activity Date Activity User E-Sign Co-Sign Detail Recorded Client Recorded Date Recorded By Document 09/28/17 08:15 DL [id number] 09/28/17 08:27 DL 09/28/17 08:15 Wound Center Nurse 1 [Ulcer Assessment Protocol: ELBA.WD.LOC] #9 Medial LLE Inferior -Current Size (cm) - Length 0.7 -Current Size (cm) - Width 0.6 -Current Size (cm) - Depth 2.5 -Total Square Cm 0.42 -Photo Taken No -Exudate Amt Medium (34-66%) -Exudate Type Serosanguineous -Wound Margin Distinct, Outline Attached -Granulation Amt Small (1-33%) -Granulation Quality Red -Necrosis Amt Small (1-33%) -Necrotic Tissue Type Adherent Slough -Structure Exposed N/A -Texture (Rufina-wound Skin Appearance) Scarring -Moisture (Rufina-wound Skin Appearance No Abnormality ) -Color (Rufina-wound Skin Appearance) Hemosiderin Staining -Temperature (Rufina-wound Skin No Abnormality Appearance) (Pt Warm) -Ulcer Cleansing Rinsed/ Irrigated with Saline # 7 Left Upper Carter (pinhole) -Current Size (cm) - Length 0.8 -Current Size (cm) - Width 0.6 -Current Size (cm) - Depth 2 -Total Square Cm 0.48 -Photo Taken No -Tunneling Position (O'clock) 9 -Tunneling Distance (cm) 1.8 -Exudate Amt Medium (34-66%) -Exudate Type Serosanguineous -Wound Margin Distinct, Outline Attached -Granulation Amt Small (1-33%) -Granulation Quality Red -Necrosis Amt Small (1-33%) -Necrotic Tissue Type Adherent Slough -Structure Exposed N/A -Texture (Rufina-wound Skin Appearance) Scarring -Moisture (Rufina-wound Skin Appearance No Abnormality ) -Color (Rufina-wound Skin Appearance) Hemosiderin Staining -Ulcer Cleansing Rinsed/ Irrigated with Saline -Foul Odor after Cleansing No -Anesthetic Used 4% Lidocaine Solution #1 Medial LLE Superior -Current Size (cm) - Length 1.5 -Current Size (cm) - Width 0.4 -Current Size (cm) - Depth 2.7 -Total Square Cm 0.60 -Photo Taken No -Exudate Amt Medium (34-66%) -Exudate Type Serosanguineous -Wound Margin Distinct, Outline Attached -Granulation Amt Small (1-33%) -Granulation Quality Red -Necrosis Amt Small (1-33%) -Necrotic Tissue Type Adherent Slough -Texture (Rufina-wound Skin Appearance) Scarring -Moisture (Rufina-wound Skin Appearance No Abnormality ) -Color (Rufian-wound Skin Appearance) Hemosiderin Staining -Temperature (Rufina-wound Skin No Abnormality Appearance) (Pt Warm) -Ulcer Cleansing Rinsed/ Irrigated with Saline -Foul Odor after Cleansing No -Anesthetic Used 4% Lidocaine Solution [Edema Assessment] -Left Calf (cm) 44 -Left Ankle (cm) 32 WC - Nurse 2 - General Ulcer CM Notes Start: 09/14/17 08:25 Freq: Status: Active Protocol: Activity Type Activity Date Activity User E-Sign Co-Sign Detail Recorded Client Recorded Date Recorded By Document 09/28/17 08:44 DV [id number] 09/28/17 08:50 DV 09/28/17 08:44 Wound Center Nurse 2 [Procedure/Treatment] #9 Medial LLE Inferior -Time 08:45 -Correct Patient Yes -Correct Side, Site, Position Yes -Correct Procedure Yes -Procedure Performed Yes -Type of Procedure Debridement -Clinical Debridement Subcutaneous -Post Debridement Size (cm) - Length 0.6 -Post Debridement Size (cm) - Width 0.5 -Post Debridement Size (cm) - Depth 3.5 -Total Square Cm 0.30 -Wound/Ulcer Outcome Not Healed -Ulcer Cleansing Rinsed/ Irrigated with Saline -Foul Odor after Cleansing No -Bioengineered Tissue No -Bleeding Controlled with Pressure -Treatment Response Procedure Tolerated Well # 7 Left Upper Carter (pinhole) -Time 08:46 -Correct Patient Yes -Correct Side, Site, Position Yes -Correct Procedure Yes -Procedure Performed Yes -Type of Procedure Debridement -Clinical Debridement Subcutaneous -Post Debridement Size (cm) - Length 0.8 -Post Debridement Size (cm) - Width 0.5 -Post Debridement Size (cm) - Depth 2.5 -Total Square Cm 0.40 -Wound/Ulcer Outcome Not Healed -Ulcer Cleansing Rinsed/ Irrigated with Saline -Foul Odor after Cleansing No -Bioengineered Tissue No -Bleeding Controlled with Pressure -Treatment Response Procedure Tolerated Well #1 Medial LLE Superior -Time 08:47 -Correct Patient Yes -Correct Side, Site, Position Yes -Correct Procedure Yes -Procedure Performed Yes -Type of Procedure Debridement -Clinical Debridement Subcutaneous -Post Debridement Size (cm) - Length 1.4 -Post Debridement Size (cm) - Width 0.4 -Post Debridement Size (cm) - Depth 3.5 -Total Square Cm 0.56 -Wound/Ulcer Outcome Not Healed -Ulcer Cleansing Rinsed/ Irrigated with Saline -Bleeding Controlled with Pressure -Treatment Response Procedure Tolerated Well [See Physician Procedure note for Specifics] Pain Scale: 0-10 Numeric [Pain] -Is Patient Pain Free? Yes Musculoskeletal: No Muscle Wasting Neurological: Cranial nerves II-XII grossly intact Psych/Mental Status: Normal Affect Debridement Note Post-Debridement Measurements/Treatment WC - Nurse 2 - General Ulcer CM Notes Start: 09/14/17 08:25 Freq: Status: Active Protocol: Activity Type Activity Date Activity User E-Sign Co-Sign Detail Recorded Client Recorded Date Recorded By Document 09/14/17 08:49 DV [id number] 09/14/17 08:56 DV Document 09/21/17 10:26 DV [id number] 09/21/17 10:35 DV Document 09/28/17 08:44 DV [id number] 09/28/17 08:50 DV 09/14/17 09/21/17 09/28/17 08:49 10:26 08:44 Wound Center Nurse 2 #9 Medial LLE Inferior -Time 08:53 10:26 08:45 -Correct Patient Yes Yes Yes -Correct Side, Site, Position Yes Yes Yes -Correct Procedure Yes Yes Yes -Procedure Performed Yes Yes Yes -Type of Procedure Debridement Debridement Debridement -Clinical Debridement Subcutaneous Subcutaneous Subcutaneous -Post Debridement Size (cm) - Length 0.7 0.5 0.6 -Post Debridement Size (cm) - Width 0.6 0.4 0.5 -Post Debridement Size (cm) - Depth 3.3 2.2 3.5 -Total Square Cm 0.42 0.20 0.30 -Wound/Ulcer Outcome Not Healed Not Healed Not Healed -Ulcer Cleansing Rinsed/ Rinsed/ Rinsed/ Irrigated with Irrigated with Irrigated with Saline Saline Saline -Foul Odor after Cleansing No No No -Bioengineered Tissue No No No -Cetacaine Guston No -Bleeding Controlled with Pressure Pressure Pressure -Treatment Response Procedure Procedure Procedure Tolerated Well Tolerated Well Tolerated Well # 7 Left Upper Carter (pinhole) -Time 08:55 10:32 08:46 -Correct Patient Yes Yes Yes -Correct Side, Site, Position Yes Yes Yes -Correct Procedure Yes Yes Yes -Procedure Performed Yes Yes Yes -Type of Procedure Debridement Debridement Debridement -Clinical Debridement Subcutaneous Subcutaneous Subcutaneous -Post Debridement Size (cm) - Length 0.3 0.5 0.8 -Post Debridement Size (cm) - Width 0.5 0.4 0.5 -Post Debridement Size (cm) - Depth 2.0 2.2 2.5 -Total Square Cm 0.15 0.20 0.40 -Wound/Ulcer Outcome Not Healed Not Healed Not Healed -Ulcer Cleansing Rinsed/ Rinsed/ Rinsed/ Irrigated with Irrigated with Irrigated with Saline Saline Saline -Foul Odor after Cleansing No No No -Bioengineered Tissue No No No -Cetacaine Guston No -Bleeding Controlled with Pressure Pressure Pressure -Treatment Response Procedure Procedure Procedure Tolerated Well Tolerated Well Tolerated Well #1 Medial LLE Superior -Time 08:56 10:27 08:47 -Correct Patient Yes Yes Yes -Correct Side, Site, Position Yes Yes Yes -Correct Procedure Yes Yes Yes -Procedure Performed Yes Yes Yes -Type of Procedure Debridement Debridement Debridement -Clinical Debridement Subcutaneous Subcutaneous Subcutaneous -Post Debridement Size (cm) - Length 1.5 1.5 1.4 -Post Debridement Size (cm) - Width 0.6 0.4 0.4 -Post Debridement Size (cm) - Depth 3.3 3.8 3.5 -Total Square Cm 0.90 0.60 0.56 -Wound/Ulcer Outcome Not Healed Not Healed Not Healed -Ulcer Cleansing Rinsed/ Rinsed/ Rinsed/ Irrigated with Irrigated with Irrigated with Saline Saline Saline -Foul Odor after Cleansing No No -Bioengineered Tissue No No -Cetacaine Guston No -Bleeding Controlled with Pressure Pressure Pressure -Treatment Response Procedure Procedure Procedure Tolerated Well Tolerated Well Tolerated Well Pain Scale: 0-10 Numeric Is Patient Pain Free? Yes Yes Yes Wound debrided: Left lower extremity inferior Wound Grade/Stage: Stage II. Probes to bone Type of Debridement: Excisional debridement Anesthesia Used: 4% Lidocaine Solution Depth: Down to and including healthy tissue, in the subcutaneous layer Percentage of wound debrided: 100 Instrument Used: 3mm curette Tissue Removed: Devitalized tissue Severity: Fat Layer Exposed Amount of bleeding with debridement: Mild Bleeding Controlled with: Pressure Patient tolerated procedure well - Additional Wound Wound debrided: Left lower extremity Superior Wound Grade/Stage: Stage II. Probes to bone. Anesthesia Used: 4% Lidocaine Solution Depth: Down to and including healthy tissue, in the subcutaneous layer Percentage of wound debrided: 100 Instrument Used: 3mm curette Tissue Removed: Devitalized tissue Severity: Fat Layer Exposed Amount of bleeding with debridement: Mild Bleeding Controlled with: Pressure - Additional Wound Wound debrided: Left lower extremity ( Pin hole ) Wound Grade/Stage: Stage II Type of Debridement: Excisional debridement Anesthesia Used: 4% Lidocaine Solution Depth: Down to and including healthy tissue, in the subcutaneous layer Percentage of wound debrided: 100 Instrument Used: 3mm curette Tissue Removed: Devitalized tissue. Severity: Fat Layer Exposed Amount of bleeding with debridement: Mild Bleeding Controlled with: Pressure Patient tolerated procedure: Patient tolerated procedure well Assessment/Plan Active Problems Ulcer of left lower extremity (Chronic) Neuropathy of left lower extremity (Chronic) Assessment: 1. Nonhealing ulcers cluster left medial leg with extension to the bone. 2. Nonhealing ulcer left medial ankle. 3. Nonhealing ulcer left anterior leg. 4. s/p complex left tib fib fracture repair with hardware placement and soft tissue reconstruction with a microvascular free tissue transfer muscle flap. 5. Venous insufficiency. 6. Diabetes mellitus. 7. Former smoker. Plan: No significant changes in the past week. Currently on Erythromycin per culture and sensitivity. Scheduled to follow up with Ortho surgeon at the [facility] [place] on the 06 of November. Continue daily packing of the wound with Aquacel silver with adaptic covering. Continue protein supplements and protein rich diet. Elevate lower extremity when seated and in bed. Avoid idle standing. Exercise as tolerated. Follow-up in 1 week. This note was generated with [employer] software. It may contain incorrect words, spelling, and punctuation that were not noted in checking the note before signing.
[2017-10-05 09:02] VITALS: BP 149/80; PULSE 80; RESP 18
--- NOTE | 2017-10-05 15:19 | PCM.WC.PN ---
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 History of Wound: Patient presented to the Wound Center in 06/30 with nonhealing ulcers left leg. His initial trauma was in 2004 where he sustained a complex fracture wound that required hardware placement and a complex muscle flap for reconstruction. He states the flap came from his abdomen (rectus abdominis muscle flap) utilizing a microvascular free tissue transfer. This was done at [facility] in [place]. He states he did fine until 2015 when he developed an infection that required operative debridement in [place] followed by antibiotics and wound care. With recurrent ulceration and drainage, he came to this Wound Center. Wound culture in 06/30 showed Staphylococcus aureus and E. coli. Repeat culture in 07/30 showed E. coli. He is currently on Levaquin. He had a Venous Doppler study in 06/30 which showed no DVT and incompetent veins with insufficiency. He had an LEAS study in 06/30 which showed triphasic waveforms and calcification. No significant vascular stenoses seen. A CT in 07/30 showed the hardware placement with healed bone and no radiological evidence of osteomyelitis. He has been using Promogran/Annabella dressing changes for his wound care and aquacel packing of tunelling to bone. He is scheduled to follow up at the [facility] per recommendation from Dr. De Oliveira. Progress of Wound: Stable. No new complaints. - Physical Exam Vital Signs Temp Pulse Resp BP 96.9 F L 80 18 149/80 H 09/28/17 08:15 10/05/17 09:02 10/05/17 09:02 10/05/17 09:02 General: Alert, Oriented x3, Cooperative, No apparent distress HEENT: Atraumatic, Normocephalic Oral: Moist Mucosa Neck: Supple Lungs: Normal air movement Cardiovascular: Regular rate Extremities: No cyanosis, Edema Skin: Ulcer/ Wound Wound Measurements and Assessment WC - Nurse 1 - General Ulcer Measurement Start: 09/14/17 08:25 Freq: Status: Active Protocol: Activity Type Activity Date Activity User E-Sign Co-Sign Detail Recorded Client Recorded Date Recorded By Document 10/05/17 09:02 [id number] 10/05/17 09:20 10/05/17 09:02 Wound Center Nurse 1 [Ulcer Assessment] #9 Medial LLE Inferior -Combined with other wound No -Current Size (cm) - Length 0.5 -Current Size (cm) - Width 0.3 -Current Size (cm) - Depth 2.3 -Total Square Cm 0.15 -Date of Last Picture (Recall this 10/05/17 field) -Photo Taken Yes -Epithelialization Small 1-33% -Tunneling No -Undermining/Tunneling No -Circular Undermining No -Classification - Thickness Full Thickness without Exposed Support Structure -Exudate Amt Medium (34-66%) -Exudate Type Serosanguineous -Wound Margin Distinct, Outline Attached -Granulation Amt Large (67-100%) -Granulation Quality Red -Slough/Fibrin Yes -Necrosis Amt Small (1-33%) -Necrotic Tissue Type Adherent Slough -Structure Exposed Fascia Fat Layer Exposed -Texture (Rufina-wound Skin Appearance) Localized Edema Scarring -Moisture (Rufina-wound Skin Appearance No Abnormality ) -Color (Rufina-wound Skin Appearance) Erythema Hemosiderin Staining -Temperature (Rufina-wound Skin No Abnormality Appearance) (Pt Warm) -Tenderness on Palpation (Rufina-wound No Skin Appearance) -Ulcer Cleansing Rinsed/ Irrigated with Saline -Foul Odor after Cleansing No -Anesthetic Used 4% Lidocaine Solution # 7 Left Upper Smith (pinhole) -Combined with other wound No -Current Size (cm) - Length 0.7 -Current Size (cm) - Width 0.5 -Current Size (cm) - Depth 2.3 -Total Square Cm 0.35 -Date of Last Picture (Recall this 10/05/17 field) -Photo Taken Yes -Epithelialization Small 1-33% -Tunneling No -Undermining/Tunneling No -Circular Undermining No -Classification - Thickness Full Thickness without Exposed Support Structure -Exudate Amt Medium (34-66%) -Exudate Type Serosanguineous -Wound Margin Distinct, Outline Attached -Granulation Amt Large (67-100%) -Granulation Quality Red -Slough/Fibrin Yes -Necrosis Amt Small (1-33%) -Necrotic Tissue Type Adherent Slough -Structure Exposed Fascia Fat Layer Exposed -Texture (Rufina-wound Skin Appearance) Localized Edema Scarring -Moisture (Rufina-wound Skin Appearance No Abnormality ) -Color (Rufina-wound Skin Appearance) Erythema Hemosiderin Staining -Temperature (Rufina-wound Skin No Abnormality Appearance) (Pt Warm) -Tenderness on Palpation (Rufina-wound No Skin Appearance) -Ulcer Cleansing Rinsed/ Irrigated with Saline -Foul Odor after Cleansing No -Anesthetic Used 4% Lidocaine Solution #1 Medial LLE Superior Cluster -Combined with other wound No -Current Size (cm) - Length 1.5 -Current Size (cm) - Width 0.3 -Current Size (cm) - Depth 2.5 -Total Square Cm 0.45 -Date of Last Picture (Recall this 10/05/17 field) -Photo Taken Yes -Epithelialization Large 67-100% -Tunneling No -Undermining/Tunneling No -Circular Undermining No -Classification - Thickness Full Thickness without Exposed Support Structure -Exudate Amt Medium (34-66%) -Exudate Type Serosanguineous -Wound Margin Distinct, Outline Attached -Granulation Amt Large (67-100%) -Granulation Quality Red -Slough/Fibrin Yes -Necrosis Amt Small (1-33%) -Necrotic Tissue Type Adherent Slough -Structure Exposed Fascia Fat Layer Exposed -Texture (Rufina-wound Skin Appearance) Localized Edema Scarring -Moisture (Rufina-wound Skin Appearance No Abnormality ) -Color (Rufina-wound Skin Appearance) Erythema Hemosiderin Staining -Temperature (Rufina-wound Skin No Abnormality Appearance) (Pt Warm) -Tenderness on Palpation (Rufina-wound No Skin Appearance) -Ulcer Cleansing Rinsed/ Irrigated with Saline -Foul Odor after Cleansing No -Anesthetic Used 4% Lidocaine Solution [Edema Assessment] -Lower Limb Edema Present Yes -Left Calf (cm) 41.0 -Left Ankle (cm) 31.0 WC - Nurse 2 - General Ulcer CM Notes Start: 09/14/17 08:25 Freq: Status: Active Protocol: Activity Type Activity Date Activity User E-Sign Co-Sign Detail Recorded Client Recorded Date Recorded By Document 10/05/17 10:12 DV [id number] 10/05/17 10:20 10/05/17 10:12 Wound Center Nurse 2 [Procedure/Treatment] #9 Medial LLE Inferior -Time 10:14 -Correct Patient Yes -Correct Side, Site, Position Yes -Correct Procedure Yes -Procedure Performed Yes -Type of Procedure Debridement -Clinical Debridement Subcutaneous -Post Debridement Size (cm) - Length 0.5 -Post Debridement Size (cm) - Width 0.4 -Post Debridement Size (cm) - Depth 2.0 -Total Square Cm 0.20 -Wound/Ulcer Outcome Not Healed -Ulcer Cleansing Rinsed/ Irrigated with Saline -Foul Odor after Cleansing No -Bioengineered Tissue No -Bleeding Controlled with Pressure -Treatment Response Procedure Tolerated Well # 7 Left Upper Smith (pinhole) -Time 10:14 -Correct Patient Yes -Correct Side, Site, Position Yes -Correct Procedure Yes -Procedure Performed Yes -Type of Procedure Debridement -Clinical Debridement Subcutaneous -Post Debridement Size (cm) - Length 0.6 -Post Debridement Size (cm) - Width 0.5 -Post Debridement Size (cm) - Depth 2.5 -Total Square Cm 0.30 -Wound/Ulcer Outcome Failed Flap -Ulcer Cleansing Rinsed/ Irrigated with Saline -Foul Odor after Cleansing No -Bioengineered Tissue No -Bleeding Controlled with Pressure -Treatment Response Procedure Tolerated Well #1 Medial LLE Superior Cluster -Time 10:15 -Correct Patient Yes -Correct Side, Site, Position Yes -Correct Procedure Yes -Procedure Performed Yes -Type of Procedure Debridement -Clinical Debridement Subcutaneous -Post Debridement Size (cm) - Length 2.3 -Post Debridement Size (cm) - Width 0.4 -Post Debridement Size (cm) - Depth 3.0 -Total Square Cm 0.92 -Wound/Ulcer Outcome Not Healed -Ulcer Cleansing Rinsed/ Irrigated with Saline -Foul Odor after Cleansing No -Bioengineered Tissue No -Bleeding Controlled with Pressure -Treatment Response Procedure Tolerated Well [See Physician Procedure note for Specifics] Pain Scale: 0-10 Numeric [Pain] -Is Patient Pain Free? Yes Neurological: Cranial nerves II-XII grossly intact Psych/Mental Status: Normal Affect Debridement Note Post-Debridement Measurements/Treatment WC - Nurse 2 - General Ulcer CM Notes Start: 09/14/17 08:25 Freq: Status: Active Protocol: Activity Type Activity Date Activity User E-Sign Co-Sign Detail Recorded Client Recorded Date Recorded By Document 09/14/17 08:49 DV [id number] 09/14/17 08:56 DV Document 09/21/17 10:26 DV [id number] 09/21/17 10:35 DV Document 09/28/17 08:44 DV [id number] 09/28/17 08:50 DV Document 10/05/17 10:12 DV [id number] 10/05/17 10:20 DV 09/14/17 09/21/17 09/28/17 08:49 10:26 08:44 Wound Center Nurse 2 #9 Medial LLE Inferior -Time 08:53 10:26 08:45 -Correct Patient Yes Yes Yes -Correct Side, Site, Position Yes Yes Yes -Correct Procedure Yes Yes Yes -Procedure Performed Yes Yes Yes -Type of Procedure Debridement Debridement Debridement -Clinical Debridement Subcutaneous Subcutaneous Subcutaneous -Post Debridement Size (cm) - Length 0.7 0.5 0.6 -Post Debridement Size (cm) - Width 0.6 0.4 0.5 -Post Debridement Size (cm) - Depth 3.3 2.2 3.5 -Total Square Cm 0.42 0.20 0.30 -Wound/Ulcer Outcome Not Healed Not Healed Not Healed -Ulcer Cleansing Rinsed/ Rinsed/ Rinsed/ Irrigated with Irrigated with Irrigated with Saline Saline Saline -Foul Odor after Cleansing No No No -Bioengineered Tissue No No No -Cetacaine [place] No -Bleeding Controlled with Pressure Pressure Pressure -Treatment Response Procedure Procedure Procedure Tolerated Well Tolerated Well Tolerated Well # 7 Left Upper Smith (pinhole) -Time 08:55 10:32 08:46 -Correct Patient Yes Yes Yes -Correct Side, Site, Position Yes Yes Yes -Correct Procedure Yes Yes Yes -Procedure Performed Yes Yes Yes -Type of Procedure Debridement Debridement Debridement -Clinical Debridement Subcutaneous Subcutaneous Subcutaneous -Post Debridement Size (cm) - Length 0.3 0.5 0.8 -Post Debridement Size (cm) - Width 0.5 0.4 0.5 -Post Debridement Size (cm) - Depth 2.0 2.2 2.5 -Total Square Cm 0.15 0.20 0.40 -Wound/Ulcer Outcome Not Healed Not Healed Not Healed -Ulcer Cleansing Rinsed/ Rinsed/ Rinsed/ Irrigated with Irrigated with Irrigated with Saline Saline Saline -Foul Odor after Cleansing No No No -Bioengineered Tissue No No No -Cetacaine [place] No -Bleeding Controlled with Pressure Pressure Pressure -Treatment Response Procedure Procedure Procedure Tolerated Well Tolerated Well Tolerated Well #1 Medial LLE Superior Cluster -Time 08:56 10:27 08:47 -Correct Patient Yes Yes Yes -Correct Side, Site, Position Yes Yes Yes -Correct Procedure Yes Yes Yes -Procedure Performed Yes Yes Yes -Type of Procedure Debridement Debridement Debridement -Clinical Debridement Subcutaneous Subcutaneous Subcutaneous -Post Debridement Size (cm) - Length 1.5 1.5 1.4 -Post Debridement Size (cm) - Width 0.6 0.4 0.4 -Post Debridement Size (cm) - Depth 3.3 3.8 3.5 -Total Square Cm 0.90 0.60 0.56 -Wound/Ulcer Outcome Not Healed Not Healed Not Healed -Ulcer Cleansing Rinsed/ Rinsed/ Rinsed/ Irrigated with Irrigated with Irrigated with Saline Saline Saline -Foul Odor after Cleansing No No -Bioengineered Tissue No No -Cetacaine [place] No -Bleeding Controlled with Pressure Pressure Pressure -Treatment Response Procedure Procedure Procedure Tolerated Well Tolerated Well Tolerated Well Pain Scale: 0-10 Numeric Is Patient Pain Free? Yes Yes Yes 10/05/17 10:12 Wound Center Nurse 2 #9 Medial LLE Inferior -Time 10:14 -Correct Patient Yes -Correct Side, Site, Position Yes -Correct Procedure Yes -Procedure Performed Yes -Type of Procedure Debridement -Clinical Debridement Subcutaneous -Post Debridement Size (cm) - Length 0.5 -Post Debridement Size (cm) - Width 0.4 -Post Debridement Size (cm) - Depth 2.0 -Total Square Cm 0.20 -Wound/Ulcer Outcome Not Healed -Ulcer Cleansing Rinsed/ Irrigated with Saline -Foul Odor after Cleansing No -Bioengineered Tissue No -Cetacaine [place] -Bleeding Controlled with Pressure -Treatment Response Procedure Tolerated Well # 7 Left Upper Smith (pinhole) -Time 10:14 -Correct Patient Yes -Correct Side, Site, Position Yes -Correct Procedure Yes -Procedure Performed Yes -Type of Procedure Debridement -Clinical Debridement Subcutaneous -Post Debridement Size (cm) - Length 0.6 -Post Debridement Size (cm) - Width 0.5 -Post Debridement Size (cm) - Depth 2.5 -Total Square Cm 0.30 -Wound/Ulcer Outcome Failed Flap -Ulcer Cleansing Rinsed/ Irrigated with Saline -Foul Odor after Cleansing No -Bioengineered Tissue No -Cetacaine [place] -Bleeding Controlled with Pressure -Treatment Response Procedure Tolerated Well #1 Medial LLE Superior Cluster -Time 10:15 -Correct Patient Yes -Correct Side, Site, Position Yes -Correct Procedure Yes -Procedure Performed Yes -Type of Procedure Debridement -Clinical Debridement Subcutaneous -Post Debridement Size (cm) - Length 2.3 -Post Debridement Size (cm) - Width 0.4 -Post Debridement Size (cm) - Depth 3.0 -Total Square Cm 0.92 -Wound/Ulcer Outcome Not Healed -Ulcer Cleansing Rinsed/ Irrigated with Saline -Foul Odor after Cleansing No -Bioengineered Tissue No -Cetacaine [place] -Bleeding Controlled with Pressure -Treatment Response Procedure Tolerated Well Pain Scale: 0-10 Numeric Is Patient Pain Free? Yes Wound debrided: Left Lower extremity Inferior Wound Grade/Stage: Non pressure ulcer stage II Type of Debridement: Excisional debridement Anesthesia Used: 4% Lidocaine Solution Depth: Down to and including healthy tissue, in the subcutaneous layer Percentage of wound debrided: 100 Instrument Used: 3mm curette Tissue Removed: Slough and Devitalized tissue Severity: Fat Layer Exposed Amount of bleeding with debridement: Mild Bleeding Controlled with: Pressure Patient tolerated procedure well - Additional Wound Wound debrided: Left Lower extremity superior Cluster Wound Grade/Stage: Non pressure ulcer stage II Type of Debridement: Excisional debridement Anesthesia Used: 4% Lidocaine Solution Depth: Down to and including healthy tissue, in the subcutaneous layer Percentage of wound debrided: 100 Instrument Used: 3mm curette Tissue Removed: Slough and Devitalized tissue Severity: Fat Layer Exposed Amount of bleeding with debridement: Mild Bleeding Controlled with: Pressure Patient tolerated procedure: Patient tolerated procedure well - Additional Wound Wound debrided: Left lower extremity smith ( Pin hole ) Wound Grade/Stage: Non pressure ulcer stage II Type of Debridement: Excisional debridement Anesthesia Used: 4% Lidocaine Solution Depth: Down to and including healthy tissue, in the subcutaneous layer Percentage of wound debrided: 100 Instrument Used: 3mm curette Tissue Removed: Slough and devitalized tissue Severity: Fat Layer Exposed Amount of bleeding with debridement: Mild Bleeding Controlled with: Pressure Patient tolerated procedure: Patient tolerated procedure well Assessment/Plan Active Problems Ulcer of left lower extremity (Chronic) Neuropathy of left lower extremity (Chronic) Assessment: 1. Nonhealing ulcers cluster left medial leg probes to the bone. 2. Nonhealing ulcer left medial ankle. 3. Nonhealing ulcer left anterior leg. 4. s/p complex left tib fib fracture repair with hardware placement and soft tissue reconstruction with a microvascular free tissue transfer muscle flap. 5. Venous insufficiency. 6. Diabetes mellitus. 7. Former smoker. Plan: Mild extension of the superior cluster ulcer . Drainage noted from that point in the past however, no significant opening then. Depth of ulcers however appear to be improving/reducing. Debridement done as documented above. procedure was well tolerated. Scheduled to follow up with Ortho surgeon at the [facility] main campus on the 06 of November. no indication for ABX at this time. will reasses at his next visit. Continue daily packing of the wound with Aquacel silver with adaptic covering over surface. Continue protein supplements and protein rich diet. Elevate lower extremity when seated and in bed. Avoid idle standing. Exercise as tolerated. Follow-up in 1 week. This note was generated with [employer] dictation software. It may contain incorrect words, spelling, and punctuation that were not noted in checking the note before signing.
--- NOTE | 2017-10-05 15:30 | PN.PCM_ITS ---
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 History of Wound: Patient presented to the Wound Center in 06/30 with nonhealing ulcers left leg. His initial trauma was in 2004 where he sustained a complex fracture wound that required hardware placement and a complex muscle flap for reconstruction. He states the flap came from his abdomen (rectus abdominis muscle flap) utilizing a microvascular free tissue transfer. This was done at [facility] in [place]. He states he did fine until 2015 when he developed an infection that required operative debridement in [place] followed by antibiotics and wound care. With recurrent ulceration and drainage, he came to this Wound Center. Wound culture in 06/30 showed Staphylococcus aureus and E. coli. Repeat culture in 07/30 showed E. coli. He is currently on Levaquin. He had a Venous Doppler study in 06/30 which showed no DVT and incompetent veins with insufficiency. He had an LEAS study in 06/30 which showed triphasic waveforms and calcification. No significant vascular stenoses seen. A CT in showed the hardware placement with healed bone and no radiological evidence of osteomyelitis. He has been using Promogran/Annabella dressing changes for his wound care and aquacel packing of tunelling to bone. He is scheduled to follow up at the [facility] per recommendation from Dr. De Oliveira. Progress of Wound: Stable. No new complaints. - Physical Exam Vital Signs Temp Pulse Resp BP 96.9 F L 80 18 149/80 H 09/28/17 08:15 10/05/17 09:02 10/05/17 09:02 10/05/17 09:02 General: Alert, Oriented x3, Cooperative, No apparent distress HEENT: Atraumatic, Normocephalic Oral: Moist Mucosa Neck: Supple Lungs: Normal air movement Cardiovascular: Regular rate Extremities: No cyanosis, Edema Skin: Ulcer/ Wound Wound Measurements and Assessment WC - Nurse 1 - General Ulcer Measurement Start: 09/14/17 08:25 Freq: Status: Active Protocol: Activity Type Activity Date Activity User E-Sign Co-Sign Detail Recorded Client Recorded Date Recorded By Document 10/05/17 09:02 [id number] 10/05/17 09:20 10/05/17 09:02 Wound Center Nurse 1 [Ulcer Assessment] #9 Medial LLE Inferior -Combined with other wound No -Current Size (cm) - Length 0.5 -Current Size (cm) - Width 0.3 -Current Size (cm) - Depth 2.3 -Total Square Cm 0.15 -Date of Last Picture (Recall this 10/05/17 field) -Photo Taken Yes -Epithelialization Small 1-33% -Tunneling No -Undermining/Tunneling No -Circular Undermining No -Classification - Thickness Full Thickness without Exposed Support Structure -Exudate Amt Medium (34-66%) -Exudate Type Serosanguineous -Wound Margin Distinct, Outline Attached -Granulation Amt Large (67-100%) -Granulation Quality Red -Slough/Fibrin Yes -Necrosis Amt Small (1-33%) -Necrotic Tissue Type Adherent Slough -Structure Exposed Fascia Fat Layer Exposed -Texture (Rufina-wound Skin Appearance) Localized Edema Scarring -Moisture (Rufina-wound Skin Appearance No Abnormality ) -Color (Rufina-wound Skin Appearance) Erythema Hemosiderin Staining -Temperature (Rufina-wound Skin No Abnormality Appearance) (Pt Warm) -Tenderness on Palpation (Rufina-wound No Skin Appearance) -Ulcer Cleansing Rinsed/ Irrigated with Saline -Foul Odor after Cleansing No -Anesthetic Used 4% Lidocaine Solution # 7 Left Upper Smith (pinhole) -Combined with other wound No -Current Size (cm) - Length 0.7 -Current Size (cm) - Width 0.5 -Current Size (cm) - Depth 2.3 -Total Square Cm 0.35 -Date of Last Picture (Recall this 10/05/17 field) -Photo Taken Yes -Epithelialization Small 1-33% -Tunneling No -Undermining/Tunneling No -Circular Undermining No -Classification - Thickness Full Thickness without Exposed Support Structure -Exudate Amt Medium (34-66%) -Exudate Type Serosanguineous -Wound Margin Distinct, Outline Attached -Granulation Amt Large (67-100%) -Granulation Quality Red -Slough/Fibrin Yes -Necrosis Amt Small (1-33%) -Necrotic Tissue Type Adherent Slough -Structure Exposed Fascia Fat Layer Exposed -Texture (Rufina-wound Skin Appearance) Localized Edema Scarring -Moisture (Rufina-wound Skin Appearance No Abnormality ) -Color (Rufina-wound Skin Appearance) Erythema Hemosiderin Staining -Temperature (Rufina-wound Skin No Abnormality Appearance) (Pt Warm) -Tenderness on Palpation (Rufina-wound No Skin Appearance) -Ulcer Cleansing Rinsed/ Irrigated with Saline -Foul Odor after Cleansing No -Anesthetic Used 4% Lidocaine Solution #1 Medial LLE Superior Cluster -Combined with other wound No -Current Size (cm) - Length 1.5 -Current Size (cm) - Width 0.3 -Current Size (cm) - Depth 2.5 -Total Square Cm 0.45 -Date of Last Picture (Recall this 10/05/17 field) -Photo Taken Yes -Epithelialization Large 67-100% -Tunneling No -Undermining/Tunneling No -Circular Undermining No -Classification - Thickness Full Thickness without Exposed Support Structure -Exudate Amt Medium (34-66%) -Exudate Type Serosanguineous -Wound Margin Distinct, Outline Attached -Granulation Amt Large (67-100%) -Granulation Quality Red -Slough/Fibrin Yes -Necrosis Amt Small (1-33%) -Necrotic Tissue Type Adherent Slough -Structure Exposed Fascia Fat Layer Exposed -Texture (Rufina-wound Skin Appearance) Localized Edema Scarring -Moisture (Rufina-wound Skin Appearance No Abnormality ) -Color (Rufina-wound Skin Appearance) Erythema Hemosiderin Staining -Temperature (Rufina-wound Skin No Abnormality Appearance) (Pt Warm) -Tenderness on Palpation (Rufina-wound No Skin Appearance) -Ulcer Cleansing Rinsed/ Irrigated with Saline -Foul Odor after Cleansing No -Anesthetic Used 4% Lidocaine Solution [Edema Assessment] -Lower Limb Edema Present Yes -Left Calf (cm) 41.0 -Left Ankle (cm) 31.0 WC - Nurse 2 - General Ulcer CM Notes Start: 09/14/17 08:25 Freq: Status: Active Protocol: Activity Type Activity Date Activity User E-Sign Co-Sign Detail Recorded Client Recorded Date Recorded By Document 10/05/17 10:12 DV [id number] 10/05/17 10:20 10/05/17 10:12 Wound Center Nurse 2 [Procedure/Treatment] #9 Medial LLE Inferior -Time 10:14 -Correct Patient Yes -Correct Side, Site, Position Yes -Correct Procedure Yes -Procedure Performed Yes -Type of Procedure Debridement -Clinical Debridement Subcutaneous -Post Debridement Size (cm) - Length 0.5 -Post Debridement Size (cm) - Width 0.4 -Post Debridement Size (cm) - Depth 2.0 -Total Square Cm 0.20 -Wound/Ulcer Outcome Not Healed -Ulcer Cleansing Rinsed/ Irrigated with Saline -Foul Odor after Cleansing No -Bioengineered Tissue No -Bleeding Controlled with Pressure -Treatment Response Procedure Tolerated Well # 7 Left Upper Smith (pinhole) -Time 10:14 -Correct Patient Yes -Correct Side, Site, Position Yes -Correct Procedure Yes -Procedure Performed Yes -Type of Procedure Debridement -Clinical Debridement Subcutaneous -Post Debridement Size (cm) - Length 0.6 -Post Debridement Size (cm) - Width 0.5 -Post Debridement Size (cm) - Depth 2.5 -Total Square Cm 0.30 -Wound/Ulcer Outcome Failed Flap -Ulcer Cleansing Rinsed/ Irrigated with Saline -Foul Odor after Cleansing No -Bioengineered Tissue No -Bleeding Controlled with Pressure -Treatment Response Procedure Tolerated Well #1 Medial LLE Superior Cluster -Time 10:15 -Correct Patient Yes -Correct Side, Site, Position Yes -Correct Procedure Yes -Procedure Performed Yes -Type of Procedure Debridement -Clinical Debridement Subcutaneous -Post Debridement Size (cm) - Length 2.3 -Post Debridement Size (cm) - Width 0.4 -Post Debridement Size (cm) - Depth 3.0 -Total Square Cm 0.92 -Wound/Ulcer Outcome Not Healed -Ulcer Cleansing Rinsed/ Irrigated with Saline -Foul Odor after Cleansing No -Bioengineered Tissue No -Bleeding Controlled with Pressure -Treatment Response Procedure Tolerated Well [See Physician Procedure note for Specifics] Pain Scale: 0-10 Numeric [Pain] -Is Patient Pain Free? Yes Neurological: Cranial nerves II-XII grossly intact Psych/Mental Status: Normal Affect Debridement Note Post-Debridement Measurements/Treatment WC - Nurse 2 - General Ulcer CM Notes Start: 09/14/17 08:25 Freq: Status: Active Protocol: Activity Type Activity Date Activity User E-Sign Co-Sign Detail Recorded Client Recorded Date Recorded By Document 09/14/17 08:49 DV [id number] 09/14/17 08:56 DV Document 09/21/17 10:26 DV [id number] 09/21/17 10:35 DV Document 09/28/17 08:44 DV [id number] 09/28/17 08:50 DV Document 10/05/17 10:12 DV [id number] 10/05/17 10:20 DV 09/14/17 09/21/17 09/28/17 08:49 10:26 08:44 Wound Center Nurse 2 #9 Medial LLE Inferior -Time 08:53 10:26 08:45 -Correct Patient Yes Yes Yes -Correct Side, Site, Position Yes Yes Yes -Correct Procedure Yes Yes Yes -Procedure Performed Yes Yes Yes -Type of Procedure Debridement Debridement Debridement -Clinical Debridement Subcutaneous Subcutaneous Subcutaneous -Post Debridement Size (cm) - Length 0.7 0.5 0.6 -Post Debridement Size (cm) - Width 0.6 0.4 0.5 -Post Debridement Size (cm) - Depth 3.3 2.2 3.5 -Total Square Cm 0.42 0.20 0.30 -Wound/Ulcer Outcome Not Healed Not Healed Not Healed -Ulcer Cleansing Rinsed/ Rinsed/ Rinsed/ Irrigated with Irrigated with Irrigated with Saline Saline Saline -Foul Odor after Cleansing No No No -Bioengineered Tissue No No No -Cetacaine [place] No -Bleeding Controlled with Pressure Pressure Pressure -Treatment Response Procedure Procedure Procedure Tolerated Well Tolerated Well Tolerated Well # 7 Left Upper Smith (pinhole) -Time 08:55 10:32 08:46 -Correct Patient Yes Yes Yes -Correct Side, Site, Position Yes Yes Yes -Correct Procedure Yes Yes Yes -Procedure Performed Yes Yes Yes -Type of Procedure Debridement Debridement Debridement -Clinical Debridement Subcutaneous Subcutaneous Subcutaneous -Post Debridement Size (cm) - Length 0.3 0.5 0.8 -Post Debridement Size (cm) - Width 0.5 0.4 0.5 -Post Debridement Size (cm) - Depth 2.0 2.2 2.5 -Total Square Cm 0.15 0.20 0.40 -Wound/Ulcer Outcome Not Healed Not Healed Not Healed -Ulcer Cleansing Rinsed/ Rinsed/ Rinsed/ Irrigated with Irrigated with Irrigated with Saline Saline Saline -Foul Odor after Cleansing No No No -Bioengineered Tissue No No No -Cetacaine [place] No -Bleeding Controlled with Pressure Pressure Pressure -Treatment Response Procedure Procedure Procedure Tolerated Well Tolerated Well Tolerated Well #1 Medial LLE Superior Cluster -Time 08:56 10:27 08:47 -Correct Patient Yes Yes Yes -Correct Side, Site, Position Yes Yes Yes -Correct Procedure Yes Yes Yes -Procedure Performed Yes Yes Yes -Type of Procedure Debridement Debridement Debridement -Clinical Debridement Subcutaneous Subcutaneous Subcutaneous -Post Debridement Size (cm) - Length 1.5 1.5 1.4 -Post Debridement Size (cm) - Width 0.6 0.4 0.4 -Post Debridement Size (cm) - Depth 3.3 3.8 3.5 -Total Square Cm 0.90 0.60 0.56 -Wound/Ulcer Outcome Not Healed Not Healed Not Healed -Ulcer Cleansing Rinsed/ Rinsed/ Rinsed/ Irrigated with Irrigated with Irrigated with Saline Saline Saline -Foul Odor after Cleansing No No -Bioengineered Tissue No No -Cetacaine [place] No -Bleeding Controlled with Pressure Pressure Pressure -Treatment Response Procedure Procedure Procedure Tolerated Well Tolerated Well Tolerated Well Pain Scale: 0-10 Numeric Is Patient Pain Free? Yes Yes Yes 10/05/17 10:12 Wound Center Nurse 2 #9 Medial LLE Inferior -Time 10:14 -Correct Patient Yes -Correct Side, Site, Position Yes -Correct Procedure Yes -Procedure Performed Yes -Type of Procedure Debridement -Clinical Debridement Subcutaneous -Post Debridement Size (cm) - Length 0.5 -Post Debridement Size (cm) - Width 0.4 -Post Debridement Size (cm) - Depth 2.0 -Total Square Cm 0.20 -Wound/Ulcer Outcome Not Healed -Ulcer Cleansing Rinsed/ Irrigated with Saline -Foul Odor after Cleansing No -Bioengineered Tissue No -Cetacaine [place] -Bleeding Controlled with Pressure -Treatment Response Procedure Tolerated Well # 7 Left Upper Smith (pinhole) -Time 10:14 -Correct Patient Yes -Correct Side, Site, Position Yes -Correct Procedure Yes -Procedure Performed Yes -Type of Procedure Debridement -Clinical Debridement Subcutaneous -Post Debridement Size (cm) - Length 0.6 -Post Debridement Size (cm) - Width 0.5 -Post Debridement Size (cm) - Depth 2.5 -Total Square Cm 0.30 -Wound/Ulcer Outcome Failed Flap -Ulcer Cleansing Rinsed/ Irrigated with Saline -Foul Odor after Cleansing No -Bioengineered Tissue No -Cetacaine [place] -Bleeding Controlled with Pressure -Treatment Response Procedure Tolerated Well #1 Medial LLE Superior Cluster -Time 10:15 -Correct Patient Yes -Correct Side, Site, Position Yes -Correct Procedure Yes -Procedure Performed Yes -Type of Procedure Debridement -Clinical Debridement Subcutaneous -Post Debridement Size (cm) - Length 2.3 -Post Debridement Size (cm) - Width 0.4 -Post Debridement Size (cm) - Depth 3.0 -Total Square Cm 0.92 -Wound/Ulcer Outcome Not Healed -Ulcer Cleansing Rinsed/ Irrigated with Saline -Foul Odor after Cleansing No -Bioengineered Tissue No -Cetacaine [place] -Bleeding Controlled with Pressure -Treatment Response Procedure Tolerated Well Pain Scale: 0-10 Numeric Is Patient Pain Free? Yes Wound debrided: Left Lower extremity Inferior Wound Grade/Stage: Non pressure ulcer stage II Type of Debridement: Excisional debridement Anesthesia Used: 4% Lidocaine Solution Depth: Down to and including healthy tissue, in the subcutaneous layer Percentage of wound debrided: 100 Instrument Used: 3mm curette Tissue Removed: Slough and Devitalized tissue Severity: Fat Layer Exposed Amount of bleeding with debridement: Mild Bleeding Controlled with: Pressure Patient tolerated procedure well - Additional Wound Wound debrided: Left Lower extremity superior Cluster Wound Grade/Stage: Non pressure ulcer stage II Type of Debridement: Excisional debridement Anesthesia Used: 4% Lidocaine Solution Depth: Down to and including healthy tissue, in the subcutaneous layer Percentage of wound debrided: 100 Instrument Used: 3mm curette Tissue Removed: Slough and Devitalized tissue Severity: Fat Layer Exposed Amount of bleeding with debridement: Mild Bleeding Controlled with: Pressure Patient tolerated procedure: Patient tolerated procedure well - Additional Wound Wound debrided: Left lower extremity smith ( Pin hole ) Wound Grade/Stage: Non pressure ulcer stage II Type of Debridement: Excisional debridement Anesthesia Used: 4% Lidocaine Solution Depth: Down to and including healthy tissue, in the subcutaneous layer Percentage of wound debrided: 100 Instrument Used: 3mm curette Tissue Removed: Slough and devitalized tissue Severity: Fat Layer Exposed Amount of bleeding with debridement: Mild Bleeding Controlled with: Pressure Patient tolerated procedure: Patient tolerated procedure well Assessment/Plan Active Problems Ulcer of left lower extremity (Chronic) Neuropathy of left lower extremity (Chronic) Assessment: 1. Nonhealing ulcers cluster left medial leg probes to the bone. 2. Nonhealing ulcer left medial ankle. 3. Nonhealing ulcer left anterior leg. 4. s/p complex left tib fib fracture repair with hardware placement and soft tissue reconstruction with a microvascular free tissue transfer muscle flap. 5. Venous insufficiency. 6. Diabetes mellitus. 7. Former smoker. Plan: Mild extension of the superior cluster ulcer . Drainage noted from that point in the past however, no significant opening then. Depth of ulcers however appear to be improving/reducing. Debridement done as documented above. procedure was well tolerated. Scheduled to follow up with Ortho surgeon at the [facility] main campus on the 06 of November. no indication for ABX at this time. will reasses at his next visit. Continue daily packing of the wound with Aquacel silver with adaptic covering over surface. Continue protein supplements and protein rich diet. Elevate lower extremity when seated and in bed. Avoid idle standing. Exercise as tolerated. Follow-up in 1 week. This note was generated with [employer] dictation software. It may contain incorrect words, spelling, and punctuation that were not noted in checking the note before signing.
== END 2017-10-11 23:59 ==
LOC: WC 09:00
PROVIDERS: Family Provider Family Medicine; PCP Family Medicine; Visit Provider Internal Medicine
DX: E11.622 Type 2 diabetes mellitus with other skin ulcer (principal); E11.51 Type 2 diabetes mellitus with diabetic peripheral angiopathy without gangrene; E11.40 Type 2 diabetes mellitus with diabetic neuropathy, unspecified; L97.322 Non-pressure chronic ulcer of left ankle with fat layer exposed; L97.822 Non-pressure chronic ulcer of other part of left lower leg with fat layer exposed; Z87.891 Personal history of nicotine dependence
CPT/HCPCS: 11042; 87070; 87075; 87076; 87077; 87186; 87205

== ENCOUNTER 2017-11-08 08:15 | Outpatient (RCR) | payer MEDICARE, SELFPAY ==
[2017-10-12 00:28] VITALS: BP 151/96; PULSE 80; RESP 18; TEMP 36.1
[2017-10-12 08:18] VITALS: BP 142/85; PULSE 75; RESP 18; TEMP 36.9
--- NOTE | 2017-10-12 10:23 | PCM.WC.PN ---
(1) Diabetes type 2, controlled Status: Chronic Current Visit: No Code(s): E11.9 - Type 2 diabetes mellitus without complications (2) Neuropathy of left lower extremity Status: Chronic Current Visit: No Code(s): G57.92 - Unspecified mononeuropathy of left lower limb (3) Peripheral vascular occlusive disease Status: Chronic Current Visit: No Code(s): I73.9 - Peripheral vascular disease, unspecified (4) Ulcer of left lower extremity Status: Chronic Current Visit: No Code(s): L97.929 - Non-pressure chronic ulcer of unspecified part of left lower leg with unspecified severity Type of Wound Date of Service: 10/12/17 Chief Complaint: Nonhealing ulcers left leg s/p fracture and hardware placement. History of Wound: Patient presented to the Wound Center in 06/30 with nonhealing ulcers left leg. His initial trauma was in 2004 where he sustained a complex fracture wound that required hardware placement and a complex muscle flap for reconstruction. He states the flap came from his abdomen (rectus abdominis muscle flap) utilizing a microvascular free tissue transfer. [place] [facility] [place] states he did fine until 2015 when he developed an infection that required operative debridement in [place] followed by antibiotics and wound care. With recurrent ulceration and drainage, he came to this Wound Center. Wound culture in 06/30 showed Staphylococcus aureus and E. coli. Repeat culture in 07/30 showed E. coli. He is currently on Levaquin. He had a Venous Doppler study in 06/30 which showed no DVT and incompetent veins with insufficiency. He had an LEAS study in 06/30 which showed triphasic waveforms and calcification. No significant vascular stenoses seen. A CT in 07/30 showed the hardware placement with healed bone and no radiological evidence of osteomyelitis. He has been using Promogran/Annabella dressing changes for his wound care and aquacel packing of tunelling to bone. He is scheduled to follow up at the [facility] per recommendation from Dr. De Oliveira. Progress of Wound: Stable. No new complaints. - Physical Exam Vital Signs Temp Pulse Resp BP 98.4 F 75 18 142/85 H 10/12/17 08:18 10/12/17 08:18 10/12/17 08:18 10/12/17 08:18 General: Alert, Oriented x3, Cooperative, No apparent distress HEENT: Atraumatic, Normocephalic Oral: Moist Mucosa Neck: Supple Lungs: Normal air movement Cardiovascular: Regular rate Skin: Ulcer/ Wound Wound Measurements and Assessment WC - Nurse 1 - General Ulcer Measurement Start: 10/12/17 08:18 Freq: Status: Active Protocol: Activity Type Activity Date Activity User E-Sign Co-Sign Detail Recorded Client Recorded Date Recorded By Document 10/12/17 08:18 DL [id number] 10/12/17 08:32 DL 10/12/17 08:18 Wound Center Nurse 1 [Ulcer Assessment] #9 Medial LLE Inferior -Current Size (cm) - Length 0.6 -Current Size (cm) - Width 0.3 -Current Size (cm) - Depth 2.7 -Total Square Cm 0.18 -Photo Taken No -Exudate Amt Medium (34-66%) -Exudate Type Serosanguineous -Wound Margin Distinct, Outline Attached -Granulation Amt Medium (34-66%) -Granulation Quality Red -Necrosis Amt Medium (34-66%) -Necrotic Tissue Type Adherent Slough -Structure Exposed N/A -Texture (Rufina-wound Skin Appearance) Scarring -Moisture (Rufina-wound Skin Appearance No Abnormality ) -Color (Rufina-wound Skin Appearance) Hemosiderin Staining -Temperature (Rufina-wound Skin No Abnormality Appearance) (Pt Warm) -Ulcer Cleansing Wound Cleanser -Foul Odor after Cleansing No -Anesthetic Used 4% Lidocaine Solution # 7 LLE- Upper Carter -Current Size (cm) - Length 0.8 -Current Size (cm) - Width 0.7 -Current Size (cm) - Depth 1.1 -Total Square Cm 0.56 -Photo Taken No -Undermining/Tunneling Starts (O' 9 clock) -Undermining/Tunneling Ends (O'clock) 12 -Maximum Distance (cm) 0.9 -Exudate Amt Medium (34-66%) -Exudate Type Serosanguineous -Wound Margin Distinct, Outline Attached -Granulation Amt Medium (34-66%) -Granulation Quality Red -Necrosis Amt Medium (34-66%) -Necrotic Tissue Type Adherent Slough -Structure Exposed N/A -Texture (Rufina-wound Skin Appearance) Localized Edema -Moisture (Rufina-wound Skin Appearance No Abnormality ) -Color (Rufina-wound Skin Appearance) Hemosiderin Staining -Temperature (Rufina-wound Skin No Abnormality Appearance) (Pt Warm) -Ulcer Cleansing Wound Cleanser -Foul Odor after Cleansing No -Anesthetic Used 4% Lidocaine Solution #1 Medial LLE Superior Cluster -Current Size (cm) - Length 1.5 -Current Size (cm) - Width 0.3 -Current Size (cm) - Depth 2.6 -Total Square Cm 0.45 -Photo Taken No -Exudate Amt Medium (34-66%) -Exudate Type Serosanguineous -Wound Margin Distinct, Outline Attached -Granulation Amt Medium (34-66%) -Granulation Quality Red -Necrosis Amt Medium (34-66%) -Necrotic Tissue Type Adherent Slough -Structure Exposed N/A -Texture (Rufina-wound Skin Appearance) Scarring -Moisture (Rufina-wound Skin Appearance No Abnormality ) -Color (Rufina-wound Skin Appearance) Hemosiderin Staining -Temperature (Rufina-wound Skin No Abnormality Appearance) (Pt Warm) -Ulcer Cleansing Wound Cleanser -Foul Odor after Cleansing No -Anesthetic Used 4% Lidocaine Solution [Edema Assessment] -Left Calf (cm) 43 -Left Ankle (cm) 31.5 WC - Nurse 2 - General Ulcer CM Notes Start: 10/12/17 08:18 Freq: Status: Active Protocol: Activity Type Activity Date Activity User E-Sign Co-Sign Detail Recorded Client Recorded Date Recorded By Document 10/12/17 08:44 DV [id number] 10/12/17 08:52 DV 10/12/17 08:44 Wound Center Nurse 2 [Procedure/Treatment] #9 Medial LLE Inferior -Time 08:45 -Correct Patient Yes -Correct Side, Site, Position Yes -Correct Procedure Yes -Procedure Performed Yes -Type of Procedure Debridement -Clinical Debridement Subcutaneous -Post Debridement Size (cm) - Length 0.8 -Post Debridement Size (cm) - Width 0.4 -Post Debridement Size (cm) - Depth 3.2 -Total Square Cm 0.32 -Wound/Ulcer Outcome Not Healed -Ulcer Cleansing Rinsed/ Irrigated with Saline -Foul Odor after Cleansing No -Bioengineered Tissue No -Bleeding Controlled with Pressure -Treatment Response Procedure Tolerated Well # 7 LLE- Upper [place] -Time 08:47 -Correct Patient Yes -Correct Side, Site, Position Yes -Correct Procedure Yes -Procedure Performed Yes -Type of Procedure Debridement -Clinical Debridement Subcutaneous -Post Debridement Size (cm) - Length 0.7 -Post Debridement Size (cm) - Width 0.7 -Post Debridement Size (cm) - Depth 2.9 -Total Square Cm 0.49 -Wound/Ulcer Outcome Not Healed -Ulcer Cleansing Rinsed/ Irrigated with Saline -Foul Odor after Cleansing No -Bioengineered Tissue No -Bleeding Controlled with Pressure -Treatment Response Procedure Tolerated Well #1 Medial LLE Superior Cluster -Time 08:46 -Correct Patient Yes -Correct Side, Site, Position Yes -Correct Procedure Yes -Procedure Performed Yes -Type of Procedure Debridement -Clinical Debridement Subcutaneous -Post Debridement Size (cm) - Length 2.5 -Post Debridement Size (cm) - Width 0.4 -Post Debridement Size (cm) - Depth 3.2 -Total Square Cm 1.00 -Wound/Ulcer Outcome Not Healed -Ulcer Cleansing Rinsed/ Irrigated with Saline -Foul Odor after Cleansing No -Bioengineered Tissue No -Bleeding Controlled with Pressure -Treatment Response Procedure Tolerated Well [See Physician Procedure note for Specifics] Pain Scale: 0-10 Numeric [Pain] -Is Patient Pain Free? Yes Musculoskeletal: No Muscle Wasting Neurological: Cranial nerves II-XII grossly intact Psych/Mental Status: Normal Affect Debridement Note Post-Debridement Measurements/Treatment WC - Nurse 2 - General Ulcer CM Notes Start: 10/12/17 08:18 Freq: Status: Active Protocol: Activity Type Activity Date Activity User E-Sign Co-Sign Detail Recorded Client Recorded Date Recorded By Document 10/12/17 08:44 DV [id number] 10/12/17 08:52 DV 10/12/17 08:44 Wound Center Nurse 2 #9 Medial LLE Inferior -Time 08:45 -Correct Patient Yes -Correct Side, Site, Position Yes -Correct Procedure Yes -Procedure Performed Yes -Type of Procedure Debridement -Clinical Debridement Subcutaneous -Post Debridement Size (cm) - Length 0.8 -Post Debridement Size (cm) - Width 0.4 -Post Debridement Size (cm) - Depth 3.2 -Total Square Cm 0.32 -Wound/Ulcer Outcome Not Healed -Ulcer Cleansing Rinsed/ Irrigated with Saline -Foul Odor after Cleansing No -Bioengineered Tissue No -Bleeding Controlled with Pressure -Treatment Response Procedure Tolerated Well # 7 LLE- Upper [place] -Time 08:47 -Correct Patient Yes -Correct Side, Site, Position Yes -Correct Procedure Yes -Procedure Performed Yes -Type of Procedure Debridement -Clinical Debridement Subcutaneous -Post Debridement Size (cm) - Length 0.7 -Post Debridement Size (cm) - Width 0.7 -Post Debridement Size (cm) - Depth 2.9 -Total Square Cm 0.49 -Wound/Ulcer Outcome Not Healed -Ulcer Cleansing Rinsed/ Irrigated with Saline -Foul Odor after Cleansing No -Bioengineered Tissue No -Bleeding Controlled with Pressure -Treatment Response Procedure Tolerated Well #1 Medial LLE Superior Cluster -Time 08:46 -Correct Patient Yes -Correct Side, Site, Position Yes -Correct Procedure Yes -Procedure Performed Yes -Type of Procedure Debridement -Clinical Debridement Subcutaneous -Post Debridement Size (cm) - Length 2.5 -Post Debridement Size (cm) - Width 0.4 -Post Debridement Size (cm) - Depth 3.2 -Total Square Cm 1.00 -Wound/Ulcer Outcome Not Healed -Ulcer Cleansing Rinsed/ Irrigated with Saline -Foul Odor after Cleansing No -Bioengineered Tissue No -Bleeding Controlled with Pressure -Treatment Response Procedure Tolerated Well Pain Scale: 0-10 Numeric Is Patient Pain Free? Yes Wound debrided: Left Lower extremity Inferior Ulcer Wound Grade/Stage: Stage II Type of Debridement: Excisional debridement Anesthesia Used: 4% Lidocaine Solution Depth: Down to and including healthy tissue, in the subcutaneous layer Percentage of wound debrided: 100 Instrument Used: 3mm curette Tissue Removed: Slough and Devitalized tissue Severity: Fat Layer Exposed Amount of bleeding with debridement: Mild Bleeding Controlled with: Pressure Patient tolerated procedure well - Additional Wound Wound debrided: Left Lower Extremity Superior Cluster Wound Grade/Stage: Stage II Type of Debridement: Excisional debridement Anesthesia Used: 4% Lidocaine Solution Depth: Down to and including healthy tissue, in the subcutaneous layer Percentage of wound debrided: 100 Instrument Used: 3mm curette Tissue Removed: Slough and Devitalized tissue Severity: Fat Layer Exposed Amount of bleeding with debridement: Mild Bleeding Controlled with: Pressure Patient tolerated procedure: Patient tolerated procedure well - Additional Wound Wound debrided: Left Lower extremity ( Carter ) Pinhole Wound Grade/Stage: Stage II Type of Debridement: Excisional debridement Anesthesia Used: 4% Lidocaine Solution Depth: Down to and including healthy tissue, in the subcutaneous layer Percentage of wound debrided: 100 Instrument Used: 3mm curette Tissue Removed: Slough and Devitalized tissue Severity: Fat Layer Exposed Amount of bleeding with debridement: Mild Bleeding Controlled with: Pressure Patient tolerated procedure: Patient tolerated procedure well Assessment/Plan Assessment: 1. Nonhealing ulcers cluster left medial leg probes to the bone. 2. Nonhealing ulcer left medial ankle. 3. Nonhealing ulcer left anterior leg. 4. s/p complex left tib fib fracture repair with hardware placement and soft tissue reconstruction with a microvascular free tissue transfer muscle flap. 5. Venous insufficiency. 6. Diabetes mellitus. 7. Former smoker. Plan: No significant change in the past week. No significant discharge also noted per his spouse. Debridement done as documented above. Procedure was well tolerated. Scheduled to follow up with Ortho surgeon at the [facility] main campus on the 01 of November. No indication for ABX at this time. Will keep reassesing need for. There appears to be a widening of the anterior leg ulcer so will switch dressing to annabella daily and see if this makes a difference. Continue Aquacel Ag to other ulcers. Continue protein supplements and protein rich diet. Elevate lower extremity when seated and in bed. Avoid idle standing. Exercise as tolerated. Follow-up in 1 week. This note was generated with [employer] dictation software. It may contain incorrect words, spelling, and punctuation that were not noted in checking the note before signing.
--- NOTE | 2017-10-12 10:32 | PN.PCM_ITS ---
(1) Diabetes type 2, controlled Status: Chronic Current Visit: No Code(s): E11.9 - Type 2 diabetes mellitus without complications (2) Neuropathy of left lower extremity Status: Chronic Current Visit: No Code(s): G57.92 - Unspecified mononeuropathy of left lower limb (3) Peripheral vascular occlusive disease Status: Chronic Current Visit: No Code(s): I73.9 - Peripheral vascular disease, unspecified (4) Ulcer of left lower extremity Status: Chronic Current Visit: No Code(s): L97.929 - Non-pressure chronic ulcer of unspecified part of left lower leg with unspecified severity Type of Wound Date of Service: 10/12/17 Chief Complaint: Nonhealing ulcers left leg s/p fracture and hardware placement. History of Wound: Patient presented to the Wound Center in 06/30 with nonhealing ulcers left leg. His initial trauma was in 2004 where he sustained a complex fracture wound that required hardware placement and a complex muscle flap for reconstruction. He states the flap came from his abdomen (rectus abdominis muscle flap) utilizing a microvascular free tissue transfer. This was done at [facility]. He states he did fine until 2015 when he developed an infection that required operative debridement in [place] followed by antibiotics and wound care. With recurrent ulceration and drainage, he came to this Wound Center. Wound culture in 06/30 showed Staphylococcus aureus and E. coli. Repeat culture in 07/30 showed E. coli. He is currently on Levaquin. He had a Venous Doppler study in 06/30 which showed no DVT and incompetent veins with insufficiency. He had an LEAS study in 06/30 which showed triphasic waveforms and calcification. No significant vascular stenoses seen. A CT in showed the hardware placement with healed bone and no radiological evidence of osteomyelitis. He has been using Promogran/Annabella dressing changes for his wound care and aquacel packing of tunelling to bone. He is scheduled to follow up at the [facility] per recommendation from Dr. De Oliveira. Progress of Wound: Stable. No new complaints. - Physical Exam Vital Signs Temp Pulse Resp BP 98.4 F 75 18 142/85 H 10/12/17 08:18 10/12/17 08:18 10/12/17 08:18 10/12/17 08:18 General: Alert, Oriented x3, Cooperative, No apparent distress HEENT: Atraumatic, Normocephalic Oral: Moist Mucosa Neck: Supple Lungs: Normal air movement Cardiovascular: Regular rate Skin: Ulcer/ Wound Wound Measurements and Assessment WC - Nurse 1 - General Ulcer Measurement Start: 10/12/17 08:18 Freq: Status: Active Protocol: Activity Type Activity Date Activity User E-Sign Co-Sign Detail Recorded Client Recorded Date Recorded By Document 10/12/17 08:18 DL [id number] 10/12/17 08:32 DL 10/12/17 08:18 Wound Center Nurse 1 [Ulcer Assessment] #9 Medial LLE Inferior -Current Size (cm) - Length 0.6 -Current Size (cm) - Width 0.3 -Current Size (cm) - Depth 2.7 -Total Square Cm 0.18 -Photo Taken No -Exudate Amt Medium (34-66%) -Exudate Type Serosanguineous -Wound Margin Distinct, Outline Attached -Granulation Amt Medium (34-66%) -Granulation Quality Red -Necrosis Amt Medium (34-66%) -Necrotic Tissue Type Adherent Slough -Structure Exposed N/A -Texture (Rufina-wound Skin Appearance) Scarring -Moisture (Rufina-wound Skin Appearance No Abnormality ) -Color (Rufina-wound Skin Appearance) Hemosiderin Staining -Temperature (Rufina-wound Skin No Abnormality Appearance) (Pt Warm) -Ulcer Cleansing Wound Cleanser -Foul Odor after Cleansing No -Anesthetic Used 4% Lidocaine Solution # 7 LLE- Upper [place] -Current Size (cm) - Length 0.8 -Current Size (cm) - Width 0.7 -Current Size (cm) - Depth 1.1 -Total Square Cm 0.56 -Photo Taken No -Undermining/Tunneling Starts (O' 9 clock) -Undermining/Tunneling Ends (O'clock) 12 -Maximum Distance (cm) 0.9 -Exudate Amt Medium (34-66%) -Exudate Type Serosanguineous -Wound Margin Distinct, Outline Attached -Granulation Amt Medium (34-66%) -Granulation Quality Red -Necrosis Amt Medium (34-66%) -Necrotic Tissue Type Adherent Slough -Structure Exposed N/A -Texture (Rufina-wound Skin Appearance) Localized Edema -Moisture (Rufina-wound Skin Appearance No Abnormality ) -Color (Rufina-wound Skin Appearance) Hemosiderin Staining -Temperature (Rufina-wound Skin No Abnormality Appearance) (Pt Warm) -Ulcer Cleansing Wound Cleanser -Foul Odor after Cleansing No -Anesthetic Used 4% Lidocaine Solution #1 Medial LLE Superior Cluster -Current Size (cm) - Length 1.5 -Current Size (cm) - Width 0.3 -Current Size (cm) - Depth 2.6 -Total Square Cm 0.45 -Photo Taken No -Exudate Amt Medium (34-66%) -Exudate Type Serosanguineous -Wound Margin Distinct, Outline Attached -Granulation Amt Medium (34-66%) -Granulation Quality Red -Necrosis Amt Medium (34-66%) -Necrotic Tissue Type Adherent Slough -Structure Exposed N/A -Texture (Rufina-wound Skin Appearance) Scarring -Moisture (Rufina-wound Skin Appearance No Abnormality ) -Color (Rufina-wound Skin Appearance) Hemosiderin Staining -Temperature (Rufina-wound Skin No Abnormality Appearance) (Pt Warm) -Ulcer Cleansing Wound Cleanser -Foul Odor after Cleansing No -Anesthetic Used 4% Lidocaine Solution [Edema Assessment] -Left Calf (cm) 43 -Left Ankle (cm) 31.5 WC - Nurse 2 - General Ulcer CM Notes Start: 10/12/17 08:18 Freq: Status: Active Protocol: Activity Type Activity Date Activity User E-Sign Co-Sign Detail Recorded Client Recorded Date Recorded By Document 10/12/17 08:44 DV [id number] 10/12/17 08:52 DV 10/12/17 08:44 Wound Center Nurse 2 [Procedure/Treatment] #9 Medial LLE Inferior -Time 08:45 -Correct Patient Yes -Correct Side, Site, Position Yes -Correct Procedure Yes -Procedure Performed Yes -Type of Procedure Debridement -Clinical Debridement Subcutaneous -Post Debridement Size (cm) - Length 0.8 -Post Debridement Size (cm) - Width 0.4 -Post Debridement Size (cm) - Depth 3.2 -Total Square Cm 0.32 -Wound/Ulcer Outcome Not Healed -Ulcer Cleansing Rinsed/ Irrigated with Saline -Foul Odor after Cleansing No -Bioengineered Tissue No -Bleeding Controlled with Pressure -Treatment Response Procedure Tolerated Well # 7 LLE- Upper [place] -Time 08:47 -Correct Patient Yes -Correct Side, Site, Position Yes -Correct Procedure Yes -Procedure Performed Yes -Type of Procedure Debridement -Clinical Debridement Subcutaneous -Post Debridement Size (cm) - Length 0.7 -Post Debridement Size (cm) - Width 0.7 -Post Debridement Size (cm) - Depth 2.9 -Total Square Cm 0.49 -Wound/Ulcer Outcome Not Healed -Ulcer Cleansing Rinsed/ Irrigated with Saline -Foul Odor after Cleansing No -Bioengineered Tissue No -Bleeding Controlled with Pressure -Treatment Response Procedure Tolerated Well #1 Medial LLE Superior Cluster -Time 08:46 -Correct Patient Yes -Correct Side, Site, Position Yes -Correct Procedure Yes -Procedure Performed Yes -Type of Procedure Debridement -Clinical Debridement Subcutaneous -Post Debridement Size (cm) - Length 2.5 -Post Debridement Size (cm) - Width 0.4 -Post Debridement Size (cm) - Depth 3.2 -Total Square Cm 1.00 -Wound/Ulcer Outcome Not Healed -Ulcer Cleansing Rinsed/ Irrigated with Saline -Foul Odor after Cleansing No -Bioengineered Tissue No -Bleeding Controlled with Pressure -Treatment Response Procedure Tolerated Well [See Physician Procedure note for Specifics] Pain Scale: 0-10 Numeric [Pain] -Is Patient Pain Free? Yes Musculoskeletal: No Muscle Wasting Neurological: Cranial nerves II-XII grossly intact Psych/Mental Status: Normal Affect Debridement Note Post-Debridement Measurements/Treatment WC - Nurse 2 - General Ulcer CM Notes Start: 10/12/17 08:18 Freq: Status: Active Protocol: Activity Type Activity Date Activity User E-Sign Co-Sign Detail Recorded Client Recorded Date Recorded By Document 10/12/17 08:44 DV [id number] 10/12/17 08:52 DV 10/12/17 08:44 Wound Center Nurse 2 #9 Medial LLE Inferior -Time 08:45 -Correct Patient Yes -Correct Side, Site, Position Yes -Correct Procedure Yes -Procedure Performed Yes -Type of Procedure Debridement -Clinical Debridement Subcutaneous -Post Debridement Size (cm) - Length 0.8 -Post Debridement Size (cm) - Width 0.4 -Post Debridement Size (cm) - Depth 3.2 -Total Square Cm 0.32 -Wound/Ulcer Outcome Not Healed -Ulcer Cleansing Rinsed/ Irrigated with Saline -Foul Odor after Cleansing No -Bioengineered Tissue No -Bleeding Controlled with Pressure -Treatment Response Procedure Tolerated Well # 7 LLE- Upper [place] -Time 08:47 -Correct Patient Yes -Correct Side, Site, Position Yes -Correct Procedure Yes -Procedure Performed Yes -Type of Procedure Debridement -Clinical Debridement Subcutaneous -Post Debridement Size (cm) - Length 0.7 -Post Debridement Size (cm) - Width 0.7 -Post Debridement Size (cm) - Depth 2.9 -Total Square Cm 0.49 -Wound/Ulcer Outcome Not Healed -Ulcer Cleansing Rinsed/ Irrigated with Saline -Foul Odor after Cleansing No -Bioengineered Tissue No -Bleeding Controlled with Pressure -Treatment Response Procedure Tolerated Well #1 Medial LLE Superior Cluster -Time 08:46 -Correct Patient Yes -Correct Side, Site, Position Yes -Correct Procedure Yes -Procedure Performed Yes -Type of Procedure Debridement -Clinical Debridement Subcutaneous -Post Debridement Size (cm) - Length 2.5 -Post Debridement Size (cm) - Width 0.4 -Post Debridement Size (cm) - Depth 3.2 -Total Square Cm 1.00 -Wound/Ulcer Outcome Not Healed -Ulcer Cleansing Rinsed/ Irrigated with Saline -Foul Odor after Cleansing No -Bioengineered Tissue No -Bleeding Controlled with Pressure -Treatment Response Procedure Tolerated Well Pain Scale: 0-10 Numeric Is Patient Pain Free? Yes Wound debrided: Left Lower extremity Inferior Ulcer Wound Grade/Stage: Stage II Type of Debridement: Excisional debridement Anesthesia Used: 4% Lidocaine Solution Depth: Down to and including healthy tissue, in the subcutaneous layer Percentage of wound debrided: 100 Instrument Used: 3mm curette Tissue Removed: Slough and Devitalized tissue Severity: Fat Layer Exposed Amount of bleeding with debridement: Mild Bleeding Controlled with: Pressure Patient tolerated procedure well - Additional Wound Wound debrided: Left Lower Extremity Superior Cluster Wound Grade/Stage: Stage II Type of Debridement: Excisional debridement Anesthesia Used: 4% Lidocaine Solution Depth: Down to and including healthy tissue, in the subcutaneous layer Percentage of wound debrided: 100 Instrument Used: 3mm curette Tissue Removed: Slough and Devitalized tissue Severity: Fat Layer Exposed Amount of bleeding with debridement: Mild Bleeding Controlled with: Pressure Patient tolerated procedure: Patient tolerated procedure well - Additional Wound Wound debrided: Left Lower extremity ( Carter ) Pinhole Wound Grade/Stage: Stage II Type of Debridement: Excisional debridement Anesthesia Used: 4% Lidocaine Solution Depth: Down to and including healthy tissue, in the subcutaneous layer Percentage of wound debrided: 100 Instrument Used: 3mm curette Tissue Removed: Slough and Devitalized tissue Severity: Fat Layer Exposed Amount of bleeding with debridement: Mild Bleeding Controlled with: Pressure Patient tolerated procedure: Patient tolerated procedure well Assessment/Plan Assessment: 1. Nonhealing ulcers cluster left medial leg probes to the bone. 2. Nonhealing ulcer left medial ankle. 3. Nonhealing ulcer left anterior leg. 4. s/p complex left tib fib fracture repair with hardware placement and soft tissue reconstruction with a microvascular free tissue transfer muscle flap. 5. Venous insufficiency. 6. Diabetes mellitus. 7. Former smoker. Plan: No significant change in the past week. No significant discharge also noted per his spouse. Debridement done as documented above. Procedure was well tolerated. Scheduled to follow up with Ortho surgeon at the [facility] main campus on the 01 of November. No indication for ABX at this time. Will keep reassesing need for. There appears to be a widening of the anterior leg ulcer so will switch dressing to annabella daily and see if this makes a difference. Continue Aquacel Ag to other ulcers. Continue protein supplements and protein rich diet. Elevate lower extremity when seated and in bed. Avoid idle standing. Exercise as tolerated. Follow-up in 1 week. This note was generated with [employer] dictation software. It may contain incorrect words, spelling, and punctuation that were not noted in checking the note before signing.
[2017-10-19 09:00] VITALS: BP 127/72; PULSE 76; RESP 18; TEMP 37.2
--- NOTE | 2017-10-19 10:15 | PCM.WC.PN ---
(1) Diabetes type 2, controlled Status: Chronic Current Visit: No Code(s): E11.9 - Type 2 diabetes mellitus without complications (2) Neuropathy of left lower extremity Status: Chronic Current Visit: No Code(s): G57.92 - Unspecified mononeuropathy of left lower limb (3) Peripheral vascular occlusive disease Status: Chronic Current Visit: No Code(s): I73.9 - Peripheral vascular disease, unspecified (4) Ulcer of left lower extremity Status: Chronic Current Visit: No Code(s): L97.929 - Non-pressure chronic ulcer of unspecified part of left lower leg with unspecified severity Type of Wound Date of Service: 10/19/17 Chief Complaint: Nonhealing ulcers left leg s/p fracture and hardware placement. History of Wound: Patient presented to the Wound Center in 06/30 with nonhealing ulcers left leg. His initial trauma was in 2004 where he sustained a complex fracture wound that required hardware placement and a complex muscle flap for reconstruction. He states the flap came from his abdomen (rectus abdominis muscle flap) utilizing a microvascular free tissue transfer. This was done at [facility] [place]. He states he did fine until 2015 when he developed an infection that required operative debridement in [place] followed by antibiotics and wound care. With recurrent ulceration and drainage, he came to this Wound Center. Wound culture in 06/30 showed Staphylococcus aureus and E. coli. Repeat culture in 07/30 showed E. coli. He is currently on Levaquin. He had a Venous Doppler study in 06/30 which showed no DVT and incompetent veins with insufficiency. He had an LEAS study in 06/30 which showed triphasic waveforms and calcification. No significant vascular stenoses seen. A CT in 07/30 showed the hardware placement with healed bone and no radiological evidence of osteomyelitis. He has been using Promogran/Annabella dressing changes for his wound care and aquacel packing of tunelling to bone. He is scheduled to follow up at the [facility] per recommendation from Dr. De Oliveira. Progress of Wound: Stable. No new complaints. - Physical Exam Vital Signs Temp Pulse Resp BP 98.9 F 76 18 127/72 H 10/19/17 09:00 10/19/17 09:00 10/19/17 09:00 10/19/17 09:00 General: Alert, Oriented x3, Cooperative, No apparent distress HEENT: Atraumatic, Normocephalic Oral: Moist Mucosa Neck: Supple Lungs: Normal air movement Cardiovascular: Regular rate Abdomen: Obese Extremities: No cyanosis Skin: Ulcer/ Wound Wound Measurements and Assessment WC - Nurse 1 - General Ulcer Measurement Start: 10/12/17 08:18 Freq: Status: Active Protocol: Activity Type Activity Date Activity User E-Sign Co-Sign Detail Recorded Client Recorded Date Recorded By Document 10/19/17 09:00 DV [id number] 10/19/17 09:14 DV 10/19/17 09:00 Wound Center Nurse 1 [Ulcer Assessment] #9 Medial LLE Inferior -Combined with other wound No -Current Size (cm) - Length 0.5 -Current Size (cm) - Width 0.3 -Current Size (cm) - Depth 2.2 -Total Square Cm 0.15 -Photo Taken No -Tunneling No -Undermining/Tunneling No -Circular Undermining No -Classification - Thickness Full Thickness without Exposed Support Structure -Exudate Amt Small (1-33%) -Exudate Type Serosanguineous -Wound Margin Distinct, Outline Attached -Granulation Amt Medium (34-66%) -Granulation Quality [place] -Slough/Fibrin Yes -Necrosis Amt Medium (34-66%) -Necrotic Tissue Type Adherent Slough -Structure Exposed N/A -Texture (Rufina-wound Skin Appearance) Assessed -Moisture (Rufina-wound Skin Appearance Assessed ) Dry/Scaly -Color (Rufina-wound Skin Appearance) Assessed -Temperature (Rufina-wound Skin No Abnormality Appearance) (Pt Warm) -Tenderness on Palpation (Rufina-wound No Skin Appearance) -Ulcer Cleansing Rinsed/ Irrigated with Saline -Foul Odor after Cleansing No -Anesthetic Used 4% Lidocaine Solution #7 LLE- Upper [place] -Combined with other wound No -Current Size (cm) - Length 0.7 -Current Size (cm) - Width 0.5 -Current Size (cm) - Depth 2 -Total Square Cm 0.35 -Photo Taken No -Tunneling No -Undermining/Tunneling Yes -Undermining/Tunneling Starts (O' 7 clock) -Undermining/Tunneling Ends (O'clock) 11 -Maximum Distance (cm) 0.3 -Circular Undermining No -Classification - Thickness Full Thickness without Exposed Support Structure -Exudate Amt Small (1-33%) -Exudate Type Serosanguineous -Wound Margin Distinct, Outline Attached -Granulation Amt Medium (34-66%) -Granulation Quality [place] -Slough/Fibrin Yes -Necrosis Amt Small (1-33%) -Necrotic Tissue Type Adherent Slough -Structure Exposed N/A -Texture (Rufina-wound Skin Appearance) Assessed -Moisture (Rufina-wound Skin Appearance Assessed ) Dry/Scaly -Color (Rufina-wound Skin Appearance) Assessed -Temperature (Rufina-wound Skin No Abnormality Appearance) (Pt Warm) -Tenderness on Palpation (Rufina-wound No Skin Appearance) -Ulcer Cleansing Rinsed/ Irrigated with Saline -Foul Odor after Cleansing No -Anesthetic Used 4% Lidocaine Solution #1 Medial LLE Superior Cluster -Combined with other wound No -Current Size (cm) - Length 1.6 -Current Size (cm) - Width 0.3 -Current Size (cm) - Depth 2.3 -Total Square Cm 0.48 -Photo Taken No -Tunneling No -Undermining/Tunneling No -Circular Undermining No -Classification - Thickness Full Thickness without Exposed Support Structure -Change in Wound Grade/Stage No Query Text:If change please identify the Stage/Grade in the comment (ie. S2 G3) -Exudate Amt Small (1-33%) -Exudate Type Serosanguineous -Wound Margin Distinct, Outline Attached -Granulation Amt Medium (34-66%) -Granulation Quality [place] -Slough/Fibrin Yes -Necrosis Amt Small (1-33%) -Necrotic Tissue Type Adherent Slough -Structure Exposed N/A -Texture (Rufina-wound Skin Appearance) Assessed -Moisture (Rufina-wound Skin Appearance Assessed ) -Color (Rufina-wound Skin Appearance) Hemosiderin Staining -Temperature (Rufina-wound Skin No Abnormality Appearance) (Pt Warm) -Tenderness on Palpation (Rufina-wound No Skin Appearance) -Ulcer Cleansing Rinsed/ Irrigated with Saline -Foul Odor after Cleansing No -Anesthetic Used 4% Lidocaine Solution [Edema Assessment] -Lower Limb Edema Present Yes -Left Calf (cm) 43.5 -Left Ankle (cm) 30.1 WC - Nurse 2 - General Ulcer CM Notes Start: 10/12/17 08:18 Freq: Status: Active Protocol: Activity Type Activity Date Activity User E-Sign Co-Sign Detail Recorded Client Recorded Date Recorded By Document 10/19/17 09:35 DV [id number] 10/19/17 09:46 DV 10/19/17 09:35 Wound Center Nurse 2 [Procedure/Treatment] #9 Medial LLE Inferior -Time 09:38 -Correct Patient Yes -Correct Side, Site, Position Yes -Correct Procedure Yes -Procedure Performed Yes -Type of Procedure Debridement -Clinical Debridement Subcutaneous -Post Debridement Size (cm) - Length 0.6 -Post Debridement Size (cm) - Width 0.4 -Post Debridement Size (cm) - Depth 2.0 -Total Square Cm 0.24 -Wound/Ulcer Outcome Not Healed -Ulcer Cleansing Rinsed/ Irrigated with Saline -Foul Odor after Cleansing Yes -Bioengineered Tissue No -Bleeding Controlled with Pressure -Treatment Response Procedure Tolerated Well #7 LLE- Upper [place] -Time 09:38 -Correct Patient Yes -Correct Side, Site, Position Yes -Correct Procedure Yes -Procedure Performed Yes -Type of Procedure Debridement -Clinical Debridement Subcutaneous -Post Debridement Size (cm) - Length 0.8 -Post Debridement Size (cm) - Width 2.5 -Post Debridement Size (cm) - Depth 2.5 -Total Square Cm 2.00 -Wound/Ulcer Outcome Not Healed -Ulcer Cleansing Rinsed/ Irrigated with Saline -Foul Odor after Cleansing Yes -Bioengineered Tissue No -Bleeding Controlled with Pressure -Treatment Response Procedure Tolerated Well #1 Medial LLE Superior Cluster -Time 09:36 -Correct Patient Yes -Correct Side, Site, Position Yes -Correct Procedure Yes -Procedure Performed Yes -Type of Procedure Debridement -Clinical Debridement Subcutaneous -Post Debridement Size (cm) - Length 2.5 -Post Debridement Size (cm) - Width 0.3 -Post Debridement Size (cm) - Depth 2.6 -Total Square Cm 0.75 -Wound/Ulcer Outcome Not Healed -Ulcer Cleansing Rinsed/ Irrigated with Saline -Foul Odor after Cleansing No -Bioengineered Tissue No -Bleeding Controlled with Pressure -Treatment Response Procedure Tolerated Well [See Physician Procedure note for Specifics] Pain Scale: 0-10 Numeric [Pain] -Is Patient Pain Free? Yes Neurological: Cranial nerves II-XII grossly intact Psych/Mental Status: Normal Affect Debridement Note Post-Debridement Measurements/Treatment WC - Nurse 2 - General Ulcer CM Notes Start: 10/12/17 08:18 Freq: Status: Active Protocol: Activity Type Activity Date Activity User E-Sign Co-Sign Detail Recorded Client Recorded Date Recorded By Document 10/12/17 08:44 DV [id number] 10/12/17 08:52 DV Document 10/19/17 09:35 DV [id number] 10/19/17 09:46 DV 10/12/17 10/19/17 08:44 09:35 Wound Center Nurse 2 #9 Medial LLE Inferior -Time 08:45 09:38 -Correct Patient Yes Yes -Correct Side, Site, Position Yes Yes -Correct Procedure Yes Yes -Procedure Performed Yes Yes -Type of Procedure Debridement Debridement -Clinical Debridement Subcutaneous Subcutaneous -Post Debridement Size (cm) - Length 0.8 0.6 -Post Debridement Size (cm) - Width 0.4 0.4 -Post Debridement Size (cm) - Depth 3.2 2.0 -Total Square Cm 0.32 0.24 -Wound/Ulcer Outcome Not Healed Not Healed -Ulcer Cleansing Rinsed/ Rinsed/ Irrigated with Irrigated with Saline Saline -Foul Odor after Cleansing No Yes -Bioengineered Tissue No No -Bleeding Controlled with Pressure Pressure -Treatment Response Procedure Procedure Tolerated Well Tolerated Well #7 LLE- Upper [place] -Time 08:47 09:38 -Correct Patient Yes Yes -Correct Side, Site, Position Yes Yes -Correct Procedure Yes Yes -Procedure Performed Yes Yes -Type of Procedure Debridement Debridement -Clinical Debridement Subcutaneous Subcutaneous -Post Debridement Size (cm) - Length 0.7 0.8 -Post Debridement Size (cm) - Width 0.7 2.5 -Post Debridement Size (cm) - Depth 2.9 2.5 -Total Square Cm 0.49 2.00 -Wound/Ulcer Outcome Not Healed Not Healed -Ulcer Cleansing Rinsed/ Rinsed/ Irrigated with Irrigated with Saline Saline -Foul Odor after Cleansing No Yes -Bioengineered Tissue No No -Bleeding Controlled with Pressure Pressure -Treatment Response Procedure Procedure Tolerated Well Tolerated Well #1 Medial LLE Superior Cluster -Time 08:46 09:36 -Correct Patient Yes Yes -Correct Side, Site, Position Yes Yes -Correct Procedure Yes Yes -Procedure Performed Yes Yes -Type of Procedure Debridement Debridement -Clinical Debridement Subcutaneous Subcutaneous -Post Debridement Size (cm) - Length 2.5 2.5 -Post Debridement Size (cm) - Width 0.4 0.3 -Post Debridement Size (cm) - Depth 3.2 2.6 -Total Square Cm 1.00 0.75 -Wound/Ulcer Outcome Not Healed Not Healed -Ulcer Cleansing Rinsed/ Rinsed/ Irrigated with Irrigated with Saline Saline -Foul Odor after Cleansing No No -Bioengineered Tissue No No -Bleeding Controlled with Pressure Pressure -Treatment Response Procedure Procedure Tolerated Well Tolerated Well Pain Scale: 0-10 Numeric Is Patient Pain Free? Yes Yes Wound debrided: Left Lower extremity (pinhole ) Carter. Wound Grade/Stage: Stage II Type of Debridement: Excisional debridement Anesthesia Used: 4% Lidocaine Solution Depth: Down to and including healthy tissue, in the subcutaneous layer Percentage of wound debrided: 100 Instrument Used: 3mm curette Tissue Removed: Slough and Devitalized tissue Severity: Fat Layer Exposed Amount of bleeding with debridement: Mild Bleeding Controlled with: Pressure Patient tolerated procedure well - Additional Wound Wound debrided: Left lower extremity inferior medial Wound Grade/Stage: Stage II Type of Debridement: Excisional debridement Anesthesia Used: 4% Lidocaine Solution Depth: Down to and including healthy tissue, in the subcutaneous layer Percentage of wound debrided: 100 Instrument Used: 3mm curette Tissue Removed: Slough and Devitalized tissue Severity: Fat Layer Exposed Amount of bleeding with debridement: Mild Bleeding Controlled with: Pressure Patient tolerated procedure: Patient tolerated procedure well - Additional Wound Wound debrided: Left Lower extremity superior cluster Wound Grade/Stage: STage II Type of Debridement: Excisional debridement Anesthesia Used: 4% Lidocaine Solution Depth: Down to and including healthy tissue, in the subcutaneous layer Percentage of wound debrided: 100 Instrument Used: 3mm curette Tissue Removed: Slough and Devitalized tissue Severity: Fat Layer Exposed Amount of bleeding with debridement: Mild Bleeding Controlled with: Pressure Patient tolerated procedure: Patient tolerated procedure well Assessment/Plan Assessment: 1. Nonhealing ulcers cluster left medial leg probes to the bone. 2. Nonhealing ulcer left medial ankle. 3. Nonhealing ulcer left anterior leg. 4. s/p complex left tib fib fracture repair with hardware placement and soft tissue reconstruction with a microvascular free tissue transfer muscle flap. 5. Venous insufficiency. 6. Diabetes mellitus. 7. Former smoker. Plan: Some reduction in ulcer depth noted today. Debridement done as documented above. Procedure was well tolerated. Scheduled to follow up with Ortho surgeon at the [facility] main campus on the 01 of November. Still no indication for ABX at this time. Will keep reassesing need for. Continue annabella to the anterior leg ( Carter ) ulcer. Continue Aquacel Ag to other ulcers. Continue protein supplements and protein rich diet. Elevate lower extremity when seated and in bed. Avoid idle standing. Exercise as tolerated. Follow-up in 1 week. This note was generated with [employer] dictation software. It may contain incorrect words, spelling, and punctuation that were not noted in checking the note before signing.
--- NOTE | 2017-10-19 10:20 | PN.PCM_ITS ---
(1) Diabetes type 2, controlled Status: Chronic Current Visit: No Code(s): E11.9 - Type 2 diabetes mellitus without complications (2) Neuropathy of left lower extremity Status: Chronic Current Visit: No Code(s): G57.92 - Unspecified mononeuropathy of left lower limb (3) Peripheral vascular occlusive disease Status: Chronic Current Visit: No Code(s): I73.9 - Peripheral vascular disease, unspecified (4) Ulcer of left lower extremity Status: Chronic Current Visit: No Code(s): L97.929 - Non-pressure chronic ulcer of unspecified part of left lower leg with unspecified severity Type of Wound Date of Service: 10/19/17 Chief Complaint: Nonhealing ulcers left leg s/p fracture and hardware placement. History of Wound: Patient presented to the Wound Center in 06/30 with nonhealing ulcers left leg. His initial trauma was in 2004 where he sustained a complex fracture wound that required hardware placement and a complex muscle flap for reconstruction. He states the flap came from his abdomen (rectus abdominis muscle flap) utilizing a microvascular free tissue transfer. This was done at [facility] [place]. He states he did fine until 2015 when he developed an infection that required operative debridement in [place] followed by antibiotics and wound care. With recurrent ulceration and drainage, he came to this Wound Center. Wound culture in 06/30 showed Staphylococcus aureus and E. coli. Repeat culture in 07/30 showed E. coli. He is currently on Levaquin. He had a Venous Doppler study in 06/30 which showed no DVT and incompetent veins with insufficiency. He had an LEAS study in 06/30 which showed triphasic waveforms and calcification. No significant vascular stenoses seen. A CT in showed the hardware placement with healed bone and no radiological evidence of osteomyelitis. He has been using Promogran/Annabella dressing changes for his wound care and aquacel packing of tunelling to bone. He is scheduled to follow up at the [facility] per recommendation from Dr. De Oliveira. Progress of Wound: Stable. No new complaints. - Physical Exam Vital Signs Temp Pulse Resp BP 98.9 F 76 18 127/72 H 10/19/17 09:00 10/19/17 09:00 10/19/17 09:00 10/19/17 09:00 General: Alert, Oriented x3, Cooperative, No apparent distress HEENT: Atraumatic, Normocephalic Oral: Moist Mucosa Neck: Supple Lungs: Normal air movement Cardiovascular: Regular rate Abdomen: Obese Extremities: No cyanosis Skin: Ulcer/ Wound Wound Measurements and Assessment WC - Nurse 1 - General Ulcer Measurement Start: 10/12/17 08:18 Freq: Status: Active Protocol: Activity Type Activity Date Activity User E-Sign Co-Sign Detail Recorded Client Recorded Date Recorded By Document 10/19/17 09:00 DV [id number] 10/19/17 09:14 DV 10/19/17 09:00 Wound Center Nurse 1 [Ulcer Assessment] #9 Medial LLE Inferior -Combined with other wound No -Current Size (cm) - Length 0.5 -Current Size (cm) - Width 0.3 -Current Size (cm) - Depth 2.2 -Total Square Cm 0.15 -Photo Taken No -Tunneling No -Undermining/Tunneling No -Circular Undermining No -Classification - Thickness Full Thickness without Exposed Support Structure -Exudate Amt Small (1-33%) -Exudate Type Serosanguineous -Wound Margin Distinct, Outline Attached -Granulation Amt Medium (34-66%) -Granulation Quality [place] -Slough/Fibrin Yes -Necrosis Amt Medium (34-66%) -Necrotic Tissue Type Adherent Slough -Structure Exposed N/A -Texture (Rufina-wound Skin Appearance) Assessed -Moisture (Rufina-wound Skin Appearance Assessed ) Dry/Scaly -Color (Rufina-wound Skin Appearance) Assessed -Temperature (Rufina-wound Skin No Abnormality Appearance) (Pt Warm) -Tenderness on Palpation (Rufina-wound No Skin Appearance) -Ulcer Cleansing Rinsed/ Irrigated with Saline -Foul Odor after Cleansing No -Anesthetic Used 4% Lidocaine Solution #7 LLE- Upper [place] -Combined with other wound No -Current Size (cm) - Length 0.7 -Current Size (cm) - Width 0.5 -Current Size (cm) - Depth 2 -Total Square Cm 0.35 -Photo Taken No -Tunneling No -Undermining/Tunneling Yes -Undermining/Tunneling Starts (O' 7 clock) -Undermining/Tunneling Ends (O'clock) 11 -Maximum Distance (cm) 0.3 -Circular Undermining No -Classification - Thickness Full Thickness without Exposed Support Structure -Exudate Amt Small (1-33%) -Exudate Type Serosanguineous -Wound Margin Distinct, Outline Attached -Granulation Amt Medium (34-66%) -Granulation Quality [place] -Slough/Fibrin Yes -Necrosis Amt Small (1-33%) -Necrotic Tissue Type Adherent Slough -Structure Exposed N/A -Texture (Rufina-wound Skin Appearance) Assessed -Moisture (Rufina-wound Skin Appearance Assessed ) Dry/Scaly -Color (Rufina-wound Skin Appearance) Assessed -Temperature (Rufina-wound Skin No Abnormality Appearance) (Pt Warm) -Tenderness on Palpation (Rufina-wound No Skin Appearance) -Ulcer Cleansing Rinsed/ Irrigated with Saline -Foul Odor after Cleansing No -Anesthetic Used 4% Lidocaine Solution #1 Medial LLE Superior Cluster -Combined with other wound No -Current Size (cm) - Length 1.6 -Current Size (cm) - Width 0.3 -Current Size (cm) - Depth 2.3 -Total Square Cm 0.48 -Photo Taken No -Tunneling No -Undermining/Tunneling No -Circular Undermining No -Classification - Thickness Full Thickness without Exposed Support Structure -Change in Wound Grade/Stage No Query Text:If change please identify the Stage/Grade in the comment (ie. S2 G3) -Exudate Amt Small (1-33%) -Exudate Type Serosanguineous -Wound Margin Distinct, Outline Attached -Granulation Amt Medium (34-66%) -Granulation Quality [place] -Slough/Fibrin Yes -Necrosis Amt Small (1-33%) -Necrotic Tissue Type Adherent Slough -Structure Exposed N/A -Texture (Rufina-wound Skin Appearance) Assessed -Moisture (Rufina-wound Skin Appearance Assessed ) -Color (Rufina-wound Skin Appearance) Hemosiderin Staining -Temperature (Rufina-wound Skin No Abnormality Appearance) (Pt Warm) -Tenderness on Palpation (Rufina-wound No Skin Appearance) -Ulcer Cleansing Rinsed/ Irrigated with Saline -Foul Odor after Cleansing No -Anesthetic Used 4% Lidocaine Solution [Edema Assessment] -Lower Limb Edema Present Yes -Left Calf (cm) 43.5 -Left Ankle (cm) 30.1 WC - Nurse 2 - General Ulcer CM Notes Start: 10/12/17 08:18 Freq: Status: Active Protocol: Activity Type Activity Date Activity User E-Sign Co-Sign Detail Recorded Client Recorded Date Recorded By Document 10/19/17 09:35 DV [id number] 10/19/17 09:46 DV 10/19/17 09:35 Wound Center Nurse 2 [Procedure/Treatment] #9 Medial LLE Inferior -Time 09:38 -Correct Patient Yes -Correct Side, Site, Position Yes -Correct Procedure Yes -Procedure Performed Yes -Type of Procedure Debridement -Clinical Debridement Subcutaneous -Post Debridement Size (cm) - Length 0.6 -Post Debridement Size (cm) - Width 0.4 -Post Debridement Size (cm) - Depth 2.0 -Total Square Cm 0.24 -Wound/Ulcer Outcome Not Healed -Ulcer Cleansing Rinsed/ Irrigated with Saline -Foul Odor after Cleansing Yes -Bioengineered Tissue No -Bleeding Controlled with Pressure -Treatment Response Procedure Tolerated Well #7 LLE- Upper [place] -Time 09:38 -Correct Patient Yes -Correct Side, Site, Position Yes -Correct Procedure Yes -Procedure Performed Yes -Type of Procedure Debridement -Clinical Debridement Subcutaneous -Post Debridement Size (cm) - Length 0.8 -Post Debridement Size (cm) - Width 2.5 -Post Debridement Size (cm) - Depth 2.5 -Total Square Cm 2.00 -Wound/Ulcer Outcome Not Healed -Ulcer Cleansing Rinsed/ Irrigated with Saline -Foul Odor after Cleansing Yes -Bioengineered Tissue No -Bleeding Controlled with Pressure -Treatment Response Procedure Tolerated Well #1 Medial LLE Superior Cluster -Time 09:36 -Correct Patient Yes -Correct Side, Site, Position Yes -Correct Procedure Yes -Procedure Performed Yes -Type of Procedure Debridement -Clinical Debridement Subcutaneous -Post Debridement Size (cm) - Length 2.5 -Post Debridement Size (cm) - Width 0.3 -Post Debridement Size (cm) - Depth 2.6 -Total Square Cm 0.75 -Wound/Ulcer Outcome Not Healed -Ulcer Cleansing Rinsed/ Irrigated with Saline -Foul Odor after Cleansing No -Bioengineered Tissue No -Bleeding Controlled with Pressure -Treatment Response Procedure Tolerated Well [See Physician Procedure note for Specifics] Pain Scale: 0-10 Numeric [Pain] -Is Patient Pain Free? Yes Neurological: Cranial nerves II-XII grossly intact Psych/Mental Status: Normal Affect Debridement Note Post-Debridement Measurements/Treatment WC - Nurse 2 - General Ulcer CM Notes Start: 10/12/17 08:18 Freq: Status: Active Protocol: Activity Type Activity Date Activity User E-Sign Co-Sign Detail Recorded Client Recorded Date Recorded By Document 10/12/17 08:44 DV [id number] 10/12/17 08:52 DV Document 10/19/17 09:35 DV [id number] 10/19/17 09:46 DV 10/12/17 10/19/17 08:44 09:35 Wound Center Nurse 2 #9 Medial LLE Inferior -Time 08:45 09:38 -Correct Patient Yes Yes -Correct Side, Site, Position Yes Yes -Correct Procedure Yes Yes -Procedure Performed Yes Yes -Type of Procedure Debridement Debridement -Clinical Debridement Subcutaneous Subcutaneous -Post Debridement Size (cm) - Length 0.8 0.6 -Post Debridement Size (cm) - Width 0.4 0.4 -Post Debridement Size (cm) - Depth 3.2 2.0 -Total Square Cm 0.32 0.24 -Wound/Ulcer Outcome Not Healed Not Healed -Ulcer Cleansing Rinsed/ Rinsed/ Irrigated with Irrigated with Saline Saline -Foul Odor after Cleansing No Yes -Bioengineered Tissue No No -Bleeding Controlled with Pressure Pressure -Treatment Response Procedure Procedure Tolerated Well Tolerated Well #7 LLE- Upper [place] -Time 08:47 09:38 -Correct Patient Yes Yes -Correct Side, Site, Position Yes Yes -Correct Procedure Yes Yes -Procedure Performed Yes Yes -Type of Procedure Debridement Debridement -Clinical Debridement Subcutaneous Subcutaneous -Post Debridement Size (cm) - Length 0.7 0.8 -Post Debridement Size (cm) - Width 0.7 2.5 -Post Debridement Size (cm) - Depth 2.9 2.5 -Total Square Cm 0.49 2.00 -Wound/Ulcer Outcome Not Healed Not Healed -Ulcer Cleansing Rinsed/ Rinsed/ Irrigated with Irrigated with Saline Saline -Foul Odor after Cleansing No Yes -Bioengineered Tissue No No -Bleeding Controlled with Pressure Pressure -Treatment Response Procedure Procedure Tolerated Well Tolerated Well #1 Medial LLE Superior Cluster -Time 08:46 09:36 -Correct Patient Yes Yes -Correct Side, Site, Position Yes Yes -Correct Procedure Yes Yes -Procedure Performed Yes Yes -Type of Procedure Debridement Debridement -Clinical Debridement Subcutaneous Subcutaneous -Post Debridement Size (cm) - Length 2.5 2.5 -Post Debridement Size (cm) - Width 0.4 0.3 -Post Debridement Size (cm) - Depth 3.2 2.6 -Total Square Cm 1.00 0.75 -Wound/Ulcer Outcome Not Healed Not Healed -Ulcer Cleansing Rinsed/ Rinsed/ Irrigated with Irrigated with Saline Saline -Foul Odor after Cleansing No No -Bioengineered Tissue No No -Bleeding Controlled with Pressure Pressure -Treatment Response Procedure Procedure Tolerated Well Tolerated Well Pain Scale: 0-10 Numeric Is Patient Pain Free? Yes Yes Wound debrided: Left Lower extremity (pinhole ) [place]. Wound Grade/Stage: Stage II Type of Debridement: Excisional debridement Anesthesia Used: 4% Lidocaine Solution Depth: Down to and including healthy tissue, in the subcutaneous layer Percentage of wound debrided: 100 Instrument Used: 3mm curette Tissue Removed: Slough and Devitalized tissue Severity: Fat Layer Exposed Amount of bleeding with debridement: Mild Bleeding Controlled with: Pressure Patient tolerated procedure well - Additional Wound Wound debrided: Left lower extremity inferior medial Wound Grade/Stage: Stage II Type of Debridement: Excisional debridement Anesthesia Used: 4% Lidocaine Solution Depth: Down to and including healthy tissue, in the subcutaneous layer Percentage of wound debrided: 100 Instrument Used: 3mm curette Tissue Removed: Slough and Devitalized tissue Severity: Fat Layer Exposed Amount of bleeding with debridement: Mild Bleeding Controlled with: Pressure Patient tolerated procedure: Patient tolerated procedure well - Additional Wound Wound debrided: Left Lower extremity superior cluster Wound Grade/Stage: STage II Type of Debridement: Excisional debridement Anesthesia Used: 4% Lidocaine Solution Depth: Down to and including healthy tissue, in the subcutaneous layer Percentage of wound debrided: 100 Instrument Used: 3mm curette Tissue Removed: Slough and Devitalized tissue Severity: Fat Layer Exposed Amount of bleeding with debridement: Mild Bleeding Controlled with: Pressure Patient tolerated procedure: Patient tolerated procedure well Assessment/Plan Assessment: 1. Nonhealing ulcers cluster left medial leg probes to the bone. 2. Nonhealing ulcer left medial ankle. 3. Nonhealing ulcer left anterior leg. 4. s/p complex left tib fib fracture repair with hardware placement and soft tissue reconstruction with a microvascular free tissue transfer muscle flap. 5. Venous insufficiency. 6. Diabetes mellitus. 7. Former smoker. Plan: Some reduction in ulcer depth noted today. Debridement done as documented above. Procedure was well tolerated. Scheduled to follow up with Ortho surgeon at the [facility] main campus on the 01 of November. Still no indication for ABX at this time. Will keep reassesing need for. Continue annabella to the anterior leg ( [place] ) ulcer. Continue Aquacel Ag to other ulcers. Continue protein supplements and protein rich diet. Elevate lower extremity when seated and in bed. Avoid idle standing. Exercise as tolerated. Follow-up in 1 week. This note was generated with [employer] dictation software. It may contain incorrect words, spelling, and punctuation that were not noted in checking the note before signing.
[2017-10-26 08:05] VITALS: BP 137/79; PULSE 78; RESP 20; TEMP 36
--- NOTE | 2017-10-26 08:49 | PCM.WC.PN ---
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 History of Wound: Patient presented to the Wound Center in 06/30 with nonhealing ulcers left leg. His initial trauma was in 2004 where he sustained a complex fracture wound that required hardware placement and a complex muscle flap for reconstruction. He states the flap came from his abdomen (rectus abdominis muscle flap) utilizing a microvascular free tissue transfer. This was done at [facility]. He states he did fine until 2015 when he developed an infection that required operative debridement in [place] followed by antibiotics and wound care. With recurrent ulceration and drainage, he came to this Wound Center. Wound culture in 06/30 showed Staphylococcus aureus and E. coli. Repeat culture in 07/30 showed E. coli. He is currently on Levaquin. He had a Venous Doppler study in 06/30 which showed no DVT and incompetent veins with insufficiency. He had an LEAS study in 06/30 which showed triphasic waveforms and calcification. No significant vascular stenoses seen. A CT in 07/30 showed the hardware placement with healed bone and no radiological evidence of osteomyelitis. He has been using Promogran/Annabella dressing changes for his wound care and aquacel packing of tunelling to bone. He is scheduled to follow up at the [facility] per recommendation from Dr. De Oliveira. Progress of Wound: Stable. No new complaints. - Physical Exam Vital Signs Temp Pulse Resp BP 96.8 F L 78 20 H 137/79 H 10/26/17 08:05 10/26/17 08:05 10/26/17 08:05 10/26/17 08:05 General: Alert, Oriented x3, Cooperative, No apparent distress HEENT: Atraumatic, Normocephalic Oral: Moist Mucosa Neck: Supple Lungs: Normal air movement Cardiovascular: Regular rate Extremities: No cyanosis, Edema Skin: Ulcer/ Wound Wound Measurements and Assessment WC - Nurse 1 - General Ulcer Measurement Start: 10/12/17 08:18 Freq: Status: Active Protocol: Activity Type Activity Date Activity User E-Sign Co-Sign Detail Recorded Client Recorded Date Recorded By Document 10/26/17 08:05 DL [id number] 10/26/17 08:16 DL 10/26/17 08:05 Wound Center Nurse 1 [Ulcer Assessment] #9 Medial LLE Inferior -Current Size (cm) - Length 0.7 -Current Size (cm) - Width 0.5 -Current Size (cm) - Depth 2.2 -Total Square Cm 0.35 -Photo Taken No -Exudate Amt Medium (34-66%) -Exudate Type Serosanguineous -Wound Margin Distinct, Outline Attached -Granulation Amt Small (1-33%) -Granulation Quality Red -Necrosis Amt Small (1-33%) -Necrotic Tissue Type Adherent Slough -Structure Exposed N/A -Texture (Rufina-wound Skin Appearance) Scarring -Moisture (Rufina-wound Skin Appearance No Abnormality ) -Color (Rufina-wound Skin Appearance) Hemosiderin Staining -Temperature (Rufina-wound Skin No Abnormality Appearance) (Pt Warm) -Ulcer Cleansing Rinsed/ Irrigated with Saline -Foul Odor after Cleansing No -Anesthetic Used 4% Lidocaine Solution #7 LLE- Upper Carter -Current Size (cm) - Length 0.5 -Current Size (cm) - Width 0.4 -Current Size (cm) - Depth 0.8 -Total Square Cm 0.20 -Photo Taken No -Exudate Amt Small (1-33%) -Exudate Type Serosanguineous -Wound Margin Distinct, Outline Attached -Granulation Amt Small (1-33%) -Granulation Quality Red -Necrosis Amt Small (1-33%) -Necrotic Tissue Type Adherent Slough -Structure Exposed N/A -Texture (Rufina-wound Skin Appearance) Scarring -Moisture (Rufina-wound Skin Appearance No Abnormality ) -Color (Rufina-wound Skin Appearance) Hemosiderin Staining -Temperature (Rufina-wound Skin No Abnormality Appearance) (Pt Warm) -Ulcer Cleansing Rinsed/ Irrigated with Saline -Foul Odor after Cleansing No -Anesthetic Used 4% Lidocaine Solution #1 Medial LLE Superior Cluster -Current Size (cm) - Length 1.8 -Current Size (cm) - Width 0.3 -Current Size (cm) - Depth 2.4 -Total Square Cm 0.54 -Photo Taken No -Exudate Amt Medium (34-66%) -Exudate Type Serous -Wound Margin Distinct, Outline Attached -Granulation Amt Small (1-33%) -Granulation Quality Red -Necrosis Amt Small (1-33%) -Necrotic Tissue Type Adherent Slough -Structure Exposed N/A -Texture (Rufina-wound Skin Appearance) Scarring -Color (Rufina-wound Skin Appearance) Hemosiderin Staining -Temperature (Rufina-wound Skin No Abnormality Appearance) (Pt Warm) -Ulcer Cleansing Rinsed/ Irrigated with Saline -Foul Odor after Cleansing No -Anesthetic Used 4% Lidocaine Solution [Edema Assessment] -Left Calf (cm) 43 -Left Ankle (cm) 30.5 WC - Nurse 2 - General Ulcer CM Notes Start: 10/12/17 08:18 Freq: Status: Active Protocol: Activity Type Activity Date Activity User E-Sign Co-Sign Detail Recorded Client Recorded Date Recorded By Document 10/26/17 08:29 DV [id number] 10/26/17 08:36 DV 18 08:29 Wound Center Nurse 2 [Procedure/Treatment] #9 Medial LLE Inferior -Time 08:29 -Correct Patient Yes -Correct Side, Site, Position Yes -Correct Procedure Yes -Procedure Performed Yes -Type of Procedure Debridement -Clinical Debridement Subcutaneous -Post Debridement Size (cm) - Length 0.6 -Post Debridement Size (cm) - Width 0.4 -Post Debridement Size (cm) - Depth 2.6 -Total Square Cm 0.24 -Wound/Ulcer Outcome Not Healed -Ulcer Cleansing Rinsed/ Irrigated with Saline -Foul Odor after Cleansing No -Bioengineered Tissue No -Bleeding Controlled with Pressure -Treatment Response Procedure Tolerated Well #7 LLE- Upper Carter -Time 08:29 -Correct Patient Yes -Correct Side, Site, Position Yes -Correct Procedure Yes -Procedure Performed Yes -Type of Procedure Debridement -Clinical Debridement Subcutaneous -Post Debridement Size (cm) - Length 0.4 -Post Debridement Size (cm) - Width 0.3 -Post Debridement Size (cm) - Depth 2.0 -Total Square Cm 0.12 -Wound/Ulcer Outcome Not Healed -Ulcer Cleansing Rinsed/ Irrigated with Saline -Foul Odor after Cleansing No -Bioengineered Tissue No -Bleeding Controlled with Pressure -Treatment Response Procedure Tolerated Well #1 Medial LLE Superior Cluster -Time 08:31 -Correct Patient Yes -Correct Side, Site, Position Yes -Correct Procedure Yes -Procedure Performed Yes -Type of Procedure Debridement -Clinical Debridement Subcutaneous -Post Debridement Size (cm) - Length 2.5 -Post Debridement Size (cm) - Width 0.4 -Post Debridement Size (cm) - Depth 2.6 -Total Square Cm 1.00 -Wound/Ulcer Outcome Not Healed -Ulcer Cleansing Rinsed/ Irrigated with Saline -Foul Odor after Cleansing No -Bioengineered Tissue No -Bleeding Controlled with Pressure -Treatment Response Procedure Tolerated Well [See Physician Procedure note for Specifics] Pain Scale: 0-10 Numeric [Pain] -Is Patient Pain Free? Yes Musculoskeletal: No Muscle Wasting Neurological: Cranial nerves II-XII grossly intact Psych/Mental Status: Normal Affect Debridement Note Post-Debridement Measurements/Treatment WC - Nurse 2 - General Ulcer CM Notes Start: 10/12/17 08:18 Freq: Status: Active Protocol: Activity Type Activity Date Activity User E-Sign Co-Sign Detail Recorded Client Recorded Date Recorded By Document 10/12/17 08:44 DV [id number] 10/12/17 08:52 DV Document 10/19/17 09:35 DV [id number] 10/19/17 09:46 DV Document 10/26/17 08:29 DV [id number] 10/26/17 08:36 DV 10/12/17 10/19/17 10/26/17 08:44 09:35 08:29 Wound Center Nurse 2 #9 Medial LLE Inferior -Time 08:45 09:38 08:29 -Correct Patient Yes Yes Yes -Correct Side, Site, Position Yes Yes Yes -Correct Procedure Yes Yes Yes -Procedure Performed Yes Yes Yes -Type of Procedure Debridement Debridement Debridement -Clinical Debridement Subcutaneous Subcutaneous Subcutaneous -Post Debridement Size (cm) - Length 0.8 0.6 0.6 -Post Debridement Size (cm) - Width 0.4 0.4 0.4 -Post Debridement Size (cm) - Depth 3.2 2.0 2.6 -Total Square Cm 0.32 0.24 0.24 -Wound/Ulcer Outcome Not Healed Not Healed Not Healed -Ulcer Cleansing Rinsed/ Rinsed/ Rinsed/ Irrigated with Irrigated with Irrigated with Saline Saline Saline -Foul Odor after Cleansing No Yes No -Bioengineered Tissue No No No -Bleeding Controlled with Pressure Pressure Pressure -Treatment Response Procedure Procedure Procedure Tolerated Well Tolerated Well Tolerated Well #7 LLE- Upper Carter -Time 08:47 09:38 08:29 -Correct Patient Yes Yes Yes -Correct Side, Site, Position Yes Yes Yes -Correct Procedure Yes Yes Yes -Procedure Performed Yes Yes Yes -Type of Procedure Debridement Debridement Debridement -Clinical Debridement Subcutaneous Subcutaneous Subcutaneous -Post Debridement Size (cm) - Length 0.7 0.8 0.4 -Post Debridement Size (cm) - Width 0.7 2.5 0.3 -Post Debridement Size (cm) - Depth 2.9 2.5 2.0 -Total Square Cm 0.49 2.00 0.12 -Wound/Ulcer Outcome Not Healed Not Healed Not Healed -Ulcer Cleansing Rinsed/ Rinsed/ Rinsed/ Irrigated with Irrigated with Irrigated with Saline Saline Saline -Foul Odor after Cleansing No Yes No -Bioengineered Tissue No No No -Bleeding Controlled with Pressure Pressure Pressure -Treatment Response Procedure Procedure Procedure Tolerated Well Tolerated Well Tolerated Well #1 Medial LLE Superior Cluster -Time 08:46 09:36 08:31 -Correct Patient Yes Yes Yes -Correct Side, Site, Position Yes Yes Yes -Correct Procedure Yes Yes Yes -Procedure Performed Yes Yes Yes -Type of Procedure Debridement Debridement Debridement -Clinical Debridement Subcutaneous Subcutaneous Subcutaneous -Post Debridement Size (cm) - Length 2.5 2.5 2.5 -Post Debridement Size (cm) - Width 0.4 0.3 0.4 -Post Debridement Size (cm) - Depth 3.2 2.6 2.6 -Total Square Cm 1.00 0.75 1.00 -Wound/Ulcer Outcome Not Healed Not Healed Not Healed -Ulcer Cleansing Rinsed/ Rinsed/ Rinsed/ Irrigated with Irrigated with Irrigated with Saline Saline Saline -Foul Odor after Cleansing No No No -Bioengineered Tissue No No No -Bleeding Controlled with Pressure Pressure Pressure -Treatment Response Procedure Procedure Procedure Tolerated Well Tolerated Well Tolerated Well Pain Scale: 0-10 Numeric Is Patient Pain Free? Yes Yes Yes Wound debrided: Left Lower Extremity Inferior Wound Grade/Stage: Stage II Type of Debridement: Excisional debridement Anesthesia Used: 4% Lidocaine Solution Depth: Down to and including healthy tissue, in the subcutaneous layer Percentage of wound debrided: 100 Instrument Used: 3mm curette Tissue Removed: Biofilm and Devitalized tissue Severity: Fat Layer Exposed Amount of bleeding with debridement: Mild Bleeding Controlled with: Pressure Patient tolerated procedure well - Additional Wound Wound debrided: Left Lower Extremity Superior Cluster Wound Grade/Stage: Stage II Type of Debridement: Excisional debridement Anesthesia Used: 4% Lidocaine Solution Depth: Down to and including healthy tissue, in the subcutaneous layer Percentage of wound debrided: 100 Instrument Used: 3mm curette Tissue Removed: Biofilm and devitalized tissue Severity: Fat Layer Exposed Amount of bleeding with debridement: Mild Bleeding Controlled with: Pressure Patient tolerated procedure: Patient tolerated procedure well - Additional Wound Wound debrided: Left Lower Extremity Carter ( Pin hole ) Wound Grade/Stage: Stage II Type of Debridement: Excisional debridement Anesthesia Used: 4% Lidocaine Solution Depth: Down to and including healthy tissue, in the subcutaneous layer Percentage of wound debrided: 100 Instrument Used: 3mm curette Tissue Removed: Biofilm and devitalized tissue Severity: Fat Layer Exposed Amount of bleeding with debridement: Mild Bleeding Controlled with: Pressure Patient tolerated procedure: Patient tolerated procedure well Assessment/Plan Active Problems Ulcer of left lower extremity (Chronic) Diabetes type 2, controlled (Chronic) Assessment: 1. Nonhealing ulcers cluster left medial leg probes to the bone. 2. Nonhealing ulcer left medial ankle. 3. Nonhealing ulcer left anterior leg. 4. s/p complex left tib fib fracture repair with hardware placement and soft tissue reconstruction with a microvascular free tissue transfer muscle flap. 5. Venous insufficiency. 6. Diabetes mellitus. 7. Former smoker. Plan: Stable. No purulent discharge. Debridement done as documented above. Procedure was well tolerated. Scheduled to follow up with Ortho surgeon at the [facility] main campus on the 01 of November. Still no indication for ABX at this time. Will keep reassesing need for. Continue annabella to the anterior leg ( Carter ) ulcer. Continue Aquacel Ag to other ulcers. Continue protein supplements and protein rich diet. Elevate lower extremity when seated and in bed. Avoid idle standing. Exercise as tolerated. Follow-up in 1 week. This note was generated with [employer] software. It may contain incorrect words, spelling, and punctuation that were not noted in checking the note before signing.
--- NOTE | 2017-10-26 08:53 | PN.PCM_ITS ---
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 History of Wound: Patient presented to the Wound Center in 06/30 with nonhealing ulcers left leg. His initial trauma was in 2004 where he sustained a complex fracture wound that required hardware placement and a complex muscle flap for reconstruction. He states the flap came from his abdomen (rectus abdominis muscle flap) utilizing a microvascular free tissue transfer. This was done at [facility] [place]. He states he did fine until 2015 when he developed an infection that required operative debridement in [place] followed by antibiotics and wound care. With recurrent ulceration and drainage, he came to this Wound Center. Wound culture in 06/30 showed Staphylococcus aureus and E. coli. Repeat culture in 07/30 showed E. coli. He is currently on Levaquin. He had a Venous Doppler study in 06/30 which showed no DVT and incompetent veins with insufficiency. He had an LEAS study in 06/30 which showed triphasic waveforms and calcification. No significant vascular stenoses seen. A CT in showed the hardware placement with healed bone and no radiological evidence of osteomyelitis. He has been using Promogran/Annabella dressing changes for his wound care and aquacel packing of tunelling to bone. He is scheduled to follow up at the [facility] per recommendation from Dr. De Oliveira. Progress of Wound: Stable. No new complaints. - Physical Exam Vital Signs Temp Pulse Resp BP 96.8 F L 78 20 H 137/79 H 10/26/17 08:05 10/26/17 08:05 10/26/17 08:05 10/26/17 08:05 General: Alert, Oriented x3, Cooperative, No apparent distress HEENT: Atraumatic, Normocephalic Oral: Moist Mucosa Neck: Supple Lungs: Normal air movement Cardiovascular: Regular rate Extremities: No cyanosis, Edema Skin: Ulcer/ Wound Wound Measurements and Assessment WC - Nurse 1 - General Ulcer Measurement Start: 10/12/17 08:18 Freq: Status: Active Protocol: Activity Type Activity Date Activity User E-Sign Co-Sign Detail Recorded Client Recorded Date Recorded By Document 10/26/17 08:05 DL [id number] 10/26/17 08:16 DL 10/26/17 08:05 Wound Center Nurse 1 [Ulcer Assessment] #9 Medial LLE Inferior -Current Size (cm) - Length 0.7 -Current Size (cm) - Width 0.5 -Current Size (cm) - Depth 2.2 -Total Square Cm 0.35 -Photo Taken No -Exudate Amt Medium (34-66%) -Exudate Type Serosanguineous -Wound Margin Distinct, Outline Attached -Granulation Amt Small (1-33%) -Granulation Quality Red -Necrosis Amt Small (1-33%) -Necrotic Tissue Type Adherent Slough -Structure Exposed N/A -Texture (Rufina-wound Skin Appearance) Scarring -Moisture (Rufina-wound Skin Appearance No Abnormality ) -Color (Rufina-wound Skin Appearance) Hemosiderin Staining -Temperature (Rufina-wound Skin No Abnormality Appearance) (Pt Warm) -Ulcer Cleansing Rinsed/ Irrigated with Saline -Foul Odor after Cleansing No -Anesthetic Used 4% Lidocaine Solution #7 LLE- Upper Carter -Current Size (cm) - Length 0.5 -Current Size (cm) - Width 0.4 -Current Size (cm) - Depth 0.8 -Total Square Cm 0.20 -Photo Taken No -Exudate Amt Small (1-33%) -Exudate Type Serosanguineous -Wound Margin Distinct, Outline Attached -Granulation Amt Small (1-33%) -Granulation Quality Red -Necrosis Amt Small (1-33%) -Necrotic Tissue Type Adherent Slough -Structure Exposed N/A -Texture (Rufina-wound Skin Appearance) Scarring -Moisture (Rufina-wound Skin Appearance No Abnormality ) -Color (Rufina-wound Skin Appearance) Hemosiderin Staining -Temperature (Rufina-wound Skin No Abnormality Appearance) (Pt Warm) -Ulcer Cleansing Rinsed/ Irrigated with Saline -Foul Odor after Cleansing No -Anesthetic Used 4% Lidocaine Solution #1 Medial LLE Superior Cluster -Current Size (cm) - Length 1.8 -Current Size (cm) - Width 0.3 -Current Size (cm) - Depth 2.4 -Total Square Cm 0.54 -Photo Taken No -Exudate Amt Medium (34-66%) -Exudate Type Serous -Wound Margin Distinct, Outline Attached -Granulation Amt Small (1-33%) -Granulation Quality Red -Necrosis Amt Small (1-33%) -Necrotic Tissue Type Adherent Slough -Structure Exposed N/A -Texture (Rufina-wound Skin Appearance) Scarring -Color (Rufina-wound Skin Appearance) Hemosiderin Staining -Temperature (Rufina-wound Skin No Abnormality Appearance) (Pt Warm) -Ulcer Cleansing Rinsed/ Irrigated with Saline -Foul Odor after Cleansing No -Anesthetic Used 4% Lidocaine Solution [Edema Assessment] -Left Calf (cm) 43 -Left Ankle (cm) 30.5 WC - Nurse 2 - General Ulcer CM Notes Start: 10/12/17 08:18 Freq: Status: Active Protocol: Activity Type Activity Date Activity User E-Sign Co-Sign Detail Recorded Client Recorded Date Recorded By Document 10/26/17 08:29 DV [id number] 10/26/17 08:36 DV 18 08:29 Wound Center Nurse 2 [Procedure/Treatment] #9 Medial LLE Inferior -Time 08:29 -Correct Patient Yes -Correct Side, Site, Position Yes -Correct Procedure Yes -Procedure Performed Yes -Type of Procedure Debridement -Clinical Debridement Subcutaneous -Post Debridement Size (cm) - Length 0.6 -Post Debridement Size (cm) - Width 0.4 -Post Debridement Size (cm) - Depth 2.6 -Total Square Cm 0.24 -Wound/Ulcer Outcome Not Healed -Ulcer Cleansing Rinsed/ Irrigated with Saline -Foul Odor after Cleansing No -Bioengineered Tissue No -Bleeding Controlled with Pressure -Treatment Response Procedure Tolerated Well #7 LLE- Upper Carter -Time 08:29 -Correct Patient Yes -Correct Side, Site, Position Yes -Correct Procedure Yes -Procedure Performed Yes -Type of Procedure Debridement -Clinical Debridement Subcutaneous -Post Debridement Size (cm) - Length 0.4 -Post Debridement Size (cm) - Width 0.3 -Post Debridement Size (cm) - Depth 2.0 -Total Square Cm 0.12 -Wound/Ulcer Outcome Not Healed -Ulcer Cleansing Rinsed/ Irrigated with Saline -Foul Odor after Cleansing No -Bioengineered Tissue No -Bleeding Controlled with Pressure -Treatment Response Procedure Tolerated Well #1 Medial LLE Superior Cluster -Time 08:31 -Correct Patient Yes -Correct Side, Site, Position Yes -Correct Procedure Yes -Procedure Performed Yes -Type of Procedure Debridement -Clinical Debridement Subcutaneous -Post Debridement Size (cm) - Length 2.5 -Post Debridement Size (cm) - Width 0.4 -Post Debridement Size (cm) - Depth 2.6 -Total Square Cm 1.00 -Wound/Ulcer Outcome Not Healed -Ulcer Cleansing Rinsed/ Irrigated with Saline -Foul Odor after Cleansing No -Bioengineered Tissue No -Bleeding Controlled with Pressure -Treatment Response Procedure Tolerated Well [See Physician Procedure note for Specifics] Pain Scale: 0-10 Numeric [Pain] -Is Patient Pain Free? Yes Musculoskeletal: No Muscle Wasting Neurological: Cranial nerves II-XII grossly intact Psych/Mental Status: Normal Affect Debridement Note Post-Debridement Measurements/Treatment WC - Nurse 2 - General Ulcer CM Notes Start: 10/12/17 08:18 Freq: Status: Active Protocol: Activity Type Activity Date Activity User E-Sign Co-Sign Detail Recorded Client Recorded Date Recorded By Document 10/12/17 08:44 DV [id number] 10/12/17 08:52 DV Document 10/19/17 09:35 DV [id number] 10/19/17 09:46 DV Document 10/26/17 08:29 DV [id number] 10/26/17 08:36 DV 10/12/17 10/19/17 10/26/17 08:44 09:35 08:29 Wound Center Nurse 2 #9 Medial LLE Inferior -Time 08:45 09:38 08:29 -Correct Patient Yes Yes Yes -Correct Side, Site, Position Yes Yes Yes -Correct Procedure Yes Yes Yes -Procedure Performed Yes Yes Yes -Type of Procedure Debridement Debridement Debridement -Clinical Debridement Subcutaneous Subcutaneous Subcutaneous -Post Debridement Size (cm) - Length 0.8 0.6 0.6 -Post Debridement Size (cm) - Width 0.4 0.4 0.4 -Post Debridement Size (cm) - Depth 3.2 2.0 2.6 -Total Square Cm 0.32 0.24 0.24 -Wound/Ulcer Outcome Not Healed Not Healed Not Healed -Ulcer Cleansing Rinsed/ Rinsed/ Rinsed/ Irrigated with Irrigated with Irrigated with Saline Saline Saline -Foul Odor after Cleansing No Yes No -Bioengineered Tissue No No No -Bleeding Controlled with Pressure Pressure Pressure -Treatment Response Procedure Procedure Procedure Tolerated Well Tolerated Well Tolerated Well #7 LLE- Upper [place] -Time 08:47 09:38 08:29 -Correct Patient Yes Yes Yes -Correct Side, Site, Position Yes Yes Yes -Correct Procedure Yes Yes Yes -Procedure Performed Yes Yes Yes -Type of Procedure Debridement Debridement Debridement -Clinical Debridement Subcutaneous Subcutaneous Subcutaneous -Post Debridement Size (cm) - Length 0.7 0.8 0.4 -Post Debridement Size (cm) - Width 0.7 2.5 0.3 -Post Debridement Size (cm) - Depth 2.9 2.5 2.0 -Total Square Cm 0.49 2.00 0.12 -Wound/Ulcer Outcome Not Healed Not Healed Not Healed -Ulcer Cleansing Rinsed/ Rinsed/ Rinsed/ Irrigated with Irrigated with Irrigated with Saline Saline Saline -Foul Odor after Cleansing No Yes No -Bioengineered Tissue No No No -Bleeding Controlled with Pressure Pressure Pressure -Treatment Response Procedure Procedure Procedure Tolerated Well Tolerated Well Tolerated Well #1 Medial LLE Superior Cluster -Time 08:46 09:36 08:31 -Correct Patient Yes Yes Yes -Correct Side, Site, Position Yes Yes Yes -Correct Procedure Yes Yes Yes -Procedure Performed Yes Yes Yes -Type of Procedure Debridement Debridement Debridement -Clinical Debridement Subcutaneous Subcutaneous Subcutaneous -Post Debridement Size (cm) - Length 2.5 2.5 2.5 -Post Debridement Size (cm) - Width 0.4 0.3 0.4 -Post Debridement Size (cm) - Depth 3.2 2.6 2.6 -Total Square Cm 1.00 0.75 1.00 -Wound/Ulcer Outcome Not Healed Not Healed Not Healed -Ulcer Cleansing Rinsed/ Rinsed/ Rinsed/ Irrigated with Irrigated with Irrigated with Saline Saline Saline -Foul Odor after Cleansing No No No -Bioengineered Tissue No No No -Bleeding Controlled with Pressure Pressure Pressure -Treatment Response Procedure Procedure Procedure Tolerated Well Tolerated Well Tolerated Well Pain Scale: 0-10 Numeric Is Patient Pain Free? Yes Yes Yes Wound debrided: Left Lower Extremity Inferior Wound Grade/Stage: Stage II Type of Debridement: Excisional debridement Anesthesia Used: 4% Lidocaine Solution Depth: Down to and including healthy tissue, in the subcutaneous layer Percentage of wound debrided: 100 Instrument Used: 3mm curette Tissue Removed: Biofilm and Devitalized tissue Severity: Fat Layer Exposed Amount of bleeding with debridement: Mild Bleeding Controlled with: Pressure Patient tolerated procedure well - Additional Wound Wound debrided: Left Lower Extremity Superior Cluster Wound Grade/Stage: Stage II Type of Debridement: Excisional debridement Anesthesia Used: 4% Lidocaine Solution Depth: Down to and including healthy tissue, in the subcutaneous layer Percentage of wound debrided: 100 Instrument Used: 3mm curette Tissue Removed: Biofilm and devitalized tissue Severity: Fat Layer Exposed Amount of bleeding with debridement: Mild Bleeding Controlled with: Pressure Patient tolerated procedure: Patient tolerated procedure well - Additional Wound Wound debrided: Left Lower Extremity Carter ( Pin hole ) Wound Grade/Stage: Stage II Type of Debridement: Excisional debridement Anesthesia Used: 4% Lidocaine Solution Depth: Down to and including healthy tissue, in the subcutaneous layer Percentage of wound debrided: 100 Instrument Used: 3mm curette Tissue Removed: Biofilm and devitalized tissue Severity: Fat Layer Exposed Amount of bleeding with debridement: Mild Bleeding Controlled with: Pressure Patient tolerated procedure: Patient tolerated procedure well Assessment/Plan Active Problems Ulcer of left lower extremity (Chronic) Diabetes type 2, controlled (Chronic) Assessment: 1. Nonhealing ulcers cluster left medial leg probes to the bone. 2. Nonhealing ulcer left medial ankle. 3. Nonhealing ulcer left anterior leg. 4. s/p complex left tib fib fracture repair with hardware placement and soft tissue reconstruction with a microvascular free tissue transfer muscle flap. 5. Venous insufficiency. 6. Diabetes mellitus. 7. Former smoker. Plan: Stable. No purulent discharge. Debridement done as documented above. Procedure was well tolerated. Scheduled to follow up with Ortho surgeon at the [facility] main campus on the 01 of November. Still no indication for ABX at this time. Will keep reassesing need for. Continue annabella to the anterior leg ( Carter ) ulcer. Continue Aquacel Ag to other ulcers. Continue protein supplements and protein rich diet. Elevate lower extremity when seated and in bed. Avoid idle standing. Exercise as tolerated. Follow-up in 1 week. This note was generated with [employer] software. It may contain incorrect words, spelling, and punctuation that were not noted in checking the note before signing.
[2017-11-02 09:15] VITALS: BP 151/81; PULSE 76; RESP 18; TEMP 36
--- NOTE | 2017-11-02 10:06 | PCM.WC.PN ---
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 History of Wound: Patient presented to the Wound Center in 06/30 with nonhealing ulcers left leg. His initial trauma was in 2004 where he sustained a complex fracture wound that required hardware placement and a complex muscle flap for reconstruction. He states the flap came from his abdomen (rectus abdominis muscle flap) utilizing a microvascular free tissue transfer. [place] [facility] states he did fine until 2015 when he developed an infection that required operative debridement in [place] followed by antibiotics and wound care. With recurrent ulceration and drainage, he came to this Wound Center. Wound culture in 06/30 showed Staphylococcus aureus and E. coli. Repeat culture in 07/30 showed E. coli. He is currently on Levaquin. He had a Venous Doppler study in 06/30 which showed no DVT and incompetent veins with insufficiency. He had an LEAS study in 06/30 which showed triphasic waveforms and calcification. No significant vascular stenoses seen. A CT in 07/30 showed the hardware placement with healed bone and no radiological evidence of osteomyelitis. He has been using Promogran/Annabella dressing changes for his wound care and aquacel packing of tunelling to bone. He is scheduled to follow up at the [facility] per recommendation from Dr. De Oliveira. Progress of Wound: Stable. No new complaints. - Physical Exam Vital Signs Temp Pulse Resp BP 96.8 F L 76 18 151/81 H 11/02/17 09:15 11/02/17 09:15 11/02/17 09:15 11/02/17 09:15 General: Alert, Oriented x3, Cooperative, No apparent distress HEENT: Atraumatic, Normocephalic Oral: Moist Mucosa Neck: Supple Lungs: Normal air movement Cardiovascular: Regular rate Extremities: No cyanosis, Edema Skin: Ulcer/ Wound Wound Measurements and Assessment WC - Nurse 1 - General Ulcer Measurement Start: 10/12/17 08:18 Freq: Status: Active Protocol: Activity Type Activity Date Activity User E-Sign Co-Sign Detail Recorded Client Recorded Date Recorded By Document 11/02/17 09:15 [id number] 11/02/17 09:20 11/02/17 09:15 Wound Center Nurse 1 [Ulcer Assessment] #9 Medial LLE Inferior -Combined with other wound No -Current Size (cm) - Length 0.5 -Current Size (cm) - Width 0.4 -Current Size (cm) - Depth 1.9 -Total Square Cm 0.20 -Photo Taken No -Epithelialization Small 1-33% -Tunneling No -Undermining/Tunneling No -Circular Undermining No -Exudate Amt Medium (34-66%) -Exudate Type Serosanguineous -Wound Margin Flat & Intact -Granulation Amt Large (67-100%) -Granulation Quality Red -Slough/Fibrin Yes -Necrosis Amt Small (1-33%) -Necrotic Tissue Type Adherent Slough -Structure Exposed N/A -Texture (Rufina-wound Skin Appearance) Assessed Localized Edema -Moisture (Rufina-wound Skin Appearance Assessed ) Dry/Scaly -Color (Rufina-wound Skin Appearance) Assessed Hemosiderin Staining -Temperature (Rufina-wound Skin No Abnormality Appearance) (Pt Warm) -Tenderness on Palpation (Rufina-wound No Skin Appearance) -Ulcer Cleansing Rinsed/ Irrigated with Saline -Foul Odor after Cleansing No -Anesthetic Used 4% Lidocaine Solution #7 LLE- Upper [place] -Combined with other wound No -Current Size (cm) - Length 0.4 -Current Size (cm) - Width 0.3 -Current Size (cm) - Depth 0.4 -Total Square Cm 0.12 -Photo Taken No -Epithelialization Small 1-33% -Tunneling No -Undermining/Tunneling No -Circular Undermining No -Exudate Amt Small (1-33%) -Exudate Type Serosanguineous -Wound Margin Flat & Intact -Granulation Amt Small (1-33%) -Granulation Quality [place] -Slough/Fibrin Yes -Necrosis Amt Large (67-100%) -Necrotic Tissue Type Adherent Slough -Structure Exposed N/A -Texture (Rufina-wound Skin Appearance) Assessed Localized Edema -Moisture (Rufina-wound Skin Appearance Assessed ) Dry/Scaly -Color (Rufina-wound Skin Appearance) Assessed Hemosiderin Staining -Temperature (Rufina-wound Skin No Abnormality Appearance) (Pt Warm) -Tenderness on Palpation (Rufina-wound No Skin Appearance) -Ulcer Cleansing Rinsed/ Irrigated with Saline -Foul Odor after Cleansing No -Anesthetic Used 4% Lidocaine Solution #1 Medial LLE Superior Cluster -Combined with other wound No -Current Size (cm) - Length 2.5 -Current Size (cm) - Width 0.4 -Current Size (cm) - Depth 2.1 -Total Square Cm 1.00 -Photo Taken No -Epithelialization Small 1-33% -Tunneling No -Undermining/Tunneling No -Circular Undermining No -Exudate Amt Medium (34-66%) -Exudate Type Serosanguineous -Wound Margin Flat & Intact -Granulation Amt Medium (34-66%) -Granulation Quality Red -Slough/Fibrin Yes -Necrosis Amt Medium (34-66%) -Necrotic Tissue Type Adherent Slough -Structure Exposed N/A -Texture (Rufina-wound Skin Appearance) Assessed Localized Edema -Color (Rufina-wound Skin Appearance) Assessed Hemosiderin Staining -Temperature (Rufina-wound Skin No Abnormality Appearance) (Pt Warm) -Tenderness on Palpation (Rufina-wound No Skin Appearance) -Ulcer Cleansing Rinsed/ Irrigated with Saline -Foul Odor after Cleansing No -Anesthetic Used 4% Lidocaine Solution [Edema Assessment] -Lower Limb Edema Present Yes -Left Calf (cm) 43.7 -Left Ankle (cm) 30.5 WC - Nurse 2 - General Ulcer CM Notes Start: 10/12/17 08:18 Freq: Status: Active Protocol: Activity Type Activity Date Activity User E-Sign Co-Sign Detail Recorded Client Recorded Date Recorded By Document 11/02/17 09:36 DV [id number] 11/02/17 09:52 DV 11/02/17 09:36 Wound Center Nurse 2 [Procedure/Treatment] #9 Medial LLE Inferior -Time 09:40 -Correct Patient Yes -Correct Side, Site, Position Yes -Correct Procedure Yes -Procedure Performed Yes -Type of Procedure Debridement -Clinical Debridement Subcutaneous -Post Debridement Size (cm) - Length 0.6 -Post Debridement Size (cm) - Width 0.5 -Post Debridement Size (cm) - Depth 2.0 -Total Square Cm 0.30 -Wound/Ulcer Outcome Not Healed -Ulcer Cleansing Rinsed/ Irrigated with Saline -Foul Odor after Cleansing No -Bioengineered Tissue No -Bleeding Controlled with Pressure -Treatment Response Procedure Tolerated Well #7 LLE- Upper [place] -Time 09:40 -Correct Patient Yes -Correct Side, Site, Position Yes -Correct Procedure Yes -Procedure Performed Yes -Type of Procedure Debridement -Clinical Debridement Subcutaneous -Post Debridement Size (cm) - Length 0.4 -Post Debridement Size (cm) - Width 0.3 -Post Debridement Size (cm) - Depth 0.9 -Total Square Cm 0.12 -Wound/Ulcer Outcome Not Healed -Ulcer Cleansing Rinsed/ Irrigated with Saline -Foul Odor after Cleansing No -Bioengineered Tissue No -Bleeding Controlled with Pressure -Treatment Response Procedure Tolerated Well #1 Medial LLE Superior Cluster -Time 09:41 -Correct Patient Yes -Correct Side, Site, Position Yes -Correct Procedure Yes -Procedure Performed Yes -Type of Procedure Debridement -Clinical Debridement Subcutaneous -Post Debridement Size (cm) - Length 0.6 -Post Debridement Size (cm) - Width 0.4 -Post Debridement Size (cm) - Depth 2.5 -Total Square Cm 0.24 -Wound/Ulcer Outcome Not Healed -Ulcer Cleansing Rinsed/ Irrigated with Saline -Foul Odor after Cleansing No -Bioengineered Tissue No -Bleeding Controlled with Pressure -Treatment Response Procedure Tolerated Well [See Physician Procedure note for Specifics] Pain Scale: 0-10 Numeric [Pain] -Is Patient Pain Free? Yes Neurological: Cranial nerves II-XII grossly intact Psych/Mental Status: Normal Affect Debridement Note Post-Debridement Measurements/Treatment WC - Nurse 2 - General Ulcer CM Notes Start: 10/12/17 08:18 Freq: Status: Active Protocol: Activity Type Activity Date Activity User E-Sign Co-Sign Detail Recorded Client Recorded Date Recorded By Document 10/12/17 08:44 DV [id number] 10/12/17 08:52 DV Document 10/19/17 09:35 DV [id number] 10/19/17 09:46 DV Document 10/26/17 08:29 DV [id number] 10/26/17 08:36 DV Document 11/02/17 09:36 DV [id number] 11/02/17 09:52 DV 10/12/17 10/19/17 10/26/17 08:44 09:35 08:29 Wound Center Nurse 2 #9 Medial LLE Inferior -Time 08:45 09:38 08:29 -Correct Patient Yes Yes Yes -Correct Side, Site, Position Yes Yes Yes -Correct Procedure Yes Yes Yes -Procedure Performed Yes Yes Yes -Type of Procedure Debridement Debridement Debridement -Clinical Debridement Subcutaneous Subcutaneous Subcutaneous -Post Debridement Size (cm) - Length 0.8 0.6 0.6 -Post Debridement Size (cm) - Width 0.4 0.4 0.4 -Post Debridement Size (cm) - Depth 3.2 2.0 2.6 -Total Square Cm 0.32 0.24 0.24 -Wound/Ulcer Outcome Not Healed Not Healed Not Healed -Ulcer Cleansing Rinsed/ Rinsed/ Rinsed/ Irrigated with Irrigated with Irrigated with Saline Saline Saline -Foul Odor after Cleansing No Yes No -Bioengineered Tissue No No No -Bleeding Controlled with Pressure Pressure Pressure -Treatment Response Procedure Procedure Procedure Tolerated Well Tolerated Well Tolerated Well #7 LLE- Upper [place] -Time 08:47 09:38 08:29 -Correct Patient Yes Yes Yes -Correct Side, Site, Position Yes Yes Yes -Correct Procedure Yes Yes Yes -Procedure Performed Yes Yes Yes -Type of Procedure Debridement Debridement Debridement -Clinical Debridement Subcutaneous Subcutaneous Subcutaneous -Post Debridement Size (cm) - Length 0.7 0.8 0.4 -Post Debridement Size (cm) - Width 0.7 2.5 0.3 -Post Debridement Size (cm) - Depth 2.9 2.5 2.0 -Total Square Cm 0.49 2.00 0.12 -Wound/Ulcer Outcome Not Healed Not Healed Not Healed -Ulcer Cleansing Rinsed/ Rinsed/ Rinsed/ Irrigated with Irrigated with Irrigated with Saline Saline Saline -Foul Odor after Cleansing No Yes No -Bioengineered Tissue No No No -Bleeding Controlled with Pressure Pressure Pressure -Treatment Response Procedure Procedure Procedure Tolerated Well Tolerated Well Tolerated Well #1 Medial LLE Superior Cluster -Time 08:46 09:36 08:31 -Correct Patient Yes Yes Yes -Correct Side, Site, Position Yes Yes Yes -Correct Procedure Yes Yes Yes -Procedure Performed Yes Yes Yes -Type of Procedure Debridement Debridement Debridement -Clinical Debridement Subcutaneous Subcutaneous Subcutaneous -Post Debridement Size (cm) - Length 2.5 2.5 2.5 -Post Debridement Size (cm) - Width 0.4 0.3 0.4 -Post Debridement Size (cm) - Depth 3.2 2.6 2.6 -Total Square Cm 1.00 0.75 1.00 -Wound/Ulcer Outcome Not Healed Not Healed Not Healed -Ulcer Cleansing Rinsed/ Rinsed/ Rinsed/ Irrigated with Irrigated with Irrigated with Saline Saline Saline -Foul Odor after Cleansing No No No -Bioengineered Tissue No No No -Bleeding Controlled with Pressure Pressure Pressure -Treatment Response Procedure Procedure Procedure Tolerated Well Tolerated Well Tolerated Well Pain Scale: 0-10 Numeric Is Patient Pain Free? Yes Yes Yes 11/02/17 09:36 Wound Center Nurse 2 #9 Medial LLE Inferior -Time 09:40 -Correct Patient Yes -Correct Side, Site, Position Yes -Correct Procedure Yes -Procedure Performed Yes -Type of Procedure Debridement -Clinical Debridement Subcutaneous -Post Debridement Size (cm) - Length 0.6 -Post Debridement Size (cm) - Width 0.5 -Post Debridement Size (cm) - Depth 2.0 -Total Square Cm 0.30 -Wound/Ulcer Outcome Not Healed -Ulcer Cleansing Rinsed/ Irrigated with Saline -Foul Odor after Cleansing No -Bioengineered Tissue No -Bleeding Controlled with Pressure -Treatment Response Procedure Tolerated Well #7 LLE- Upper [place] -Time 09:40 -Correct Patient Yes -Correct Side, Site, Position Yes -Correct Procedure Yes -Procedure Performed Yes -Type of Procedure Debridement -Clinical Debridement Subcutaneous -Post Debridement Size (cm) - Length 0.4 -Post Debridement Size (cm) - Width 0.3 -Post Debridement Size (cm) - Depth 0.9 -Total Square Cm 0.12 -Wound/Ulcer Outcome Not Healed -Ulcer Cleansing Rinsed/ Irrigated with Saline -Foul Odor after Cleansing No -Bioengineered Tissue No -Bleeding Controlled with Pressure -Treatment Response Procedure Tolerated Well #1 Medial LLE Superior Cluster -Time 09:41 -Correct Patient Yes -Correct Side, Site, Position Yes -Correct Procedure Yes -Procedure Performed Yes -Type of Procedure Debridement -Clinical Debridement Subcutaneous -Post Debridement Size (cm) - Length 0.6 -Post Debridement Size (cm) - Width 0.4 -Post Debridement Size (cm) - Depth 2.5 -Total Square Cm 0.24 -Wound/Ulcer Outcome Not Healed -Ulcer Cleansing Rinsed/ Irrigated with Saline -Foul Odor after Cleansing No -Bioengineered Tissue No -Bleeding Controlled with Pressure -Treatment Response Procedure Tolerated Well Pain Scale: 0-10 Numeric Is Patient Pain Free? Yes Wound debrided: Left lower extremity ( Carter ) Wound Grade/Stage: Stage II Type of Debridement: Excisional debridement Anesthesia Used: 4% Lidocaine Solution Depth: Down to and including healthy tissue, in the subcutaneous layer Percentage of wound debrided: 100 Instrument Used: 3mm curette Tissue Removed: Slough and devitalized tissue Severity: Fat Layer Exposed Amount of bleeding with debridement: Mild Bleeding Controlled with: Pressure Patient tolerated procedure well - Additional Wound Wound debrided: Left lower extremity inferior medial ulcer Wound Grade/Stage: Stage II Type of Debridement: Excisional debridement Anesthesia Used: 4% Lidocaine Solution Depth: Down to and including healthy tissue, in the subcutaneous layer Percentage of wound debrided: 100 Instrument Used: 3mm curette Tissue Removed: Slough and Devitalized tissue Severity: Fat Layer Exposed Amount of bleeding with debridement: Mild Bleeding Controlled with: Pressure Patient tolerated procedure: Patient tolerated procedure well - Additional Wound Wound debrided: Left lower extremity superior medial ulcer Wound Grade/Stage: Stage II Type of Debridement: Excisional debridement Anesthesia Used: 4% Lidocaine Solution Depth: Down to and including healthy tissue, in the subcutaneous layer Percentage of wound debrided: 100 Instrument Used: 3mm curette Tissue Removed: Slough and devitalized tissue Severity: Fat Layer Exposed Amount of bleeding with debridement: Mild Bleeding Controlled with: Pressure Patient tolerated procedure: Patient tolerated procedure well Assessment/Plan Active Problems Ulcer of left lower extremity (Chronic) Diabetes type 2, controlled (Chronic) Assessment: 1. Nonhealing ulcers cluster left medial leg probes to the bone. 2. Nonhealing ulcer left medial ankle. 3. Nonhealing ulcer left anterior leg. 4. s/p complex left tib fib fracture repair with hardware placement and soft tissue reconstruction with a microvascular free tissue transfer muscle flap. 5. Venous insufficiency. 6. Diabetes mellitus. 7. Former smoker. Plan: Stable. No purulent discharge. Followed up with the [facility] surgeon as recommended and his plan is for continued wound care for now with surgery as a last resort. Per patient, he was also referred to ID for possible antibiotic prophylaxis due to the presence of a hardware and the risk for chronic infection. No obvious signs of infection at this time. Anterior Carter ulcer with the best response so far. Will switch dressing to Annabella to all ulcers. Advised to call the wound center if they are having problems with the annabella application due to depth of the wound. Since our approach is to optimize wound care, i believe patient will benefit from an advanced wound care product/skin substituite. Continue protein supplements and protein rich diet. Elevate lower extremities when seated and in bed. Avoid idle standing. Exercise as tolerated. Follow-up in 1 week. This note was generated with [employer] dictation software. It may contain incorrect words, spelling, and punctuation that were not noted in checking the note before signing.
--- NOTE | 2017-11-02 10:16 | PN.PCM_ITS ---
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 History of Wound: Patient presented to the Wound Center in 06/30 with nonhealing ulcers left leg. His initial trauma was in 2004 where he sustained a complex fracture wound that required hardware placement and a complex muscle flap for reconstruction. He states the flap came from his abdomen (rectus abdominis muscle flap) utilizing a microvascular free tissue transfer. This was done at [facility] [place]. He states he did fine until 2015 when he developed an infection that required operative debridement in [place] followed by antibiotics and wound care. With recurrent ulceration and drainage, he came to this Wound Center. Wound culture in 06/30 showed Staphylococcus aureus and E. coli. Repeat culture in 07/30 showed E. coli. He is currently on Levaquin. He had a Venous Doppler study in 06/30 which showed no DVT and incompetent veins with insufficiency. He had an LEAS study in 06/30 which showed triphasic waveforms and calcification. No significant vascular stenoses seen. A CT in showed the hardware placement with healed bone and no radiological evidence of osteomyelitis. He has been using Promogran/Annabella dressing changes for his wound care and aquacel packing of tunelling to bone. He is scheduled to follow up at the [facility] per recommendation from Dr. De Oliveira. Progress of Wound: Stable. No new complaints. - Physical Exam Vital Signs Temp Pulse Resp BP 96.8 F L 76 18 151/81 H 11/02/17 09:15 11/02/17 09:15 11/02/17 09:15 11/02/17 09:15 General: Alert, Oriented x3, Cooperative, No apparent distress HEENT: Atraumatic, Normocephalic Oral: Moist Mucosa Neck: Supple Lungs: Normal air movement Cardiovascular: Regular rate Extremities: No cyanosis, Edema Skin: Ulcer/ Wound Wound Measurements and Assessment WC - Nurse 1 - General Ulcer Measurement Start: 10/12/17 08:18 Freq: Status: Active Protocol: Activity Type Activity Date Activity User E-Sign Co-Sign Detail Recorded Client Recorded Date Recorded By Document 11/02/17 09:15 [id number] 11/02/17 09:20 11/02/17 09:15 Wound Center Nurse 1 [Ulcer Assessment] #9 Medial LLE Inferior -Combined with other wound No -Current Size (cm) - Length 0.5 -Current Size (cm) - Width 0.4 -Current Size (cm) - Depth 1.9 -Total Square Cm 0.20 -Photo Taken No -Epithelialization Small 1-33% -Tunneling No -Undermining/Tunneling No -Circular Undermining No -Exudate Amt Medium (34-66%) -Exudate Type Serosanguineous -Wound Margin Flat & Intact -Granulation Amt Large (67-100%) -Granulation Quality Red -Slough/Fibrin Yes -Necrosis Amt Small (1-33%) -Necrotic Tissue Type Adherent Slough -Structure Exposed N/A -Texture (Rufina-wound Skin Appearance) Assessed Localized Edema -Moisture (Rufina-wound Skin Appearance Assessed ) Dry/Scaly -Color (Rufina-wound Skin Appearance) Assessed Hemosiderin Staining -Temperature (Rufina-wound Skin No Abnormality Appearance) (Pt Warm) -Tenderness on Palpation (Rufina-wound No Skin Appearance) -Ulcer Cleansing Rinsed/ Irrigated with Saline -Foul Odor after Cleansing No -Anesthetic Used 4% Lidocaine Solution #7 LLE- Upper [place] -Combined with other wound No -Current Size (cm) - Length 0.4 -Current Size (cm) - Width 0.3 -Current Size (cm) - Depth 0.4 -Total Square Cm 0.12 -Photo Taken No -Epithelialization Small 1-33% -Tunneling No -Undermining/Tunneling No -Circular Undermining No -Exudate Amt Small (1-33%) -Exudate Type Serosanguineous -Wound Margin Flat & Intact -Granulation Amt Small (1-33%) -Granulation Quality [place] -Slough/Fibrin Yes -Necrosis Amt Large (67-100%) -Necrotic Tissue Type Adherent Slough -Structure Exposed N/A -Texture (Rufina-wound Skin Appearance) Assessed Localized Edema -Moisture (Rufina-wound Skin Appearance Assessed ) Dry/Scaly -Color (Rufina-wound Skin Appearance) Assessed Hemosiderin Staining -Temperature (Rufina-wound Skin No Abnormality Appearance) (Pt Warm) -Tenderness on Palpation (Rufina-wound No Skin Appearance) -Ulcer Cleansing Rinsed/ Irrigated with Saline -Foul Odor after Cleansing No -Anesthetic Used 4% Lidocaine Solution #1 Medial LLE Superior Cluster -Combined with other wound No -Current Size (cm) - Length 2.5 -Current Size (cm) - Width 0.4 -Current Size (cm) - Depth 2.1 -Total Square Cm 1.00 -Photo Taken No -Epithelialization Small 1-33% -Tunneling No -Undermining/Tunneling No -Circular Undermining No -Exudate Amt Medium (34-66%) -Exudate Type Serosanguineous -Wound Margin Flat & Intact -Granulation Amt Medium (34-66%) -Granulation Quality Red -Slough/Fibrin Yes -Necrosis Amt Medium (34-66%) -Necrotic Tissue Type Adherent Slough -Structure Exposed N/A -Texture (Rufina-wound Skin Appearance) Assessed Localized Edema -Color (Rufina-wound Skin Appearance) Assessed Hemosiderin Staining -Temperature (Rufina-wound Skin No Abnormality Appearance) (Pt Warm) -Tenderness on Palpation (Rufina-wound No Skin Appearance) -Ulcer Cleansing Rinsed/ Irrigated with Saline -Foul Odor after Cleansing No -Anesthetic Used 4% Lidocaine Solution [Edema Assessment] -Lower Limb Edema Present Yes -Left Calf (cm) 43.7 -Left Ankle (cm) 30.5 WC - Nurse 2 - General Ulcer CM Notes Start: 10/12/17 08:18 Freq: Status: Active Protocol: Activity Type Activity Date Activity User E-Sign Co-Sign Detail Recorded Client Recorded Date Recorded By Document 11/02/17 09:36 DV [id number] 11/02/17 09:52 DV 11/02/17 09:36 Wound Center Nurse 2 [Procedure/Treatment] #9 Medial LLE Inferior -Time 09:40 -Correct Patient Yes -Correct Side, Site, Position Yes -Correct Procedure Yes -Procedure Performed Yes -Type of Procedure Debridement -Clinical Debridement Subcutaneous -Post Debridement Size (cm) - Length 0.6 -Post Debridement Size (cm) - Width 0.5 -Post Debridement Size (cm) - Depth 2.0 -Total Square Cm 0.30 -Wound/Ulcer Outcome Not Healed -Ulcer Cleansing Rinsed/ Irrigated with Saline -Foul Odor after Cleansing No -Bioengineered Tissue No -Bleeding Controlled with Pressure -Treatment Response Procedure Tolerated Well #7 LLE- Upper [place] -Time 09:40 -Correct Patient Yes -Correct Side, Site, Position Yes -Correct Procedure Yes -Procedure Performed Yes -Type of Procedure Debridement -Clinical Debridement Subcutaneous -Post Debridement Size (cm) - Length 0.4 -Post Debridement Size (cm) - Width 0.3 -Post Debridement Size (cm) - Depth 0.9 -Total Square Cm 0.12 -Wound/Ulcer Outcome Not Healed -Ulcer Cleansing Rinsed/ Irrigated with Saline -Foul Odor after Cleansing No -Bioengineered Tissue No -Bleeding Controlled with Pressure -Treatment Response Procedure Tolerated Well #1 Medial LLE Superior Cluster -Time 09:41 -Correct Patient Yes -Correct Side, Site, Position Yes -Correct Procedure Yes -Procedure Performed Yes -Type of Procedure Debridement -Clinical Debridement Subcutaneous -Post Debridement Size (cm) - Length 0.6 -Post Debridement Size (cm) - Width 0.4 -Post Debridement Size (cm) - Depth 2.5 -Total Square Cm 0.24 -Wound/Ulcer Outcome Not Healed -Ulcer Cleansing Rinsed/ Irrigated with Saline -Foul Odor after Cleansing No -Bioengineered Tissue No -Bleeding Controlled with Pressure -Treatment Response Procedure Tolerated Well [See Physician Procedure note for Specifics] Pain Scale: 0-10 Numeric [Pain] -Is Patient Pain Free? Yes Neurological: Cranial nerves II-XII grossly intact Psych/Mental Status: Normal Affect Debridement Note Post-Debridement Measurements/Treatment WC - Nurse 2 - General Ulcer CM Notes Start: 10/12/17 08:18 Freq: Status: Active Protocol: Activity Type Activity Date Activity User E-Sign Co-Sign Detail Recorded Client Recorded Date Recorded By Document 10/12/17 08:44 DV [id number] 10/12/17 08:52 DV Document 10/19/17 09:35 DV [id number] 10/19/17 09:46 DV Document 10/26/17 08:29 DV [id number] 10/26/17 08:36 DV Document 11/02/17 09:36 DV [id number] 11/02/17 09:52 DV 10/12/17 10/19/17 10/26/17 08:44 09:35 08:29 Wound Center Nurse 2 #9 Medial LLE Inferior -Time 08:45 09:38 08:29 -Correct Patient Yes Yes Yes -Correct Side, Site, Position Yes Yes Yes -Correct Procedure Yes Yes Yes -Procedure Performed Yes Yes Yes -Type of Procedure Debridement Debridement Debridement -Clinical Debridement Subcutaneous Subcutaneous Subcutaneous -Post Debridement Size (cm) - Length 0.8 0.6 0.6 -Post Debridement Size (cm) - Width 0.4 0.4 0.4 -Post Debridement Size (cm) - Depth 3.2 2.0 2.6 -Total Square Cm 0.32 0.24 0.24 -Wound/Ulcer Outcome Not Healed Not Healed Not Healed -Ulcer Cleansing Rinsed/ Rinsed/ Rinsed/ Irrigated with Irrigated with Irrigated with Saline Saline Saline -Foul Odor after Cleansing No Yes No -Bioengineered Tissue No No No -Bleeding Controlled with Pressure Pressure Pressure -Treatment Response Procedure Procedure Procedure Tolerated Well Tolerated Well Tolerated Well #7 LLE- Upper [place] -Time 08:47 09:38 08:29 -Correct Patient Yes Yes Yes -Correct Side, Site, Position Yes Yes Yes -Correct Procedure Yes Yes Yes -Procedure Performed Yes Yes Yes -Type of Procedure Debridement Debridement Debridement -Clinical Debridement Subcutaneous Subcutaneous Subcutaneous -Post Debridement Size (cm) - Length 0.7 0.8 0.4 -Post Debridement Size (cm) - Width 0.7 2.5 0.3 -Post Debridement Size (cm) - Depth 2.9 2.5 2.0 -Total Square Cm 0.49 2.00 0.12 -Wound/Ulcer Outcome Not Healed Not Healed Not Healed -Ulcer Cleansing Rinsed/ Rinsed/ Rinsed/ Irrigated with Irrigated with Irrigated with Saline Saline Saline -Foul Odor after Cleansing No Yes No -Bioengineered Tissue No No No -Bleeding Controlled with Pressure Pressure Pressure -Treatment Response Procedure Procedure Procedure Tolerated Well Tolerated Well Tolerated Well #1 Medial LLE Superior Cluster -Time 08:46 09:36 08:31 -Correct Patient Yes Yes Yes -Correct Side, Site, Position Yes Yes Yes -Correct Procedure Yes Yes Yes -Procedure Performed Yes Yes Yes -Type of Procedure Debridement Debridement Debridement -Clinical Debridement Subcutaneous Subcutaneous Subcutaneous -Post Debridement Size (cm) - Length 2.5 2.5 2.5 -Post Debridement Size (cm) - Width 0.4 0.3 0.4 -Post Debridement Size (cm) - Depth 3.2 2.6 2.6 -Total Square Cm 1.00 0.75 1.00 -Wound/Ulcer Outcome Not Healed Not Healed Not Healed -Ulcer Cleansing Rinsed/ Rinsed/ Rinsed/ Irrigated with Irrigated with Irrigated with Saline Saline Saline -Foul Odor after Cleansing No No No -Bioengineered Tissue No No No -Bleeding Controlled with Pressure Pressure Pressure -Treatment Response Procedure Procedure Procedure Tolerated Well Tolerated Well Tolerated Well Pain Scale: 0-10 Numeric Is Patient Pain Free? Yes Yes Yes 11/02/17 09:36 Wound Center Nurse 2 #9 Medial LLE Inferior -Time 09:40 -Correct Patient Yes -Correct Side, Site, Position Yes -Correct Procedure Yes -Procedure Performed Yes -Type of Procedure Debridement -Clinical Debridement Subcutaneous -Post Debridement Size (cm) - Length 0.6 -Post Debridement Size (cm) - Width 0.5 -Post Debridement Size (cm) - Depth 2.0 -Total Square Cm 0.30 -Wound/Ulcer Outcome Not Healed -Ulcer Cleansing Rinsed/ Irrigated with Saline -Foul Odor after Cleansing No -Bioengineered Tissue No -Bleeding Controlled with Pressure -Treatment Response Procedure Tolerated Well #7 LLE- Upper [place] -Time 09:40 -Correct Patient Yes -Correct Side, Site, Position Yes -Correct Procedure Yes -Procedure Performed Yes -Type of Procedure Debridement -Clinical Debridement Subcutaneous -Post Debridement Size (cm) - Length 0.4 -Post Debridement Size (cm) - Width 0.3 -Post Debridement Size (cm) - Depth 0.9 -Total Square Cm 0.12 -Wound/Ulcer Outcome Not Healed -Ulcer Cleansing Rinsed/ Irrigated with Saline -Foul Odor after Cleansing No -Bioengineered Tissue No -Bleeding Controlled with Pressure -Treatment Response Procedure Tolerated Well #1 Medial LLE Superior Cluster -Time 09:41 -Correct Patient Yes -Correct Side, Site, Position Yes -Correct Procedure Yes -Procedure Performed Yes -Type of Procedure Debridement -Clinical Debridement Subcutaneous -Post Debridement Size (cm) - Length 0.6 -Post Debridement Size (cm) - Width 0.4 -Post Debridement Size (cm) - Depth 2.5 -Total Square Cm 0.24 -Wound/Ulcer Outcome Not Healed -Ulcer Cleansing Rinsed/ Irrigated with Saline -Foul Odor after Cleansing No -Bioengineered Tissue No -Bleeding Controlled with Pressure -Treatment Response Procedure Tolerated Well Pain Scale: 0-10 Numeric Is Patient Pain Free? Yes Wound debrided: Left lower extremity ( Carter ) Wound Grade/Stage: Stage II Type of Debridement: Excisional debridement Anesthesia Used: 4% Lidocaine Solution Depth: Down to and including healthy tissue, in the subcutaneous layer Percentage of wound debrided: 100 Instrument Used: 3mm curette Tissue Removed: Slough and devitalized tissue Severity: Fat Layer Exposed Amount of bleeding with debridement: Mild Bleeding Controlled with: Pressure Patient tolerated procedure well - Additional Wound Wound debrided: Left lower extremity inferior medial ulcer Wound Grade/Stage: Stage II Type of Debridement: Excisional debridement Anesthesia Used: 4% Lidocaine Solution Depth: Down to and including healthy tissue, in the subcutaneous layer Percentage of wound debrided: 100 Instrument Used: 3mm curette Tissue Removed: Slough and Devitalized tissue Severity: Fat Layer Exposed Amount of bleeding with debridement: Mild Bleeding Controlled with: Pressure Patient tolerated procedure: Patient tolerated procedure well - Additional Wound Wound debrided: Left lower extremity superior medial ulcer Wound Grade/Stage: Stage II Type of Debridement: Excisional debridement Anesthesia Used: 4% Lidocaine Solution Depth: Down to and including healthy tissue, in the subcutaneous layer Percentage of wound debrided: 100 Instrument Used: 3mm curette Tissue Removed: Slough and devitalized tissue Severity: Fat Layer Exposed Amount of bleeding with debridement: Mild Bleeding Controlled with: Pressure Patient tolerated procedure: Patient tolerated procedure well Assessment/Plan Active Problems Ulcer of left lower extremity (Chronic) Diabetes type 2, controlled (Chronic) Assessment: 1. Nonhealing ulcers cluster left medial leg probes to the bone. 2. Nonhealing ulcer left medial ankle. 3. Nonhealing ulcer left anterior leg. 4. s/p complex left tib fib fracture repair with hardware placement and soft tissue reconstruction with a microvascular free tissue transfer muscle flap. 5. Venous insufficiency. 6. Diabetes mellitus. 7. Former smoker. Plan: Stable. No purulent discharge. Followed up with the [facility] surgeon as recommended and his plan is for continued wound care for now with surgery as a last resort. Per patient, he was also referred to ID for possible antibiotic prophylaxis due to the presence of a hardware and the risk for chronic infection. No obvious signs of infection at this time. Anterior Carter ulcer with the best response so far. Will switch dressing to Annabella to all ulcers. Advised to call the wound center if they are having problems with the annabella application due to depth of the wound. Since our approach is to optimize wound care, i believe patient will benefit from an advanced wound care product/skin substituite. Continue protein supplements and protein rich diet. Elevate lower extremities when seated and in bed. Avoid idle standing. Exercise as tolerated. Follow-up in 1 week. This note was generated with [employer] dictation software. It may contain incorrect words, spelling, and punctuation that were not noted in checking the note before signing.
[2017-11-08 08:20] VITALS: BP 143/71; PULSE 81; RESP 18; TEMP 36.6
--- NOTE | 2017-11-08 17:21 | PCM.WC.PN ---
(1) Diabetes type 2, controlled Status: Chronic Current Visit: Yes Code(s): E11.9 - Type 2 diabetes mellitus without complications (2) Neuropathy of left lower extremity Status: Chronic Current Visit: No Code(s): G57.92 - Unspecified mononeuropathy of left lower limb (3) Peripheral vascular occlusive disease Status: Chronic Current Visit: No Code(s): I73.9 - Peripheral vascular disease, unspecified (4) Ulcer of left lower extremity Status: Chronic Current Visit: Yes Code(s): L97.929 - Non-pressure chronic ulcer of unspecified part of left lower leg with unspecified severity (5) Diabetic leg ulcer Status: Acute Current Visit: Yes Code(s): E11.622 - Type 2 diabetes mellitus with other skin ulcer; L97.909 - Non-pressure chronic ulcer of unspecified part of unspecified lower leg with unspecified severity Type of Wound Date of Service: 11/08/17 Chief Complaint: Nonhealing ulcers left leg s/p fracture and hardware placement. History of Wound: Patient presented to the Wound Center in 06/30 with nonhealing ulcers left leg. His initial trauma was in 2004 where he sustained a complex fracture wound that required hardware placement and a complex muscle flap for reconstruction. He states the flap came from his abdomen (rectus abdominis muscle flap) utilizing a microvascular free tissue transfer. This was done at [facility] in [place]. He states he did fine until 2015 when he developed an infection that required operative debridement in [place] followed by antibiotics and wound care. With recurrent ulceration and drainage, he came to this Wound Center. Wound culture in 06/30 showed Staphylococcus aureus and E. coli. Repeat culture in 07/30 showed E. coli. He is currently on Levaquin. He had a Venous Doppler study in 06/30 which showed no DVT and incompetent veins with insufficiency. He had an LEAS study in 06/30 which showed triphasic waveforms and calcification. No significant vascular stenoses seen. A CT in 07/30 showed the hardware placement with healed bone and no radiological evidence of osteomyelitis. He has been using Promogran/Annabella dressing changes for his wound care and aquacel packing of tunelling to bone. He is scheduled to follow up at the [facility] per recommendation from Dr. De Oliveira. Progress of Wound: Stable. No new complaints. - Physical Exam Vital Signs Temp Pulse Resp BP 97.8 F 81 18 143/71 H 11/08/17 08:20 11/08/17 08:20 11/08/17 08:20 11/08/17 08:20 General: Oriented x3, Cooperative, No apparent distress HEENT: Atraumatic, Normocephalic Oral: Moist Mucosa Neck: Supple Lungs: Normal air movement Cardiovascular: Regular rate Abdomen: Obese Extremities: No cyanosis Skin: Ulcer/ Wound Wound Measurements and Assessment WC - Nurse 1 - General Ulcer Measurement Start: 10/12/17 08:18 Freq: Status: Active Protocol: Activity Type Activity Date Activity User E-Sign Co-Sign Detail Recorded Client Recorded Date Recorded By Document 11/08/17 08:20 MW [id number] 11/08/17 08:35 MW 11/08/17 08:20 Wound Center Nurse 1 [Ulcer Assessment] #9 Medial LLE Inferior -Combined with other wound No -Current Size (cm) - Length 0.5 -Current Size (cm) - Width 0.3 -Current Size (cm) - Depth 1.4 -Total Square Cm 0.15 -Date of Last Picture (Recall this 11/08/17 field) -Photo Taken Yes -Epithelialization None Present -Tunneling No -Undermining/Tunneling No -Circular Undermining No -Exudate Amt Small (1-33%) -Exudate Type Serosanguineous -Wound Margin Indistinct, Non -Visible -Granulation Amt None Present (0 %) -Granulation Quality N/A -Slough/Fibrin Yes -Necrosis Amt Small (1-33%) -Necrotic Tissue Type Adherent Slough -Structure Exposed N/A -Texture (Rufina-wound Skin Appearance) Assessed Localized Edema Scarring -Moisture (Rufina-wound Skin Appearance No Abnormality ) Assessed -Color (Rufina-wound Skin Appearance) Assessed Hemosiderin Staining -Temperature (Rufina-wound Skin No Abnormality Appearance) (Pt Warm) -Tenderness on Palpation (Rufina-wound No Skin Appearance) -Ulcer Cleansing Rinsed/ Irrigated with Saline -Foul Odor after Cleansing No -Anesthetic Used 4% Lidocaine Solution #7 LLE- Upper Carter -Combined with other wound No -Current Size (cm) - Length 0.2 -Current Size (cm) - Width 0.2 -Current Size (cm) - Depth 0.6 -Total Square Cm 0.04 -Date of Last Picture (Recall this 11/08/17 field) -Photo Taken Yes -Epithelialization None Present -Tunneling No -Undermining/Tunneling No -Circular Undermining No -Exudate Amt Small (1-33%) -Exudate Type Serosanguineous -Wound Margin Indistinct, Non -Visible -Granulation Amt None Present (0 %) -Granulation Quality N/A -Slough/Fibrin Yes -Necrosis Amt Small (1-33%) -Necrotic Tissue Type Adherent Slough -Structure Exposed N/A -Texture (Rufian-wound Skin Appearance) Assessed Localized Edema Scarring -Moisture (Rufina-wound Skin Appearance No Abnormality ) Assessed -Color (Rufina-wound Skin Appearance) Assessed Hemosiderin Staining -Temperature (Rufina-wound Skin No Abnormality Appearance) (Pt Warm) -Tenderness on Palpation (Rufina-wound No Skin Appearance) -Ulcer Cleansing Rinsed/ Irrigated with Saline -Foul Odor after Cleansing No -Anesthetic Used 4% Lidocaine Solution #1 Medial LLE Superior Cluster -Combined with other wound No -Current Size (cm) - Length 2.3 -Current Size (cm) - Width 0.3 -Current Size (cm) - Depth 0.7 -Total Square Cm 0.69 -Date of Last Picture (Recall this 11/08/17 field) -Photo Taken Yes -Epithelialization None Present -Tunneling No -Undermining/Tunneling No -Circular Undermining No -Exudate Amt Small (1-33%) -Exudate Type Serosanguineous -Wound Margin Indistinct, Non -Visible -Granulation Amt None Present (0 %) -Granulation Quality N/A -Slough/Fibrin Yes -Necrosis Amt Small (1-33%) -Necrotic Tissue Type Adherent Slough -Structure Exposed N/A -Texture (Rufina-wound Skin Appearance) Assessed Localized Edema Scarring -Moisture (Rufina-wound Skin Appearance No Abnormality ) Assessed -Color (Rufina-wound Skin Appearance) Assessed Hemosiderin Staining -Temperature (Rufina-wound Skin No Abnormality Appearance) (Pt Warm) -Tenderness on Palpation (Rufina-wound No Skin Appearance) -Ulcer Cleansing Wound Cleanser -Foul Odor after Cleansing No -Anesthetic Used 4% Lidocaine Solution [Edema Assessment] -Lower Limb Edema Present Yes -Left Calf (cm) 43.8 -Left Ankle (cm) 31.0 WC - Nurse 2 - General Ulcer CM Notes Start: 10/12/17 08:18 Freq: Status: Active Protocol: Activity Type Activity Date Activity User E-Sign Co-Sign Detail Recorded Client Recorded Date Recorded By Document 11/08/17 09:12 DV [id number] 11/08/17 09:16 DV 11/08/17 09:12 Wound Center Nurse 2 [Procedure/Treatment] #9 Medial LLE Inferior -Time 09:13 -Correct Patient Yes -Correct Side, Site, Position Yes -Correct Procedure Yes -Procedure Performed Yes -Type of Procedure Debridement -Clinical Debridement Subcutaneous -Post Debridement Size (cm) - Length 0.6 -Post Debridement Size (cm) - Width 0.3 -Post Debridement Size (cm) - Depth 1.6 -Total Square Cm 0.18 -Wound/Ulcer Outcome Not Healed -Ulcer Cleansing Rinsed/ Irrigated with Saline -Foul Odor after Cleansing No -Bioengineered Tissue No -Bleeding Controlled with Pressure -Treatment Response Procedure Tolerated Well #7 LLE- Upper Carter -Time 09:14 -Correct Patient Yes -Correct Side, Site, Position Yes -Correct Procedure Yes -Procedure Performed Yes -Type of Procedure Debridement -Clinical Debridement Subcutaneous -Post Debridement Size (cm) - Length 0.4 -Post Debridement Size (cm) - Width 0.3 -Post Debridement Size (cm) - Depth 0.9 -Total Square Cm 0.12 -Wound/Ulcer Outcome Not Healed -Ulcer Cleansing Rinsed/ Irrigated with Saline -Foul Odor after Cleansing No -Bioengineered Tissue No -Bleeding Controlled with Pressure -Treatment Response Procedure Tolerated Well #1 Medial LLE Superior Cluster -Time 09:14 -Correct Patient Yes -Correct Side, Site, Position Yes -Correct Procedure Yes -Procedure Performed Yes -Type of Procedure Debridement -Clinical Debridement Subcutaneous -Post Debridement Size (cm) - Length 0.6 -Post Debridement Size (cm) - Width 0.3 -Post Debridement Size (cm) - Depth 2.4 -Total Square Cm 0.18 -Wound/Ulcer Outcome Not Healed -Ulcer Cleansing Rinsed/ Irrigated with Saline -Foul Odor after Cleansing No -Bioengineered Tissue No -Bleeding Controlled with Pressure -Treatment Response Procedure Tolerated Well [See Physician Procedure note for Specifics] Pain Scale: 0-10 Numeric [Pain] -Is Patient Pain Free? Yes Musculoskeletal: No Muscle Wasting Neurological: Cranial nerves II-XII grossly intact Psych/Mental Status: Normal Affect Debridement Note Post-Debridement Measurements/Treatment WC - Nurse 2 - General Ulcer CM Notes Start: 10/12/17 08:18 Freq: Status: Active Protocol: Activity Type Activity Date Activity User E-Sign Co-Sign Detail Recorded Client Recorded Date Recorded By Document 10/12/17 08:44 DV [id number] 10/12/17 08:52 DV Document 10/19/17 09:35 DV [id number] 10/19/17 09:46 DV Document 10/26/17 08:29 DV [id number] 10/26/17 08:36 DV Document 11/02/17 09:36 DV [id number] 11/02/17 09:52 DV Document 11/08/17 09:12 DV [id number] 11/08/17 09:16 DV 10/12/17 10/19/17 10/26/17 08:44 09:35 08:29 Wound Center Nurse 2 #9 Medial LLE Inferior -Time 08:45 09:38 08:29 -Correct Patient Yes Yes Yes -Correct Side, Site, Position Yes Yes Yes -Correct Procedure Yes Yes Yes -Procedure Performed Yes Yes Yes -Type of Procedure Debridement Debridement Debridement -Clinical Debridement Subcutaneous Subcutaneous Subcutaneous -Post Debridement Size (cm) - Length 0.8 0.6 0.6 -Post Debridement Size (cm) - Width 0.4 0.4 0.4 -Post Debridement Size (cm) - Depth 3.2 2.0 2.6 -Total Square Cm 0.32 0.24 0.24 -Wound/Ulcer Outcome Not Healed Not Healed Not Healed -Ulcer Cleansing Rinsed/ Rinsed/ Rinsed/ Irrigated with Irrigated with Irrigated with Saline Saline Saline -Foul Odor after Cleansing No Yes No -Bioengineered Tissue No No No -Bleeding Controlled with Pressure Pressure Pressure -Treatment Response Procedure Procedure Procedure Tolerated Well Tolerated Well Tolerated Well #7 LLE- Upper Carter -Time 08:47 09:38 08:29 -Correct Patient Yes Yes Yes -Correct Side, Site, Position Yes Yes Yes -Correct Procedure Yes Yes Yes -Procedure Performed Yes Yes Yes -Type of Procedure Debridement Debridement Debridement -Clinical Debridement Subcutaneous Subcutaneous Subcutaneous -Post Debridement Size (cm) - Length 0.7 0.8 0.4 -Post Debridement Size (cm) - Width 0.7 2.5 0.3 -Post Debridement Size (cm) - Depth 2.9 2.5 2.0 -Total Square Cm 0.49 2.00 0.12 -Wound/Ulcer Outcome Not Healed Not Healed Not Healed -Ulcer Cleansing Rinsed/ Rinsed/ Rinsed/ Irrigated with Irrigated with Irrigated with Saline Saline Saline -Foul Odor after Cleansing No Yes No -Bioengineered Tissue No No No -Bleeding Controlled with Pressure Pressure Pressure -Treatment Response Procedure Procedure Procedure Tolerated Well Tolerated Well Tolerated Well #1 Medial LLE Superior Cluster -Time 08:46 09:36 08:31 -Correct Patient Yes Yes Yes -Correct Side, Site, Position Yes Yes Yes -Correct Procedure Yes Yes Yes -Procedure Performed Yes Yes Yes -Type of Procedure Debridement Debridement Debridement -Clinical Debridement Subcutaneous Subcutaneous Subcutaneous -Post Debridement Size (cm) - Length 2.5 2.5 2.5 -Post Debridement Size (cm) - Width 0.4 0.3 0.4 -Post Debridement Size (cm) - Depth 3.2 2.6 2.6 -Total Square Cm 1.00 0.75 1.00 -Wound/Ulcer Outcome Not Healed Not Healed Not Healed -Ulcer Cleansing Rinsed/ Rinsed/ Rinsed/ Irrigated with Irrigated with Irrigated with Saline Saline Saline -Foul Odor after Cleansing No No No -Bioengineered Tissue No No No -Bleeding Controlled with Pressure Pressure Pressure -Treatment Response Procedure Procedure Procedure Tolerated Well Tolerated Well Tolerated Well Pain Scale: 0-10 Numeric Is Patient Pain Free? Yes Yes Yes 18 18 09:36 09:12 Wound Center Nurse 2 #9 Medial LLE Inferior -Time 09:40 09:13 -Correct Patient Yes Yes -Correct Side, Site, Position Yes Yes -Correct Procedure Yes Yes -Procedure Performed Yes Yes -Type of Procedure Debridement Debridement -Clinical Debridement Subcutaneous Subcutaneous -Post Debridement Size (cm) - Length 0.6 0.6 -Post Debridement Size (cm) - Width 0.5 0.3 -Post Debridement Size (cm) - Depth 2.0 1.6 -Total Square Cm 0.30 0.18 -Wound/Ulcer Outcome Not Healed Not Healed -Ulcer Cleansing Rinsed/ Rinsed/ Irrigated with Irrigated with Saline Saline -Foul Odor after Cleansing No No -Bioengineered Tissue No No -Bleeding Controlled with Pressure Pressure -Treatment Response Procedure Procedure Tolerated Well Tolerated Well #7 LLE- Upper Carter -Time 09:40 09:14 -Correct Patient Yes Yes -Correct Side, Site, Position Yes Yes -Correct Procedure Yes Yes -Procedure Performed Yes Yes -Type of Procedure Debridement Debridement -Clinical Debridement Subcutaneous Subcutaneous -Post Debridement Size (cm) - Length 0.4 0.4 -Post Debridement Size (cm) - Width 0.3 0.3 -Post Debridement Size (cm) - Depth 0.9 0.9 -Total Square Cm 0.12 0.12 -Wound/Ulcer Outcome Not Healed Not Healed -Ulcer Cleansing Rinsed/ Rinsed/ Irrigated with Irrigated with Saline Saline -Foul Odor after Cleansing No No -Bioengineered Tissue No No -Bleeding Controlled with Pressure Pressure -Treatment Response Procedure Procedure Tolerated Well Tolerated Well #1 Medial LLE Superior Cluster -Time 09:41 09:14 -Correct Patient Yes Yes -Correct Side, Site, Position Yes Yes -Correct Procedure Yes Yes -Procedure Performed Yes Yes -Type of Procedure Debridement Debridement -Clinical Debridement Subcutaneous Subcutaneous -Post Debridement Size (cm) - Length 0.6 0.6 -Post Debridement Size (cm) - Width 0.4 0.3 -Post Debridement Size (cm) - Depth 2.5 2.4 -Total Square Cm 0.24 0.18 -Wound/Ulcer Outcome Not Healed Not Healed -Ulcer Cleansing Rinsed/ Rinsed/ Irrigated with Irrigated with Saline Saline -Foul Odor after Cleansing No No -Bioengineered Tissue No No -Bleeding Controlled with Pressure Pressure -Treatment Response Procedure Procedure Tolerated Well Tolerated Well Pain Scale: 0-10 Numeric Is Patient Pain Free? Yes Yes Wound debrided: Left Lower Extremity Inferior medial ulcer Wound Grade/Stage: Stage II Type of Debridement: Excisional debridement Anesthesia Used: 4% Lidocaine Solution Depth: Down to and including healthy tissue, in the subcutaneous layer Percentage of wound debrided: 100 Instrument Used: 3mm curette Tissue Removed: Slough and Devitalized tissue Severity: Fat Layer Exposed Amount of bleeding with debridement: Mild Bleeding Controlled with: Pressure Patient tolerated procedure well - Additional Wound Wound debrided: Left Lower Extremity Superior medila ulcer Wound Grade/Stage: Stage II Type of Debridement: Excisional debridement Anesthesia Used: 4% Lidocaine Solution Depth: Down to and including healthy tissue, in the subcutaneous layer Percentage of wound debrided: 100 Instrument Used: 3mm curette Tissue Removed: Slough and Devitalized tissue Severity: Fat Layer Exposed Amount of bleeding with debridement: Mild Bleeding Controlled with: Pressure Patient tolerated procedure: Patient tolerated procedure well - Additional Wound Wound debrided: Left Lower extremity Carter ( pin hole ) Ulcer Wound Grade/Stage: Stage II Type of Debridement: Excisional debridement Anesthesia Used: 4% Lidocaine Solution Depth: Down to and including healthy tissue, in the subcutaneous layer Percentage of wound debrided: 100 Instrument Used: 3mm curette Tissue Removed: Slough and Devitalized tissue Severity: Fat Layer Exposed Amount of bleeding with debridement: Mild Bleeding Controlled with: Pressure Patient tolerated procedure: Patient did not tolerate procedure well Assessment/Plan Active Problems Diabetic leg ulcer (Acute) Ulcer of left lower extremity (Chronic) Diabetes type 2, controlled (Chronic) Assessment: 1. Nonhealing ulcers cluster left medial leg probes to the bone. 2. Nonhealing ulcer left medial ankle. 3. Nonhealing ulcer left anterior leg. 4. s/p complex left tib fib fracture repair with hardware placement and soft tissue reconstruction with a microvascular free tissue transfer muscle flap. 5. Venous insufficiency. 6. Diabetes mellitus. 7. Former smoker. Plan: No new complaints in the past week and at this time. Patient appears to have done well with Annabella and his states that she has no problem reapplying it. I still however believe the patient will certainly benefit from a skin substitute due to chronicity of the wound. Etiology of the wound is multifactorial including the hardware, history of previous surgery and diabetes mellitus type 2. Scheduled to follow-up with infectious disease per Ortho recommendation due to his hardware.Wound debridement done as documented above. Procedure was well-tolerated. Continue Annabella daily to all ulcers. Continue protein supplements and protein rich diet. Elevate lower extremities when seated and in bed. Avoid idle standing. Exercise as tolerated. Follow-up in 1 week. This note was generated with [employer] dictation software. It may contain incorrect words, spelling, and punctuation that were not noted in checking the note before signing.
--- NOTE | 2017-11-08 17:30 | PN.PCM_ITS ---
(1) Diabetes type 2, controlled Status: Chronic Current Visit: Yes Code(s): E11.9 - Type 2 diabetes mellitus without complications (2) Neuropathy of left lower extremity Status: Chronic Current Visit: No Code(s): G57.92 - Unspecified mononeuropathy of left lower limb (3) Peripheral vascular occlusive disease Status: Chronic Current Visit: No Code(s): I73.9 - Peripheral vascular disease, unspecified (4) Ulcer of left lower extremity Status: Chronic Current Visit: Yes Code(s): L97.929 - Non-pressure chronic ulcer of unspecified part of left lower leg with unspecified severity (5) Diabetic leg ulcer Status: Acute Current Visit: Yes Code(s): E11.622 - Type 2 diabetes mellitus with other skin ulcer; L97.909 - Non-pressure chronic ulcer of unspecified part of unspecified lower leg with unspecified severity Type of Wound Date of Service: 11/08/17 Chief Complaint: Nonhealing ulcers left leg s/p fracture and hardware placement. History of Wound: Patient presented to the Wound Center in 06/30 with nonhealing ulcers left leg. His initial trauma was in 2004 where he sustained a complex fracture wound that required hardware placement and a complex muscle flap for reconstruction. He states the flap came from his abdomen (rectus abdominis muscle flap) utilizing a microvascular free tissue transfer. This was done at [facility] in [place]. He states he did fine until 2015 when he developed an infection that required operative debridement in [place] followed by antibiotics and wound care. With recurrent ulceration and drainage, he came to this Wound Center. Wound culture in 06/30 showed Staphylococcus aureus and E. coli. Repeat culture in 07/30 showed E. coli. He is currently on Levaquin. He had a Venous Doppler study in 06/30 which showed no DVT and incompetent veins with insufficiency. He had an LEAS study in 06/30 which showed triphasic waveforms and calcification. No significant vascular stenoses seen. A CT in showed the hardware placement with healed bone and no radiological evidence of osteomyelitis. He has been using Promogran/Annabella dressing changes for his wound care and aquacel packing of tunelling to bone. He is scheduled to follow up at the [facility] per recommendation from Dr. De Oliveira. Progress of Wound: Stable. No new complaints. - Physical Exam Vital Signs Temp Pulse Resp BP 97.8 F 81 18 143/71 H 11/08/17 08:20 11/08/17 08:20 11/08/17 08:20 11/08/17 08:20 General: Oriented x3, Cooperative, No apparent distress HEENT: Atraumatic, Normocephalic Oral: Moist Mucosa Neck: Supple Lungs: Normal air movement Cardiovascular: Regular rate Abdomen: Obese Extremities: No cyanosis Skin: Ulcer/ Wound Wound Measurements and Assessment WC - Nurse 1 - General Ulcer Measurement Start: 10/12/17 08:18 Freq: Status: Active Protocol: Activity Type Activity Date Activity User E-Sign Co-Sign Detail Recorded Client Recorded Date Recorded By Document 11/08/17 08:20 MW [id number] 11/08/17 08:35 MW 11/08/17 08:20 Wound Center Nurse 1 [Ulcer Assessment] #9 Medial LLE Inferior -Combined with other wound No -Current Size (cm) - Length 0.5 -Current Size (cm) - Width 0.3 -Current Size (cm) - Depth 1.4 -Total Square Cm 0.15 -Date of Last Picture (Recall this 11/08/17 field) -Photo Taken Yes -Epithelialization None Present -Tunneling No -Undermining/Tunneling No -Circular Undermining No -Exudate Amt Small (1-33%) -Exudate Type Serosanguineous -Wound Margin Indistinct, Non -Visible -Granulation Amt None Present (0 %) -Granulation Quality N/A -Slough/Fibrin Yes -Necrosis Amt Small (1-33%) -Necrotic Tissue Type Adherent Slough -Structure Exposed N/A -Texture (Rufina-wound Skin Appearance) Assessed Localized Edema Scarring -Moisture (Rufnia-wound Skin Appearance No Abnormality ) Assessed -Color (Rufina-wound Skin Appearance) Assessed Hemosiderin Staining -Temperature (Rufina-wound Skin No Abnormality Appearance) (Pt Warm) -Tenderness on Palpation (Rufina-wound No Skin Appearance) -Ulcer Cleansing Rinsed/ Irrigated with Saline -Foul Odor after Cleansing No -Anesthetic Used 4% Lidocaine Solution #7 LLE- Upper Carter -Combined with other wound No -Current Size (cm) - Length 0.2 -Current Size (cm) - Width 0.2 -Current Size (cm) - Depth 0.6 -Total Square Cm 0.04 -Date of Last Picture (Recall this 11/08/17 field) -Photo Taken Yes -Epithelialization None Present -Tunneling No -Undermining/Tunneling No -Circular Undermining No -Exudate Amt Small (1-33%) -Exudate Type Serosanguineous -Wound Margin Indistinct, Non -Visible -Granulation Amt None Present (0 %) -Granulation Quality N/A -Slough/Fibrin Yes -Necrosis Amt Small (1-33%) -Necrotic Tissue Type Adherent Slough -Structure Exposed N/A -Texture (Rufina-wound Skin Appearance) Assessed Localized Edema Scarring -Moisture (Rufina-wound Skin Appearance No Abnormality ) Assessed -Color (Rufina-wound Skin Appearance) Assessed Hemosiderin Staining -Temperature (Rufina-wound Skin No Abnormality Appearance) (Pt Warm) -Tenderness on Palpation (Rufina-wound No Skin Appearance) -Ulcer Cleansing Rinsed/ Irrigated with Saline -Foul Odor after Cleansing No -Anesthetic Used 4% Lidocaine Solution #1 Medial LLE Superior Cluster -Combined with other wound No -Current Size (cm) - Length 2.3 -Current Size (cm) - Width 0.3 -Current Size (cm) - Depth 0.7 -Total Square Cm 0.69 -Date of Last Picture (Recall this 11/08/17 field) -Photo Taken Yes -Epithelialization None Present -Tunneling No -Undermining/Tunneling No -Circular Undermining No -Exudate Amt Small (1-33%) -Exudate Type Serosanguineous -Wound Margin Indistinct, Non -Visible -Granulation Amt None Present (0 %) -Granulation Quality N/A -Slough/Fibrin Yes -Necrosis Amt Small (1-33%) -Necrotic Tissue Type Adherent Slough -Structure Exposed N/A -Texture (Rufina-wound Skin Appearance) Assessed Localized Edema Scarring -Moisture (Rufina-wound Skin Appearance No Abnormality ) Assessed -Color (Rufina-wound Skin Appearance) Assessed Hemosiderin Staining -Temperature (Rufina-wound Skin No Abnormality Appearance) (Pt Warm) -Tenderness on Palpation (Rufina-wound No Skin Appearance) -Ulcer Cleansing Wound Cleanser -Foul Odor after Cleansing No -Anesthetic Used 4% Lidocaine Solution [Edema Assessment] -Lower Limb Edema Present Yes -Left Calf (cm) 43.8 -Left Ankle (cm) 31.0 WC - Nurse 2 - General Ulcer CM Notes Start: 10/12/17 08:18 Freq: Status: Active Protocol: Activity Type Activity Date Activity User E-Sign Co-Sign Detail Recorded Client Recorded Date Recorded By Document 11/08/17 09:12 DV [id number] 11/08/17 09:16 DV 11/08/17 09:12 Wound Center Nurse 2 [Procedure/Treatment] #9 Medial LLE Inferior -Time 09:13 -Correct Patient Yes -Correct Side, Site, Position Yes -Correct Procedure Yes -Procedure Performed Yes -Type of Procedure Debridement -Clinical Debridement Subcutaneous -Post Debridement Size (cm) - Length 0.6 -Post Debridement Size (cm) - Width 0.3 -Post Debridement Size (cm) - Depth 1.6 -Total Square Cm 0.18 -Wound/Ulcer Outcome Not Healed -Ulcer Cleansing Rinsed/ Irrigated with Saline -Foul Odor after Cleansing No -Bioengineered Tissue No -Bleeding Controlled with Pressure -Treatment Response Procedure Tolerated Well #7 LLE- Upper Carter -Time 09:14 -Correct Patient Yes -Correct Side, Site, Position Yes -Correct Procedure Yes -Procedure Performed Yes -Type of Procedure Debridement -Clinical Debridement Subcutaneous -Post Debridement Size (cm) - Length 0.4 -Post Debridement Size (cm) - Width 0.3 -Post Debridement Size (cm) - Depth 0.9 -Total Square Cm 0.12 -Wound/Ulcer Outcome Not Healed -Ulcer Cleansing Rinsed/ Irrigated with Saline -Foul Odor after Cleansing No -Bioengineered Tissue No -Bleeding Controlled with Pressure -Treatment Response Procedure Tolerated Well #1 Medial LLE Superior Cluster -Time 09:14 -Correct Patient Yes -Correct Side, Site, Position Yes -Correct Procedure Yes -Procedure Performed Yes -Type of Procedure Debridement -Clinical Debridement Subcutaneous -Post Debridement Size (cm) - Length 0.6 -Post Debridement Size (cm) - Width 0.3 -Post Debridement Size (cm) - Depth 2.4 -Total Square Cm 0.18 -Wound/Ulcer Outcome Not Healed -Ulcer Cleansing Rinsed/ Irrigated with Saline -Foul Odor after Cleansing No -Bioengineered Tissue No -Bleeding Controlled with Pressure -Treatment Response Procedure Tolerated Well [See Physician Procedure note for Specifics] Pain Scale: 0-10 Numeric [Pain] -Is Patient Pain Free? Yes Musculoskeletal: No Muscle Wasting Neurological: Cranial nerves II-XII grossly intact Psych/Mental Status: Normal Affect Debridement Note Post-Debridement Measurements/Treatment WC - Nurse 2 - General Ulcer CM Notes Start: 10/12/17 08:18 Freq: Status: Active Protocol: Activity Type Activity Date Activity User E-Sign Co-Sign Detail Recorded Client Recorded Date Recorded By Document 10/12/17 08:44 DV [id number] 10/12/17 08:52 DV Document 10/19/17 09:35 DV [id number] 10/19/17 09:46 DV Document 10/26/17 08:29 DV [id number] 10/26/17 08:36 DV Document 11/02/17 09:36 DV [id number] 11/02/17 09:52 DV Document 11/08/17 09:12 DV [id number] 11/08/17 09:16 DV 10/12/17 10/19/17 10/26/17 08:44 09:35 08:29 Wound Center Nurse 2 #9 Medial LLE Inferior -Time 08:45 09:38 08:29 -Correct Patient Yes Yes Yes -Correct Side, Site, Position Yes Yes Yes -Correct Procedure Yes Yes Yes -Procedure Performed Yes Yes Yes -Type of Procedure Debridement Debridement Debridement -Clinical Debridement Subcutaneous Subcutaneous Subcutaneous -Post Debridement Size (cm) - Length 0.8 0.6 0.6 -Post Debridement Size (cm) - Width 0.4 0.4 0.4 -Post Debridement Size (cm) - Depth 3.2 2.0 2.6 -Total Square Cm 0.32 0.24 0.24 -Wound/Ulcer Outcome Not Healed Not Healed Not Healed -Ulcer Cleansing Rinsed/ Rinsed/ Rinsed/ Irrigated with Irrigated with Irrigated with Saline Saline Saline -Foul Odor after Cleansing No Yes No -Bioengineered Tissue No No No -Bleeding Controlled with Pressure Pressure Pressure -Treatment Response Procedure Procedure Procedure Tolerated Well Tolerated Well Tolerated Well #7 LLE- Upper Carter -Time 08:47 09:38 08:29 -Correct Patient Yes Yes Yes -Correct Side, Site, Position Yes Yes Yes -Correct Procedure Yes Yes Yes -Procedure Performed Yes Yes Yes -Type of Procedure Debridement Debridement Debridement -Clinical Debridement Subcutaneous Subcutaneous Subcutaneous -Post Debridement Size (cm) - Length 0.7 0.8 0.4 -Post Debridement Size (cm) - Width 0.7 2.5 0.3 -Post Debridement Size (cm) - Depth 2.9 2.5 2.0 -Total Square Cm 0.49 2.00 0.12 -Wound/Ulcer Outcome Not Healed Not Healed Not Healed -Ulcer Cleansing Rinsed/ Rinsed/ Rinsed/ Irrigated with Irrigated with Irrigated with Saline Saline Saline -Foul Odor after Cleansing No Yes No -Bioengineered Tissue No No No -Bleeding Controlled with Pressure Pressure Pressure -Treatment Response Procedure Procedure Procedure Tolerated Well Tolerated Well Tolerated Well #1 Medial LLE Superior Cluster -Time 08:46 09:36 08:31 -Correct Patient Yes Yes Yes -Correct Side, Site, Position Yes Yes Yes -Correct Procedure Yes Yes Yes -Procedure Performed Yes Yes Yes -Type of Procedure Debridement Debridement Debridement -Clinical Debridement Subcutaneous Subcutaneous Subcutaneous -Post Debridement Size (cm) - Length 2.5 2.5 2.5 -Post Debridement Size (cm) - Width 0.4 0.3 0.4 -Post Debridement Size (cm) - Depth 3.2 2.6 2.6 -Total Square Cm 1.00 0.75 1.00 -Wound/Ulcer Outcome Not Healed Not Healed Not Healed -Ulcer Cleansing Rinsed/ Rinsed/ Rinsed/ Irrigated with Irrigated with Irrigated with Saline Saline Saline -Foul Odor after Cleansing No No No -Bioengineered Tissue No No No -Bleeding Controlled with Pressure Pressure Pressure -Treatment Response Procedure Procedure Procedure Tolerated Well Tolerated Well Tolerated Well Pain Scale: 0-10 Numeric Is Patient Pain Free? Yes Yes Yes 18 18 09:36 09:12 Wound Center Nurse 2 #9 Medial LLE Inferior -Time 09:40 09:13 -Correct Patient Yes Yes -Correct Side, Site, Position Yes Yes -Correct Procedure Yes Yes -Procedure Performed Yes Yes -Type of Procedure Debridement Debridement -Clinical Debridement Subcutaneous Subcutaneous -Post Debridement Size (cm) - Length 0.6 0.6 -Post Debridement Size (cm) - Width 0.5 0.3 -Post Debridement Size (cm) - Depth 2.0 1.6 -Total Square Cm 0.30 0.18 -Wound/Ulcer Outcome Not Healed Not Healed -Ulcer Cleansing Rinsed/ Rinsed/ Irrigated with Irrigated with Saline Saline -Foul Odor after Cleansing No No -Bioengineered Tissue No No -Bleeding Controlled with Pressure Pressure -Treatment Response Procedure Procedure Tolerated Well Tolerated Well #7 LLE- Upper Carter -Time 09:40 09:14 -Correct Patient Yes Yes -Correct Side, Site, Position Yes Yes -Correct Procedure Yes Yes -Procedure Performed Yes Yes -Type of Procedure Debridement Debridement -Clinical Debridement Subcutaneous Subcutaneous -Post Debridement Size (cm) - Length 0.4 0.4 -Post Debridement Size (cm) - Width 0.3 0.3 -Post Debridement Size (cm) - Depth 0.9 0.9 -Total Square Cm 0.12 0.12 -Wound/Ulcer Outcome Not Healed Not Healed -Ulcer Cleansing Rinsed/ Rinsed/ Irrigated with Irrigated with Saline Saline -Foul Odor after Cleansing No No -Bioengineered Tissue No No -Bleeding Controlled with Pressure Pressure -Treatment Response Procedure Procedure Tolerated Well Tolerated Well #1 Medial LLE Superior Cluster -Time 09:41 09:14 -Correct Patient Yes Yes -Correct Side, Site, Position Yes Yes -Correct Procedure Yes Yes -Procedure Performed Yes Yes -Type of Procedure Debridement Debridement -Clinical Debridement Subcutaneous Subcutaneous -Post Debridement Size (cm) - Length 0.6 0.6 -Post Debridement Size (cm) - Width 0.4 0.3 -Post Debridement Size (cm) - Depth 2.5 2.4 -Total Square Cm 0.24 0.18 -Wound/Ulcer Outcome Not Healed Not Healed -Ulcer Cleansing Rinsed/ Rinsed/ Irrigated with Irrigated with Saline Saline -Foul Odor after Cleansing No No -Bioengineered Tissue No No -Bleeding Controlled with Pressure Pressure -Treatment Response Procedure Procedure Tolerated Well Tolerated Well Pain Scale: 0-10 Numeric Is Patient Pain Free? Yes Yes Wound debrided: Left Lower Extremity Inferior medial ulcer Wound Grade/Stage: Stage II Type of Debridement: Excisional debridement Anesthesia Used: 4% Lidocaine Solution Depth: Down to and including healthy tissue, in the subcutaneous layer Percentage of wound debrided: 100 Instrument Used: 3mm curette Tissue Removed: Slough and Devitalized tissue Severity: Fat Layer Exposed Amount of bleeding with debridement: Mild Bleeding Controlled with: Pressure Patient tolerated procedure well - Additional Wound Wound debrided: Left Lower Extremity Superior medila ulcer Wound Grade/Stage: Stage II Type of Debridement: Excisional debridement Anesthesia Used: 4% Lidocaine Solution Depth: Down to and including healthy tissue, in the subcutaneous layer Percentage of wound debrided: 100 Instrument Used: 3mm curette Tissue Removed: Slough and Devitalized tissue Severity: Fat Layer Exposed Amount of bleeding with debridement: Mild Bleeding Controlled with: Pressure Patient tolerated procedure: Patient tolerated procedure well - Additional Wound Wound debrided: Left Lower extremity Carter ( pin hole ) Ulcer Wound Grade/Stage: Stage II Type of Debridement: Excisional debridement Anesthesia Used: 4% Lidocaine Solution Depth: Down to and including healthy tissue, in the subcutaneous layer Percentage of wound debrided: 100 Instrument Used: 3mm curette Tissue Removed: Slough and Devitalized tissue Severity: Fat Layer Exposed Amount of bleeding with debridement: Mild Bleeding Controlled with: Pressure Patient tolerated procedure: Patient did not tolerate procedure well Assessment/Plan Active Problems Diabetic leg ulcer (Acute) Ulcer of left lower extremity (Chronic) Diabetes type 2, controlled (Chronic) Assessment: 1. Nonhealing ulcers cluster left medial leg probes to the bone. 2. Nonhealing ulcer left medial ankle. 3. Nonhealing ulcer left anterior leg. 4. s/p complex left tib fib fracture repair with hardware placement and soft tissue reconstruction with a microvascular free tissue transfer muscle flap. 5. Venous insufficiency. 6. Diabetes mellitus. 7. Former smoker. Plan: No new complaints in the past week and at this time. Patient appears to have done well with Annabella and his states that she has no problem reapplying it. I still however believe the patient will certainly benefit from a skin substitute due to chronicity of the wound. Etiology of the wound is multifactorial including the hardware, history of previous surgery and diabetes mellitus type 2. Scheduled to follow-up with infectious disease per Ortho recommendation due to his hardware.Wound debridement done as documented above. Procedure was well-tolerated. Continue Annabella daily to all ulcers. Continue protein supplements and protein rich diet. Elevate lower extremities when seated and in bed. Avoid idle standing. Exercise as tolerated. Follow-up in 1 week. This note was generated with [employer] dictation software. It may contain incorrect words, spelling, and punctuation that were not noted in checking the note before signing.
== END 2017-11-11 23:59 ==
LOC: WC 08:15
PROVIDERS: Family Provider Family Medicine; PCP Family Medicine; Visit Provider Internal Medicine
DX: E11.622 Type 2 diabetes mellitus with other skin ulcer (principal); E11.40 Type 2 diabetes mellitus with diabetic neuropathy, unspecified; E11.51 Type 2 diabetes mellitus with diabetic peripheral angiopathy without gangrene; L97.822 Non-pressure chronic ulcer of other part of left lower leg with fat layer exposed; Z87.891 Personal history of nicotine dependence
CPT/HCPCS: 11042

== ENCOUNTER 2017-11-30 09:15 | Outpatient (RCR) | payer MEDICARE, SELFPAY ==
[2017-11-12 00:28] VITALS: BP 151/96; PULSE 81; RESP 18; TEMP 36.6
[2017-11-16 09:43] VITALS: BP 121/62; PULSE 85; RESP 18; TEMP 36
--- NOTE | 2017-11-16 19:26 | PCM.WC.PN ---
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 History of Wound: Patient presented to the Wound Center in 06/30 with nonhealing ulcers left leg. His initial trauma was in 2004 where he sustained a complex fracture wound that required hardware placement and a complex muscle flap for reconstruction. He states the flap came from his abdomen (rectus abdominis muscle flap) utilizing a microvascular free tissue transfer. This was done at [facility] in [place]. He states he did fine until 2015 when he developed an infection that required operative debridement in [place] followed by antibiotics and wound care. With recurrent ulceration and drainage, he came to this Wound Center. Wound culture in 06/30 showed Staphylococcus aureus and E. coli. Repeat culture in 07/30 showed E. coli. He is currently on Levaquin. He had a Venous Doppler study in 06/30 which showed no DVT and incompetent veins with insufficiency. He had an LEAS study in 06/30 which showed triphasic waveforms and calcification. No significant vascular stenoses seen. A CT in 07/30 showed the hardware placement with healed bone and no radiological evidence of osteomyelitis. He has been using Promogran/Annabella dressing changes for his wound care and aquacel packing of tunelling to bone. He is scheduled to follow up at the [facility] per recommendation from Dr. De Oliveira. Progress of Wound: Stable. No new complaints. - Physical Exam Vital Signs Temp Pulse Resp BP 96.8 F L 85 18 121/62 H 11/16/17 09:43 11/16/17 09:43 11/16/17 09:43 11/16/17 09:43 General: Alert, Oriented x3, Cooperative, No apparent distress HEENT: Atraumatic, Normocephalic Oral: Moist Mucosa Neck: Supple Lungs: Normal air movement Cardiovascular: Regular rate Abdomen: Soft Skin: Ulcer/ Wound Wound Measurements and Assessment WC - Nurse 1 - General Ulcer Measurement Start: 11/16/17 09:43 Freq: Status: Active Protocol: Activity Type Activity Date Activity User E-Sign Co-Sign Detail Recorded Client Recorded Date Recorded By Document 11/16/17 09:43 RB [id number] 11/16/17 10:00 RB 11/16/17 09:43 Wound Center Nurse 1 [Ulcer Assessment] #9 Medial LLE Inferior -Combined with other wound No -Current Size (cm) - Length 0.6 -Current Size (cm) - Width 0.4 -Current Size (cm) - Depth 1.6 -Total Square Cm 0.24 -Photo Taken No -Tunneling No -Undermining/Tunneling No -Circular Undermining No -Classification - Thickness Full Thickness without Exposed Support Structure -Exudate Amt Small (1-33%) -Exudate Type Serosanguineous -Wound Margin Distinct, Outline Attached -Granulation Amt Medium (34-66%) -Granulation Quality [place] -Slough/Fibrin Yes -Necrosis Amt Small (1-33%) -Necrotic Tissue Type Adherent Slough -Structure Exposed N/A -Texture (Rufina-wound Skin Appearance) Assessed -Moisture (Rufina-wound Skin Appearance Assessed ) -Color (Rufina-wound Skin Appearance) Assessed -Temperature (Rufina-wound Skin No Abnormality Appearance) (Pt Warm) -Tenderness on Palpation (Rufina-wound No Skin Appearance) -Ulcer Cleansing Rinsed/ Irrigated with Saline -Foul Odor after Cleansing No -Anesthetic Used 4% Lidocaine Solution #7 LLE- [place] -Combined with other wound No -Current Size (cm) - Length 0.4 -Current Size (cm) - Width 0.4 -Current Size (cm) - Depth 0.4 -Total Square Cm 0.16 -Photo Taken No -Tunneling No -Undermining/Tunneling Yes -Undermining/Tunneling Starts (O' 9 clock) -Undermining/Tunneling Ends (O'clock) 2 -Maximum Distance (cm) 0.6 -Circular Undermining No -Classification - Thickness Full Thickness without Exposed Support Structure -Exudate Amt Small (1-33%) -Exudate Type Serosanguineous -Wound Margin Distinct, Outline Attached -Granulation Amt Medium (34-66%) -Granulation Quality [place] -Slough/Fibrin Yes -Necrosis Amt Small (1-33%) -Necrotic Tissue Type Adherent Slough -Structure Exposed N/A -Texture (Rufina-wound Skin Appearance) Assessed -Moisture (Rufina-wound Skin Appearance Assessed ) -Color (Rufina-wound Skin Appearance) Assessed -Temperature (Rufina-wound Skin No Abnormality Appearance) (Pt Warm) -Tenderness on Palpation (Rufina-wound No Skin Appearance) -Ulcer Cleansing Rinsed/ Irrigated with Saline -Foul Odor after Cleansing No -Anesthetic Used 4% Lidocaine Solution #1 Medial LLE Superior Cluster -Combined with other wound No -Current Size (cm) - Length 2.2 -Current Size (cm) - Width 0.3 -Current Size (cm) - Depth 1.4 -Total Square Cm 0.66 -Photo Taken No -Tunneling No -Circular Undermining No -Classification - Thickness Full Thickness without Exposed Support Structure -Exudate Amt Small (1-33%) -Exudate Type Serosanguineous -Wound Margin Distinct, Outline Attached -Granulation Amt Medium (34-66%) -Granulation Quality [place] -Slough/Fibrin Yes -Necrosis Amt Small (1-33%) -Necrotic Tissue Type Adherent Slough -Structure Exposed N/A -Texture (Rufina-wound Skin Appearance) Assessed Friable -Moisture (Rufina-wound Skin Appearance Assessed ) -Color (Rufina-wound Skin Appearance) Assessed -Temperature (Rufina-wound Skin No Abnormality Appearance) (Pt Warm) -Tenderness on Palpation (Rufina-wound No Skin Appearance) -Ulcer Cleansing Rinsed/ Irrigated with Saline -Foul Odor after Cleansing No -Anesthetic Used 4% Lidocaine Solution WC - Nurse 2 - General Ulcer CM Notes Start: 11/16/17 09:43 Freq: Status: Active Protocol: Activity Type Activity Date Activity User E-Sign Co-Sign Detail Recorded Client Recorded Date Recorded By Document 11/16/17 10:55 DV [id number] 11/16/17 11:02 DV 11/16/17 10:55 Wound Center Nurse 2 [Procedure/Treatment] #9 Medial LLE Inferior -Time 10:55 -Correct Patient Yes -Correct Side, Site, Position Yes -Correct Procedure Yes -Procedure Performed Yes -Type of Procedure Debridement -Clinical Debridement Subcutaneous -Post Debridement Size (cm) - Length 0.8 -Post Debridement Size (cm) - Width 0.4 -Post Debridement Size (cm) - Depth 1.8 -Total Square Cm 0.32 -Wound/Ulcer Outcome Not Healed -Ulcer Cleansing Rinsed/ Irrigated with Saline -Foul Odor after Cleansing No -Bioengineered Tissue No -Bleeding Controlled with Pressure -Treatment Response Procedure Tolerated Well #7 LLE- Upper [place] -Time 10:56 -Correct Patient Yes -Correct Side, Site, Position Yes -Correct Procedure Yes -Procedure Performed Yes -Type of Procedure Debridement -Clinical Debridement Subcutaneous -Post Debridement Size (cm) - Length 0.4 -Post Debridement Size (cm) - Width 0.4 -Post Debridement Size (cm) - Depth 0.9 -Total Square Cm 0.16 -Wound/Ulcer Outcome Not Healed -Ulcer Cleansing Rinsed/ Irrigated with Saline -Foul Odor after Cleansing No -Bioengineered Tissue No -Bleeding Controlled with Pressure -Treatment Response Procedure Tolerated Well #1 Medial LLE Superior Cluster -Time 10:59 -Correct Patient Yes -Correct Side, Site, Position Yes -Correct Procedure Yes -Procedure Performed Yes -Type of Procedure Debridement -Clinical Debridement Subcutaneous -Post Debridement Size (cm) - Length 0.6 -Post Debridement Size (cm) - Width 0.4 -Post Debridement Size (cm) - Depth 2.5 -Total Square Cm 0.24 -Wound/Ulcer Outcome Not Healed -Ulcer Cleansing Rinsed/ Irrigated with Saline -Foul Odor after Cleansing No -Bioengineered Tissue No -Bleeding Controlled with Pressure -Treatment Response Procedure Tolerated Well [See Physician Procedure note for Specifics] Pain Scale: 0-10 Numeric [Pain] -Is Patient Pain Free? Yes Musculoskeletal: No Muscle Wasting Psych/Mental Status: Normal Affect Debridement Note Post-Debridement Measurements/Treatment WC - Nurse 2 - General Ulcer CM Notes Start: 11/16/17 09:43 Freq: Status: Active Protocol: Activity Type Activity Date Activity User E-Sign Co-Sign Detail Recorded Client Recorded Date Recorded By Document 11/16/17 10:55 DV [id number] 11/16/17 11:02 DV 11/16/17 10:55 Wound Center Nurse 2 #9 Medial LLE Inferior -Time 10:55 -Correct Patient Yes -Correct Side, Site, Position Yes -Correct Procedure Yes -Procedure Performed Yes -Type of Procedure Debridement -Clinical Debridement Subcutaneous -Post Debridement Size (cm) - Length 0.8 -Post Debridement Size (cm) - Width 0.4 -Post Debridement Size (cm) - Depth 1.8 -Total Square Cm 0.32 -Wound/Ulcer Outcome Not Healed -Ulcer Cleansing Rinsed/ Irrigated with Saline -Foul Odor after Cleansing No -Bioengineered Tissue No -Bleeding Controlled with Pressure -Treatment Response Procedure Tolerated Well #7 LLE- Upper [place] -Time 10:56 -Correct Patient Yes -Correct Side, Site, Position Yes -Correct Procedure Yes -Procedure Performed Yes -Type of Procedure Debridement -Clinical Debridement Subcutaneous -Post Debridement Size (cm) - Length 0.4 -Post Debridement Size (cm) - Width 0.4 -Post Debridement Size (cm) - Depth 0.9 -Total Square Cm 0.16 -Wound/Ulcer Outcome Not Healed -Ulcer Cleansing Rinsed/ Irrigated with Saline -Foul Odor after Cleansing No -Bioengineered Tissue No -Bleeding Controlled with Pressure -Treatment Response Procedure Tolerated Well #1 Medial LLE Superior Cluster -Time 10:59 -Correct Patient Yes -Correct Side, Site, Position Yes -Correct Procedure Yes -Procedure Performed Yes -Type of Procedure Debridement -Clinical Debridement Subcutaneous -Post Debridement Size (cm) - Length 0.6 -Post Debridement Size (cm) - Width 0.4 -Post Debridement Size (cm) - Depth 2.5 -Total Square Cm 0.24 -Wound/Ulcer Outcome Not Healed -Ulcer Cleansing Rinsed/ Irrigated with Saline -Foul Odor after Cleansing No -Bioengineered Tissue No -Bleeding Controlled with Pressure -Treatment Response Procedure Tolerated Well Pain Scale: 0-10 Numeric Is Patient Pain Free? Yes Wound debrided: Left Lower extremity ( Pinhole ) Ulcer Wound Grade/Stage: Stage II Type of Debridement: Excisional debridement Anesthesia Used: 4% Lidocaine Solution Depth: Down to and including healthy tissue, in the subcutaneous layer Percentage of wound debrided: 100 Instrument Used: 3mm curette Tissue Removed: Slough and Devitalized tissue Severity: Fat Layer Exposed Amount of bleeding with debridement: Mild Bleeding Controlled with: Pressure Patient tolerated procedure well - Additional Wound Wound debrided: Left Lower Extremity Inferior Ulcer Wound Grade/Stage: Stage II Type of Debridement: Excisional debridement Anesthesia Used: 4% Lidocaine Solution Depth: Down to and including healthy tissue, in the subcutaneous layer Percentage of wound debrided: 100 Instrument Used: 3mm curette Tissue Removed: Slough and Devitalized tissue Severity: Fat Layer Exposed Amount of bleeding with debridement: Mild Bleeding Controlled with: Pressure Patient tolerated procedure: Patient tolerated procedure well - Additional Wound Wound debrided: Left Lower Extremity Superior Ulcer Wound Grade/Stage: Stage II Type of Debridement: Excisional debridement Anesthesia Used: 4% Lidocaine Solution Depth: Down to and including healthy tissue, in the subcutaneous layer Percentage of wound debrided: 100 Instrument Used: 3mm curette Tissue Removed: slough and devitalized tissue Severity: Fat Layer Exposed Amount of bleeding with debridement: Mild Bleeding Controlled with: Pressure Patient tolerated procedure: Patient tolerated procedure well Assessment/Plan Assessment: 1. Nonhealing ulcers cluster left medial leg probes to the bone. 2. Nonhealing ulcer left medial ankle. 3. Nonhealing ulcer left anterior leg. 4. s/p complex left tib fib fracture repair with hardware placement and soft tissue reconstruction with a microvascular free tissue transfer muscle flap. 5. Venous insufficiency. 6. Diabetes mellitus. 7. Former smoker. Plan: No new complaints in the past week and at this time. Patient appears to have done well with Annabella and his states that she has no problem reapplying it. I still however believe the patient will certainly benefit from a skin substitute due to chronicity of the wound. Etiology of the wound is multifactorial including the hardware, history of previous surgery and diabetes mellitus type 2. Scheduled to follow-up with infectious disease per Ortho recommendation due to his hardware.Wound debridement done as documented above. Procedure was well-tolerated. Continue Annabella daily to all ulcers. ( is alternating with aquacel ). Continue protein supplements and protein rich diet. Elevate lower extremities when seated and in bed. Avoid idle standing. Exercise as tolerated. Follow-up in 2 weeks. This note was generated with [employer] dictation software. It may contain incorrect words, spelling, and punctuation that were not noted in checking the note before signing.
--- NOTE | 2017-11-16 19:30 | PN.PCM_ITS ---
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 History of Wound: Patient presented to the Wound Center in 06/30 with nonhealing ulcers left leg. His initial trauma was in 2004 where he sustained a complex fracture wound that required hardware placement and a complex muscle flap for reconstruction. He states the flap came from his abdomen (rectus abdominis muscle flap) utilizing a microvascular free tissue transfer. This was done at [facility] in [place]. He states he did fine until 2015 when he developed an infection that required operative debridement in [place] followed by antibiotics and wound care. With recurrent ulceration and drainage, he came to this Wound Center. Wound culture in 06/30 showed Staphylococcus aureus and E. coli. Repeat culture in 07/30 showed E. coli. He is currently on Levaquin. He had a Venous Doppler study in 06/30 which showed no DVT and incompetent veins with insufficiency. He had an LEAS study in 06/30 which showed triphasic waveforms and calcification. No significant vascular stenoses seen. A CT in showed the hardware placement with healed bone and no radiological evidence of osteomyelitis. He has been using Promogran/Annabella dressing changes for his wound care and aquacel packing of tunelling to bone. He is scheduled to follow up at the [facility] per recommendation from Dr. De Oliveira. Progress of Wound: Stable. No new complaints. - Physical Exam Vital Signs Temp Pulse Resp BP 96.8 F L 85 18 121/62 H 11/16/17 09:43 11/16/17 09:43 11/16/17 09:43 11/16/17 09:43 General: Alert, Oriented x3, Cooperative, No apparent distress HEENT: Atraumatic, Normocephalic Oral: Moist Mucosa Neck: Supple Lungs: Normal air movement Cardiovascular: Regular rate Abdomen: Soft Skin: Ulcer/ Wound Wound Measurements and Assessment WC - Nurse 1 - General Ulcer Measurement Start: 11/16/17 09:43 Freq: Status: Active Protocol: Activity Type Activity Date Activity User E-Sign Co-Sign Detail Recorded Client Recorded Date Recorded By Document 11/16/17 09:43 RB [id number] 11/16/17 10:00 RB 11/16/17 09:43 Wound Center Nurse 1 [Ulcer Assessment] #9 Medial LLE Inferior -Combined with other wound No -Current Size (cm) - Length 0.6 -Current Size (cm) - Width 0.4 -Current Size (cm) - Depth 1.6 -Total Square Cm 0.24 -Photo Taken No -Tunneling No -Undermining/Tunneling No -Circular Undermining No -Classification - Thickness Full Thickness without Exposed Support Structure -Exudate Amt Small (1-33%) -Exudate Type Serosanguineous -Wound Margin Distinct, Outline Attached -Granulation Amt Medium (34-66%) -Granulation Quality [employer] -Slough/Fibrin Yes -Necrosis Amt Small (1-33%) -Necrotic Tissue Type Adherent Slough -Structure Exposed N/A -Texture (Rufina-wound Skin Appearance) Assessed -Moisture (Rufina-wound Skin Appearance Assessed ) -Color (Rufina-wound Skin Appearance) Assessed -Temperature (Rufina-wound Skin No Abnormality Appearance) (Pt Warm) -Tenderness on Palpation (Rufina-wound No Skin Appearance) -Ulcer Cleansing Rinsed/ Irrigated with Saline -Foul Odor after Cleansing No -Anesthetic Used 4% Lidocaine Solution #7 LLE- [place] -Combined with other wound No -Current Size (cm) - Length 0.4 -Current Size (cm) - Width 0.4 -Current Size (cm) - Depth 0.4 -Total Square Cm 0.16 -Photo Taken No -Tunneling No -Undermining/Tunneling Yes -Undermining/Tunneling Starts (O' 9 clock) -Undermining/Tunneling Ends (O'clock) 2 -Maximum Distance (cm) 0.6 -Circular Undermining No -Classification - Thickness Full Thickness without Exposed Support Structure -Exudate Amt Small (1-33%) -Exudate Type Serosanguineous -Wound Margin Distinct, Outline Attached -Granulation Amt Medium (34-66%) -Granulation Quality [employer] -Slough/Fibrin Yes -Necrosis Amt Small (1-33%) -Necrotic Tissue Type Adherent Slough -Structure Exposed N/A -Texture (Rufina-wound Skin Appearance) Assessed -Moisture (Rufina-wound Skin Appearance Assessed ) -Color (Rufina-wound Skin Appearance) Assessed -Temperature (Rufina-wound Skin No Abnormality Appearance) (Pt Warm) -Tenderness on Palpation (Rufina-wound No Skin Appearance) -Ulcer Cleansing Rinsed/ Irrigated with Saline -Foul Odor after Cleansing No -Anesthetic Used 4% Lidocaine Solution #1 Medial LLE Superior Cluster -Combined with other wound No -Current Size (cm) - Length 2.2 -Current Size (cm) - Width 0.3 -Current Size (cm) - Depth 1.4 -Total Square Cm 0.66 -Photo Taken No -Tunneling No -Circular Undermining No -Classification - Thickness Full Thickness without Exposed Support Structure -Exudate Amt Small (1-33%) -Exudate Type Serosanguineous -Wound Margin Distinct, Outline Attached -Granulation Amt Medium (34-66%) -Granulation Quality [employer] -Slough/Fibrin Yes -Necrosis Amt Small (1-33%) -Necrotic Tissue Type Adherent Slough -Structure Exposed N/A -Texture (Rufina-wound Skin Appearance) Assessed Friable -Moisture (Rufina-wound Skin Appearance Assessed ) -Color (Rufina-wound Skin Appearance) Assessed -Temperature (Rufina-wound Skin No Abnormality Appearance) (Pt Warm) -Tenderness on Palpation (Rufina-wound No Skin Appearance) -Ulcer Cleansing Rinsed/ Irrigated with Saline -Foul Odor after Cleansing No -Anesthetic Used 4% Lidocaine Solution WC - Nurse 2 - General Ulcer CM Notes Start: 11/16/17 09:43 Freq: Status: Active Protocol: Activity Type Activity Date Activity User E-Sign Co-Sign Detail Recorded Client Recorded Date Recorded By Document 11/16/17 10:55 DV [id number] 11/16/17 11:02 DV 11/16/17 10:55 Wound Center Nurse 2 [Procedure/Treatment] #9 Medial LLE Inferior -Time 10:55 -Correct Patient Yes -Correct Side, Site, Position Yes -Correct Procedure Yes -Procedure Performed Yes -Type of Procedure Debridement -Clinical Debridement Subcutaneous -Post Debridement Size (cm) - Length 0.8 -Post Debridement Size (cm) - Width 0.4 -Post Debridement Size (cm) - Depth 1.8 -Total Square Cm 0.32 -Wound/Ulcer Outcome Not Healed -Ulcer Cleansing Rinsed/ Irrigated with Saline -Foul Odor after Cleansing No -Bioengineered Tissue No -Bleeding Controlled with Pressure -Treatment Response Procedure Tolerated Well #7 LLE- [place] -Time 10:56 -Correct Patient Yes -Correct Side, Site, Position Yes -Correct Procedure Yes -Procedure Performed Yes -Type of Procedure Debridement -Clinical Debridement Subcutaneous -Post Debridement Size (cm) - Length 0.4 -Post Debridement Size (cm) - Width 0.4 -Post Debridement Size (cm) - Depth 0.9 -Total Square Cm 0.16 -Wound/Ulcer Outcome Not Healed -Ulcer Cleansing Rinsed/ Irrigated with Saline -Foul Odor after Cleansing No -Bioengineered Tissue No -Bleeding Controlled with Pressure -Treatment Response Procedure Tolerated Well #1 Medial LLE Superior Cluster -Time 10:59 -Correct Patient Yes -Correct Side, Site, Position Yes -Correct Procedure Yes -Procedure Performed Yes -Type of Procedure Debridement -Clinical Debridement Subcutaneous -Post Debridement Size (cm) - Length 0.6 -Post Debridement Size (cm) - Width 0.4 -Post Debridement Size (cm) - Depth 2.5 -Total Square Cm 0.24 -Wound/Ulcer Outcome Not Healed -Ulcer Cleansing Rinsed/ Irrigated with Saline -Foul Odor after Cleansing No -Bioengineered Tissue No -Bleeding Controlled with Pressure -Treatment Response Procedure Tolerated Well [See Physician Procedure note for Specifics] Pain Scale: 0-10 Numeric [Pain] -Is Patient Pain Free? Yes Musculoskeletal: No Muscle Wasting Psych/Mental Status: Normal Affect Debridement Note Post-Debridement Measurements/Treatment WC - Nurse 2 - General Ulcer CM Notes Start: 11/16/17 09:43 Freq: Status: Active Protocol: Activity Type Activity Date Activity User E-Sign Co-Sign Detail Recorded Client Recorded Date Recorded By Document 11/16/17 10:55 DV [id number] 11/16/17 11:02 DV 11/16/17 10:55 Wound Center Nurse 2 #9 Medial LLE Inferior -Time 10:55 -Correct Patient Yes -Correct Side, Site, Position Yes -Correct Procedure Yes -Procedure Performed Yes -Type of Procedure Debridement -Clinical Debridement Subcutaneous -Post Debridement Size (cm) - Length 0.8 -Post Debridement Size (cm) - Width 0.4 -Post Debridement Size (cm) - Depth 1.8 -Total Square Cm 0.32 -Wound/Ulcer Outcome Not Healed -Ulcer Cleansing Rinsed/ Irrigated with Saline -Foul Odor after Cleansing No -Bioengineered Tissue No -Bleeding Controlled with Pressure -Treatment Response Procedure Tolerated Well #7 LLE- [place] -Time 10:56 -Correct Patient Yes -Correct Side, Site, Position Yes -Correct Procedure Yes -Procedure Performed Yes -Type of Procedure Debridement -Clinical Debridement Subcutaneous -Post Debridement Size (cm) - Length 0.4 -Post Debridement Size (cm) - Width 0.4 -Post Debridement Size (cm) - Depth 0.9 -Total Square Cm 0.16 -Wound/Ulcer Outcome Not Healed -Ulcer Cleansing Rinsed/ Irrigated with Saline -Foul Odor after Cleansing No -Bioengineered Tissue No -Bleeding Controlled with Pressure -Treatment Response Procedure Tolerated Well #1 Medial LLE Superior Cluster -Time 10:59 -Correct Patient Yes -Correct Side, Site, Position Yes -Correct Procedure Yes -Procedure Performed Yes -Type of Procedure Debridement -Clinical Debridement Subcutaneous -Post Debridement Size (cm) - Length 0.6 -Post Debridement Size (cm) - Width 0.4 -Post Debridement Size (cm) - Depth 2.5 -Total Square Cm 0.24 -Wound/Ulcer Outcome Not Healed -Ulcer Cleansing Rinsed/ Irrigated with Saline -Foul Odor after Cleansing No -Bioengineered Tissue No -Bleeding Controlled with Pressure -Treatment Response Procedure Tolerated Well Pain Scale: 0-10 Numeric Is Patient Pain Free? Yes Wound debrided: Left Lower extremity ( Pinhole ) Ulcer Wound Grade/Stage: Stage II Type of Debridement: Excisional debridement Anesthesia Used: 4% Lidocaine Solution Depth: Down to and including healthy tissue, in the subcutaneous layer Percentage of wound debrided: 100 Instrument Used: 3mm curette Tissue Removed: Slough and Devitalized tissue Severity: Fat Layer Exposed Amount of bleeding with debridement: Mild Bleeding Controlled with: Pressure Patient tolerated procedure well - Additional Wound Wound debrided: Left Lower Extremity Inferior Ulcer Wound Grade/Stage: Stage II Type of Debridement: Excisional debridement Anesthesia Used: 4% Lidocaine Solution Depth: Down to and including healthy tissue, in the subcutaneous layer Percentage of wound debrided: 100 Instrument Used: 3mm curette Tissue Removed: Slough and Devitalized tissue Severity: Fat Layer Exposed Amount of bleeding with debridement: Mild Bleeding Controlled with: Pressure Patient tolerated procedure: Patient tolerated procedure well - Additional Wound Wound debrided: Left Lower Extremity Superior Ulcer Wound Grade/Stage: Stage II Type of Debridement: Excisional debridement Anesthesia Used: 4% Lidocaine Solution Depth: Down to and including healthy tissue, in the subcutaneous layer Percentage of wound debrided: 100 Instrument Used: 3mm curette Tissue Removed: slough and devitalized tissue Severity: Fat Layer Exposed Amount of bleeding with debridement: Mild Bleeding Controlled with: Pressure Patient tolerated procedure: Patient tolerated procedure well Assessment/Plan Assessment: 1. Nonhealing ulcers cluster left medial leg probes to the bone. 2. Nonhealing ulcer left medial ankle. 3. Nonhealing ulcer left anterior leg. 4. s/p complex left tib fib fracture repair with hardware placement and soft tissue reconstruction with a microvascular free tissue transfer muscle flap. 5. Venous insufficiency. 6. Diabetes mellitus. 7. Former smoker. Plan: No new complaints in the past week and at this time. Patient appears to have done well with Annabella and his states that she has no problem reapplying it. I still however believe the patient will certainly benefit from a skin substitute due to chronicity of the wound. Etiology of the wound is multifactorial including the hardware, history of previous surgery and diabetes mellitus type 2. Scheduled to follow-up with infectious disease per Ortho recommendation due to his hardware.Wound debridement done as documented above. Procedure was well-tolerated. Continue Annabella daily to all ulcers. ( is alternating with aquacel ). Continue protein supplements and protein rich diet. Elevate lower extremities when seated and in bed. Avoid idle standing. Exercise as tolerated. Follow-up in 2 weeks. This note was generated with trustedsafe dictation software. It may contain incorrect words, spelling, and punctuation that were not noted in checking the note before signing.
[2017-11-30 09:41] VITALS: BP 124/81; PULSE 72; RESP 18; TEMP 36.5
--- NOTE | 2017-11-30 13:13 | PCM.WC.PN ---
(1) Diabetic leg ulcer Status: Acute Current Visit: Yes Code(s): E11.622 - Type 2 diabetes mellitus with other skin ulcer; L97.909 - Non-pressure chronic ulcer of unspecified part of unspecified lower leg with unspecified severity (2) Diabetes type 2, controlled Status: Chronic Current Visit: Yes Code(s): E11.9 - Type 2 diabetes mellitus without complications (3) Neuropathy of left lower extremity Status: Chronic Current Visit: Yes Code(s): G57.92 - Unspecified mononeuropathy of left lower limb (4) Ulcer of left lower extremity Status: Chronic Current Visit: Yes Code(s): L97.929 - Non-pressure chronic ulcer of unspecified part of left lower leg with unspecified severity Type of Wound Date of Service: 11/30/17 Chief Complaint: Nonhealing ulcers left leg s/p fracture and hardware placement. History of Wound: Patient presented to the Wound Center in 06/30 with nonhealing ulcers left leg. His initial trauma was in 2004 where he sustained a complex fracture wound that required hardware placement and a complex muscle flap for reconstruction. He states the flap came from his abdomen (rectus abdominis muscle flap) utilizing a microvascular free tissue transfer. This was done at [facility] in [place]. He states he did fine until 2015 when he developed an infection that required operative debridement in [place] followed by antibiotics and wound care. With recurrent ulceration and drainage, he came to this Wound Center. Wound culture in 06/30 showed Staphylococcus aureus and E. coli. Repeat culture in 07/30 showed E. coli. He is currently on Levaquin. He had a Venous Doppler study in 06/30 which showed no DVT and incompetent veins with insufficiency. He had an LEAS study in 06/30 which showed triphasic waveforms and calcification. No significant vascular stenoses seen. A CT in 07/30 showed the hardware placement with healed bone and no radiological evidence of osteomyelitis. He has been using Promogran/Annabella dressing changes for his wound care and aquacel packing of tunelling to bone. He is scheduled to follow up at the [facility] per recommendation from Dr. De Oliveira. Progress of Wound: Stable. No new complaints. Followed up with ID and per patient the plan is for surgical intervention due to chronic infection with a possibility for amputation if limb salvage can not be achieved. - Physical Exam Vital Signs Temp Pulse Resp BP 97.7 F L 72 18 124/81 H 11/30/17 09:41 11/30/17 09:41 11/30/17 09:41 11/30/17 09:41 General: Alert, Oriented x3, Cooperative, No apparent distress HEENT: Atraumatic, Normocephalic Oral: Moist Mucosa Neck: Supple Lungs: Normal air movement Cardiovascular: Regular rate Abdomen: Non Tender, Obese Extremities: No cyanosis, Edema Skin: Ulcer/ Wound Wound Measurements and Assessment WC - Nurse 1 - General Ulcer Measurement Start: 11/16/17 09:43 Freq: Status: Active Protocol: Activity Type Activity Date Activity User E-Sign Co-Sign Detail Recorded Client Recorded Date Recorded By Document 11/30/17 09:41 BENOIT [id number] 11/30/17 09:58 BENOIT 11/30/17 09:41 Wound Center Nurse 1 [Ulcer Assessment] #9 Medial LLE Inferior -Combined with other wound No -Current Size (cm) - Length 0.5 -Current Size (cm) - Width 0.3 -Current Size (cm) - Depth 1.4 -Total Square Cm 0.15 -Date of Last Picture (Recall this 11/08/17 field) -Photo Taken No -Epithelialization None Present -Tunneling No -Undermining/Tunneling No -Circular Undermining No -Classification - Thickness Full Thickness without Exposed Support Structure -Exudate Amt Medium (34-66%) -Exudate Type Serosanguineous -Wound Margin Distinct, Outline Attached -Granulation Amt None Present (0 %) -Granulation Quality N/A -Slough/Fibrin Yes -Necrosis Amt None Present (0 %) -Necrotic Tissue Type Adherent Slough -Structure Exposed N/A -Texture (Rufina-wound Skin Appearance) Localized Edema -Moisture (Rufina-wound Skin Appearance No Abnormality ) -Color (Rufina-wound Skin Appearance) No Abnormality -Temperature (Rufina-wound Skin No Abnormality Appearance) (Pt Warm) -Tenderness on Palpation (Rufina-wound No Skin Appearance) -Ulcer Cleansing Rinsed/ Irrigated with Saline -Foul Odor after Cleansing No -Anesthetic Used 5% Lidocaine Gel #7 LLE- Upper [place] -Combined with other wound No -Current Size (cm) - Length 0.5 -Current Size (cm) - Width 0.5 -Current Size (cm) - Depth 0.3 -Total Square Cm 0.25 -Date of Last Picture (Recall this 11/08/17 field) -Photo Taken No -Epithelialization None Present -Tunneling No -Undermining/Tunneling No -Circular Undermining No -Classification - Thickness Full Thickness without Exposed Support Structure -Exudate Amt Small (1-33%) -Exudate Type Serosanguineous -Wound Margin Distinct, Outline Attached -Granulation Amt None Present (0 %) -Granulation Quality N/A -Slough/Fibrin Yes -Necrosis Amt None Present (0 %) -Necrotic Tissue Type Adherent Slough -Structure Exposed N/A -Texture (Rufina-wound Skin Appearance) No Abnormality -Moisture (Rufina-wound Skin Appearance No Abnormality ) -Color (Rufina-wound Skin Appearance) No Abnormality -Temperature (Rufina-wound Skin No Abnormality Appearance) (Pt Warm) -Tenderness on Palpation (Rufina-wound No Skin Appearance) -Ulcer Cleansing Rinsed/ Irrigated with Saline -Foul Odor after Cleansing No -Anesthetic Used 5% Lidocaine Gel #1 Medial LLE Superior Cluster -Current Size (cm) - Length 0.5 -Current Size (cm) - Width 0.3 -Current Size (cm) - Depth 2.4 -Total Square Cm 0.15 -Date of Last Picture (Recall this 11/08/17 field) -Photo Taken No -Epithelialization None Present -Tunneling No -Undermining/Tunneling No -Circular Undermining No -Classification - Thickness Full Thickness without Exposed Support Structure -Exudate Amt Small (1-33%) -Exudate Type Serosanguineous -Wound Margin Distinct, Outline Attached -Granulation Amt None Present (0 %) -Granulation Quality N/A -Slough/Fibrin Yes -Necrosis Amt None Present (0 %) -Necrotic Tissue Type Adherent Slough -Structure Exposed N/A -Texture (Rufina-wound Skin Appearance) Localized Edema -Moisture (Rufina-wound Skin Appearance No Abnormality ) -Color (Rufina-wound Skin Appearance) No Abnormality -Temperature (Rufina-wound Skin No Abnormality Appearance) (Pt Warm) -Tenderness on Palpation (Rufina-wound No Skin Appearance) -Ulcer Cleansing Rinsed/ Irrigated with Saline -Foul Odor after Cleansing No -Anesthetic Used 5% Lidocaine Gel [Edema Assessment] -Lower Limb Edema Present Yes -Left Calf (cm) 44.7 -Left Ankle (cm) 32.0 WC - Nurse 2 - General Ulcer CM Notes Start: 11/16/17 09:43 Freq: Status: Active Protocol: Activity Type Activity Date Activity User E-Sign Co-Sign Detail Recorded Client Recorded Date Recorded By Document 11/30/17 11:02 DV [id number] 11/30/17 11:07 DV 11/30/17 11:02 Wound Center Nurse 2 [Procedure/Treatment] #9 Medial LLE Inferior -Time 11:03 -Correct Patient Yes -Correct Side, Site, Position Yes -Correct Procedure Yes -Procedure Performed Yes -Type of Procedure Debridement -Clinical Debridement Subcutaneous -Post Debridement Size (cm) - Length 0.6 -Post Debridement Size (cm) - Width 0.3 -Post Debridement Size (cm) - Depth 2.0 -Total Square Cm 0.18 -Wound/Ulcer Outcome Not Healed -Ulcer Cleansing Rinsed/ Irrigated with Saline -Foul Odor after Cleansing No -Bioengineered Tissue No -Bleeding Controlled with Pressure -Treatment Response Procedure Tolerated Well #7 LLE- Upper [place] -Time 11:03 -Correct Patient Yes -Correct Side, Site, Position Yes -Correct Procedure Yes -Procedure Performed Yes -Type of Procedure Debridement -Clinical Debridement Subcutaneous -Post Debridement Size (cm) - Length 0.5 -Post Debridement Size (cm) - Width 0.6 -Post Debridement Size (cm) - Depth 0.8 -Total Square Cm 0.30 -Wound/Ulcer Outcome Not Healed -Ulcer Cleansing Rinsed/ Irrigated with Saline -Foul Odor after Cleansing No -Bioengineered Tissue No -Bleeding Controlled with Pressure -Treatment Response Procedure Tolerated Well #1 Medial LLE Superior Cluster -Time 11:04 -Correct Patient Yes -Correct Side, Site, Position Yes -Correct Procedure Yes -Procedure Performed Yes -Type of Procedure Debridement -Clinical Debridement Subcutaneous -Post Debridement Size (cm) - Length 0.5 -Post Debridement Size (cm) - Width 0.3 -Post Debridement Size (cm) - Depth 2.5 -Total Square Cm 0.15 -Wound/Ulcer Outcome Not Healed -Ulcer Cleansing Rinsed/ Irrigated with Saline -Foul Odor after Cleansing No -Bioengineered Tissue No -Bleeding Controlled with Pressure -Treatment Response Procedure Tolerated Well [See Physician Procedure note for Specifics] Pain Scale: 0-10 Numeric [Pain] -Is Patient Pain Free? Yes Musculoskeletal: No Muscle Wasting Neurological: Cranial nerves II-XII grossly intact Psych/Mental Status: Normal Affect Debridement Note Post-Debridement Measurements/Treatment WC - Nurse 2 - General Ulcer CM Notes Start: 11/16/17 09:43 Freq: Status: Active Protocol: Activity Type Activity Date Activity User E-Sign Co-Sign Detail Recorded Client Recorded Date Recorded By Document 11/16/17 10:55 DV [id number] 11/16/17 11:02 DV Document 11/30/17 11:02 DV [id number] 11/30/17 11:07 DV 11/16/17 11/30/17 10:55 11:02 Wound Center Nurse 2 #9 Medial LLE Inferior -Time 10:55 11:03 -Correct Patient Yes Yes -Correct Side, Site, Position Yes Yes -Correct Procedure Yes Yes -Procedure Performed Yes Yes -Type of Procedure Debridement Debridement -Clinical Debridement Subcutaneous Subcutaneous -Post Debridement Size (cm) - Length 0.8 0.6 -Post Debridement Size (cm) - Width 0.4 0.3 -Post Debridement Size (cm) - Depth 1.8 2.0 -Total Square Cm 0.32 0.18 -Wound/Ulcer Outcome Not Healed Not Healed -Ulcer Cleansing Rinsed/ Rinsed/ Irrigated with Irrigated with Saline Saline -Foul Odor after Cleansing No No -Bioengineered Tissue No No -Bleeding Controlled with Pressure Pressure -Treatment Response Procedure Procedure Tolerated Well Tolerated Well #7 LLE- Upper [place] -Time 10:56 11:03 -Correct Patient Yes Yes -Correct Side, Site, Position Yes Yes -Correct Procedure Yes Yes -Procedure Performed Yes Yes -Type of Procedure Debridement Debridement -Clinical Debridement Subcutaneous Subcutaneous -Post Debridement Size (cm) - Length 0.4 0.5 -Post Debridement Size (cm) - Width 0.4 0.6 -Post Debridement Size (cm) - Depth 0.9 0.8 -Total Square Cm 0.16 0.30 -Wound/Ulcer Outcome Not Healed Not Healed -Ulcer Cleansing Rinsed/ Rinsed/ Irrigated with Irrigated with Saline Saline -Foul Odor after Cleansing No No -Bioengineered Tissue No No -Bleeding Controlled with Pressure Pressure -Treatment Response Procedure Procedure Tolerated Well Tolerated Well #1 Medial LLE Superior Cluster -Time 10:59 11:04 -Correct Patient Yes Yes -Correct Side, Site, Position Yes Yes -Correct Procedure Yes Yes -Procedure Performed Yes Yes -Type of Procedure Debridement Debridement -Clinical Debridement Subcutaneous Subcutaneous -Post Debridement Size (cm) - Length 0.6 0.5 -Post Debridement Size (cm) - Width 0.4 0.3 -Post Debridement Size (cm) - Depth 2.5 2.5 -Total Square Cm 0.24 0.15 -Wound/Ulcer Outcome Not Healed Not Healed -Ulcer Cleansing Rinsed/ Rinsed/ Irrigated with Irrigated with Saline Saline -Foul Odor after Cleansing No No -Bioengineered Tissue No No -Bleeding Controlled with Pressure Pressure -Treatment Response Procedure Procedure Tolerated Well Tolerated Well Pain Scale: 0-10 Numeric Is Patient Pain Free? Yes Yes Wound debrided: Left Lower Extremity ( Carter ) Pin hole Wound Grade/Stage: Stage II Type of Debridement: Excisional debridement Anesthesia Used: 4% Lidocaine Solution Depth: Down to and including healthy tissue, in the subcutaneous layer Percentage of wound debrided: 100 Instrument Used: 3mm curette Tissue Removed: Slough and devitalized tissue Severity: Fat Layer Exposed Amount of bleeding with debridement: Mild Bleeding Controlled with: Pressure Patient tolerated procedure well - Additional Wound Wound debrided: Left Lower Extremity Inferior ( Medial ) Wound Grade/Stage: Stage II Type of Debridement: Excisional debridement Anesthesia Used: 4% Lidocaine Solution Depth: Down to and including healthy tissue Percentage of wound debrided: 100 Instrument Used: 3mm curette Tissue Removed: Slough and Devitalized tissue Severity: Fat Layer Exposed Amount of bleeding with debridement: Mild Bleeding Controlled with: Pressure Patient tolerated procedure: Patient tolerated procedure well - Additional Wound Wound debrided: Left Lower Extremity Superior Cluster Wound Grade/Stage: Stage II Type of Debridement: Excisional debridement Anesthesia Used: 4% Lidocaine Solution Depth: Down to and including healthy tissue, in the subcutaneous layer Percentage of wound debrided: 100 Instrument Used: 3mm curette Tissue Removed: Slough and Devitalized tissue Severity: Fat Layer Exposed Amount of bleeding with debridement: Mild Bleeding Controlled with: Pressure Patient tolerated procedure: Patient tolerated procedure well Assessment/Plan Active Problems Diabetic leg ulcer (Acute) Ulcer of left lower extremity (Chronic) Diabetes type 2, controlled (Chronic) Neuropathy of left lower extremity (Chronic) Assessment: 1. Nonhealing ulcers cluster left medial leg probes to the bone. 2. Nonhealing ulcer left medial ankle. 3. Nonhealing ulcer left anterior leg. 4. s/p complex left tib fib fracture repair with hardware placement and soft tissue reconstruction with a microvascular free tissue transfer muscle flap. 5. Venous insufficiency. 6. Diabetes mellitus. 7. Former smoker. Plan: No significant changes in the past week. He did follow-up with ID as documented above and plan is for surgical intervention. No indication for antibiotics at this time per patient. Wound debridement done as documented above. Procedure was well-tolerated. Continue Annabella daily to all ulcers. ( is alternating with aquacel ). Continue protein supplements and protein rich diet. Elevate lower extremities when seated and in bed. Avoid idle standing. Exercise as tolerated. Follow-up in 2 weeks. This note was generated with [employer] dictation software. It may contain incorrect words, spelling, and punctuation that were not noted in checking the note before signing.
== END 2017-12-11 23:59 ==
LOC: WC 09:15
PROVIDERS: Family Provider Family Medicine; PCP Family Medicine; Visit Provider Internal Medicine
DX: E11.622 Type 2 diabetes mellitus with other skin ulcer (principal); L97.822 Non-pressure chronic ulcer of other part of left lower leg with fat layer exposed; E11.41 Type 2 diabetes mellitus with diabetic mononeuropathy; Z87.891 Personal history of nicotine dependence; E11.51 Type 2 diabetes mellitus with diabetic peripheral angiopathy without gangrene
CPT/HCPCS: 11042